=== PATIENT | female | born 1990 | race Caucasian/White ===

== ENCOUNTER 2020-07-11 13:22 | Outpatient (REF) | payer OTHER, SELFPAY ==
[2020-07-11 14:56] LABS: MANUAL DIFF FLAG NO
[2020-07-11 15:01] LABS: Basophils Absolute Auto 0.1 X10*3/uL (0.0-0.2); Basophils Percent Auto 1.7 % (0-2); Eosinophils Percent Auto 0.5 % (0-4); Hemoglobin 11.8 g/dl (12.0-16.0); Imm Gran Abs Auto 0.01 X10*3/uL (0.00-0.03); Imm Gran Pct Auto 0.2 % (0.0-0.4); Lymphocytes Absolute Auto 1.2 X10*3/uL (1.2-4.9); Lymphocytes Percent Auto 29.1 % (20-40); Mean Corpuscular HGB Conc 33.7 g/dl (31.0-35.0); Mean Corpuscular Hemoglobin 35.6 pg (27.0-33.0); Mean Corpuscular Volume 105.7 fL (80-98); Mean Platelet Volume 9.1 fL (9.4-12.3); Monocytes Absolute Auto 0.2 X10*3/uL (0.1-1.2); Monocytes Percent Auto 4.5 % (2-11); Neutrophils Absolute Auto 2.7 X10*3/uL (2.0-8.3); Platelet Count 381 X10*3/uL (160-400); Red Blood Count 3.31 X10*6/uL (4.20-5.50); Red Cell Distribution Width 14.6 % (11.0-16.0); White Blood Count 4.2 X10*3/uL (4.8-10.8)
[2020-07-11 15:25] LABS: Alanine Aminotransferase 39 U/L (0-31); Albumin Level 3.9 g/dL (3.5-5.0); Alkaline Phosphatase 95 U/L (39-117); Anion Gap 16 (12-20); Aspartate Amino Transferase 54 U/L (5-31); Bilirubin Total 0.5 mg/dL (0.0-1.0); Blood Urea Nitrogen 6 mg/dL (9-16); C Reactive Protein < 0.02 mg/dL (< or = 0.50); Calcium 8.4 mg/dL (8.4-10.2); Carbon Dioxide 22 mmol/L (22-29); Chloride 107 mmol/L (96-108); Estimated Glomerular Filt Rate > 60; Glucose Random 86 mg/dL (60-115); Potassium 4.7 mmol/l (3.3-5.1); Sodium 140 mmol/L (135-145); Total Protein 6.4 g/dL (6.5-8.0)
[2020-07-11 16:19] LABS: Erythrocyte Sedimentation Rate 5 MM/HR (0-20)
[2020-07-12 08:00] LABS: HBc Num1 0.08 S/CO (0.00-0.79); HBsAGNum1 0.14 S/CO (0.00-0.99); Hepatitis A Antibody IgM 0.15 Index (0-0.79); Hepatitis B Core Antibody Nonreactive (Nonreactive); Hepatitis B Surface Antigen Negative (Negative); ~HepC Num1 0.06 S/CO (0.00-0.79); ~Hepatitis A Antibody IgM Nonreactive (Nonreactive); ~Hepatitis B Surface Antibody NONREACTIVE (Nonreactive); ~Hepatitis C Antibody Nonreactive (Nonreactive)
[2020-07-13 18:42] LABS: TS Negative Control Passed; TS Panel A 0; TS Panel B 0; TS Positive Control Passed; TSpotTB Negative (SeeBelow)
[2020-07-15 09:36] LABS: HLA B27 Negative (Negative)
== END 2020-07-11 13:23 | disposition home or self-care (01) ==
LOC: HO.LAB 13:22
PROVIDERS: PCP Nurse Practitioner Family; Referring Provider Nurse Practitioner Family; Visit Provider Student in an Organized Health Care Education/Training Program
DX: L40.50 Arthropathic psoriasis, unspecified (principal); Z79.1 Long term (current) use of non-steroidal anti-inflammatories (NSAID)
CPT/HCPCS: 36415; 80053; 85025; 85652; 86140; 86481; 86704; 86706; 86709; 86803; 86812; 87340

== ENCOUNTER 2020-09-07 09:53 | Outpatient (REF) | payer OTHER, SELFPAY ==
--- NOTE | 2020-09-07 09:56 | US_ITS ---
EXAMINATION: US ABDOMEN COMPLETE CLINICAL INFORMATION: Elevation of the levels of liver transaminase levels. COMPARISON: None TECHNIQUE: Real-time imaging of the abdominal viscera. Technically difficult study secondary to body habitus. FINDINGS: PANCREAS: The body of the pancreas is visualized well and appears unremarkable. The head and the tail of the pancreas is not visualized. ABDOMINAL AORTA: The proximal, mid, and distal segments are normal in caliber. INFERIOR VENA CAVA: Visualized portions are normal. LIVER: The liver is normal size, contour with increased echogenicity. No focal hepatic lesion. There is no intrahepatic biliary duct dilatation seen. GALLBLADDER: There are multiple echogenic packed gallstones with mild wall thickening measuring 0.35 cm. There is a positive TORITO sign. The gallbladder is physiologically distended without evidence of sludge, wall thickening or pericholecystic fluid. COMMON BILE DUCT: Normal in caliber measuring 0.6 cm in diameter. RIGHT KIDNEY: Normal. No hydronephrosis. No renal calculi or focal parenchymal lesions. The kidney measures 11.6 cm in maximum dimension. LEFT KIDNEY: A small non twinkle echogenic foci in the lower pole question calcification versus tiny stone. No hydronephrosis. No renal calculi or focal parenchymal lesions. The kidney measures 11.2 cm in maximum dimension. SPLEEN: Normal. The spleen measures 10.3 cm in maximum dimension. FREE FLUID: None. US/US abdomen complete IMPRESSION: Impacted gallstones with wall thickening and positive S sign. Small echogenic foci in the lower pole left kidney likely calcification or tiny stone. Hepatic steatosis without focal lesion.
== END 2020-09-07 09:54 | disposition home or self-care (01) ==
LOC: HO.US 09:53
PROVIDERS: PCP Nurse Practitioner Family; Visit Provider Student in an Organized Health Care Education/Training Program
DX: R74.01 Elevation of levels of liver transaminase levels (principal)
CPT/HCPCS: 76700

== ENCOUNTER 2020-09-28 12:29 | Outpatient (REF) | payer OTHER, SELFPAY ==
[2020-09-28 14:00] LABS: MANUAL DIFF FLAG NO
[2020-09-28 14:05] LABS: Basophils Absolute Auto 0.1 X10*3/uL (0.0-0.2); Basophils Percent Auto 1.2 % (0-2); Eosinophils Absolute Auto 0.1 X10*3/uL (0.0-0.4); Eosinophils Percent Auto 2.5 % (0-4); Hematocrit 38.6 % (37-47); Hemoglobin 12.6 g/dl (12.0-16.0); Imm Gran Abs Auto 0.01 X10*3/uL (0.00-0.03); Imm Gran Pct Auto 0.2 % (0.0-0.4); Lymphocytes Absolute Auto 2.2 X10*3/uL (1.2-4.9); Lymphocytes Percent Auto 38.5 % (20-40); Mean Corpuscular HGB Conc 32.6 g/dl (31.0-35.0); Mean Corpuscular Hemoglobin 33.7 pg (27.0-33.0); Mean Corpuscular Volume 103.2 fL (80-98); Mean Platelet Volume 11.2 fL (9.4-12.3); Monocytes Absolute Auto 0.4 X10*3/uL (0.1-1.2); Monocytes Percent Auto 6.2 % (2-11); Neutrophils Absolute Auto 2.9 X10*3/uL (2.0-8.3); Neutrophils Percent Auto 51.4 % (45-73); Platelet Count 427 X10*3/uL (160-400); Red Blood Count 3.74 X10*6/uL (4.20-5.50); Red Cell Distribution Width 10.7 % (11.0-16.0); White Blood Count 5.6 X10*3/uL (4.8-10.8)
[2020-09-28 14:35] LABS: Alanine Aminotransferase 77 U/L (0-31); Albumin Level 4.5 g/dL (3.5-5.0); Alkaline Phosphatase 105 U/L (39-117); Anion Gap 15 (12-20); Aspartate Amino Transferase 54 U/L (5-31); Bilirubin Total 0.6 mg/dL (0.0-1.0); Blood Urea Nitrogen 8 mg/dL (9-16); C Reactive Protein 0.16 mg/dL (< or = 0.50); Calcium 10.1 mg/dL (8.4-10.2); Carbon Dioxide 23 mmol/L (22-29); Chloride 105 mmol/L (96-108); Estimated Glomerular Filt Rate > 60; Glucose Random 89 mg/dL (60-115); Potassium 5.2 mmol/L (3.3-5.1); Sodium 138 mmol/L (135-145); Total Protein 7.3 g/dL (6.5-8.0)
[2020-09-28 15:18] LABS: Erythrocyte Sedimentation Rate 51 MM/HR (0-20)
== END 2020-09-28 12:30 | disposition home or self-care (01) ==
LOC: HO.LAB 12:29
PROVIDERS: PCP Nurse Practitioner Family; Visit Provider Student in an Organized Health Care Education/Training Program
DX: L40.50 Arthropathic psoriasis, unspecified (principal); L40.9 Psoriasis, unspecified; Z79.1 Long term (current) use of non-steroidal anti-inflammatories (NSAID); Z79.899 Other long term (current) drug therapy
CPT/HCPCS: 36415; 80053; 85025; 85652; 86140

== ENCOUNTER 2021-01-17 12:58 | Outpatient (REF) | payer OTHER, SELFPAY ==
[2021-01-17 14:26] LABS: MANUAL DIFF FLAG NO
[2021-01-17 14:29] LABS: Basophils Percent Auto 0.6 % (0-2); Eosinophils Absolute Auto 0.1 X10*3/uL (0.0-0.4); Eosinophils Percent Auto 0.9 % (0-4); Hematocrit 35.7 % (37-47); Hemoglobin 12.1 g/dl (12.0-16.0); Imm Gran Abs Auto 0.02 X10*3/uL (0.00-0.03); Imm Gran Pct Auto 0.3 % (0.0-0.4); Lymphocytes Absolute Auto 2.3 X10*3/uL (1.2-4.9); Lymphocytes Percent Auto 36.5 % (20-40); Mean Corpuscular HGB Conc 33.9 g/dl (31.0-35.0); Mean Corpuscular Hemoglobin 34.5 pg (27.0-33.0); Mean Corpuscular Volume 101.7 fL (80-98); Mean Platelet Volume 10.1 fL (9.4-12.3); Monocytes Absolute Auto 0.3 X10*3/uL (0.1-1.2); Neutrophils Absolute Auto 3.6 X10*3/uL (2.0-8.3); Neutrophils Percent Auto 56.7 % (45-73); Platelet Count 286 X10*3/uL (160-400); Red Blood Count 3.51 X10*6/uL (4.20-5.50); White Blood Count 6.4 X10*3/uL (4.8-10.8)
[2021-01-17 14:45] LABS: Alanine Aminotransferase 12 U/L (0-31); Albumin Level 4.1 g/dL (3.5-5.0); Alkaline Phosphatase 78 U/L (39-117); Anion Gap 15 (12-20); Aspartate Amino Transferase 16 U/L (5-31); Bilirubin Total 0.6 mg/dL (0.0-1.0); Blood Urea Nitrogen 10 mg/dL (9-16); C Reactive Protein 0.15 mg/dL (< or = 0.50); Calcium 9.1 mg/dL (8.4-10.2); Carbon Dioxide 21 mmol/L (22-29); Chloride 105 mmol/L (96-108); Estimated Glomerular Filt Rate > 60; Glucose Random 93 mg/dL (60-115); Sodium 137 mmol/L (135-145); Total Protein 6.4 g/dL (6.5-8.0)
[2021-01-17 15:17] LABS: Erythrocyte Sedimentation Rate 5 MM/HR (0-20)
[2021-01-17 15:33] LABS: Folate 9.2 ng/mL (> or = 4.0); Vitamin B12 469 pg/mL (200-900)
[2021-01-22 00:57] LABS: Intrinsic Factor Antibodies Negative (Negative)
[2021-01-22 17:16] LABS: Methylmalonic Acid 74 nmol/L (87-318)
[2021-01-23 11:32] LABS: Parietal Cell Antibody <=20.0 Unit (<=20.0)
[2021-01-23 13:07] LABS: VITAMIN D (1,25 OH) D3 41 pg/mL; Vit D (1,25-Dihydroxy) Total 41 pg/mL (18-72); Vitamin D (1,25 OH) D2 <8 pg/mL
== END 2021-01-17 12:59 | disposition home or self-care (01) ==
LOC: HO.LAB 12:58
PROVIDERS: Nurse Practitioner Family; PCP Nurse Practitioner Family; Visit Provider Student in an Organized Health Care Education/Training Program
DX: L40.50 Arthropathic psoriasis, unspecified (principal); M48.02 Spinal stenosis, cervical region; Z79.899 Other long term (current) drug therapy; Z79.891 Long term (current) use of opiate analgesic; Z79.1 Long term (current) use of non-steroidal anti-inflammatories (NSAID)
CPT/HCPCS: 36415; 80053; 82607; 82652; 82746; 83516; 83735; 83921; 85025; 85652; 86140; 86340

== ENCOUNTER 2021-04-13 11:45 | Outpatient (REF) | payer OTHER, SELFPAY ==
[2021-04-13 13:09] LABS: MANUAL DIFF FLAG NO
[2021-04-13 13:14] LABS: Basophils Percent Auto 0.7 % (0-2); Eosinophils Absolute Auto 0.1 X10*3/uL (0.0-0.4); Hematocrit 33.3 % (37-47); Hemoglobin 11.3 g/dl (12.0-16.0); Lymphocytes Absolute Auto 2.3 X10*3/uL (1.2-4.9); Lymphocytes Percent Auto 39.4 % (20-40); Mean Corpuscular HGB Conc 33.9 g/dl (31.0-35.0); Mean Corpuscular Hemoglobin 33.8 pg (27.0-33.0); Mean Corpuscular Volume 99.7 fL (80-98); Mean Platelet Volume 9.8 fL (9.4-12.3); Monocytes Absolute Auto 0.3 X10*3/uL (0.1-1.2); Monocytes Percent Auto 5.2 % (2-11); Neutrophils Absolute Auto 3.1 X10*3/uL (2.0-8.3); Neutrophils Percent Auto 53.7 % (45-73); Platelet Count 331 X10*3/uL (160-400); Red Blood Count 3.34 X10*6/uL (4.20-5.50); Red Cell Distribution Width 12.6 % (11.0-16.0); White Blood Count 5.7 X10*3/uL (4.8-10.8)
[2021-04-13 13:51] LABS: Alanine Aminotransferase 28 U/L (0-31); Albumin Level 3.9 g/dL (3.5-5.0); Alkaline Phosphatase 117 U/L (39-117); Anion Gap 15 (12-20); Aspartate Amino Transferase 29 U/L (5-31); Bilirubin Total 0.5 mg/dL (0.0-1.0); Blood Urea Nitrogen 7 mg/dL (9-16); C Reactive Protein < 0.02 mg/dL (< or = 0.50); Calcium 8.7 mg/dL (8.4-10.2); Carbon Dioxide 21 mmol/L (22-29); Chloride 107 mmol/L (96-108); Estimated Glomerular Filt Rate > 60; Glucose Random 86 mg/dL (60-115); Potassium 4.4 mmol/L (3.3-5.1); Sodium 139 mmol/L (135-145); Total Protein 6.4 g/dL (6.5-8.0)
[2021-04-13 14:22] LABS: Erythrocyte Sedimentation Rate 5 MM/HR (0-20)
== END 2021-04-13 11:46 | disposition home or self-care (01) ==
LOC: HO.LAB 11:45
PROVIDERS: Visit Provider Student in an Organized Health Care Education/Training Program
DX: L40.50 Arthropathic psoriasis, unspecified (principal); L40.9 Psoriasis, unspecified; Z79.1 Long term (current) use of non-steroidal anti-inflammatories (NSAID)
CPT/HCPCS: 36415; 80053; 85025; 85652; 86140

== ENCOUNTER 2024-05-27 15:23 | Outpatient (REF) | payer OTHER, MEDICAID, SELFPAY ==
[2024-05-27 15:58] LABS: MANUAL DIFF FLAG NO
[2024-05-27 16:19] LABS: Basophils Percent Auto 0.2 % (0-2); Eosinophils Percent Auto 0.1 % (0-4); Hematocrit 36.2 % (37.0-47.0); Hemoglobin 12.7 g/dl (12.0-16.0); Imm Gran Abs Auto 0.11 X10*3/uL (0.00-0.03); Imm Gran Pct Auto 0.7 % (0.0-0.4); Lymphocytes Absolute Auto 1.9 X10*3/uL (1.2-4.9); Lymphocytes Percent Auto 11.7 % (20-40); Mean Corpuscular HGB Conc 35.1 g/dl (31.0-35.0); Mean Corpuscular Volume 99.7 fL (80.0-98.0); Mean Platelet Volume 9.9 fL (9.4-12.3); Monocytes Absolute Auto 0.6 X10*3/uL (0.1-1.2); Monocytes Percent Auto 3.8 % (2-11); Neutrophils Absolute Auto 13.2 x10*3/uL (2.0-8.3); Neutrophils Percent Auto 83.5 % (45-73); Platelet Count 434 X10*3/uL (160-400); Red Blood Count 3.63 X10*6/uL (4.20-5.50); Red Cell Distribution Width 13.4 % (11.0-16.0); White Blood Count 15.8 X10*3/uL (4.8-10.8)
[2024-05-27 16:47] LABS: Alanine Aminotransferase 42 U/L (0-31); Albumin Level 3.9 g/dL (3.5-5.0); Alkaline Phosphatase 63 U/L (39-117); Anion Gap 14 (12-20); Aspartate Amino Transferase 19 U/L (5-31); Bilirubin Total 0.6 mg/dL (0.0-1.0); Blood Urea Nitrogen 17 mg/dL (9-16); Calcium 9.5 mg/dL (8.4-10.2); Carbon Dioxide 23 mmol/L (22-29); Chloride 104 mmol/L (96-108); Estimated Glomerular Filt Rate > 60; Glucose Random 96 mg/dL (60-115); Potassium 3.9 mmol/L (3.3-5.1); Sodium 137 mmol/L (135-145); Total Protein 8.4 g/dL (6.5-8.0)
== END 2024-05-27 15:24 | disposition home or self-care (01) ==
LOC: HO.LAB 15:23
PROVIDERS: PCP Nurse Practitioner Family; Visit Provider Psychiatry & Neurology Neurology
DX: I77.6 Arteritis, unspecified (principal)
CPT/HCPCS: 36415; 80053; 85025

== ENCOUNTER 2024-11-26 10:51 | Outpatient (AMB) | payer OTHER, MEDICAID, SELFPAY ==
--- NOTE | 2024-11-26 10:53 | HO.SPINEOV ---
Vital Signs 11/26/24 11:22 Height 5 ft 5 in Weight 186 lb BMI 30.9 Intake Visit Reasons: back pain/numbness of left leg Intake Note: Ms. Chow is here today c/o low back pain and Left leg numbness. Genetic Technologist Required: No Allergies ceftazidime Allergy (Intermediate, Verified 11/26/24 11:23) rash penicillin V Allergy (Intermediate, Verified 11/26/24 11:23) Rash duloxetine [From Cymbalta] Allergy (Verified 11/26/24 11:23) stomache gabapentin Adverse Reaction (Severe, Verified 11/26/24 11:23) suicidal thoughts pregabalin [From Lyrica] Adverse Reaction (Severe, Verified 11/26/24 11:23) suicidal thoughts Physical Exam Vital Signs: BMI result Body Mass Index 30.9 Assessment & Plan Assessment & Plan (1) Cervical myelopathy: Code(s): G95.9 - Disease of spinal cord, unspecified Category: Medical (2) Footdrop: Code(s): M21.379 - Foot drop, unspecified foot Category: Medical Plan Mrs Chow is here in follow-up today. This is a patient that Dr. Matoss it a C5-6 ACDF back in 2020 for myelopathy. She did great after that surgery. She has had a host of different issues going on though since that time. She has history of autoimmune disease including psoriatic arthritis, has been dealing with that for some time and ultimately last fall it sounds like developed some kind of dystonia related to anti nausea medications. At that time, she was admitted to the hospital and was having severe pain in addition to the dystonia. After they eventually found the antidote, some of the pain went away but never completely. Since that time she has been more less in a wheelchair unable to stand and walk. She has a superimposed diagnosis of vascular neuropathy and is followed by Dr. Luis Maldonado in [place]. He has been treating her for that in addition to chronic pain in her back which is more recently been escalating. She was on gabapentin, Solu-Medrol and baclofen but she is currently weaning off these things. She reports that over the last month or more she has developed a left footdrop and severe bilateral lower extremity pain in addition to severe central back pain. She also feels like she is having a flare-up of her neck pain with pain going down her arms with numbness. On my exam today, she is in a wheelchair, her lower extremities are demonstrating signs of atrophy and muscle wasting. Her upper extremities in her hands appear to have normal tone and bulk. Motor exam reveals that she is unable to get out of the wheelchair on alone unassisted, she was able to stand with my assistance but she was very unsteady. She was able to localize her back pain over what looks like the middle of her lumbar spine. In terms of motor exam, her hands are slightly weak, , but her lower extremities are quite limited with 2/5 function of her hip flexors, 4-5 function of her quadriceps, 0/5 function of her left tibialis and left EHL. Right tibialis is 5/5. She also has some slight weakness of her left plantar flexion as well I would rate this as 4-5. She is hyperreflexic in the upper extremities with Wiggins's sign, and absent reflexes in the lower extremities. She had a cervical, thoracic and lumbar MRI done in July at [facility]. There is postsurgical changes at C5-6, looks like some progression of degenerative disc disease at C3-4 and C6-7 causing moderate stenosis. Thoracic spine is unremarkable. There is also some baseline degenerative disc disease in her lumbar spine but I do not see any significant central canal stenosis. Given that the patient has developed fairly rapid weakness of her lower extremity over the last month, specifically complete left footdrop, would like to repeat the lumbar MRI and with the return of her numbness of her arms similar to what she had before her anterior cervical fusion, I would like to repeat a cervical MRI. I will see her back after the MRIs on a day that Dr. Bob is here. I will call her in a prescription of Valium to her local pharmacy to help with the MRI anxiety. Total amount of time spent in this visit was 20 minutes in discussion of symptoms, cervical, thoracic and lumbar imaging results and subsequent plan of care Solomon Bob MD,PhD [facility] Orders: Orders MR cervical spine wo con Today G95.9 - Disease of spinal cord, unspecified MR lumbar spine wo con Today M21.379 - Foot drop, unspecified foot Medications: New diazepam (Valium) take 30 prior to mri 10 mg PO ONCE PRN 1 tab 0RF sleep Coding Level of Care Code Est Pt Level 3 (39026) Diagnoses Cervical myelopathy G95.9 Footdrop M21.379
[2024-11-26 11:22] VITALS: BMI 30.9
--- OUTSIDE RECORDS SUMMARY | 2024-11-26 12:34 | XMS_ITS | Encounter Summary ---
Author Organization [employer] [facility] Address [address] [place] [address] 7 [place] [address] Care Team Providers Care Knuckle Bender Name Role Phone Jacquelyn Garcia Primary Care Provider Unavailable Nuria Levin Unavailable Unavailable Inactive/Transferred Primary Care Provider Unava ilShaneka Urena DO Primary Care Provider [phone] Reason for Visit * Reason Comments Med Refill Encounter Details Date Type Department Care Team (Late st Contact Info) Description 02/16/2023 Refill [facility] MEDICAL [address] [place] [address] Tabby White FNP Gastroesophageal reflux disease, unspecified whether esophagitis present Social History Tobacco Use Types Packs/Day Years Used Date Smoking Tobacco: Never Assessed Comments Unknown Sex and Gender Information Value Date Recorded Sex Assigned at Female 08/23/2022 1:54 PM EST Legal Sex Female 8:32 PM EDT Gender Identity Female 08/23/2022 1:54 PM EST Sexual Orientation Straight 09/16/2022 9: 15 AM EST documented as of this encounter Plan of Treatment Not on file documented as of this encounter Visit Diagnoses Diagnosis Gastroesophageal reflux disease, unspecified whether esophagitis present documented in this encounter Care Teams Knuckle Bender Relationship Specialty Start Date End Date Jacquelyn Garcia FNP PCP - General Family Medicine 08/06/22 06/01/24 Inactive/Transferred PCP - General 06/02/24 06/02/24 Shaneka Bailey DO [address] [place] [address] PCP - General Family Medicine 11/04/24 Nuria Levin Community Health Worker 12/09/22 documented as of this encounter
--- OUTSIDE RECORDS SUMMARY | 2024-11-26 12:34 | XMS_ITS | Encounter Summary ---
Author Organization [facility] Address [address] [place] [address] Care Team Providers Care Development Team Lead Name Role Phone Jonh Hobson MD Unavailable [phone] Jacquelyn Garcia NP Primary Care Provider Ayde Zheng RN Unavailable [phone] Encounter Details Date Type Department Care Team (Late st Contact Info) Description 09/01/2024 Scanned Document [facility] at [facility] [address] [phone] Provider, Brian, [address] [place] [address] Social History Tobacco Use Types Packs/Day Years Used Date Smoking Tobacco: Never Smokeless Tobacco: Never Alcohol Use Standard Drinks/Week Comments Not Currently 0 (1 standard drink = 0.6 oz pur e alcohol) Social [facility] Utilities Answer Date Recorded In the past 12 months has th e electric, gas, oil, or water company threatened to shut off services in your home? No 04/26/2024 AUDIT-C Answer Date Recorded Q1: How often do you have a drink containing alcohol? Never 04/25/2024 Q2: How many drinks containi ng alcohol do you have on a typical day when you are drinking? Patient does not drink Q3: How often do you have si x or more drinks on one occasion? Never 04/25/2024 Hunger Vital Sign Answer Date Recorded Within the past 12 months, y ou worried that your food would run out before you got the money to buy more. Never true 04/26/20 24 Within the past 12 months, t he food you bought just didn't last and you didn't have money to get more. Never true 04/26/2024 PRAPARE - Transportation Answer Date Re corded In the past 12 months, has l ack of transportation kept you from medical appointments or from getting medications? No 09/2023 In the past 12 months, has l ack of transportation kept you from meetings, work, or from getting things needed for daily living? No 04/26/2024 Housing Stability Vital Sign Answer Jose Alejandro e Recorded In the last 12 months, was t here a time when you were not able to pay the mortgage or rent on time? No 04/26/2024 In the last 12 months, how many places have you lived? 1 04/26/2024 In the last 12 months, was t here a time when you did not have a steady place to sleep or slept in a half-way (including now)? No 04/26/2024 Sex and Gender Information Value Date Recorded Sex Assigned at Female 10/02/2022 12:43 PM EST Gender Identity Female 10/02/2022 12:43 PM EST Sexual Orientation Heterosexual (straight) 10/02 12:43 PM EST documented as of this encounter Plan of Treatment Upcoming Encounters Date Type Department Care Team (Late st Contact Info) Description 11/30/2024 10:00 AM EDT Infusion [facility] [address] [place] [phone] Deanne Daniel MD [address] [place] [phone] 12/01/2024 10:00 AM EDT Infusion [facility] Infusion [address] [phone] Deanne Daniel MD [address] [place] [address] 12/13/2024 10:30 AM EDT [facility] [address] [phone] Grey Trinidad MD [facility] [address] [place] [address] 12/14/2024 10:00 AM EDT Infusion [facility] [address] [phone] Deanne Daniel MD [address] [place] [address] 12/15/2024 10:00 AM EDT Infusion [facility] [address] [phone] Deanne Daniel MD [address] [place] [address] 12/28/2024 10:00 AM EDT Infusion [facility] [address] [phone] Deanne Daniel MD [address] [place] [address] 12/29/2024 10:00 AM EDT Infusion [facility] [address] [phone] Deanne Daniel MD [address] [place] [address] 01/04/2025 11:45 AM EDT Office Visit [facility] Medical Oncology at [address] [phone] Deanne Daniel MD [address] [place], [place] [phone] 01/20/2025 1:00 PM EDT Office Visit [facility] Rheumatology [address] [place] [phone] Jonh Hobson MD 31 [facility] [address] [place], [place] [phone] 01/27/2025 11:30 AM EDT Consult [facility] 85 [facility] [address] [place] [phone] Jayne Morales, DO [address] [place] [address] 02/01/2025 11:40 AM EDT Office Visit [facility] 85 [facility] [address] [place] [phone] Luis Damon MD [address] [place] [address] 04/26/2025 10:00 AM EDT Infusion [facility] [address] [place] [phone] Deanne Daniel MD [address] [place], [place] [phone] documented as of this encounter Visit Diagnoses Not on filedocumented in this encounter Care Teams Development Team Lead Relationship Specialty Start Date End Date Jacquelyn Garcia NP [address] [place] [address] PCP - General Family Medicine 05/18/24 Jonh Hobson MD 31 [facility] [address] [place], [place] [phone] Rheumatology 01/01/24 Ayde Zheng RN 85 [facility] [address] [place], [place] [phone] Registered Nurse Hepatology 08/11/24 documented as of this encounter
--- OUTSIDE RECORDS SUMMARY | 2024-11-26 12:34 | XMS_ITS | Encounter Summary ---
Author Organization [employer] [facility] Address [address] [place] [address] 7 [place] [address] Care Team Providers Care Senior Mainframe Developer Name Role Phone Jacquelyn Garcia Primary Care Provider Unavailable Nuria Levin Unavailable Inactive/Transferred Primary Care Provider Shaneka Ford DO Primary Care Provider [phone] Reason for Visit * Reason Comments Med Refill Encounter Details Date Type Department Care Team (Late st Contact Info) Description 02/04/2023 Refill [facility] MEDICAL [address] [place] [address] Jacquelyn Garcia FNP Mononeuritis multiplex Social History Tobacco Use Types Packs/Day Years Used Date Smoking Tobacco: Never Assessed Comments Unknown Sex and Gender Information Value Date Recorded Sex Assigned at Female 08/23/2022 1:54 PM EST Legal Sex Female 8:32 PM EDT Gender Identity Female 08/23/2022 1:54 PM EST Sexual Orientation Straight 09/16/2022 9: 15 AM EST documented as of this encounter Miscellaneous Notes * Telephone Encounter - ALFRED Chacon - 02/05/2023 9:29 AM EDT Medication was discontinued. documented in this encounter Plan of Treatment Not on file documented as of this encounter Visit Diagnoses Diagnosis Mononeuritis multiplex documented in this encounter Care Teams Senior Mainframe Developer Relationship Specialty Start Date End Date Jacquelyn Garcia FNP PCP - General Family Medicine 08/06/22 06/01/24 Inactive/Transferred PCP - General 06/02/24 06/02/24 Shaneka Bailey DO [address] [place] [id number] PCP - General Family Medicine 11/04/24 Nuria Levin Community Health Worker 12/09/22 documented as of this encounter
--- OUTSIDE RECORDS SUMMARY | 2024-11-26 12:34 | XMS_ITS | Clinical Summary ---
[facility] Address [address] [place] [address] Care Team Providers Care Dynamic Etching Processor Name Role Phone Jacquelyn Garcia ALFRED Primary Care Provider Social History Tobacco Use Types Packs/Day Years Used Date Smoking Tobacco: Never Assessed Comments Unknown Sex and Gender Information Value Date Recorded Sex Assigned at Not on file Legal Sex Female 9:51 AM EST Gender Identity Not on file Sexual Orientation Not on file Plan of Treatment Health Maintenance Due Date Last Done Comments Hepatitis B Vaccines (1 of 3 - 19+ 3-dose series) 2009 Cholesterol Screening (Lipid Panel) 07/28/2022 Depression Screening 07/28/2022 HIV Screening 07/28/2022 Social Influencers of Health Screening 07/28/2022 COVID-19 Vaccine (2 - 2023-2 5 season) 2024 02/01/2021 Influenza Vaccine (Season Ended) 2025 Cervical Cancer Screening: P ap Smear 06/14/2025 06/14/2022 DTaP,Tdap,and Td Vaccines (2 - Td or Tdap) 11/02/2025 11/03/2015 Hepatitis C Screening Completed 02/03/2024 HIB Vaccines Aged Out No longer eligi ble based on patient's age to complete this topic HPV Vaccines Aged Out No longer eligi ble based on patient's age to complete this topic Hepatitis A Vaccines Aged Out No long er eligible based on patient's age to complete this topic IPV Vaccines Aged Out No longer eligi ble based on patient's age to complete this topic MMR Vaccines Aged Out No longer eligi ble based on patient's age to complete this topic Meningococcal ACWY Vaccine Aged Out N o longer eligible based on patient's age to complete this topic Meningococcal B Vacine Aged Out No lo nger eligible based on patient's age to complete this topic Pneumococcal Vaccine: Pediat rics (0 to 5 Years) and At-Risk Patients (6 to 64 Years) Aged Out No longer eligi ble based on patient's age to complete this topic RSV Immunization Patients Un rhett 20 months Aged Out No longer eligible b ased on patient's age to complete this topic Varicella Vaccines Aged Out No longer eligible based on patient's age to complete this topic Care Teams Dynamic Etching Processor Relationship Specialty Start Date End Date Jacquelyn Garcia FNP PCP - General Family Medicine 10/26/18
--- OUTSIDE RECORDS SUMMARY | 2024-11-26 12:34 | XMS_ITS | Encounter Summary ---
Author Organization [facility] Address [address] [place] [address] Care Team Providers Care Tire Wrapper Name Role Phone Jonh Hobson MD Unavailable [phone] Jacquelyn Garcia NP Primary Care Provider Ayde Zheng RN Unavailable [phone] Encounter Details Date Type Department Care Team (Late st Contact Info) Description 07/08/2024 Scanned Document [address] [place] [phone] Radiology, Scan Social History Tobacco Use Types Packs/Day Years Used Date Smoking Tobacco: Never Smokeless Tobacco: Never Alcohol Use Standard Drinks/Week Comments Not Currently 0 (1 standard drink = 0.6 oz pur e alcohol) Social [facility] Utilities Answer Date Recorded In the past 12 months has [employer] electric, gas, oil, or water company threatened [...] place to sleep or slept in a jail (including now)? No 04/26/2024 Sex and Gender Information Value Date Recorded Sex Assigned at Female 10/02/2022 12:43 PM EST Gender Identity Female 10/02/2022 12:43 PM EST Sexual Orientation Heterosexual (straight) 10/02 12:43 PM EST documented as of this encounter Plan of Treatment Upcoming Encounters Date Type Department Care Team (Late st Contact Info) Description 11/30/2024 10:00 AM EDT Infusion [facility] Infusion [address] [phone] Deanne Daniel MD [address] [place] [address] 12/01/2024 10:00 AM EDT Infusion [facility] Infusion [address] [phone] Deanne Daniel MD [address] [place] [address] 12/13/2024 10:30 AM EDT [facility] [address] [phone] Grey Trinidad MD [facility] N [facility] [address] [place] [address] 12/14/2024 10:00 AM EDT Infusion [facility] Infusion [address] [phone] Deanne Daniel MD [address] [place] [address] 12/15/2024 10:00 AM EDT Infusion [address] [phone] Deanne Daniel MD [address] [place] [address] 12/28/2024 10:00 AM EDT Infusion [facility] [place] [address] [phone] Deanne Daniel MD [address] [place] [address] 12/29/2024 10:00 AM EDT Infusion [facility] [place] [address] [phone] Deanne Daniel MD [address] [place] [address] 01/04/2025 11:45 AM EDT Office Visit [facility] Oncology at [address] [phone] Deanne Daniel MD [address] [place] [address] 01/20/2025 1:00 PM EDT Office Visit [facility] Rheumatology [place] [address] [facility] [address] [place] [address] Jonh Hobson MD 31 [facility] [address] [place], [place] [phone] 01/27/2025 11:30 AM EDT Consult [facility] 85 [facility] [address] [place] [phone] Jayne Morales, DO [address] [place] [address] 02/01/2025 11:40 AM EDT Office Visit [facility] [place] [facility] 85 [facility] [address] [place] [phone] Luis Damon MD [address] [place] [address] 04/26/2025 10:00 AM EDT Infusion [facility] [place] [facility] [address] [place] [phone] Deanne Daniel MD [address] [place] [address] documented as of this encounter Procedures Procedure Name Priority Date/Time Associated Diagnosis Comments HX OUTSIDE ORDER 07/08/2024 documented in this encounter Results * OUTSIDE ORDER (07/08/2024) Scan Radiology HX AMB PROCEDURES documented in this encounter Visit Diagnoses Not on filedocumented in this encounter Care Teams Tire Wrapper Relationship Specialty Start Date End Date Jacquelyn Garcia NP [address] [place] [address] PCP - General Family Medicine 05/18/24 Jonh Hobson MD 31 [facility] [address] [place] [address] Rheumatology 01/01/24 Ayde Zheng RN 85 [facility] [address] [place], [place] [phone] Registered Nurse Hepatology 08/11/24 documented as of this encounter
--- OUTSIDE RECORDS SUMMARY | 2024-11-26 12:34 | XMS_ITS | Encounter Summary ---
Author Organization Formerly [facility] Address [address] [place] [address] Care Team Providers Care Upward Bound Director Name Role Phone Bijan Magana MD Unavailable Unavailable Jonh Hobson MD Unavailable [phone] Pcp, No Primary Care Provider UnavailJacquelyn Baxter NP Primary Care Provider Ayde Zheng RN Unavailable [phone] Encounter Details Date Type Department Care Team (Late st Contact Info) Description 09/02/2023 Scanned Document [facility] [place] [facility] at [address] [phone] Deanne Daniel MD [address] [place], [place] [id number] Social History Tobacco Use Types Packs/Day Years Used Date Smoking Tobacco: Never Smokeless Tobacco: Never Alcohol Use Standard Drinks/Week Comments Yes 0 (1 standard drink = 0.6 oz pur e alcohol) Social AUDIT-C Answer Date Recorded Q1: How often do you have a drink containing alc ohol? Monthly or less 06/26/2022 Q2: How many drinks containi ng alcohol do you have on a typical day when you are drinking? 1 or 2 06/26/2022 Q3: How often do you have si x or more drinks on one occasion? Less than monthly 06/26/2022 Sex and Gender Information Value Date Recorded Sex Assigned at Female 10/02/2022 12:43 PM EST Gender Identity Female 10/02/2022 12:43 PM EST Sexual Orientation Heterosexual (straight) 10/02 12:43 PM EST documented as of this encounter Plan of Treatment Upcoming Encounters Date Type Department Care Team (Late st Contact Info) Description 11/30/2024 10:00 AM EDT Infusion [facility] [place] [facility] Infusion [address] [phone] Deanne Daniel MD [address] [place] [address] 12/01/2024 10:00 AM EDT Infusion [facility] Cancer [address] [phone] Deanne Daniel MD [address] [place] [address] 12/13/2024 10:30 AM EDT [facility] [address] [phone] Grey Trinidad MD [address] [place] [address] [place] [address] 12/14/2024 10:00 AM EDT Infusion [facility] [place] Infusion [address] [phone] Deanne Daniel MD [address] [place] [address] 12/15/2024 10:00 AM EDT Infusion [facility] Cancer [facility] Infusion [address] [phone] Deanne Daniel MD [address] [place] [address] 12/28/2024 10:00 AM EDT Infusion [facility] Cancer [place] at [facility] Outpatient Infusion [address] [phone] Deanne Daniel MD [address] [place] [address] 12/29/2024 10:00 AM EDT Infusion [facility] [place] [facility] Infusion [address] [phone] Deanne Daniel MD [address] [place] [address] 01/04/2025 11:45 AM EDT Office Visit [facility] Medical Oncology at [address] [phone] Deanne Daniel MD [address] [place] [address] 01/20/2025 1:00 PM EDT [facility] Rheumatology [address] [phone] Jonh Hobson MD [address] [address] 01/27/2025 11:30 AM EDT Consult [facility] [address] [place] [address] 320 [place] [phone] Jayne Morales, DO 300 [place] [address] 02/01/2025 11:40 AM EDT Office Visit [facility] 85 [facility] 815 [place] [phone] Luis Damon MD [address] [place] [address] 04/26/2025 10:00 AM EDT Infusion [facility] [place] [facility] Outpatient [facility]fusion Center 85 [place] [address] Deanne Daniel MD 85 [place] [address] documented as of this encounter Visit Diagnoses Not on filedocumented in this encounter Care Teams Upward Bound Director Relationship Specialty Start Date End Date Pcp, No PCP - General General Medicine 04/22/24 05/17/24 Jacquelyn Garcia NP 73 [facility] [place] [address] PCP - General Family Medicine 05/18/24 Bijan Magana MD Rheumatology 11/09/23 12/31/23 Jonh Hobson MD 31 [facility] 206 [place] [address] Rheumatology 01/01/24 Ayde Zheng, RN 85 [facility] [address] [place] [address] Registered Nurse Hepatology 08/11/24 documented as of this encounter
--- OUTSIDE RECORDS SUMMARY | 2024-11-26 12:34 | XMS_ITS | Encounter Summary ---
Author Organization [facility] Address [address] [place] [address] Care Team Providers Care Mechanical Cad Drafter Name Role Phone Jonh Hobson MD Unavailable [phone] Pcp, No Primary Care Provider Unavailabl e Jacquelyn Garcia NP Primary Care Provider Ayde Zheng RN Unavailable [phone] Encounter Details Date Type Department Care Team (Late st Contact Info) Description 04/29/2024 Telephone [facility] [place] at [facility] Outpatient Infusion Center 85 [place] [phone] Leidy Zabala, RN [address] [place] [address] Social History Tobacco Use Types Packs/Day Years Used Date Smoking Tobacco: Never Smokeless Tobacco: Never Alcohol Use Standard Drinks/Week Comments Not Currently 0 (1 standard drink = 0.6 oz pur e alcohol) Social [facility] Utilities Answer Date Recorded In the [...] place to sleep or slept in a penitentiary (including now)? No 04/26/2024 Sex and Gender Information Value Date Recorded Sex Assigned at Female 10/02/2022 12:43 PM EST Gender Identity Female 10/02/2022 12:43 PM EST Sexual Orientation Heterosexual (straight) 10/02 12:43 PM EST documented as of this encounter Plan of Treatment Upcoming Encounters Date Type Department Care Team (Late st Contact Info) Description 11/30/2024 10:00 AM EDT Infusion [facility] [place] [facility] Outpatient Infusion [address] [phone] Deanne Daniel MD [address] [place] [address] 12/01/2024 10:00 AM EDT Infusion [facility] [place] [facility] Outpatient Infusion [address] [phone] Deanne Daniel MD 85 [place] [address] 12/13/2024 10:30 AM EDT [facility] [address] [phone] Grey Trinidad MD [address] [place] [address] 12/14/2024 10:00 AM EDT Infusion [facility] [place] [facility] Infusion [address] [phone] Deanne Daniel MD [address] [place] [address] 12/15/2024 10:00 AM EDT Infusion [facility] [place] [facility] Infusion [address] [phone] Deanne Daniel MD [address] [place] [address] 12/28/2024 10:00 AM EDT Infusion [facility] [place] [address] [phone] Deanne Daniel MD [address] [place] [address] 12/29/2024 10:00 AM EDT Infusion [facility] [place] [facility] Infusion [address] [phone] Deanne Daniel MD [address] [place] [address] 01/04/2025 11:45 AM EDT Office Visit [facility] Medical Oncology at [address] [phone] Deanne Daniel MD 85 [place], [place] [phone] 01/20/2025 1:00 PM EDT Office Visit [facility] Rheumatology [address] [place] [address] Jonh Hobson MD 31 [facility] 206 [place], [place] [phone] 01/27/2025 11:30 AM EDT Consult [facility] [address] [place] [address] [address] [place] [address]22 Jayne Morales, DO 300 [place] [address] 02/01/2025 11:40 AM EDT Office Visit [facility]rom[facility] [place] [facility] 85 [facility] 815 [place] [address]-5527 Luis Damon MD 1914 [place], [place] [address] 04/26/2025 10:00 AM EDT Infusion [facility] [place] [facility] Outpatient [facility]fusion Center [address] [place] [phone] Deanne Daniel MD [address] [place], [place] [phone] documented as of this encounter Visit Diagnoses Not on filedocumented in this encounter Care Teams Mechanical Cad Drafter Relationship Specialty Start Date End Date Pcp, No PCP - General General Medicine 04/22/24 05/17/24 Jacquelyn Garcia NP [address] [place] [address] PCP - General Family Medicine 05/18/24 Jonh Hobson MD 31 [facility] 206 [place], [place] [phone] Rheumatology 01/01/24 Ayde Zheng RN 85 [facility] [address] [place] [address] Registered Nurse Hepatology 08/11/24 documented as of this encounter
--- OUTSIDE RECORDS SUMMARY | 2024-11-26 12:34 | XMS_ITS | Encounter Summary ---
Author Organization [facility] Address [address] [place] [address] Care Team Providers Care Hardware Supplies Sales Representative Name Role Phone Bijan Magana MD Unavailable Unavailable Jonh Hobson MD Unavailable [phone] Pcp, No Primary Care Provider UnavailJacquelyn Baxter NP Primary Care Provider Ayde Zheng RN Unavailable [phone] Encounter Details Date Type Department Care Team (Late st Contact Info) Description 05/21/2022 Scanned Document [address] [facility] [address] [place] [phone] Provider, Generic Social History Tobacco Use Types Packs/Day Years Used Date Smoking Tobacco: Never Smokeless Tobacco: Never Alcohol Use Standard Drinks/Week Comments Yes 0 (1 standard drink = 0.6 oz pur e alcohol) Social Sex and Gender Information Value Date Recorded Sex Assigned at Female 10/02/2022 12:43 PM EST Gender Identity Female 10/02/2022 12:43 PM EST Sexual Orientation Heterosexual (straight) 10/02 12:43 PM EST COVID-19 Exposure Response Date Recorded In the last 10 days, have yo u been in contact with someone who was confirmed or suspected to have Coronavirus/COVID-19? No / Unsure 05/24/2022 11:03 AM EDT documented as of this encounter Plan of Treatment Upcoming Encounters Date Type Department Care Team (Late st Contact Info) Description 11/30/2024 10:00 AM EDT Infusion [facility] Cancer [facility] Infusion [address] [phone] Deanne Daniel MD 85 [place] [address] 12/01/2024 10:00 AM EDT Infusion [facility] [place] [address] [phone] Deanne Daniel MD [address] [place] [address] 12/13/2024 10:30 AM EDT [facility] [address] [address] Grey Trinidad MD [address] [place] [address] [address] [place] [address] 12/14/2024 10:00 AM EDT Infusion [facility] [address] [phone] Deanne Daniel MD [address] [place] [address] 12/15/2024 10:00 AM EDT Infusion [facility] [address] [phone] Deanne Daniel MD [address] [place] [address] 12/28/2024 10:00 AM EDT Infusion [facility] [address] [phone] Deanne Daniel MD 85 [place], [place] [phone] 12/29/2024 10:00 AM EDT Infusion [facility] Cancer [place] at [facility] Outpatient Infusion Center [address] [place] [phone] Deanne Daniel MD [address] [place] [phone] 01/04/2025 11:45 AM EDT Office Visit [facility] Medical Oncology at [address] [phone] Deanne Daniel MD [address] [place] [address] 01/20/2025 1:00 PM EDT Office Visit [facility] Rheumatology [address] [place] [phone] Jonh Hobson MD [address] [phone] 01/27/2025 11:30 AM EDT Consult [facility] Trans[facility] [address] [place] [address] 320 [place] [phone] Jayne Morales, DO 300 [place] [address] 02/01/2025 11:40 AM EDT Office Visit [facility]romuscular [facility] 85 [facility] 815 [place] [address] Luis Damon MD [facility] [place] [address] 04/26/2025 10:00 AM EDT Infusion [facility] Cancer [place] at [facility] Outpatient Infusion Center 85 [place] [address] Deanne Daniel MD [address] [place] [address] documented as of this encounter Procedures Procedure Name Priority Date/Time Associated Diagnosis Comments HX OUTSIDE ORDER 05/21/2022 documented in this encounter Results * HX OUTSIDE ORDER (05/21/2022) Narrative 05/21/2022 Ordered by an unspecified provider. Generic Provider HX AMB PROCEDURES documented in this encounter Visit Diagnoses Not on filedocumented in this encounter Care Teams Hardware Supplies Sales Representative Relationship Specialty Start Date End Date Pcp, No PCP - General General Medicine 04/22/24 05/17/24 Jacquelyn Garcia NP [address] [place] [address] PCP - General Family Medicine 05/18/24 Bijan Magana MD Rheumatology 11/09/23 12/31/23 Jonh Hobson MD 31 [facility] 206 [place] [address] Rheumatology 01/01/24 Ayde Zheng, RN 85 [facility] 320 [place] [address] Registered Nurse Hepatology 08/11/24 documented as of this encounter
--- OUTSIDE RECORDS SUMMARY | 2024-11-26 12:34 | XMS_ITS | Encounter Summary ---
Author Organization [facility] Address [address] [place] [address] Care Team Providers Care Mercury Washer Name Role Phone Jonh Hobson MD Unavailable [phone] Jacquelyn Garcia NP Primary Care Provider Ayde Zheng RN Unavailable [phone] Encounter Details Date Type Department Care Team (Late st Contact Info) Description 08/11/2024 Telephone [facility] Transplant Program [facility] [address] [phone] Janet Bonilla MA [address] [address] Social History Tobacco Use Types Packs/Day Years Used Date Smoking Tobacco: Never Smokeless Tobacco: Never Alcohol Use Standard Drinks/Week Comments Not Currently 0 (1 standard drink = 0.6 oz pur e alcohol) Social [facility] Utilities Answer Date Recorded In the past 12 months has e electric, gas, oil, or water company [...] place to sleep or slept in a fpc (including now)? No 04/26/2024 Sex and Gender Information Value Date Recorded Sex Assigned at Female 10/02/2022 12:43 PM EST Gender Identity Female 10/02/2022 12:43 PM EST Sexual Orientation Heterosexual (straight) 10/02 12:43 PM EST documented as of this encounter Miscellaneous Notes * Telephone Encounter - Janet Bonilla MA - 08/13/2024 1:24 PM EST Patient has been scheduled for 10/[address] almaguer * Telephone Encounter - Janet Bonilla MA - 08/13/2024 12:03 PM EST Called patient. Left message to call us back. Calling to schedule SREEDHAR/. 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 * Telephone Encounter - Kira Jarquin APRN - 08/13/2024 8:25 AM EST Records reviewed. 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 Needs to see a vice president [employer]. Thanks * Telephone Encounter - Janet Bonilla MA - 08/11/2024 10:30 AM EST New patient records received. Transcribe order completed. Care Team added. [facility] documented in this encounter Plan of Treatment Upcoming Encounters Date Type Department Care Team (Late st Contact Info) Description 11/30/2024 10:00 AM EDT Infusion [facility] Cancer [place] [facility] Infusion [address] [phone] Deanne Daniel MD [address] [place] [address] 12/01/2024 10:00 AM EDT Infusion [facility] Cancer [facility] Infusion [address] [phone] Deanne Daniel MD [address] [place] [address] 12/13/2024 10:30 AM EDT [facility] [address] [phone] Grey Trinidad MD [address] [place] [address] [place] [address] 12/14/2024 10:00 AM EDT Infusion [facility] Cancer [place] [facility] Infusion [address] [phone] Deanne Daniel MD [address] [place] [address] 12/15/2024 10:00 AM EDT Infusion [facility] Cancer [place] at [facility] Outpatient Infusion Center [address] [place] [phone] Deanne Daniel MD [address] [place] [address] 12/28/2024 10:00 AM EDT Infusion [facility] Cancer [place] [facility] Infusion [address] [address] Deanne Daniel MD [address] [place] [address] 12/29/2024 10:00 AM EDT Infusion [facility] Cancer [place] [facility] Outpatient Infusion [address] [address] Deanne Daniel MD [address] [place] [address] 01/04/2025 11:45 AM EDT Office Visit [facility] Medical Oncology at [address] [phone] Deanne Daniel MD [address] [place] [address] 01/20/2025 1:00 PM EDT Office Visit [facility] [address] [address] Jonh Hobson MD [address] [place] [address] 01/27/2025 11:30 AM EDT Consult [facility] Transplant Program [facility] [address] [facility] [address] [place] [address] Jayne Morales, DO 300 [place] [address] 02/01/2025 11:40 AM EDT Office Visit [facility] Neuromuscular [place] [facility] [address] [facility] 815 [place] [phone] Luis Damon MD 1914 [place], [place] [address] 04/26/2025 10:00 AM EDT Infusion [facility] Cancer [place] at [facility] Outpatient Infusion Center 85 [place] [address] Deanne Daniel MD 85 [place], [place] [phone] documented as of this encounter Visit Diagnoses Not on filedocumented in this encounter Care Teams Mercury Washer Relationship Specialty Start Date End Date Jacquelyn Garcia NP [address] [place] [address] PCP - General Family Medicine 05/18/24 Jonh Hobson MD 31 [facility] 206 [place], [place] [phone] Rheumatology 01/01/24 Ayde Zheng, ANTONIO 85 [facility] 320 [place], [place] [address] Registered Nurse Hepatology 08/11/24 documented as of this encounter
--- OUTSIDE RECORDS SUMMARY | 2024-11-26 12:34 | XMS_ITS | Encounter Summary ---
Author Organization [facility] Address [address] [place] [address] Care Team Providers Care Sales Research Analyst Name Role Phone Bijan Magana MD Unavailable Unavailable Jonh Hobson MD Unavailable [phone] Pcp, No Primary Care Provider UnavailJacquelyn Baxter NP Primary Care Provider Ayde Zheng RN Unavailable [phone] Encounter Details Date Type Department Care Team (Late st Contact Info) Description 09/22/2023 Scanned Document [facility] Rheumatology [address] [place] [address] Rheumatology, Scan Social History Tobacco Use Types Packs/Day [...] Info) Description 11/30/2024 10:00 AM EDT Infusion [facility] Cancer [address] [phone] Deanne Daniel MD [address] [place] [address] 12/01/2024 10:00 AM EDT Infusion [facility] Cancer [address] [phone] Deanne Daniel MD [address] [place] [address] 12/13/2024 10:30 AM EDT [facility] [address] [phone] Grey Trinidad MD [address] [place] [address] [address] [place] [address] 12/14/2024 10:00 AM EDT Infusion [address] [phone] Deanne Daniel MD [address] [place] [address] 12/15/2024 10:00 AM EDT Infusion [facility] Cancer [address] [phone] Deanne Daniel MD [address] [place] [address] 12/28/2024 10:00 AM EDT Infusion [facility] Cancer [place] [facility] Outpatient Infusion Center [address] [place] [phone] Deanne Daniel MD [address] [place] [address] 12/29/2024 10:00 AM EDT Infusion [facility] Cancer [place] at [facility] Infusion [address] [phone] Deanne Daniel MD [address] [place] [address] [phone] 01/04/2025 11:45 AM EDT Office Visit [facility] Medical Oncology at [address] [phone] Deanne Daniel MD [address] [place] [address] 01/20/2025 1:00 PM EDT Office Visit [address] [place] [address] Jonh Hobson MD 31 [facility] 206 [place], [place] [phone] 01/27/2025 11:30 AM EDT Consult [facility] Trans[facility] 85 [facility] [address] [place] [phone] Jayne Morales, DO 300 [place] [address] 02/01/2025 11:40 AM EDT Office Visit [facility] [place] [facility] 85 [facility] 815 [place] [phone] Luis Damon MD 1914 [place] [address] 04/26/2025 10:00 AM EDT Infusion [facility] Cancer [place] [facility] Outpatient Infusion Center 85 [place] [phone] Deanne Daniel MD 85 [place], [place] [phone] documented as of this encounter Visit Diagnoses Not on filedocumented in this encounter Care Teams Sales Research Analyst Relationship Specialty Start Date End Date Pcp, No PCP - General General Medicine 04/22/24 05/17/24 Jacquelyn Garcia NP [address] [place] [address] PCP - General Family Medicine 05/18/24 Bijan Magana MD Rheumatology 11/09/23 12/31/23 Jonh Hobson MD 31 [facility] 206 [place] [address] Rheumatology 01/01/24 Ayde Zheng, RN 85 [facility] 320 [place] [address] Registered Nurse Hepatology 08/11/24 documented as of this encounter
--- OUTSIDE RECORDS SUMMARY | 2024-11-26 12:34 | XMS_ITS | Encounter Summary ---
Author Organization [facility] Address [address] [place] [address] Care Team Providers Care Sample Sewer Name Role Phone Bijan Magana MD Unavailable Unavailable Jonh Hobson MD Unavailable [phone] Pcp, No Primary Care Provider UnavailJacquelyn Baxter NP Primary Care Provider Ayde Zheng RN Unavailable [phone] Encounter Details Date Type Department Care Team (Late st Contact Info) Description 06/19/2022 Scanned Document [facility] [facility] 85 [facility] [address] [place] [address] Provider, MD Brian [address] [place] [address] Social History Tobacco Use Types Packs/Day Years [...] suspected to have Coronavirus/COVID-19? No / Unsure 06/20/2022 9:37 AM EDT documented as of this encounter Plan of Treatment Upcoming Encounters Date Type Department Care Team (Late st Contact Info) Description 11/30/2024 10:00 AM EDT Infusion [address] [phone] Deanne Daniel MD [address] [place] [address] 12/01/2024 10:00 AM EDT Infusion [address] [phone] Deanne Daniel MD [address] [place] [address] 12/13/2024 10:30 AM EDT [facility] [address] [address] Grey Trinidad MD [address] [place] [address] [address] [place] [address] 12/14/2024 10:00 AM EDT Infusion [address] [phone] Deanne Daniel MD [address] [place] [address] 12/15/2024 10:00 AM EDT Infusion [facility] Cancer [address] [phone] Deanne Daniel MD [address] [place] [address] 12/28/2024 10:00 AM EDT Infusion [facility] Cancer [place] [facility] Out[facility] Center [address] [place] [phone] Deanne Daniel MD [address] [place] [address] 12/29/2024 10:00 AM EDT Infusion [facility] Cancer [place] [facility] Outpatient Infusion [address] [phone] Deanne Daniel MD [address] [place] [phone] 01/04/2025 11:45 AM EDT Office Visit [facility] Medical Oncology at [address] [phone] Deanne Daniel MD [address] [place] [address] [phone] 01/20/2025 1:00 PM EDT Office Visit [facility] Rheumatology [address] [place] [address] [place] [phone] Jonh Hobson MD [address] [phone] 01/27/2025 11:30 AM EDT Consult [facility] 85 [facility] 320 [place] [phone] Jayne Morales, DO 300 [place] [address] 02/01/2025 11:40 AM EDT Office Visit [facility] 85 [facility] 815 [place] [phone] Luis Damon MD [address] [place] [address] 04/26/2025 10:00 AM EDT Infusion [facility] Cancer [place] [facility] Outpatient [facility]fusion Center 85 [place] [phone] Deanne Daniel MD [address] [place] [address] documented as of this encounter Visit Diagnoses Not on filedocumented in this encounter Care Teams Sample Sewer Relationship Specialty Start Date End Date Pcp, No PCP - General General Medicine 04/22/24 05/17/24 Jacquelyn Garcia NP [address] [place] [address] PCP - General Family Medicine 05/18/24 Bijan Magana MD Rheumatology 11/09/23 12/31/23 Jonh Hobson MD 31 [facility] 206 [place], [place] [phone] Rheumatology 01/01/24 Ayde Zheng, RN 85 [facility] 320 [place], [place] [phone] Registered Nurse Hepatology 08/11/24 documented as of this encounter
--- OUTSIDE RECORDS SUMMARY | 2024-11-26 12:34 | XMS_ITS | Encounter Summary ---
Author Organization [facility] Address [address] [place] [address] Care Team Providers Care Hooker Off Name Role Phone Bijan Magana MD Unavailable Unavailable Jonh Hobson MD Unavailable [phone] Pcp, No Primary Care Provider UnavailJacquelyn Baxter NP Primary Care Provider Ayde Zheng RN Unavailable [phone] Encounter Details Date Type Department Care Team (Late st Contact Info) Description 06/19/2022 Scanned Document [facility] [place] [facility] Out[facility]fusion Center [address] [place] [address] [phone] Provider, MD Brian [address] [place] [address] Social History Tobacco Use Types Packs/Day Years [...] Info) Description 11/30/2024 10:00 AM EDT Infusion [address] [phone] Deanne Daniel MD [address] [place] [address] 12/01/2024 10:00 AM EDT Infusion [address] [phone] Deanne Daniel MD [address] [place] [address] 12/13/2024 10:30 AM EDT [facility] [address] [address] Grey Trinidad MD [address] [place] [address] [address] [place] [address] 12/14/2024 10:00 AM EDT Infusion [address] [phone] Deanne Daniel MD [address] [place] [address] 12/15/2024 10:00 AM EDT Infusion [facility] Cancer [address] [phone] Deanne Daniel MD [address] [place] [address] 12/28/2024 10:00 AM EDT Infusion [facility] Cancer [place] [facility] Outpatient Infusion Center [address] [place] [phone] Deanne Daniel MD [address] [place] [address] 12/29/2024 10:00 AM EDT Infusion [facility] Cancer [place] [facility] Outpatient Infusion [address] [phone] Deanne Daniel MD [address] [place] [address] [phone] 01/04/2025 11:45 AM EDT Office Visit [facility] Medical Oncology at [address] [phone] Deanne Daniel MD [address] [place] [phone] 01/20/2025 1:00 PM EDT Office Visit [facility] Rheumatology [address] [place] [phone] Jonh Hobson MD [address] [phone] 01/27/2025 11:30 AM EDT Consult [facility] 85 [facility] [address] [place] [phone] Jayne Morales, DO 300 [place] [address] 02/01/2025 11:40 AM EDT Office Visit [facility] 85 [facility] 8[address] [place] [phone] Luis Damon MD [address] [place] [address] 04/26/2025 10:00 AM EDT Infusion [facility] Cancer [place] [facility] Outpatient Infusion Center 85 [place] [phone] Deanne Daniel MD 85 [place] [address] documented as of this encounter Visit Diagnoses Not on filedocumented in this encounter Care Teams Hooker Off Relationship Specialty Start Date End Date Pcp, No PCP - General General Medicine 04/22/24 05/17/24 Jacquelyn Garcia NP [address] [place] [address] PCP - General Family Medicine 05/18/24 Bijan Magana MD Rheumatology 11/09/23 12/31/23 Jonh Hobson MD 31 [facility] 206 [place], [place] [phone] Rheumatology 01/01/24 Ayde Zheng, RN 85 [facility] [address] [place], [place] [phone] Registered Nurse Hepatology 08/11/24 documented as of this encounter
--- OUTSIDE RECORDS SUMMARY | 2024-11-26 12:34 | XMS_ITS | Encounter Summary ---
Author Organization [employer] Address 75 [facility] 7t [place] [address] Care Team Providers Care Clinical Academic Allergist Name Role Phone Jacquelyn Garcia Primary Care Provider Unavailable Nuria Levin Unavailable Inactive/Transferred Primary Care Provider Shaneka Ford DO Primary Care Provider [phone] Encounter Details Date Type Department Care Team (Late st Contact Info) Description 12/17/2023 Orders Only [facility] MEDICAL [address] [place] [address] Jacquelyn Garcia FNP Social History Tobacco Use Types Packs/Day Years Used Date Smoking Tobacco: Never Smokeless Tobacco: Never Alcohol Use Standard Drinks/Week Comments Not Currently 0 (1 standard drink = 0.6 oz pur e alcohol) Social Housing Stability Answer Date Recorded What is your housing situation today? I have chad rapp 06/23/[address] you li ve. Do you have problems with any of the following? None of the above 06/23/2023 Food Insecurity Answer Date Recorded Within the past 12 months, y ou worried that your food would run out before you got money to buy more: Never True 06/23/2023 Within the past 12 months,th e food you bought just didn't last and you didn't have enough money to get more: Never True Transportation Answer Date Recorded In the past 12 months, has l ack of transportation kept you from medical appts, meetings, work or from getting things needed for daily living? No 06/23/2023 Utilities Answer Date Recorded In the past 12 months, has t he electric, gas, oil or water company threatened to shut off services in your home? No 06/23/2023 Education Answer Date Recorded What is the highest level of school you have completed or the highest degree you have received? GED or equivalent Comments Unknown Sex and Gender Information Value [...] on filedocumented in this encounter Care Teams Clinical Academic Allergist Relationship Specialty Start Date End Date Jacquelyn Garcia FNP PCP - General Family Medicine 08/06/22 06/01/24 Inactive/Transferred PCP - General 06/02/24 06/02/24 Shaneka Bailey DO [address] [place] [address] PCP - General Family Medicine 11/04/24 Nuria Levin Community Health Worker 12/09/22 documented as of this encounter
--- OUTSIDE RECORDS SUMMARY | 2024-11-26 12:34 | XMS_ITS | Encounter Summary ---
Author Organization [facility] Address [address] [place] [address] Care Team Providers Care Customer Quality Engineer Name Role Phone Bijan Magana MD Unavailable Unavailable Jonh Hobson MD Unavailable [phone] Pcp, No Primary Care Provider UnavailJacquelyn Baxter NP Primary Care Provider Ayde Zheng RN Unavailable [phone] Encounter Details Date Type Department Care Team (Late st Contact Info) Description 05/15/2023 Scanned Document [facility]rom[facility] 85 [facility] 815 [place] [address] Luis Damon MD formerly [facility]4 [place] [address] Social History Tobacco Use Types Packs/Day Years [...] Info) Description 11/30/2024 10:00 AM EDT Infusion [facility] Cancer [place] Infusion [address] [phone] Deanne Daniel MD [address] [place] [address] 12/01/2024 10:00 AM EDT Infusion [facility] Cancer [address] [phone] Deanne Daniel MD [address] [place] [address] 12/13/2024 10:30 AM EDT [facility] [address] [phone] Grey Trinidad MD [address] [place] [address] [place] [address] 12/14/2024 10:00 AM EDT Infusion [facility] [place] [facility] Infusion [address] [phone] Deanne Daniel MD [address] [place] [address] 12/15/2024 10:00 AM EDT Infusion [facility] Cancer [facility] Infusion [address] [address] Deanne Daniel MD [address] [place] [address] 12/28/2024 10:00 AM EDT Infusion [facility] Cancer [place] [facility] Outpatient Infusion [address] [phone] Deanne Daniel MD [address] [place] [address] 12/29/2024 10:00 AM EDT Infusion [facility] Cancer [place] [facility] Infusion [address] [phone] Deanne Daniel MD [address] [place] [address] 01/04/2025 11:45 AM EDT Office Visit [facility] Medical Oncology at [address] [phone] Deanne Daniel MD [address] [place] [address] 01/20/2025 1:00 PM EDT Office Visit [address] [phone] Jonh Hobson MD [address] [address] 01/27/2025 11:30 AM EDT Consult [facility] [address] [place] [address] 320 [place] [address]55[address] Jayne Morales, DO 300 [place] [address] 02/01/2025 11:40 AM EDT Office Visit [facility] 85 [facility] 8[address] [place] [phone] Luis Damon MD [address] [place] [address] 04/26/2025 10:00 AM EDT Infusion [facility] Cancer [place] [facility] Outpatient [facility]fusion Center 85 [place] [phone] Deanne Daniel MD 85 [place], [place] [phone] documented as of this encounter Visit Diagnoses Not on filedocumented in this encounter Care Teams Customer Quality Engineer Relationship Specialty Start Date End Date Pcp, No PCP - General General Medicine 04/22/24 05/17/24 Jacquelyn Garcia NP [address] [place] [address] PCP - General Family Medicine 05/18/24 Bijan Magana MD Rheumatology 11/09/23 12/31/23 Jonh Hobson MD 31 [facility] [address] [place] [address] Rheumatology 01/01/24 Ayde Zheng, RN 85 [facility] [address] [place] [address] Registered Nurse Hepatology 08/11/24 documented as of this encounter
--- OUTSIDE RECORDS SUMMARY | 2024-11-26 12:34 | XMS_ITS | Encounter Summary ---
Author Organization [facility] Address [address] [place] [address] Care Team Providers Care Medical Records Coder Name Role Phone Bijan Magana MD Unavailable Unavailable Jonh Hobson MD Unavailable [phone] Pcp, No Primary Care Provider UnavailJacquelyn Baxter NP Primary Care Provider Ayde Zheng RN Unavailable [phone] Encounter Details Date Type Department Care Team (Late st Contact Info) Description 06/03/2022 Scanned Document [facility] Neuromuscular [facility] [address] [facility] 815 [place] [address] Luis Damon MD Replaced by [facility]4 [place] [address] Social History Tobacco Use Types Packs/Day Years [...] suspected to have Coronavirus/COVID-19? No / Unsure 06/05/2022 10:32 AM EDT documented as of this encounter Plan of Treatment Upcoming Encounters Date Type Department Care Team (Late st Contact Info) Description 11/30/2024 10:00 AM EDT Infusion [facility] Cancer [address] [phone] Deanne Daniel MD [address] [place] [address] 12/01/2024 10:00 AM EDT Infusion [facility] Cancer [address] [phone] Deanne Daniel MD [address] [place] [address] 12/13/2024 10:30 AM EDT [facility] [address] [address] Grey Trinidad MD [address] [place] [address] [address] [place] [address] 12/14/2024 10:00 AM EDT Infusion [facility] Cancer [address] [phone] Deanne Daniel MD [address] [place] [address] 12/15/2024 10:00 AM EDT Infusion [facility] Cancer [address] [phone] Deanne Daniel MD [address] [place] [address] 12/28/2024 10:00 AM EDT Infusion [facility] Cancer [place] [facility] Outpatient Infusion [address] [phone] Deanne Daniel MD [address] [place] [address] 12/29/2024 10:00 AM EDT Infusion [facility] [place] [facility] Infusion [address] [phone] Deanne Daniel MD [address] [place] [address] [phone] 01/04/2025 11:45 AM EDT Office Visit [facility] Medical Oncology at [address] [phone] Deanne Daniel MD [address] [place] [address] 01/20/2025 1:00 PM EDT Office Visit [facility] Rheumatology [address] [place] [phone] Jonh Hobson MD [address] [phone] 01/27/2025 11:30 AM EDT Consult [facility] [address] [facility] 320 [place] [phone] Jayne Morales DO 300 [place] [address] 02/01/2025 11:40 AM EDT Office Visit [facility] [address] [facility] 815 [place] [address] Luis Damon MD 1914 [place] [address] 04/26/2025 10:00 AM EDT Infusion [facility] Cancer [place] [facility] Outpatient [facility]fusion Center 85 [place] [address] Deanne Daniel MD [address] [place] [address] documented as of this encounter Visit Diagnoses Not on filedocumented in this encounter Care Teams Medical Records Coder Relationship Specialty Start Date End Date Pcp, No PCP - General General Medicine 04/22/24 05/17/24 Jacquelyn Garcia NP 73 [facility] [place] [address] PCP - General Family Medicine 05/18/24 Bijan Magana MD Rheumatology 11/09/23 12/31/23 Jonh Hobson MD 31 [facility] 206 [place] [address] Rheumatology 01/01/24 Ayde Zheng, RN 85 [facility] 320 [place] [address] Registered Nurse Hepatology 08/11/24 documented as of this encounter
--- OUTSIDE RECORDS SUMMARY | 2024-11-26 12:34 | XMS_ITS | Encounter Summary ---
Author Organization [facility] Address [address] [place] [address] Care Team Providers Care Bariatric Physician Name Role Phone Jonh Hobson MD Unavailable [phone] Pcp, No Primary Care Provider Unavailabl e Jacquelyn Garcia NP Primary Care Provider Ayde Zheng RN Unavailable [phone] Encounter Details Date Type Department Care Team (Late st Contact Info) Description 03/30/2024 Scanned Document [facility] Cancer [place] [facility] Outpatient Infusion Center 85 [place] [phone] Valery Coe [address] [place] [address] Social History Tobacco Use Types Packs/Day Years [...] Description 11/30/2024 10:00 AM EDT Infusion [facility] Cancer [address] [phone] Deanne Daniel MD [address] [place] [address] 12/01/2024 10:00 AM EDT Infusion [facility] Cancer [place] [address] [phone] Deanne Daniel MD [address] [place] [address] 12/13/2024 10:30 AM EDT [facility] [address] [address] Grey Trinidad MD [address] [place] [address] [address] [place] [address] 12/14/2024 10:00 AM EDT Infusion [facility] Cancer [address] [phone] Deanne Daniel MD [address] [place] [address] 12/15/2024 10:00 AM EDT Infusion [facility] Cancer [place] [address] [phone] Deanne Daniel MD [address] [place] [address] 12/28/2024 10:00 AM EDT Infusion [facility] Cancer [place] [facility] Outpatient Infusion Center [address] [place] [phone] Deanne Daniel MD [address] [place] [address] 12/29/2024 10:00 AM EDT Infusion [facility] Cancer [place] [facility] Infusion [address] [phone] Deanne Daniel MD [address] [place] [address] [phone] 01/04/2025 11:45 AM EDT Office Visit [facility] Medical Oncology at [address] [phone] Deanne Daniel MD [address] [place] [address] 01/20/2025 1:00 PM EDT Office Visit [facility] Rheumatology [address] [phone] Jonh Hobson MD [address] [place] [address] 01/27/2025 11:30 AM EDT Consult [facility] Trans[facility] [address] [place] [address] 320 [place] [phone] Jayne Morales, DO 300 [place] [address] 02/01/2025 11:40 AM EDT Office Visit [facility] Neuromuscular [place] [facility] 85 [facility] 815 [place] [address]279127 Luis Damon MD 1914 [place] [address] 04/26/2025 10:00 AM EDT Infusion [facility] Cancer [place] [facility] Outpatient [facility]fusion Center 85 [place] [address] Deanne Daniel MD 85 [place], [place] [phone] documented as of this encounter Visit Diagnoses Not on filedocumented in this encounter Care Teams Bariatric Physician Relationship Specialty Start Date End Date Pcp, No PCP - General General Medicine 04/22/24 05/17/24 Jacquelyn Garcia NP [address] [place] [address] PCP - General Family Medicine 05/18/24 Jonh Hobson MD 31 [facility] 206 [place], [place] [phone] Rheumatology 01/01/24 Ayde Zheng RN 85 [facility] 320 [place] [address] Registered Nurse Hepatology 08/11/24 documented as of this encounter
--- OUTSIDE RECORDS SUMMARY | 2024-11-26 12:34 | XMS_ITS | Encounter Summary ---
Author Organization [facility] Address [address] [place] [address] Care Team Providers Care Ceramics Engineer Name Role Phone Bijan Magana MD Unavailable Unavailable Jonh Hobson MD Unavailable [phone] Pcp, No Primary Care Provider Unavailsreekanth e Jacquelyn Garcia NP Primary Care Provider Ayde Zheng RN Unavailable [phone] Encounter Details Date Type Department Care Team (Late st Contact Info) Description 03/28/2023 Scanned Document [facility] [place] [address] [place] [address] [phone] Jacquelyn Garcia, NOEL [address] [place] [address] Social History Tobacco Use Types Packs/Day Years [...] Info) Description 11/30/2024 10:00 AM EDT Infusion [facility] Infusion [address] [phone] Deanne Daniel MD [address] [place] [address] 12/01/2024 10:00 AM EDT Infusion [address] [phone] Deanne Daniel MD [address] [place] [address] 12/13/2024 10:30 AM EDT [facility] [address] [phone] Grey Trinidad MD [address] [place] [address] [place] [address] 12/14/2024 10:00 AM EDT Infusion [facility] Cancer [address] [phone] Deanne Daniel MD [address] [place] [address] 12/15/2024 10:00 AM EDT Infusion [facility] Cancer [address] [phone] Deanne Daniel MD [address] [place] [address] 12/28/2024 10:00 AM EDT Infusion [facility] [place] [facility]fusion [address] [phone] Deanne Daniel MD [address] [place] [address] 12/29/2024 10:00 AM EDT Infusion [facility] [place] [facility] Infusion [address] [phone] Deanne Daniel MD [address] [place] [address] 01/04/2025 11:45 AM EDT Office Visit [facility] Medical Oncology at [address] [phone] Deanne Daniel MD [address] [place] [address] [phone] 01/20/2025 1:00 PM EDT Office Visit [address] [phone] Jonh Hobson MD [address] [address] 01/27/2025 11:30 AM EDT Consult [facility] 85 [facility] [address] [place] [phone] Jayne Morales, DO [address] [place] [address] 02/01/2025 11:40 AM EDT Office Visit [facility] 85 [facility] [address] [place] [phone] Luis Damon MD [facility] [place] [address] 04/26/2025 10:00 AM EDT Infusion [facility] [place] [facility] [address] [place] [address] Deanne Daniel MD [address] [place], [place] [phone] documented as of this encounter Visit Diagnoses Not on filedocumented in this encounter Care Teams Ceramics Engineer Relationship Specialty Start Date End Date Pcp, No PCP - General General Medicine 04/22/24 05/17/24 Jacquelyn Garcia NP [address] [place] [address] PCP - General Family Medicine 05/18/24 Bijan Magana MD Rheumatology 11/09/23 12/31/23 Jonh Hobson MD 31 [facility] [address] [place] [address] Rheumatology 01/01/24 Ayde Zheng, RN 85 [facility] [address] [place] [address] Registered Nurse Hepatology 08/11/24 documented as of this encounter
--- OUTSIDE RECORDS SUMMARY | 2024-11-26 12:34 | XMS_ITS | Clinical Summary ---
Author Organization [employer] Address [address] [place] [address] 7 [place] [address] Care Team Providers Care Chief Nurse Executive Name Role Phone Nuria Levin Unavailable Unavailable LeoShaneka Primary Care Provider [phone] Allergies Active Allergy Reactions Criticality Noted Date Comments Allopurinol Nausea And Vomiting Medium 01/19/2024 Bee Pollen 11/09/2022 Allergic to bee stings Bee Venom Anaphylaxis High 06/05/2022 Cephalosporins Hives Medium 02/02/2020 Other reaction(s): Unknown/Patient and Family Unable to Define Other reaction(s): Unknown Other reaction(s): see comment mother states family history of allergy, does not allow daughter to have rx of this med Codeine 07/26/2022 Other reaction(s): lip swelling, itchy Droperidol Anxiety Low 03/09/2023 Duloxetine Hcl Medium 06/17/2021 Other reaction(s): diarrhea, Unknown/Patient and Family Unable to Define Gabapentin 03/27/2021 Other reaction(s): Suicidal ideation eye tick thoughts of SI Milk Protein Medium 09/10/2020 Other reaction(s): Unknown/Patient and Family Unable to Define Molds & Smuts Shortness of breath High 02/02/2020 Other reaction(s): Erythema Multiforme Other reaction(s): Unknown Penicillins Hives Medium 02/02/2020 Other reaction(s): Unknown, Unknown/Patient and Family Unable to Define Pollen Extract 06/05/2022 Other reaction(s): Other (See Comments) General malaise Pregabalin 03/27/2021 Other reaction(s): Suicidal ideation violently ill . Tilactase 10/15/2022 Tramadol 07/26/2022 Other reaction(s): abd pain, migraines Medications triamcinolone (Kenalog) 0.1 % ointment Apply topically if needed in the morning and at bedtime. 1 Active loratadine-pseudoe phedrine ER (Claritin-D 24-hour) 10-240 MG 24 hr tablet Take 1 tablet by mouth in the morning. Active loratadine (Claritin) 10 MG tablet Take 10 mg by mouth if needed each day for allergies. PRN only Active Loperamide-Simethi cone (Imodium Multi-Symptom Relief) 2-125 MG tablet per tablet Take 1 tablet by mouth if needed in the morning, at noon, in the evening, and at bedtime. PRN only Active lidocaine (Lidoderm) 5 % patch Place 1 patch on the skin in the morning. 2 Active cimetidine (Tagamet) 200 MG tablet Take 1 tablet by mouth at bedtime. Active acyclovir (Zovirax) 5 % cream 1 application. 9 Active Acetaminophen (TYLENOL ARTHRITIS PAIN PO) PRN Active febuxostat (Uloric) 40 MG tablet Take 40 mg by mouth in the morning. 2 Active Calcium Carb-Cholecalcifer ol 600-10 MG-MCG tablet TAKE 1 TABLET BY MOUTH EVERY MORNING WITH BREAKFAST 2 Active risankizumab 150 Dose (Skyrizi) 75 MG/0.83ML prefilled syringe kit Inject 150 mg under the skin every 3 (three) months. Given at infusion center 3 Active immune globulin, human, (Gammagard) infusion Infuse 1 g into a venous catheter every 14 (fourteen) days. Given at the infusion center Active acyclovir (Zovirax) 5 % ointment apply topically TO affected AREA FIVE TIMES DAILY FOR 4 DAYS 15 g 3 4 Active EPINEPHrine (Epipen) 0.3 MG/0.3ML injection syringeIndications :Anaphylactic reaction to bee sting, accidental or unintentional, sequela Inject 0.3 mL (0.3 mg) as directed if needed for anaphylaxis. Call 911 after use. 2 each 4 Active albuterol 108 (90 Base) MCG/ACT inhalerIndications :Mild intermittent asthma without complication inhale 2 PUFFS BY MOUTH every 4 hours NEEDED 8.5 g 4 Active Misc. Devices (Walker) miscIndications:ED S (Kelsey-Danlos syndrome),Mononeur itis multiplex,Psoriati c arthritis (CMS/HCC) Standard Bariatric Walker with Wheels 1 each 4 Active pantoprazole (ProtoNix) 20 MG EC tabletIndications: Gastroesophageal reflux disease, unspecified whether esophagitis present Take 2 tablets (40 mg) by mouth before breakfast. Do not crush, chew, or split. 90 tablet 3 4 Active Daysee 0.15-0.03 &0.01 MG tablet tabletIndications: Dysmenorrhea, unspecified TAKE 1 TABLET BY MOUTH DAILY once a day for 91 days 91 tablet 3 4 Active folic acid (Folvite) 1 MG tablet Take 1 mg by mouth Once per day. 4 Active metoclopramide (Reglan) 5 MG tablet Take 5 mg by mouth. Active methylPREDNISolone Na Suc, PF, (SOLU-Medrol, PF,) 1000 MG reconstituted solution Infuse 1,000 mg into a venous catheter every 14 (fourteen) days. Active melatonin 10 MG tablet Take 10 mg by mouth at bedtime. Active diazePAM (Valium) 2 MG tabletIndications: Other situational type phobia TAKE 1-2 tablets by mouth 1 hour prior to MRI Once a day 2 tablet 4 Active nortriptyline (Pamelor) 10 MG capsuleIndications :Cervical myelopathy (CMS/HCC),Mononeur itis multiplex Take 5mg daily 30 capsule 1 4 Active baclofen (Lioresal) 5 MG tabletIndications: Mononeuritis multiplex TAKE 3 TABLETS BY MOUTH 3 TIMES A DAY 756 tablet 2 4 Active nortriptyline (Pamelor) 10 MG/5ML solution Take 2.5 mL (5 mg) by mouth at bedtime. 120 mL 4 Active busPIRone (Buspar) 5 MG tabletIndications: Anxiety Take 1 tablet (5 mg) by mouth 3 times daily. 270 tablet 1 4 03/17/20 25 Active naproxen (Naprosyn) 500 MG tabletIndications: Cervical myelopathy (CMS/HCC),Mononeur itis multiplex,Psoriati c arthritis (CMS/HCC) Take 1 tablet (500 mg) by mouth with breakfast and with evening meal. 180 tablet 4 Active ondansetron (Zofran) 4 MG tabletIndications: Nausea Take 1 tablet (4 mg) by mouth every 8 (eight) hours if needed for nausea or vomiting. 20 tablet 4 Active Syringe/Needle, Disp, (B-D 3CC LUER-ADRIA SYR 25GX1 ) 25G X 1 3 ML misc 1 SYRINGE EVERY 30 (THIRTY) DAYS. 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 Currently on 20mg. Step 1: Reduce to 20 mg, which is 2 10 mg capsules x 4-6 weeks Step 2: Reduce to 15 mg, 1.5 capsules. Continue reducing by 5 mg each week using the 10 mg capsules until the dosage is completely tapered off. Allergic rhinitis 07/26/2022 Angular cheilitis 07/26/2022 Cervical myelopathy 07/26/2022 Overview (08/27/2023): UTD with consults with neuro and pain management. 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 Currently managed maggie/ William. 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 Anxiety 07/12/2021 Overview (01/31/2024): multiple drug drug interactions. Tried clonidine - caused low BP Continues to have circumstantial anxiety Anemia of chronic disease 09/10/2020 Overview (04/01/2023): Anemia: multifactorial, due to iron deficiency and anemia of chronic inflammation, recent ESR of 129 (03/2023); Followed by Hematology q 4 months - Given severe iron deficiency with anemia, recommended IV iron with Injectafer. She completed 2 doses (02/11/23 and 03/18/23) - she is not able to tolerate po iron and has issues with absorption due to underlying medical conditions Chronic, continuous use of opioids 09/10/2020 Overview (01/31/2024): CSA: signed 2022; UTOX: Due. Obtained 06/23/23 Resolved Problems Problem Noted Date Diagnosed Date Resolved Date Hypermobility syndrome 07/26/202204/01 Obesity 07/26/2022 04/01/2023 Vitamin D deficiency 07/26/2022 024 Overview (09/16/2022): Pt will have new Vit D labs this coming week [place] [address]; until we can review med. Pain 11/22/2021 04/01/2023 Paresthesias 06/18/2021 01/06/2023 Polyneuropathy 06/17/2021 01/06/2023 Pleural effusion 06/17/2021 01/06/2023 Abdominal pain 10/11/2020 04/01/2023 Overview (09/16/2022): Appears very benign. CT reassuring, labs all reassuring Immunocompromised 09/10/2020 04/01/2023 Overview (01/06/2023): Takes humira for psoriatic arthritis Surgeon says no Humira for at least 2-4 weeks postop and wounds well-healed Intractable vomiting with nausea 09/10/2020 04/01/2023 Immunizations Name Administration Dates Next Due Linda SARS-CoV-2 Vaccination 02/01/2021 Tdap 11/03/2015 Social History Tobacco Use Types Packs/Day Years Used Date Smoking Tobacco: Never Passive Smoke Exposure: Never Smokeless Tobacco: Never Tobacco Cessation:Counseling Given: Not Answered Alcohol Use Standard Drinks/Week Comments Not Currently 0 (1 standard drink = 0.6 oz pur e alcohol) Social Depression Answer Date Recorded Patient Health Questionnaire-9 Score 3 02/24/2024 Patient Health Questionnaire-9 Score 3 02/24/2024 Last PHQ-9: Questionnaire Data 1 0 02/24/2024 Housing Stability Answer Date Recorded What is [...] off services in your home? No 06/23/2023 Depression Answer Date Recorded Patient Health Questionnaire-2 Score 0 02/24/2024 Education Answer Date Recorded What is the highest level of school you have completed or the highest degree you have received? GED or equivalent Comments Unknown Sex and Gender Information Value Date Recorded Sex Assigned at Female 08/23/2022 1:54 PM EST Legal Sex Female 8:32 PM EDT Gender Identity Female 08/23/2022 1:54 PM EST Sexual Orientation Straight 09/16/2022 9: 15 AM EST Last Filed Vital Signs Vital Sign Reading Time Taken Comments Blood Pressure 146/97 01/31/2024 9:56 AM EDT Pulse 148 01/31/2024 9:56 AM EDT Temperature 36.6 ??C (97.8 ??F) 01/31/2024 9:56 AM ED T Respiratory Rate - - Oxygen Saturation 98% 01/31/2024 9:56 AM EDT Inhaled Oxygen Concentration - - Weight 93 kg (205 lb) 01/31/2024 9:56 AM EDT Height 170.2 cm (5' 7 ) 01/31/2024 9:56 AM EDT Body Mass Index 32.11 01/31/2024 9:56 AM EDT Plan of Treatment Health Maintenance Due Date Last Done Comments HIV Screening 1990 Lipid Panel 1990 Alcohol/Substance Use Screening 2002 Hepatitis A Vaccines (1 of 2 - Risk 2-dose series) 2009 Hepatitis B Vaccines (1 of 3 - 19+ 3-dose series) 2009 12/10/2023 Pneumococcal Vaccine: Pediatrics (0 to 5 Years) and At-Risk Patients (6 to 49) Years) (1 of 2 - PCV) 2009 Zoster Vaccines (1 of 2) 2009 COVID-19 Vaccine (2 - Jansse n risk series) 03/01/2021 02/01/2021 Influenza Vaccine (#1) 2024 SDOH Screening 06/23/2024 06/23/2023 Family Planning (PISQ) 01/30/2025 01/31/2024 Tobacco Screening 01/30/2025 01/31/2024 Depression Screening 02/23/2025 02/24/2024, 12/19/2023 DTaP/Tdap/Td Vaccines (2 - T d or Tdap) 11/02/2025 11/03/2015 Cervical Cancer Screening 06/14/2027 HPV/Cotest 06/14/2027 Pap Smear 06/14/2027 06/14/2022 RSV Patients and Patients Aged 60 years or older (1 - 1-dose 75+ series) 2065 Hepatitis C Screening Completed 10/12/2020 , 10/12/2020 HIB Vaccines Aged Out No longer eligi ble based on patient's age to complete this topic HPV Vaccines Aged Out No longer eligi ble based on patient's age to complete this topic IPV Vaccines Aged Out No longer eligi ble based on patient's age to complete this topic Meningococcal Vaccine Aged Out No valeri deo eligible based on patient's age to complete this topic RSV under 20 months Aged Out No longe r eligible based on patient's age to complete this topic Rotavirus Vaccines Aged Out No longer eligible based on patient's age to complete this topic Procedures Procedure Name Priority Date/Time Associated Diagnosis Comments PAP SMEAR Routine 06/14/2022 12:00 AM EDT HEPATITIS C ANTIBODY (EXTERNAL RESULTS ONLY) Routine 10/12/2020 from Last 3 Months or Most Recently Relevant to Health Maintenance Results * Pap Smear (06/14/2022 12:00 AM EDT) Swab Historical Provider LAB CYTOLOGY ORDERABLES F inal Result * Hepatitis C Antibody (10/12/2020) Hepatitis C Antibody Nonreactive Blood 10/12/2020 Historical Provider POINT OF CARE TEST ENTER/ EDIT ORDERABLES Final Result from Last 3 Months or Most Recently Relevant to Health Maintenance Insurance [facility] , [address] [place] [address] Care Teams Chief Nurse Executive Relationship Specialty Start Date End Date Shaneka Bailey DO [address] [place] [id number] PCP - General Family Medicine 11/04/24 Nuria Levin Community Health Worker 12/09/22
--- OUTSIDE RECORDS SUMMARY | 2024-11-26 12:34 | XMS_ITS | Encounter Summary ---
Author Organization [employer] Address 75 [facility] 7t [place] [address] Care Team Providers Care Small Battery Plate Assembler Name Role Phone Jacquelyn Garcia Primary Care Provider Unavailable Nuria Levin Unavailable Inactive/Transferred Primary Care Provider Shaneka Ford DO Primary Care Provider [phone] Encounter Details Date Type Department Care Team (Late st Contact Info) Description 01/30/2024 Orders Only [facility] MEDICAL [address] [place] [address] Brynn Keating CMA Social History Tobacco Use Types Packs/Day Years [...] on filedocumented in this encounter Care Teams Small Battery Plate Assembler Relationship Specialty Start Date End Date Jacquelyn Garcia FNP PCP - General Family Medicine 08/06/22 06/01/24 Inactive/Transferred PCP - General 06/02/24 06/02/24 Shaneka Bailey DO [address] [place] [address] PCP - General Family Medicine 11/04/24 Nuria Levin Community Health Worker 12/09/22 documented as of this encounter
--- OUTSIDE RECORDS SUMMARY | 2024-11-26 12:35 | XMS_ITS | Encounter Summary ---
Author Organization [employer] Address 75 [facility] 7t [place] [address] Care Team Providers Care Sound Technician Name Role Phone Jacquelyn Garcia Primary Care Provider Unavailable Nuria Levin Unavailable Inactive/Transferred Primary Care Provider Shaneka Ford DO Primary Care Provider [phone] Encounter Details Date Type Department Care Team (Late st Contact Info) Description 12/11/2023 Orders Only [facility] [address] [place] [address] Jacquelyn Garcia FNP Social History Tobacco Use [...] on file documented as of this encounter Procedures Procedure Name Priority Date/Time Associated Diagnosis Comments CT ABDOMEN PELVIS W CONTRAST Routine 12/10/2023 4:37 PM EDT documented in this encounter Results * CT Abdomen Pelvis w/ Contrast (12/10/2023 4:37 PM EDT) Anatomical Region Laterality Modality Body, Pelvis, Abdomen Computed T omography us Jacquelyn SIMON IMG CT PROCEDURES Lily l Result documented in this encounter Visit Diagnoses Not on filedocumented in this encounter Care Teams Sound Technician Relationship Specialty Start Date End Date Jacquelyn Garcia FNP PCP - General Family Medicine 08/06/22 06/01/24 Inactive/Transferred PCP - General 06/02/24 06/02/24 Shaneka Bailey DO [address] [place] [id number] PCP - General Family Medicine 11/04/24 Nuria Levin Community Health Worker 12/09/22 documented as of this encounter
--- OUTSIDE RECORDS SUMMARY | 2024-11-26 12:35 | XMS_ITS | Encounter Summary ---
Author Organization [facility] Address [address] [place] [address] Care Team Providers Care Combination Building Inspector Name Role Phone Bijan Magana MD Unavailable Unavailable Jonh Hobson MD Unavailable [phone] Pcp, No Primary Care Provider UnavailJacquelyn aBxter NP Primary Care Provider Ayde Zheng RN Unavailable [phone] Encounter Details Date Type Department Care Team (Late st Contact Info) Description 10/09/2021 Scanned Document [facility] Neurom[facility] [place] [facility] 85 [facility] [address] [place] [phone] Luis Damon MD Critical access hospital4 [place] [address] Social History Tobacco Use Types Packs/Day Years Used Date Smoking Tobacco: Never Smokeless Tobacco: Never Alcohol Use Standard Drinks/Week Comments Never 0 (1 standard drink = 0.6 oz pur e alcohol) Sex and Gender Information Value Date Recorded Sex Assigned at Female 10/02/2022 12:43 PM EST Gender Identity Female 10/02/2022 12:43 PM EST Sexual Orientation Heterosexual (straight) 10/02 12:43 PM EST COVID-19 Exposure Response Date Recorded In the last month, have you been in contact with someone who was confirmed or suspected to have Coronavirus / COVID-19? No / Unsure 09/13/2021 1:09 PM EST documented as of this encounter Plan of Treatment Upcoming Encounters Date Type Department Care Team (Late st Contact Info) Description 11/30/2024 10:00 AM EDT Infusion [address] [phone] Deanne Daniel MD [address] [place] [address] 12/01/2024 10:00 AM EDT Infusion [address] [phone] Deanne Daniel MD [address] [place] [address] 12/13/2024 10:30 AM EDT [facility] [address] [phone] Grey Trinidad MD [address] [place] [address] [address] [place] [address] 12/14/2024 10:00 AM EDT Infusion [facility] Cancer [address] [phone] Deanne Daniel MD [address] [place] [address] 12/15/2024 10:00 AM EDT Infusion [facility] Cancer [address] [phone] Deanne Daniel MD [address] [place] [address] 12/28/2024 10:00 AM EDT Infusion [facility] Cancer [place] [facility] Outpatient Infusion Center [address] [place] [phone] Deanne Daniel MD [address] [place] [address] 12/29/2024 10:00 AM EDT Infusion [facility] [place] [facility] Outpatient Infusion [address] [phone] Deanne Daniel MD [address] [place] [address] [phone] 01/04/2025 11:45 AM EDT Office Visit [facility] at [address] [phone] Deanne Daniel MD [address] [place] [address] [phone] 01/20/2025 1:00 PM EDT Office Visit [facility] Rheumatology [address] [place] [phone] Jonh Hobson MD [address] [phone] 01/27/2025 11:30 AM EDT Consult [facility] Transplant [facility] 85 [facility] [address] [place] [phone] Jayne Morales, DO [address] [place] [address] 02/01/2025 11:40 AM EDT Office Visit [facility] 85 [facility] [address] [place] [phone] Luis Damon MD [address] [place] [address] 04/26/2025 10:00 AM EDT Infusion [facility] Cancer [place] [facility] Outpatient Infusion Center 85 [place] [address] Deanne Daniel MD [address] [place] [address] documented as of this encounter Visit Diagnoses Not on filedocumented in this encounter Care Teams Combination Building Inspector Relationship Specialty Start Date End Date Pcp, No PCP - General General Medicine 04/22/24 05/17/24 Jacquelyn Garcia NP [address] [place] [address] PCP - General Family Medicine 05/18/24 Bijan Magana MD Rheumatology 11/09/23 12/31/23 Jonh Hobson MD 31 [facility] 206 [place], [place] [phone] Rheumatology 01/01/24 Ayde Zheng, RN 85 [facility] [address] [place], [place] [phone] Registered Nurse Hepatology 08/11/24 documented as of this encounter
--- OUTSIDE RECORDS SUMMARY | 2024-11-26 12:35 | XMS_ITS | Clinical Summary ---
Author Organization [facility] Address [address] [place] [address] Care Team Providers Care Fleet Sales Associate Name Role Phone Jonh Hobson MD Unavailable [phone] Jacquelyn Garcia NP Primary Care Provider Ayde Zheng RN Unavailable [phone] Allergies Active Allergy Reactions Criticality Noted Date Comments Allopurinol Nausea And Vomiting Medium 01/19/2024 Amitriptyline Unknown/Patient and Family Unable to Define Medium 06/29/2024 Bee Venom Anaphylaxis High 06/05/2022 Cephalosporins Unknown/Patient and Family Unable to Define Medium 06/17/2021 Codeine Unknown/Patient and Family Unable to Define Medium 07/26/2022 Other reaction(s): lip swelling, itchy Prochlorperazine Dyskinesia/Dystonia Medium 04/22/2024 Duloxetine Hcl Unknown/Patient and Family Unable to Define Medium 06/17/2021 Droperidol Anxiety Low 03/09/2023 Gabapentin Unknown/Patient and Family Unable to Define Medium 03/27/2021 Other reaction(s): Suicidal ideation eye tick thoughts of SI Pregabalin Other (See Comments),Unknown/Patien t and Family Unable to Define Medium 06/17/2021 Suicidal ideation Milk Protein Unknown/Patient and Family Unable to Define Medium 06/17/2021 Molds & Smuts Shortness Of Breath High 06/05/2022 Nortriptyline Unknown/Patient and Family Unable to Define Medium 05/05/2024 Nsaids Palpitations Medium 11/25/2024 Includes naproxen and advil Penicillins Unknown/Patient and Family Unable to Define Medium 06/17/2021 Pollen Extract Other (See Comments) 06/05/2022 General malaise Metoclopramide Dyskinesia/Dystonia Medium 04/22/2024 Scopolamine Unknown/Patient and Family Unable to Define Medium 05/05/2024 Tilactase Unknown/Patient and Family Unable to Define Medium 10/15/2022 Tramadol Unknown/Patient and Family Unable to Define Medium 07/26/2022 Other reaction(s): abd pain, migraines Diclofenac Swelling Medium 09/08/2024 Medications Medication Sig Dispensed Refills Start Date End Date Status PANTOprazole (PROTONIX) 40 MG EC tablet Take 1 tablet (40 mg total) by mouth daily as needed for heartburn or indigestion. 04/05/2021 Active baclofen (LIORESAL) 5 MG tabletIndications:C hronic intractable pain Take 3 tablets (15 mg total) by mouth 3 (three) times a day. 63 tablet 07/24/2021 Active [facility] Arthritis Pain Relief 650 MG CR tablet 1 TABLET NEEDED ORALLY EVERY 12 HRS 28 DAYS 12/24/2021 Active IMMUNE GLOBULIN, HUMAN, IJ Inject as directed. Dailyx2 every 2 weeks Active methylPREDNISolone sodium succinate (Solu-MEDROL) 1000 MG injection Infuse 16 mL (1,000 mg total) into a venous catheter every 28 days (4 weeks). Active albuterol (PROVENTIL HFA; VENTOLIN HFA) 108 (90 Base) MCG/ACT inhaler Inhale 2 puffs 4 times daily (every 6 hours) as needed for wheezing. Active cyanocobalamin (VITAMIN B12) 1000 MCG tabletIndications:P olyneuropathy Take 1 tablet (1,000 mcg total) by mouth daily. Do not start before July 01, 2022. 30 tablet 07/01/2022 Active Additional Information Patient taking differently:1,000 mcg OralEvery 30 days, injection, Reported on 11/04/2023 lidocaine (LIDODERM) 5 % patchIndications:Po lyneuropathy Place 1 patch on the skin daily. Apply patch and leave on for 12 hours then remove. Patch may remain on skin for 12 hours per day. 14 patch 06/30/2022 Active Levonorgest-Eth Estrad 91-Day (SEASONIQUE PO) Take 1 tablet by mouth daily. Active acetaminophen (TYLENOL) 325 MG tablet Take 2 tablets (650 mg total) by mouth 4 times daily (every 6 hours) as needed for mild pain. Active calcium carbonate-vitamin D (Calcium 600-D) 600 mg-10 mcg tabletIndications:S teroid dependent (HCC) Take 1 tablet by mouth every morning with breakfast. 60 tablet 5 09/04/2023 Active MISC MEDICATION/NEUTRACE UTICAL by Does not apply route. Per pt she is currently on a prednisone taper Active melatonin 10 MG Tab tablet Take 10 mg by mouth nightly. Active cyanocobalamin (VITAMIN B-12) 1000 MCG/ML injection INJECT 1ML ONCE A MONTH 12/17/2023 Active EPINEPHrine 0.3 mg/0.3 mL IJ auto-injection INJECT 0.3 ML (0.3 MG) DIRECTED IF NEEDED FOR ANAPHYLAXIS. CALL 911 AFTER USE. 10/22/2023 Active immune globulin, human, 10% in solution (GAMUNEX-C) IV Premix Infuse 10 mL (1 g total) into a venous catheter over 14 days for 336 hours (continuous infusion). Active loratadine (CLARITIN) 10 MG tablet Take 1 tablet (10 mg total) by mouth Once before discharge. Active B-D 3CC LUER-ADRIA SYR 25GX1 25G X 1 3 ML Misc 1 SYRINGE EVERY 30 (THIRTY) DAYS. USE WITH B12 SOLUTION 12/23/2023 Active Tuberculin-Allergy Syringes (B-D ALLERGY SYRINGE 1CC/28G) 28G X 1/2 1 ML MiscIndications:Pso riatic arthritis (HCC) Use 1 weekly with methotrexate injection 50 each 03/16/2024 Active Insulin Syringe-Needle U-100 (B-D INSULIN SYRINGE 1CC/27G) 27G X 1/2 1 ML MiscIndications:Pso riatic arthritis (HCC) To be used once weekly with methotrexate vials 100 each 03/18/2024 Active MISC MEDICATION/NEUTRACE UTICAL by Does not apply route. 400mg magnesium powder once a day Active Daysee 0.15-0.03 &0.01 MG Tab Take 1 tablet by mouth daily. 03/23/2024 Active B-D TB SYRINGE 1CC/27GX1/2 27G X 1/2 1 ML Misc 03/18/2024 Active nortriptyline (PAMELOR) 10 MG capsuleIndications: Chronic pain syndrome Take 1 capsule (10 mg total) by mouth every other day. 2 capsule 04/29/2024 Active LORazepam (ATIVAN) 0.5 MG tabletIndications:A nxiety Take 1 tablet (0.5 mg total) by mouth 2 (two) times a day. 30 tablet 04/28/2024 Active oxyCODONE (ROXICODONE) 15 MG immediate release tabletIndications:C hronic pain syndrome Take 1 tablet (15 mg total) by mouth every 4 (four) hours as needed for severe pain. Max Daily Amount: 90 mg 84 tablet 04/28/2024 Active ondansetron (ZOFRAN) 4 MG tabletIndications:N ausea Take 1 tablet (4 mg total) by mouth 3 times daily (every 8 hours) as needed for nausea or vomiting. 30 tablet 08/20/2024 Active predniSONE (DELTASONE) 10 MG tabletIndications:P soriatic arthritis (HCC) Prednisone 40 mg daily for 3 days, 30 mg daily for 3 days, 20 mg daily for 3 days, 15 mg daily for 3 days, 10 mg daily for 3 days, 5 mg daily for 3 days- always in the morning after breakfast 40 tablet 08/20/2024 Active diclofenac enteric coated (VOLTAREN) 75 MG EC tabletIndications:P soriatic arthritis (HCC) Take 1 tablet (75 mg total) by mouth 2 (two) times a day with meals. Administer with food avoid GI upset. 60 tablet 08/20/2024 Active naproxen (EC NAPROSYN) 500 MG EC tablet Take 1 tablet (500 mg total) by mouth 2 (two) times a day with meals. Active scopolamine (TRANSDERM-SCOP) patchIndications:Va sculitic neuropathy Place 1 patch on the skin every third day (72 hrs). 1 patch 09/22/2024 Active methoTREXate, PF, (Rasuvo) 20 MG/0.4ML subcutaneous injectionIndication s:Psoriatic arthritis (HCC) Inject 0.4 mL (20 mg total) under the skin once a week. 4.8 mL 1 09/26/2024 Active ketorolac (TORADOL) 10 MG tabletIndications:P soriatic arthritis (HCC) Take 1 tablet (10 mg total) by mouth 3 times daily (every 8 hours) as needed for moderate pain. Take with food to reduce stomach upset. 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 90 tablet 1 09/26/2024 Active folic acid (FOLVITE) 1 MG tabletIndications:H igh risk medication use TAKE 1 TABLET BY MOUTH EVERY DAY 90 tablet 1 10/05/2024 Active potassium chloride (K-TAB) 20 MEQ CR tabletIndications:H ypokalemia Take 1 tablet (20 mEq total) by mouth daily. Swallow whole; do not crush. Take with food. 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 Vasculitis 09/19/2021 Anxiety 07/12/2021 Paresthesias 06/18/2021 Polyneuropathy 06/17/2021 Overview (06/22/2021): Added automatically from request for surgery [id number] Pleural effusion 06/17/2021 Overview (07/02/2021): Added automatically from request for surgery [id number] Encounters Date Type Department Care Team Description 11/26/2024 Telephone [facility] Rheumatology [address] [phone] Jonh Hobson MD Other 11/25/2024 Telephone [facility] [place] [facility] [address] [facility] [address] [place] [phone] Luis Damon MD Appointment 11/17/2024 10:00 AM EDT Infusion [facility] [place] [facility] Out[facility]fusion Center [address] [place] [address] Deanne Daniel MD Walles, Claudia, RN Vasculitic neuropathy (Primary Dx); Anemia due to other cause, not classified; High risk medication use 11/16/2024 10:00 AM EDT Infusion [facility] [place] [address] [place] [address] Deanne Daniel MD Baltz, Sara E, ANTONIO Vasculitic neuropathy (Primary Dx); Anemia due to other cause, not classified; High risk medication use 11/16/2024 Orders Only [facility] Medical Oncology at [address] [phone] Jocelyn Alcala PA-C 11/16/2024 Orders Only [facility] [address] [facility] [address] [place] [address] Luis Damon MD 11/16/2024 Travel 11/10/2024 Telephone [facility] Transplant [facility] Liver [address] [place] [phone] Janet Bonilla MA 11/09/2024 Telephone [facility] Rheumatology [address] [place] [address] Jonh Hobson MD 11/08/2024 Telephone [facility] Rheumatology [address] [place] [address] Jonh Hobson MD Appointment; Other 11/04/2024 Telephone [facility] at [facility] Out[facility]fusion [facility] [address] [place] [address] Luis Damon MD 11/03/2024 Telephone [facility] [place] [facility]fusion [facility] [address] [place] [phone] Luis Damon MD 11/03/2024 Transcribe Orders [facility] at [facility] Outpatient [facility]fusion Center [address] [place] [phone] Luis Damon MD 11/02/2024 Telephone [facility] [address] [place] [phone] Luis Damon MD Other; Medication Problem; Appointment 11/01/2024 Telephone [facility] Out[facility]fusion [facility] [address] [place], [place] [phone] Luis Damon MD 11/01/2024 Telephone [facility] [address] [place] [phone] Luis Damon MD Advice Only 11/01/2024 Telephone [facility] [address] [place] [phone] Luis Damon MD 10/29/2024 Telephone [facility] Rheumatology [address] [phone] Jonh Hobson MD 10/26/2024 Telephone [facility] Rheumatology [address] [phone] Jonh Hobson MD 10/25/2024 8:45 AM EST Infusion [facility] [place] [facility] [address] [place] [phone] Deanne Daniel MD Carilli, Kristina, ANTONIO Vasculitic neuropathy (Primary Dx); Psoriatic arthritis (HCC); Vasculitis; Anemia due to other cause, not classified; High risk medication use 10/25/2024 Travel 10/21/2024 Telephone [id number] [address] [address] Luis Damon MD Vitamin D Deficiency 10/20/2024 10:00 AM EST Infusion [facility] [place] [facility] Out[facility]fusion [facility] [address] [place] [address] Deanne Daniel MD Laflamme, Shauna C, RN Vasculitic neuropathy (Primary Dx); Anemia due to other cause, not classified; High risk medication use 10/20/2024 Telephone [facility] Rheumatology [address] [phone] Jonh Hobson MD 10/19/2024 10:00 AM EST Infusion [facility] [address] [place] [phone] Deanne Daniel MD Hamilton, Vanessa F, RN Vasculitic neuropathy (Primary Dx); Anemia due to other cause, not classified; High risk medication use 10/19/2024 Travel 10/18/2024 Orders Only [facility] [address] [place] [phone] Luis Damon MD 10/15/2024 Orders Only [facility] Rheumatology [address] [phone] Jonh Hobson MD 10/14/2024 Refill [facility] [address] [place] [address] Jonh Hobson MD Psoriatic arthritis (HCC); Psoriasis 10/11/2024 8:45 AM EST Infusion [facility] [address] [place] [phone] Deanne Daniel MD Budd, Loubet, RN High risk medication use (Primary Dx); Psoriatic arthritis (HCC); Vasculitis; Pain; Vasculitic neuropathy; Anemia due to other cause, not classified 10/11/2024 Travel 10/08/2024 Orders Only [facility] Rheumatology [address] [phone] Jonh Hobson MD 10/08/2024 Orders Only [facility] [address] [place] [phone] Luis Damon MD Hypokalemia (Primary Dx) 10/06/2024 10:00 AM EST Infusion [facility] [address] [place] [phone] Deanne Daniel MD Wood, Tiffany, RN Vasculitic neuropathy (Primary Dx); Anemia due to other cause, not classified; High risk medication use 10/06/2024 [facility] Outpatient Center [address] [place] [phone] Luis Damon MD Steroid dependent (HCC) 10/06/2024 [facility] Outpatient [address] [phone] Luis Damon MD Steroid dependent (HCC) 10/05/2024 11:45 AM EST Office Visit [facility] Medical Oncology at [address] [phone] Deanne Daniel MD Iron deficiency anemia, unspecified iron deficiency anemia type (Primary Dx) 10/05/2024 10:00 AM EST Infusion [facility] [address] [place] [phone] Deanne Daniel MD Guss, Madison RN Vasculitic neuropathy (Primary Dx); Anemia due to other cause, not classified; High risk medication use; Polyneuropathy 10/05/2024 Orders Only [facility] Rheumatology [address] [phone] Jonh Hobson MD 10/05/2024 Travel 10/04/2024 Refill [facility] Rheumatology [address] [place] [address] Jonh Hobson MD High risk medication use 09/27/[address] [place] [address] Jonh Hobson MD MSOT - REFILL (RASUVO) 09/26/[address] [phone] Jonh Hobson MD 09/24/2024 Scanned Document [address] [phone] Jonh Hobson MD 09/22/2024 10:00 AM EST Infusion [facility] [place] [facility] Outpatient [facility]fusion Center [address] [place] [phone] Deanne Daniel MD Walles, Claudia, RN Vasculitic neuropathy (Primary Dx) 09/22/[address] [phone] Jonh Hobson MD 09/21/2024 10:00 AM EST Infusion [facility] [place] [facility] Out[facility]fusion [facility] [address] [place] [phone] Deanne Daniel MD Pierson, Kyle A, RN Polyneuropathy (Primary Dx); Vasculitic neuropathy 09/21/2024 Documentation [facility] [place] [facility] [address] [place] [phone] Luis Damon MD 09/21/2024 Documentation [facility] [place] [facility] [address] [place] [phone] Mariah Ny RN 09/21/2024 Telephone [facility] [address] [place] [phone] Luis Damon MD Letter for School/Work; Advice Only 09/21/2024 Travel 09/17/2024 Telephone [facility] [address] [place] [phone] Luis Damon MD 09/16/2024 Refill [facility] Rheumatology [address] [phone] Jonh Hobson MD Psoriatic arthritis (HCC) 09/14/2024 Telephone [facility] Rheumatology [address] [phone] Jonh Hobson MD 09/08/2024 10:00 AM EST Infusion [facility] [place] [facility] [address] [place] [phone] Deanne Daniel MD Carilli, Kristina, RN Vasculitic neuropathy (Primary Dx) 09/08/2024 Telephone [facility] [address] [place] [phone] Luis Damon MD 09/07/2024 10:00 AM EST Infusion [facility] [place] [facility] [address] [place] [phone] Deanne Daniel MD Hamilton, Vanessa F, RN Polyneuropathy (Primary Dx); Vasculitic neuropathy 09/07/2024 Orders Only [facility] [address] [place] [phone] Luis Damon MD 09/07/2024 Telephone [facility] [address] [place] [phone] Luis Damon MD Medical Complaint 09/07/2024 Travel 09/01/2024 Scanned Document [facility] [place] [facility] at [facility] [address] [place] [address] ProviderBrian MD 08/30/2024 Telephone [facility] [place] [facility] [address] [facility] [address] [place] [phone] Luis Damon MD from Last 3 Months Immunizations Name Administration Dates Next Due Covid-19 Adenovirus Vaccine - Linda 02/01/2021 Family History Relation Name Status Comments Father Alive Mother Alive Sister Alive Social History Tobacco Use Types Packs/Day Years Used Date Smoking Tobacco: Never Smokeless Tobacco: Never Tobacco Cessation:Counseling Given: Not Answered Alcohol Use Standard Drinks/Week Comments Not Currently 0 (1 standard drink = 0.6 oz pur e alcohol) Social C Utilities Answer Date Recorded In the past 12 months has th e [employer], gas, oil, or water [employer] threatened to shut off services in your [...] place to sleep or slept in a residential (including now)? No 04/26/2024 Sex and Gender Information Value Date Recorded Sex Assigned at Female 10/02/2022 12:43 PM EST Gender Identity Female 10/02/2022 12:43 PM EST Sexual Orientation Heterosexual (straight) 10/02 12:43 PM EST Last Filed Vital Signs Vital Sign Reading Time Taken Comments Blood Pressure 147/90 11/17/2024 4:01 PM EDT Pulse 76 11/17/2024 4:01 PM EDT Temperature 36.6 ??C (97.8 ??F) 11/17/2024 2:35 PM ED T Respiratory Rate 18 11/17/2024 4:01 PM EDT Oxygen Saturation 97% 11/17/2024 4:01 PM EDT Inhaled Oxygen Concentration - - Weight 86.1 kg (189 lb 13.1 oz) 025 10:18 AM EDT Height 165 cm (5' 4.96 ) 11/16/2024 10: 18 AM EDT Body Mass Index 31.63 11/16/2024 10:18 AM EDT Plan of Treatment Upcoming Encounters Date Type Department Care Team (Late st Contact Info) Description 11/30/2024 10:00 AM EDT Infusion [facility] Infusion [address] [phone] Deanne Daniel MD [address] [place] [phone] 12/01/2024 10:00 AM EDT Infusion [facility] Infusion [address] [phone] Deanne Daniel MD [address] [place] [phone] 12/13/2024 10:30 AM EDT [facility] [address] [phone] Grey Trinidad MD [address] [place] [address] [place] [phone] 12/14/2024 10:00 AM EDT Infusion [facility] [place] [address] [phone] Deanne Daniel MD [address] [place] [phone] 12/15/2024 10:00 AM EDT Infusion [facility] [place] [address] [phone] Deanne Daniel MD [address] [place] [phone] 12/28/2024 10:00 AM EDT Infusion [facility] [place] [address] [phone] Deanne Daniel MD [address] [place] [phone] 12/29/2024 10:00 AM EDT Infusion [facility] [place] [address] [phone] Deanne Daniel MD [address] [place] [phone] 01/04/2025 11:45 AM EDT Office Visit [facility] Medical Oncology at [address] [phone] Deanne Daniel MD [address] [place] [phone] 01/20/2025 1:00 PM EDT Office Visit [facility] Rheumatology [place] [address] [facility] [address] [place] [address] Jonh Hobson MD [address] [place] [facility] [address] [place] [address] 01/27/2025 11:30 AM EDT Consult [facility] [address] [facility] [address] [place] [phone] Jayne Morales, [address] [place] [address] 02/01/2025 11:40 AM EDT Office Visit [facility] [place] [facility] [address] [facility] [address] [place] [address] Luis Damon MD [address] [place] [address] 04/26/2025 10:00 AM EDT Infusion [facility] [place] [facility] Out[facility]fusion [facility] [address] [place] [phone] Deanne Daniel MD [address] [place] [address] Health Maintenance Due Date Last Done Comments DTaP/Tdap/Td Vaccines (1 - Tdap) 2009 Hepatitis B Vaccines (1 of 3 - 19+ 3-dose series) 2009 Pneumococcal Vaccine: Pediatric (0-5 Years) and At-Risk Patients (6 to 49 Years) (1 of 2 - PCV) 2009 Pap Smear (Ages 21-65) 2011 COVID-19 Vaccine (2 - Linda risk series) 03/01/2021 02/01/2021 Influenza Vaccine 03/25/2024 Chronic Controlled Substance User PDMP Review Discontinued 06/17/2021 HIV Screening Completed 06/20/2021, 06/19/2021 Quantiferon Gold TB Discontinued 03/19/2022 Hepatitis C Virus Screening Completed 02/03/2024, 10/14/2023, 03/19/2023, Additional history exists HPV Vaccines Aged Out No longer eligi ble based on patient's age to complete this topic Medical Devices Implanted Type Area Supervisor General Device Identifier Shelf Expiration Date Model / Serial / Lot [id number] Port Implant Infusion Smrt Port Vtx Safeshth Ultra Lite - [id number] Implanted:Qty : 1 on 01/08/2022 by Dave Bob MD at [facility] Access Port [employer] [id number] 10/22/2024 [id number] / [id number] / [id number] Procedures Procedure Name Priority Date/Time Associated Diagnosis Comments COMPREHENSIVE METABOLIC PANEL STAT 11/16/2024 11:53 AM EDT Vasculitic neuropathy COMPLETE BLOOD COUNT, WITH DIFFERENTIAL STAT 11/16/2024 11:53 AM EDT Vasculitic neuropathy ERYTHROCYTE SEDIMENTATION RATE (ESR) Routine 10/25/2024 9:33 AM EST Vasculitic neuropathy C-REACTIVE PROTEIN STAT 10/25/2024 9: 33 AM EST Vasculitic neuropathy COMPREHENSIVE METABOLIC PANEL STAT 10/25/2024 9:33 AM EST Vasculitic neuropathy COMPLETE BLOOD COUNT, WITH DIFFERENTIAL STAT 10/25/2024 9:33 AM EST Vasculitic neuropathy HEPATITIS B VIRAL LOAD, QUANTITATIVE STAT 10/25/2024 9:33 AM EST Vasculitic neuropathy COMPLETE BLOOD COUNT, WITH DIFFERENTIAL Routine 10/19/2024 10:05 AM EST Vasculitic neuropathy Anemia due to other cause, not classified High risk medication use COMPREHENSIVE METABOLIC PANEL Routine 10/19/2024 10:05 AM EST Vasculitic neuropathy Anemia due to other cause, not classified High risk medication use ERYTHROCYTE SEDIMENTATION RATE (ESR) Routine 10/11/2024 9:45 AM EST Psoriatic arthritis (HCC) Vasculitis C-REACTIVE PROTEIN Routine 10/11/2024 9: 45 AM EST Psoriatic arthritis (HCC) Vasculitis COMPREHENSIVE METABOLIC PANEL Routine 10/11/2024 9:45 AM EST Psoriatic arthritis (HCC) Vasculitis COMPLETE BLOOD COUNT, WITH DIFFERENTIAL Routine 10/11/2024 9:45 AM EST Psoriatic arthritis (HCC) Vasculitis COLTEN POLYOMA VIRUS DNA, PCR, QUAL Routine 10/06/2024 10:12 AM EST High risk medication use FERRITIN Routine 10/05/2024 11:26 AM EST Anemia due to other cause, not classified IRON AND TOTAL IRON BINDING CAPACITY Routine 10/05/2024 11:26 AM EST Anemia due to other cause, not classified VITAMIN D, 25-HYDROXY Routine 10/05/2024 10:16 AM EST Anemia due to other cause, not classified VITAMIN B12 Routine 10/05/2024 10:16 AM EST Anemia due to other cause, not classified HEPATITIS B VIRUS (HBV) CORE ANTIBODY TOTAL Routine 10/05/2024 10:16 AM EST Vasculitic neuropathy Anemia due to other cause, not classified High risk medication use HEPATITIS B VIRUS SURFACE ANTIBODY, QUANTITATIVE Routine 10/05/2024 10:16 AM EST Vasculitic neuropathy Anemia due to other cause, not classified High risk medication use HEPATITIS B VIRUS (HBV) SURFACE ANTIGEN SCREEN, REFLEX CONFIRMATION Routine 10/05/2024 10:16 AM EST Vasculitic neuropathy Anemia due to other cause, not classified High risk medication use COMPLETE BLOOD COUNT, WITH DIFFERENTIAL Routine 10/05/2024 10:16 AM EST Vasculitic neuropathy Anemia due to other cause, not classified High risk medication use COMPREHENSIVE METABOLIC PANEL Routine 10/05/2024 10:16 AM EST Vasculitic neuropathy Anemia due to other cause, not classified High risk medication use COMPLETE BLOOD COUNT, WITH DIFFERENTIAL Routine 09/21/2024 11:08 AM EST Vasculitic neuropathy COMPREHENSIVE METABOLIC PANEL Routine 09/21/2024 11:08 AM EST Vasculitic neuropathy COMPLETE BLOOD COUNT, WITH DIFFERENTIAL Routine 09/07/2024 10:30 AM EST Vasculitic neuropathy COMPREHENSIVE METABOLIC PANEL Routine 09/07/2024 10:30 AM EST Vasculitic neuropathy HEPATITIS PANEL, ACUTE Routine 10:42 AM EDT Polyneuropathy QUANTIFERON(R)-TB GOLD PLUS, 1 TUBE Routine 03/19/2022 12:10 PM EDT Psoriasis Psoriatic arthritis (HCC) HIV 1/2 AG/AB CMIA REFLEX TO CONFIRMATION Routine 06/20/2021 4:48 PM EDT from Last 3 Months or Most Recently Relevant to Health Maintenance Results * (ABNORMAL) Complete Blood Count, with Differential (11/16/2024 11:53 AM EDT) Only the most recent of7 resultswithin the time period is included. White Blood Cell Count 7.1 4.0 - 11.0 Thou/uL 11/16/2024 12:41 PM EDT [facility] Platelet Count 265 150 - 450 Thou/uL 11/16/2024 12:41 PM EDT [facility] Hemoglobin 11.1(L) 11.7 - 15.7 g/dL 11/16/2024 12:41 PM EDT [facility] Hematocrit 32.8(L) 35.0 - 47.0 % 11/16/2024 12:41 PM [facility] Red Blood Cell Count 3.45(L) 4.00 - 5.40 Mil/uL [facility] 95 80 - 100 fL [facility] MCH 32.2 26.0 - 34.0 pg 11/16/2024 12:41 PM [facility] MCHC 33.8 30.0 - 36.0 g/dL 11/16/2024 12:41 PM [facility] RDW 13.9 11.5 - 14.5 % 11/16/2024 12:41 PM [facility] MPV 11.6 7.5 - 12.5 fL 11/16/2024 12:41 PM [facility] Neutrophils Auto 72.1 % 11/17/19 12:41 PM [facility] Immature Granulocytes 0.4 % 11/16/2024 12:41 PM [facility] Lymphocytes Auto 19.3 % 11/17[facility]19 [facility] Monocytes Auto 6.8 % 11/16/2024 12:41 PM [facility] Eosinophils Auto 0.7 % 11/17[facility]19 [facility] Basophils Auto 0.7 % 11/16/2024 12:41 PM [facility] Abs Neutrophils Auto 5.11 2.00 - 7.50 Thou/uL 11/16[facility]2024 [facility] Abs Immature Granulocytes 0.03 0.00 - 0.10 Thou/uL 11/16/2024 [facility] Abs Lymphocytes Auto 1.37(L) 1.50 - 4.50 Thou/uL 11/16/2024 [facility] Abs Monocytes Auto 0.48 0.20 - 1.50 Thou/uL 11/16/2024 12:41 PM [facility] Abs Eosinophils Auto 0.05 0.00 - 0.70 Thou/uL 11/16/2024 [facility] Abs Basophils Auto 0.05 0.00 - 0.20 Thou/uL 11/16/2024 12:41 PM EDT [facility] Blood Blood specimen / Unknown 11/16/2024 11:53 AM EDT 11/16/2024 12:31 PM EDT Luis Crandall MD LAB BLOOD ORDERA BLES [address] [address], [address] [address] * (ABNORMAL) Comprehensive Metabolic Panel (11/16/2024 11:53 AM EDT) Only the most recent of7 resultswithin the time period is included. Glucose 96 65 - 99 mg/dL 11/16/2024 1:02 PM [facility] Comment:Fasting: <100 mg/dL, Non-Fasting: <200 mg/dL (ADA 2004) Blood Urea Nitrogen (BUN) 8 8 - 21 mg/dL 11/16/2024 1:02 PM [facility] Creatinine 0.8 0.4 - 1.1 mg/dL 11/16/2024 1:02 PM [facility] eGFR >90 >59 11/16/2024 1:02 PM [facility] Comment:CKD-EPI (2020) in mL /min/1.73 sq meters. Sodium 134(L) 136 - 145 mmol/L 11/16/2024 1:02 PM [facility] Potassium 3.6 3.4 - 5.3 mmol/L 11/16/2024 1:02 PM [facility] Chloride 102 98 - 107 mmol/L 11/16/2024 1:02 PM [facility] CO2 23 22 - 33 mmol/L 11/16/2024 1:02 PM [facility] Calcium 9.0 8.7 - 10.5 mg/dL 11/16/2024 1:02 PM [facility] Alkaline Phosphatase 139(H) 32 - 122 U/L 11/16/2024 1:02 PM [facility] Aspartate Aminotrans (AST) 147(H) 10 - 50 U/L 11/16/2024 1:02 PM [facility] Alanine Aminotrans (ALT) 318(H) 10 - 50 U/L 11/16/2024 1:02 PM EDT [facility] Bilirubin, Total 0.7 0.2 - 1.0 mg/dL 11/16/2024 1:02 PM EDT [facility] Protein, Total 7.3 6.3 - 8.3 g/dL 11/16/2024 1:02 PM EDT [facility] Albumin 3.7 3.5 - 5.0 g/dL 11/16/2024 1:02 PM EDT [facility] BUN/Creatinine Ratio 10 10.0 - 25.0 Ratio 11/16/2024 1:02 PM EDT [facility] Globulin 3.6 1.5 - 3.9 g/dL 11/16/2024 1:02 PM [facility] Albumin/Globulin Ratio 1.0 1.0 - 3.0 Ratio 11/16/2024 1:02 PM T [facility] Anion Gap 9 7 - 17 11/16/2024 1:02 PM [facility] Blood Blood specimen / Unknown 11/16/2024 11:53 AM EDT 11/16/2024 12:31 PM EDT Luis Crandall MD [place] [address], [place] [address] * Hepatitis B Viral Load, Quantitative (10/25/2024 9:33 AM EST) HBV DNA (IU/mL) Not Detected <10 IU/mL 10/27/2024 1:24 PM [facility] HBV DNA (log10) Not Detected <1.00 log10 IU/mL 10/27/2024 1:24 PM [facility] Interpretation Not Detected 10/28/19 1:24 PM [facility] Comment:Performed by FDA jacqueline roved [employer]ber[employer] Aptima TMA. Linear range is 10 to 1,000,000,000 IU/mL. Blood Blood specimen / Unknown 10/25/2024 9:33 AM EST 10/25/2024 9:48 AM EST Jonh Hobson MD LAB BLOOD ORDERABLES Performing Organization Address City/[facility] [address]/ZIP Co de Phone Number [facility] [address] * (ABNORMAL) Erythrocyte Sedimentation Rate (ESR) (10/25/2024 9:33 AM EST) Only the most recent of2 resultswithin the time period is included. Pathologist [facility] Erythrocyte Sediment Rate (ESR) 33(H) <20 MM/HR 10/25/2024 11:58 AM EST [facility] Blood Blood specimen / Unknown 10/25/2024 9:33 AM EST 10/25/2024 9:48 AM EST Jonh Hobson MD LAB BLOOD ORDERABLES Performing Organization Address [facility] [address]/[facility] [place] [address], [address] [address] * C-Reactive Protein (10/25/2024 9:33 AM EST) Only the most recent of2 resultswithin the time period is included. [facility] C-Reactive Protein 0.39 0 - 0.49 mg/dL 10/25/2024 10:16 AM EST [facility] Blood Blood specimen / Unknown 10/25/2024 9:33 AM EST 10/25/2024 9:48 AM EST Jonh Hobson MD LAB BLOOD ORDERABLES Performing Organization Address [facility] [address]/[facility] [place] [address], [address] [address] * COLTEN Polyoma Virus DNA, PCR, Qual (10/06/2024 10:12 AM EST) Pathologist [facility] Source Plasma 10/09/2024 2:52 PM EST [facility] [employer] COLTEN Polyoma Virus DNA Not Detected Not Detected 10/09/2024 2:52 PM EST [facility] Comment: (NOTE) This test was developed and its analytical performance characteristics have been determined by [employer] [facility] [employer] [place], [place]. It has not been cleared or approved by the U.S. Food and Drug Administration. This assay has been validated pursuant to the CLIA regulations and is used for clinical purposes. ? Blood Plasma specimen / Unknown 10/06/2024 10:12 AM EST 10/06/2024 11:17 AM EST Jonh Hobson MD LAB BLOOD ORDERABLES Performing Organization Address [facility] [address]/[facility] Co de Phone Number [place], [place] [phone] [facility] [id number] [place] [address] , [employer] [facility] [phone] [place] [address] * Iron, Total & Unsaturated Iron Binding Capacity, Transferrin Saturation (10/05/2024 11:26 AM EST) Iron 70 59 - 151 ug/dL 10/05/2024 1:37 PM [facility] UIBC 212 112 - 346 ug/dL 10/05/2024 1:37 PM [facility] Total Iron Binding Capacity 282 100 - 400 ug/dL 10/05/2024 1:37 PM [facility] Iron Sat 25 20 - 50 % 10/05/2024 1:37 PM [facility] Blood (Plasma/Serum) 10/05/2024 11:26 AM EST 10/05/2024 1:03 PM EST Deanne Mcgrath MD LAB BLOOD ORDERABLES Performing Organization Address City/[facility] [address]/[place] [address], [place] [address] * (ABNORMAL) Ferritin (10/05/2024 11:26 AM EST) Ferritin 2,187(H) 15 - 150 ug/L 10/05/2024 2:18 PM EST [facility] Blood (Plasma/Serum) 10/05/2024 11:26 AM EST 10/05/2024 1:03 PM EST Deanne Mcgrath MD LAB BLOOD ORDERABLES Performing Organization Address City/[facility] [address]/ZIP Co de Phone Number [facility] [address] [place] [address], [address] [address] * Hepatitis B Virus Surface Antibody, Quantitative (10/05/2024 10:16 AM EST) Hepatitis B Surface Ab (Quant) 800.4 >11.9 mIU/mL 10/07/2024 4:10 PM EST [facility] Comment: Reactive >11.9 mIU/mL anti-HBs indicates individual is immune to HBV infection. ??mIU/mL ?Interpretation ??>11.9 ? Reactive 8.0 to 11.9 ? [place] ?? <8.0 ? Nonreactive Test performed by Chemiluminescent Microparticle Immunoassay. Blood Serum specimen / Unknown 10/05/2024 10:16 AM EST 10/05/2024 11:22 AM EST Jonh Hobson MD LAB BLOOD ORDERABLES Performing Organization Address City/[facility] [address]/ZIP Co de Phone Number [facility] [address] [place] [address], * HEPATITIS B VIRUS (HBV) SURFACE ANTIGEN SCREEN, REFLEX CONFIRMATION (10/05/2024 10:16 AM EST) Pathologist [facility] Hepatitis B Surface Ag Screen Nonreactive Nonreactive 10/07/2024 4:10 PM EST [facility] Blood Serum specimen / Unknown 10/05/2024 10:16 AM EST 10/05/2024 11:22 AM EST Jonh Hobson MD LAB BLOOD ORDERABLES Performing Organization Address City/[facility] [address]/ZIP Co de Phone Number [facility] [address] [place] [address], * (ABNORMAL) Hepatitis B Virus (HBV) Core Antibody Total (10/05/2024 10:16 AM EST) Hepatitis B Core Antibody Total Reactive( A) Nonreactive 10/07/2024 4:10 PM EST [facility] Blood Serum specimen / Unknown 10/05/2024 10:16 AM EST 10/05/2024 11:22 AM EST Jonh Hobson MD LAB BLOOD ORDERABLES [facility] [address] [place] [address], * (ABNORMAL) Vitamin D, 25-Hydroxy (10/05/2024 10:16 AM EST) Pathologist [facility] Vitamin D, 25-Hydroxy 21(L) 30 - 100 ng/mL 10/05/2024 12:18 PM [facility] Blood (Plasma/Serum) 10/05/2024 10:16 AM EST 10/05/2024 11:21 AM EST Jonh Hobson [place] [address], [place] [address] * (ABNORMAL) VITAMIN B12 (10/05/2024 10:16 AM EST) Pathologist [facility] Vitamin B12 1,855(H) 243 - 894 pg/mL 10/05/2024 1:39 PM [facility] Blood (Plasma/Serum) 10/05/2024 10:16 AM EST 10/05/2024 11:22 AM EST Jonh Hobson [place] [address], [place] [address] * Hepatitis Panel, Acute (02/03/2024 10:42 AM EDT) Pathologist [facility] Hepatitis A Antibody IgM Nonreactive Nonreactive S/CO 02/04/2024 10:49 AM T [facility] Hepatitis B Core Antibody IgM Nonreactive Nonreactive 02/04/2024 10:49 AM [facility] Hepatitis B Surface Ag Screen Nonreactive Nonreactive 02/04/2024 10:49 AM [facility] Hepatitis C Antibody 0.12 0.00 - 0.79 S/CO ratio 02/04/2024 10:49 AM [facility] Hepatitis C Antibody Interpretation Nonreactive Nonreactive 02/04/2024 10:49 AM [facility] Comment:Antibodies to HCV no t detected. This does not exclude the possibility of exposure to HCV. Hepatitis Interpretation: Results inconsistent with acute Hepatitis A, B or C Virus infection. 02/04/2024 10:49 AM [facility] Blood Serum specimen / Unknown 02/03/2024 10:42 AM EDT 02/03/2024 11:36 AM EDT Jonh Hobson MD LAB BLOOD ORDERABLES [facility] [address] [place] [address], * Quantiferon ?? -TB Gold Plus, 1 Tube (03/19/2022 12:10 PM EDT) [facility] Quantiferon TB Gold Plus, 1T NEGATIVE NEGATIVE ICU [facility] Comment: Negative test result. M. tuberculosis complex infection unlikely. Quantiferon NIL 0.03 IU/mL [facility] Quantiferon Mitogen-NIL >10.00 IU/mL [facility] Quantiferon TB1-NIL 0.00 IU/mL [facility] Quantiferon TB2-NIL 0.00 IU/mL [facility] Comment: The Nil tube value reflects the background interferon gamma immune response of the patient's blood sample. This value has been subtracted from the patient's displayed TB and Mitogen results. Lower than expected results with the Mitogen tube prevent false-negative Quantiferon readings by detecting a patient with a potential immune suppressive condition and/or suboptimal pre-analytical specimen handling. The TB1 Antigen tube is coated with the M. tuberculosis-specific antigens designed to elicit responses from TB antigen primed CD4+ helper T-lymphocytes. The TB2 Antigen tube is coated with the M. tuberculosis-specific antigens designed to elicit responses from TB antigen primed CD4+ helper and CD8+ cytotoxic T-lymphocytes. For additional information, please refer to https://education.[employer].Apigee/faq/HUL043 (This link is being provided for informational/ educational purposes only.) 03/19/2022 12:1 0 PM EDT 03/19/2022 11:03 PM EDT Bijan Magana MD LAB BLOOD ORDERABLES [employer] [address] [place] [address], [place] [address] * HIV 1/2 Ag/Ab CMIA Reflex to Confirmation (All sites EXCEPT [facility]) (06/20/2021 4:48 PM EDT) [facility] HIV 1/2 Ag/Ab CMIA Nonreactive Nonreactive 06/21/2021 10:11 AM EDT [facility] Comment:Results show no evid ence of infection by HIV 1/2. If clinically indicated, repeat CMIA or test by nucleic acid amplification. Blood specimen (specimen) Serum specimen / Unknown 06/20/2021 4:48 PM EDT 06/20/2021 5:28 PM EDT Home Plasencia MD LAB BLOOD ORDERABLES HOSPITAL LAB [facility] [address] [place] [address] from Last 3 Months or Most Recently Relevant to Health Maintenance Insurance Payer Benefit Plan / Group Subscriber ID Effective Dates Phone Address [facility] [id number] 2023-[place] [address] OTHER MEDICAID [employer] [id number] 2022-Present [address] [place] [address] Advance Directives * Full Code (Latest Code Status on File) Date Activated Date Inactivated Comments 04/24/2024 11:55 PM * Full Code Date Activated Date Inactivated Comments 06/26/2022 10:00 PM 11/16/2022 3:24 PM * Full Code Date Activated Date Inactivated Comments 06/18/2021 8:30 AM 01/08/2022 7:08 AM Healthcare Agents on File Name Relationship Healthcare Agent Relationship Communication Linh Chow Healthcare assisted sales representative 4. Nex t of Kin (Spouse, Adult Child, Parent, Adult Sibling, Grandparent) Hugo Chow Parent 4. Next of Kin ( Spouse, Adult Child, Parent, Adult Sibling, Grandparent) Care Teams Fleet Sales Associate Relationship Specialty Start Date End Date Jacquelyn Garcia NP [address] [place] [address] PCP - General Family Medicine 05/18/24 Jonh Hobson MD 31 [facility] [address] [place], [place] [phone] Rheumatology 01/01/24 Ayde Zheng RN 85 [facility] [address] [place] [address] Registered Nurse Hepatology 08/11/24
--- OUTSIDE RECORDS SUMMARY | 2024-11-26 12:35 | XMS_ITS | Encounter Summary ---
Author Organization [facility] Address [address] [place] [address] Care Team Providers Care Oncology Physician Name Role Phone Jonh Hobson MD Unavailable [phone] Jacquelyn Garcia HEALTH TYPE TECHNICIAN Primary Care Provider Ayde Zheng RN Unavailable [phone] Reason for Visit * Reason Comments Other Encounter Details Date Type Department Care Team ([facility] st Contact Info) Description 11/26/2024 Telephone [facility] Rheumatology [address] [phone] Jonh Hobson MD [address] [place] [address] Other Social History Tobacco Use Types Packs/Day Years Used Date Smoking Tobacco: Never Smokeless Tobacco: Never Alcohol Use Standard Drinks/Week Comments Not Currently 0 (1 standard drink = 0.6 oz pur e alcohol) Social [facility] Utilities Answer Date Recorded In the past [...] place to sleep or slept in a intermediate (including now)? No 04/26/2024 Sex and Gender Information Value Date Recorded Sex Assigned at Female 10/02/2022 12:43 PM EST Gender Identity Female 10/02/2022 12:43 PM EST Sexual Orientation Heterosexual (straight) 10/02 12:43 PM EST documented as of this encounter Miscellaneous Notes * Telephone Encounter - Tawnya Spain MA - 11/26/2024 9:18 AM EDT Pt called and stated she is in agony with a lot of pain she was in the ED a couple days ago and shewould like your advice. documented in this encounter Plan of Treatment Upcoming Encounters Date Type Department Care Team (Late st Contact Info) Description 11/30/2024 10:00 AM EDT Infusion [facility] at [address] [phone] Deanne Daniel MD [address] [place] [address] 12/01/2024 10:00 AM EDT Infusion [facility] [address] [phone] Deanne Daniel MD [address] [place] [address] 12/13/2024 10:30 AM EDT [facility] [address] [phone] Grey Trinidad MD [address] [place] [address] 12/14/2024 10:00 AM EDT Infusion [facility] [address] [phone] Deanne Daniel MD [address] [place] [address] 12/15/2024 10:00 AM EDT Infusion [facility] [address] [phone] Deanne Daniel MD [address] [place] [address] 12/28/2024 10:00 AM EDT Infusion [facility] [address] [phone] Deanne Daniel MD [address] [place] [address] 12/29/2024 10:00 AM EDT Infusion [facility] [address] [place] [phone] Deanne Daniel MD [address] [place] [address] 01/04/2025 11:45 AM EDT Office Visit [facility] Medical Oncology at [address] [phone] Deanne Daniel MD [address] [place] [phone] 01/20/2025 1:00 PM EDT Office Visit [facility] Rheumatology [address] [phone] Jonh Hobson MD [address] [phone] 01/27/2025 11:30 AM EDT Consult [facility] [address] [place] [address] [address] [place] [phone] Jayne Morales, DO [address] [place] [address] 02/01/2025 11:40 AM EDT Office Visit [facility] [address] [facility] [address] [place] [phone] Luis Damon MD [address] [place] [address] 04/26/2025 10:00 AM EDT Infusion [facility] [address] [place] [phone] Deanne Daniel MD 85 [place] [address] documented as of this encounter Visit Diagnoses Not on filedocumented in this encounter Care Teams Oncology Physician Relationship Specialty Start Date End Date Jacquelyn Garcia NP [address] [place] [address] PCP - General Family Medicine 05/18/24 Jonh Hobson MD 31 [facility] [address] [place], [place] [phone] Rheumatology 01/01/24 Ayde Zheng RN 85 [facility] [address] [place] [address] Registered Nurse Hepatology 08/11/24 documented as of this encounter
--- OUTSIDE RECORDS SUMMARY | 2024-11-26 12:35 | XMS_ITS | Encounter Summary ---
Author Organization [facility] Address [address] [place] [address] Care Team Providers Care Help Desk Agent Name Role Phone Jonh Hobson MD Unavailable [phone] Pcp, No Primary Care Provider Unavailabl e Jacquelyn Garcia RESOURCE FORESTER Primary Care Provider Ayde Zheng RN Unavailable [phone] Encounter Details Date Type Department Care Team (Late st Contact Info) Description 05/12/2024 Scanned Document [facility] Rheumatology [address] [phone] Jonh Hobson MD [address] [place] [address] [id number] Social History Tobacco Use Types Packs/Day Years Used Date Smoking Tobacco: Never Smokeless Tobacco: Never Alcohol Use Standard Drinks/Week Comments Not Currently 0 (1 standard drink = 0.6 oz pur e alcohol) Social [facility] Utilities Answer Date Recorded In the [...] 11/30/2024 10:00 AM EDT Infusion [facility] [place] [facility] [address] [place] [phone] Deanne Daniel MD [address] [place] [address] 12/01/2024 10:00 AM EDT Infusion [facility] [place] [facility] Outpatient Infusion [address] [phone] Deanne Daniel MD [address] [place] [address] 12/13/2024 10:30 AM EDT [facility] [address] [phone] Grey Trinidad MD [address] [place] [address] [place] [address] 12/14/2024 10:00 AM EDT Infusion [facility] [place] [facility] Infusion [address] [phone] Deanne Daniel MD [address] [place] [address] 12/15/2024 10:00 AM EDT Infusion [facility] [place] [facility] Infusion [address] [phone] Deanne Daniel MD [address] [place] [address] 12/28/2024 10:00 AM EDT Infusion [facility] [place] [facility] Infusion [address] [phone] Deanne Daniel MD [address] [place] [address] 12/29/2024 10:00 AM EDT Infusion [facility] [place] [facility] Infusion [address] [phone] Deanne Daniel MD [address] [place] [address] 01/04/2025 11:45 AM EDT Office Visit [facility] [place] Medical Oncology at [address] [phone] Deanne Daniel MD [address] [place], [place] [phone] 01/20/2025 1:00 PM EDT Office Visit [facility] Rheumatology [address] [place] [address] Jonh Hobson MD 31 [facility] 206 [place], [place] [phone] 01/27/2025 11:30 AM EDT Consult [facility] 85 [facility] 320 [place] [phone] Jayne Morales, DO 300 [place] [address] 02/01/2025 11:40 AM EDT Office Visit [facility]rom[facility] [place] [facility] 85 [facility] 815 [place] [phone] Luis Damon MD [address] [place], [place] [phone] 04/26/2025 10:00 AM EDT Infusion [facility] [place] [facility] [address] [place] [address] [phone] Deanne Daniel MD [address] [place], [place] [phone] documented as of this encounter Visit Diagnoses Not on filedocumented in this encounter Care Teams Help Desk Agent Relationship Specialty Start Date End Date Pcp, No PCP - General General Medicine 04/22/24 05/17/24 Jacquelyn Garcia NP [address] [place] [address] PCP - General Family Medicine 05/18/24 Jonh Hobson MD 31 [facility] 206 [place], [place] [phone] Rheumatology 01/01/24 Ayde Zheng RN 85 [facility] 320 [place], [place] [phone] Registered Nurse Hepatology 08/11/24 documented as of this encounter
--- OUTSIDE RECORDS SUMMARY | 2024-11-26 12:35 | XMS_ITS | Encounter Summary ---
Author Organization [facility] Address [address] [place] [address] Care Team Providers Care Engineer Design And Construction Name Role Phone Bijan Magana MD Unavailable Unavailable Jonh Hobson MD Unavailable [phone] Pcp, No Primary Care Provider UnavailJacquelyn Baxter NP Primary Care Provider Ayde Zheng RN Unavailable [phone] Encounter Details Date Type Department Care Team (Late st Contact Info) Description 11/21/2021 Scanned Document [facility] Rheumatology [address] [phone] Boyd Cheng MD [address] [place] [address] Social History Tobacco Use Types Packs/Day Years [...] have Coronavirus / COVID-19? No / Unsure 11/21/2021 9:17 AM EDT documented as of this encounter Plan of Treatment Upcoming Encounters Date Type Department Care Team (Late st Contact Info) Description 11/30/2024 10:00 AM EDT Infusion [facility] Cancer [address] [phone] Deanne Daniel MD [address] [place] [address] 12/01/2024 10:00 AM EDT Infusion [facility] Cancer [address] [phone] Deanne Daniel MD [address] [place] [address] 12/13/2024 10:30 AM EDT [facility] [address] [phone] Grey Trinidad MD [address] [place] [address] [address] [place] [address] 12/14/2024 10:00 AM EDT Infusion [facility] Cancer [address] [phone] Deanne Daniel MD [address] [place] [address] 12/15/2024 10:00 AM EDT Infusion [facility] Cancer [address] [phone] Deanne Daniel MD [address] [place] [address] 12/28/2024 10:00 AM EDT Infusion [facility] [place] [facility] Outpatient Infusion [address] [phone] Deanne Daniel MD [address] [place] [address] 12/29/2024 10:00 AM EDT Infusion [facility] [place] [facility] Infusion [address] [phone] Deanne Daniel MD [address] [place] [address] [phone] 01/04/2025 11:45 AM EDT Office Visit [facility] Medical Oncology at [address] [phone] Deanne Daniel MD [address] [place] [address] 01/20/2025 1:00 PM EDT Office Visit [facility] Rheumatology [address] [place] [phone] Jonh Hobson MD [address] [phone] 01/27/2025 11:30 AM EDT Consult [facility] 85 [facility] 320 [place] [phone] Jayne Morales DO 300 [place] [address] 02/01/2025 11:40 AM EDT Office Visit [facility] 85 [facility] 815 [place] [address] Luis Damon MD 1914 [place] [address] 04/26/2025 10:00 AM EDT Infusion [facility] [place] [facility] 85 [place] [address] Deanne Daniel MD [address] [place] [address] documented as of this encounter Visit Diagnoses Not on filedocumented in this encounter Care Teams Engineer Design And Construction Relationship Specialty Start Date End Date Pcp, No PCP - General General Medicine 04/22/24 05/17/24 Jacquelyn Garcia NP 73 [facility] [place] [address] PCP - General Family Medicine 05/18/24 Bijan Magana MD Rheumatology 11/09/23 12/31/23 Jonh Hobson MD 31 [facility] 206 [place] [address] Rheumatology 01/01/24 Ayde Zheng, RN 85 [facility] 320 [place] [address] Registered Nurse Hepatology 08/11/24 documented as of this encounter
--- OUTSIDE RECORDS SUMMARY | 2024-11-26 12:35 | XMS_ITS | Encounter Summary ---
Author Organization [facility] Address [address] [place] [address] Care Team Providers Care Bottom Steep Tender Name Role Phone Bijan Magana MD Unavailable Unavailable Jonh Hobson MD Unavailable [phone] Pcp, No Primary Care Provider UnavailJacquelyn Baxter NP Primary Care Provider Ayde Zheng RN Unavailable [phone] Encounter Details Date Type Department Care Team (Late st Contact Info) Description 11/21/[address] [facility] Rheumatology [address] [phone] Boyd Cheng MD [address] [place] [address] Social History Tobacco Use Types Packs/Day Years [...] 11/30/2024 10:00 AM EDT Infusion [facility] Cancer [address] [phone] Deanne Daniel MD [address] [place] [address] 12/01/2024 10:00 AM EDT Infusion [facility] Cancer [address] [phone] Deanne Daniel MD [address] [place] [address] 12/13/2024 10:30 AM EDT [facility] [address] [phone] Grey Tirnidad MD [address] [place] [address] [address] [place] [address] 12/14/2024 10:00 AM EDT Infusion [facility] Cancer [address] [phone] Deanne Daniel MD [address] [place] [address] 12/15/2024 10:00 AM EDT Infusion [facility] Cancer [address] [phone] Deanne Daniel MD [address] [place] [address] 12/28/2024 10:00 AM EDT Infusion [facility] [place] [facility] Outpatient Infusion [address] [phone] Deanne Daniel MD [address] [place] [address] 12/29/2024 10:00 AM EDT Infusion [facility] [place] [facility] Infusion [address] [phone] Deanne Daniel MD [address] [place] [address] [phone] 01/04/2025 11:45 AM EDT Office Visit [facility] Medical Oncology at [address] [phone] Deanne Daniel MD [address] [place] [address] 01/20/2025 1:00 PM EDT Office Visit [facility] Rheumatology [address] [place] [phone] Jnoh Hobson MD [address] [phone] 01/27/2025 11:30 AM EDT Consult [facility] 85 [facility] 320 [place] [phone] Jayne Morales DO 300 [place] [address] 02/01/2025 11:40 AM EDT Office Visit [facility] Out[facility] Center 85 [facility] 815 [place] [address] Luis Damon MD [address] [place] [address] 04/26/2025 10:00 AM EDT Infusion [facility] [place] [facility] 85 [place] [address] Deanne Daniel MD 85 [place] [address] documented as of this encounter Visit Diagnoses Not on filedocumented in this encounter Care Teams Bottom Steep Tender Relationship Specialty Start Date End Date Pcp, No PCP - General General Medicine 04/22/24 05/17/24 Jacquelyn Garcia NP 73 [facility] [place] [address] PCP - General Family Medicine 05/18/24 Bijan Magana MD Rheumatology 11/09/23 12/31/23 Jonh Hobson MD 31 [facility] 206 [place] [address] Rheumatology 01/01/24 Ayde Zheng, RN 85 [facility] 320 [place] [address] Registered Nurse Hepatology 08/11/24 documented as of this encounter
--- OUTSIDE RECORDS SUMMARY | 2024-11-26 12:35 | XMS_ITS | Encounter Summary ---
Author Organization [facility] Address [address] [place] [address] Care Team Providers Care Alley Tender Name Role Phone Jonh Hobson MD Unavailable [phone] Jacquelyn Garcia NP Primary Care Provider Ayde Zheng RN Unavailable [phone] Encounter Details Date Type Department Care Team (Late st Contact Info) Description 11/10/2024 Telephone [facility] [address] [phone] Janet Bonilla MA [address] [address] Social History Tobacco Use Types [...] place to sleep or slept in a fdc (including now)? No 04/26/2024 Sex and Gender Information Value Date Recorded Sex Assigned at Female 10/02/2022 12:43 PM EST Gender Identity Female 10/02/2022 12:43 PM EST Sexual Orientation Heterosexual (straight) 10/02 12:43 PM EST documented as of this encounter Miscellaneous Notes * Telephone Encounter - Janet Bonilla MA - 11/17/2024 11:12 AM EDT Patient has been scheduled for 01/27 with keith * Telephone Encounter - Janet Bonilla MA - 11/15/2024 11:27 AM EDT Called patient. Left message to call us back. Calling to schedule SREEDHAR/. Patient originally referred for positive HBV core antibody. 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 * Telephone Encounter - Kira Jarquin APRN - 11/10/2024 2:13 PM EDT Records reviewed. Patient was originally referred to the clinic 07/2024 and scheduled to see Dr Barber 09/2024. Appointment was cancelled, noting patient refusal. Patient is now re-referred to clinic. Patient originally referred for positive HBV core antibody. 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 Please schedule with any chinese medicine practitioner, first available. Thanks * Telephone Encounter - Janet Bonilla MA - 11/10/2024 8:02 AM EDT New patient records received. Transcribe order completed. Care Team added. Records are available inEpic. please advise documented in this encounter Plan of Treatment Upcoming Encounters Date Type Department Care Team (Late st Contact Info) Description 11/30/2024 10:00 AM EDT Infusion [facility] [place] [facility] Infusion [address] [phone] Deanne Daniel MD 85 [place] [address] 12/01/2024 10:00 AM EDT Infusion [facility] [place] at [address] [phone] Deanne Daniel MD 85 [place] [address] 12/13/2024 10:30 AM EDT [facility] [address] [phone] Grey Trinidad MD [address] [place] [address] [place] [address] 12/14/2024 10:00 AM EDT Infusion [facility] [place] [facility] Infusion [address] [phone] Deanne Daniel MD [address] [place] [address] 12/15/2024 10:00 AM EDT Infusion [facility] [place] [facility] Infusion [address] [phone] Deanne Daniel MD [address] [place] [address] 12/28/2024 10:00 AM EDT Infusion [facility] [place] [facility] Infusion [address] [phone] Deanne Daniel MD [address] [place] [address] 12/29/2024 10:00 AM EDT Infusion [facility] [place] [address] [phone] Deanne Daniel MD [address] [place] [address] 01/04/2025 11:45 AM EDT Office Visit [facility] Medical Oncology at [address] [phone] Deanne Daniel MD [address] [place] [address] 01/20/2025 1:00 PM EDT Office Visit [address] [address] Jonh Hobson MD [address] [phone] 01/27/2025 11:30 AM EDT Consult [facility] [address] [facility] 320 [place] [phone] Jayne Morales, DO 300 [facility] [place] [address] 02/01/2025 11:40 AM EDT Office Visit [facility] [place] [facility] [address] [place] [address] 815 [place] [phone] Luis Damon MD 1914 [place], [place] [phone] 04/26/2025 10:00 AM EDT Infusion [facility] [place] [facility] Outpatient [facility]fusion Center 85 [place] [phone] Deanne Daniel MD 85 [place], [place] [phone] documented as of this encounter Visit Diagnoses Not on filedocumented in this encounter Care Teams Alley Tender Relationship Specialty Start Date End Date Jacquelyn Garcia NP [address] [place] [address] PCP - General Family Medicine 05/18/24 Jonh Hobson MD [address] [address] Rheumatology 01/01/24 Ayde Zheng RN [address] [phone] Registered Nurse Hepatology 08/11/24 documented as of this encounter
--- OUTSIDE RECORDS SUMMARY | 2024-11-26 12:35 | XMS_ITS | Encounter Summary ---
Author Organization [facility] Address [address] [place] [address] Care Team Providers Care Racecar Driver Name Role Phone Jonh Hobson MD Unavailable [phone] Jacquelyn Garcia REFUGE WORKER Primary Care Provider Ayde Zheng RN Unavailable [phone] Reason for Referral * Hepatology (Routine) - Authorized Specialty Diagnoses / Procedures Referred By Kirill nunes Referred To Contact Hepatology / Transplant Diagnoses Drug-induced hepatitis Jonh Hobson MD 31 [facility] 206 [place] [address] Hepatology [facility] 85 [facility] [address] [place] [phone] Referral ID Status Reason Start Date Expiration Date V isits Requested Visits Authorized [id number] Authorized Consult 11/09/2024 11/10/2025 1 1 Question Answer Select Referral Type Consult Comments Likely drug induced hepatitis; combination of steroids, methotrexate, rituxan Encounter Details Date Type Department Care Team ([facility] st Contact Info) Description 11/09/2024 Telephone [facility] Rheumatology [place] [address] [facility] [address] [place] [address] Jonh Hobson MD 31 [facility] 206 [place], [place] [phone] Social History Tobacco Use Types Packs/Day Years [...] place to sleep or slept in a mcfp (including now)? No 04/26/2024 Sex and Gender Information Value Date Recorded Sex Assigned at Female 10/02/2022 12:43 PM EST Gender Identity Female 10/02/2022 12:43 PM EST Sexual Orientation Heterosexual (straight) 10/02 12:43 PM EST documented as of this encounter Miscellaneous Notes * Telephone Encounter - Jonh Hobson MD - 11/09/2024 12:28 PM EDT Rheumatology Telephone Note Last seen 08/20/2024. Rasuvo increased from 15 mg to 20 mg once a week temporarily to bridge her until Rituxan. Trial oral Voltaren led to skin swelling/blistering/oral ulcers. Trial of oral ketorolac 10 mg up to every 8 hours instead. Patient received 2 doses 1000 mg IV Rituxan, 10/11/2024 and 025. Started having symptoms with first infusion (rash, nausea); mostly mild infusion reaction symptoms. However during and after second infusion, patient felt ill, more severe symptoms, more nausea,increased pain, inflammation head to toe, skin and hair hurt, rashes, intermittent low-grade fevers, flushing on arms, joint pain, muscle pain, hair follicle pain. Patient went to the ER at [facility]. Fever as high as 100 degrees, high blood pressure, low white blood cell count (expected after Rituxan), significant transaminitis with reported jaundice. IV opioid pain meds did not help patient's whole body pain. Benadryl helped some. They called inpatient pain management. They did stop [facility] inpatient. Patient herself very much wants to resume, think she was getting a gout flare in house. I suspect transaminitis secondary to combination of methylprednisolone administered with each Rituxan as well as with at least 1 IVIG infusion plus increased dose of methotrexate plus Rituxan itself combined was likely too much for patient's liver. I emphasized that we should stay off of methotrexate until her liver function tests have normalized. In the future we can resume at a lower dose, likely 15 mg subcu which she has tolerated previously. We will not increase to 20 mg. We will also unlikely continue Rituxan any further, whether she had transaminitis only versus infusion reaction versusserum sickness. She may still derive benefit from her initial Rituxan infusions over the next 6 kika hs. We will see. Though we cannot initiate another biologic within the next 6 months, DMARD therapycan be used. Agree with referral to hepatology as she has had elevated LFTs in the past though not to this level. Jonh Hobson MD, S Rheumatology documented in this encounter Plan of Treatment Upcoming Encounters Date Type Department Care Team (Late st Contact Info) Description 11/30/2024 10:00 AM EDT Infusion [facility] Cancer [address] [phone] Deanne Daniel MD [address] [place] [address] 12/01/2024 10:00 AM EDT Infusion [address] [phone] Deanne Daniel MD [address] [place] [address] 12/13/2024 10:30 AM EDT [facility] [address] [phone] Grey Trinidad MD [address] [place] [address] [place] [address] 12/14/2024 10:00 AM EDT Infusion [facility] Cancer [address] [phone] Deanne Daniel MD [address] [place] [address] 12/15/2024 10:00 AM EDT Infusion [facility] Cancer [address] [phone] Deanne Daniel MD [address] [place] [address] 12/28/2024 10:00 AM EDT Infusion [facility] [place] [facility] Outpatient Infusion [address] [phone] Deanne Daniel MD [address] [place] [address] 12/29/2024 10:00 AM EDT Infusion [facility] [place] [facility] Infusion [address] [phone] Deanne Daniel MD [address] [place] [address] 01/04/2025 11:45 AM EDT Office Visit [facility] Medical Oncology at [address] [phone] Deanne Daniel MD [address] [place] [address] [phone] 01/20/2025 1:00 PM EDT Office Visit [address] [phone] Jonh Hobson MD [address] [phone] 01/27/2025 11:30 AM EDT Consult [facility] Trans[facility] 85 [facility] 320 [place] [phone] Jayne Morales, DO 300 [place] [address] 02/01/2025 11:40 AM EDT Office Visit [facility] Neuromuscular [place] [facility] 85 [facility] 815 [place] [address] Luis Damon MD [facility]4 [place] [address] 04/26/2025 10:00 AM EDT Infusion [facility] [place] [facility] 85 [place] [address] Deanne Daniel MD 85 [place] [address] Scheduled Referrals Name Type Priority Associated Diagnoses Order Schedule Amb Referral to Hepatology Outpatient Referral Routine Drug-induced hepatitis Ordered: 11/09/2024 documented as of this encounter Visit Diagnoses Diagnosis Drug-induced hepatitis- Primary documented in this encounter Care Teams Racecar Driver Relationship Specialty Start Date End Date Jacquelyn Garcia NP 73 [facility] [place] [address] PCP - General Family Medicine 05/18/24 Jonh Hobson MD 31 [facility] 206 [place] [address] Rheumatology 01/01/24 Ayde Zheng RN 85 [facility] 320 [place] [address] Registered Nurse Hepatology 08/11/24 documented as of this encounter
--- OUTSIDE RECORDS SUMMARY | 2024-11-26 12:35 | XMS_ITS | Encounter Summary ---
Author Organization [facility] Address [address] [place] [address] Care Team Providers Care Transcriber Name Role Phone Jonh Hobson MD Unavailable [phone] Pcp, No Primary Care Provider Unavailabl e Jacquelyn Garcia NP Primary Care Provider Ayde Zheng RN Unavailable [phone] Encounter Details Date Type Department Care Team (Late st Contact Info) Description 05/12/2024 Scanned Document [facility] [address] [address] Valery Coe 80 [place] [address] Social History Tobacco Use Types Packs/Day Years Used Date Smoking Tobacco: Never Smokeless Tobacco: Never Alcohol Use Standard Drinks/Week Comments Not Currently 0 (1 standard drink = 0.6 oz pur e alcohol) Social [facility] Utilities Answer Date Recorded In the past [...] place to sleep or slept in a alf (including now)? No 04/26/2024 Sex and Gender Information Value Date Recorded Sex Assigned at Female 10/02/2022 12:43 PM EST Gender Identity Female 10/02/2022 12:43 PM EST Sexual Orientation Heterosexual (straight) 10/02 12:43 PM EST documented as of this encounter Plan of Treatment Upcoming Encounters Date Type Department Care Team (Late st Contact Info) Description 11/30/2024 10:00 AM EDT Infusion [facility] [address] [place] [phone] Deanne Daniel MD [address] [place] [id number] 12/01/2024 10:00 AM EDT Infusion [facility] Cancer [facility] Infusion [address] [address] Deanne Daniel MD 85 [place] [address] 12/13/2024 10:30 AM EDT [facility] [address] [phone] Grey Trinidad MD 201 [facility] [address] [place] [address] 12/14/2024 10:00 AM EDT Infusion [facility] Infusion [address] [phone] Deanne Daniel MD [address] [place] [address] 12/15/2024 10:00 AM EDT Infusion [facility] Cancer [facility] Infusion [address] [phone] Deanne Daniel MD [address] [place] [address] 12/28/2024 10:00 AM EDT Infusion [facility] [place] [address] [phone] Deanne Daniel MD [address] [place] [address] 12/29/2024 10:00 AM EDT Infusion [facility] [place] [address] [phone] Deanne Daniel MD [address] [place] [address] 01/04/2025 11:45 AM EDT Office Visit [facility] Medical Oncology at [address] [phone] Deanne Daniel MD 85 [place], [place] [phone] 01/20/2025 1:00 PM EDT Office Visit [facility] Rheumatology [address] [place] [address] Jonh Hobson MD 31 [facility] 206 [place], [place] [phone] 01/27/2025 11:30 AM EDT Consult [facility] 85 [facility] 320 [place] [phone] Jayne Morales, DO 300 [place] [address] 02/01/2025 11:40 AM EDT Office Visit [facility] 85 [facility] 815 [place] [phone] Luis Damon MD 1914 [place] [address] 04/26/2025 10:00 AM EDT Infusion [facility] Out[facility]fusion Center [address] [place] [phone] Deanne Daniel MD 85 [place], [place] [phone] documented as of this encounter Visit Diagnoses Not on filedocumented in this encounter Care Teams Transcriber Relationship Specialty Start Date End Date Pcp, No PCP - General General Medicine 04/22/24 05/17/24 Jacquelyn Garcia NP [address] [place] [address] PCP - General Family Medicine 05/18/24 Jonh Hobson MD 31 [facility] 206 [place] [address] Rheumatology 01/01/24 Ayde Zheng RN 85 [facility] 320 [place], [place] [phone] Registered Nurse Hepatology 08/11/24 documented as of this encounter
--- OUTSIDE RECORDS SUMMARY | 2024-11-26 12:35 | XMS_ITS | Encounter Summary ---
Author Organization [facility] Address [address] [place] [address] Care Team Providers Care Stunt Man Name Role Phone Bijan Magana MD Unavailable Unavailable Jonh Hobson MD Unavailable [phone] Pcp, No Primary Care Provider UnavailJacquelyn [place] NP Primary Care Provider Ayde Zheng RN Unavailable [phone] Encounter Details Date Type Department Care Team (Late st Contact Info) Description 11/21/2021 Scanned Document [facility] Rheumatology [address] [phone] Boyd Cheng MD [address] [place] [address] Social History Tobacco Use Types Packs/Day Years [...] [facility] Cancer [address] [phone] Deanne Daniel MD [address] [place] [address] 12/01/2024 10:00 AM EDT Infusion [facility] Cancer [address] [phone] Deanne Daniel MD [address] [place] [address] 12/13/2024 10:30 AM EDT [facility] [address] [address] Grey Trinidad MD [address] [place] [address] [address] [place] [address] 12/14/2024 10:00 AM EDT Infusion [facility] Cancer [address] [phone] Deanne Daniel MD [address] [place] [address] 12/15/2024 10:00 AM EDT Infusion [facility] Cancer [address] [phone] Deanne Daniel MD [address] [place] [address] 12/28/2024 10:00 AM EDT Infusion [facility] Cancer [place] [facility] Outpatient Infusion [address] [phone] Deanne Daniel MD [address] [place] [address] 12/29/2024 10:00 AM EDT Infusion [facility] [place] [facility] Infusion [address] [phone] Deanne Daniel MD [address] [place] [phone] 01/04/2025 11:45 AM EDT Office Visit [facility] Medical Oncology at [address] [phone] Deanne Daniel MD [address] [place] [address] 01/20/2025 1:00 PM EDT Office Visit [facility] Rheumatology [address] [place] [phone] Jonh Hobson MD [address] [phone] 01/27/2025 11:30 AM EDT Consult [facility] Transplant Program [facility] 85 [facility] 320 [place] [phone] Jayne Morales DO 300 [place] [address] 02/01/2025 11:40 AM EDT Office Visit [facility] Outpatient Center 85 [facility] 815 [place] [address] Luis Damon MD 1914 [place] [address] 04/26/2025 10:00 AM EDT Infusion [facility] Cancer [place] [facility] Outpatient Infusion Center 85 [place] [address] Deanne Daniel MD 85 [place] [address] documented as of this encounter Visit Diagnoses Not on filedocumented in this encounter Care Teams Stunt Man Relationship Specialty Start Date End Date Pcp, No PCP - General General Medicine 04/22/24 05/17/24 Jacquelyn Garcia NP 73 [facility] [place] [address] PCP - General Family Medicine 05/18/24 Bijan Magana MD Rheumatology 11/09/23 12/31/23 Jonh Hobson MD 31 [facility] 206 [place] [address] Rheumatology 01/01/24 Ayde Zheng, RN 85 [facility] 320 [place] [address] Registered Nurse Hepatology 08/11/24 documented as of this encounter
--- OUTSIDE RECORDS SUMMARY | 2024-11-26 12:35 | XMS_ITS | Encounter Summary ---
Author Organization [employer] Address 75 [facility] [place] 7t [place] [address] Care Team Providers Care Special Events Driver Name Role Phone Jacquelyn Garcia Primary Care Provider Unavailable Nuria Levin Unavailable Inactive/Transferred Primary Care Provider Shaneka Ford DO Primary Care Provider [phone] Encounter Details Date Type Department Care Team (Late st Contact Info) Description 11/27/2023 Orders Only [facility] [address] [place] [address] Jacquelyn Garcia FNP Social History Tobacco Use [...] Procedure Name Priority Date/Time Associated Diagnosis Comments ECG 12-LEAD Routine 11/20/2023 5:17 PM EDT documented in this encounter Results * ECG 12 lead (11/20/2023 5:17 PM EDT) Jacquelyn SIMON ECG ORDERABLES Final Result documented in this encounter Visit Diagnoses Not on filedocumented in this encounter Care Teams Special Events Driver Relationship Specialty Start Date End Date Jacquelyn Garcia FNP PCP - General Family Medicine 08/06/22 06/01/24 Inactive/Transferred PCP - General 06/02/24 06/02/24 Shaneka Bailey DO [address] [place] [address] PCP - General Family Medicine 11/04/24 Nuria Levin Community Health Worker 12/09/22 documented as of this encounter
--- OUTSIDE RECORDS SUMMARY | 2024-11-26 12:35 | XMS_ITS | Encounter Summary ---
Author Organization [facility] Address [address] [place] [address] Care Team Providers Care Motor Hotel Manager Name Role Phone Bijan Magana MD Unavailable Unavailable Jonh Hobson MD Unavailable [phone] Pcp, No Primary Care Provider UnavailJacquelyn [place] NP Primary Care Provider Ayde Zheng RN Unavailable [phone] Reason for Visit * Reason Comments Advice Only Encounter Details Date Type Department Care Team ([facility] Contact Info) Description 01/09/2023 Telephone [id number] [address] [place] [phone] Luis Damon MD [address] [place] [address] Advice Only Social History Tobacco Use Types Packs/Day Years [...] suspected to have Coronavirus/COVID-19? No / Unsure 12/10/2022 11:06 AM EDT documented as of this encounter Miscellaneous Notes * Telephone Encounter - Jone Lau MA - 01/09/2023 9:24 AM EDT Patients mother called into the office with some concerns about MRI imaging done last month at . Linh states that on the report, the radiologist mentioned disc replacement but Linh states that Helen never had disc replacement surgery. Linh also stated that there was no mention of aneurysms and is now confused as to why the patient is going to see Dr. Vo for anuerysms. Linh states that per PCP, Dr. Crandall can request a senior radiology attending to re-read imaging and generate new report, please advise. documented in this encounter Plan of Treatment Upcoming Encounters Date Type Department Care Team (Late st Contact Info) Description 11/30/2024 10:00 AM EDT Infusion [facility] Cancer [facility] Infusion [address] [phone] Deanne Daniel MD [address] [place] [address] 12/01/2024 10:00 AM EDT Infusion [facility] Cancer [address] [phone] Deanne Daniel MD [address] [place] [address] 12/13/2024 10:30 AM EDT [facility] [address] [phone] Grey Trinidad MD [facility] [address] [place] [address] 12/14/2024 10:00 AM EDT Infusion [facility] Cancer [facility] Infusion [address] [phone] Deanne Daniel MD [address] [place] [address] 12/15/2024 10:00 AM EDT Infusion [facility] Cancer [place] [address] [phone] Deanne Daniel MD [address] [place] [address] 12/28/2024 10:00 AM EDT Infusion [facility] Cancer [place] [address] [phone] Deanne Daniel MD [address] [place] [address] 12/29/2024 10:00 AM EDT Infusion [facility] Cancer [facility] Infusion [address] [phone] Deanne Daniel MD [address] [place] [address] 01/04/2025 11:45 AM EDT Office Visit [facility] Medical Oncology at [address] [phone] Deanne Daniel MD 85 [place] [address] 01/20/2025 1:00 PM EDT Office Visit [facility] Rheumatology [place] [address] [facility] [address] [place] [address] Jonh Hobson MD 31 [facility] 206 [place], [place] [phone] 01/27/2025 11:30 AM EDT Consult [facility] Transplant Program [facility] 85 [facility] 320 [place] [address] Jayne Morales, 300 [place], [place] [address] 02/01/2025 11:40 AM EDT Office Visit [facility] Neuromuscular [place] [facility] 85 [facility] 815 [place] [phone] Luis Damon MD [facility]4 [place] [address] 04/26/2025 10:00 AM EDT Infusion [facility] Cancer [place] [facility] Outpatient Infusion Center [address] [place] [address] Deanne Daniel MD 85 [place] [address] documented as of this encounter Visit Diagnoses Not on filedocumented in this encounter Care Teams Motor Hotel Manager Relationship Specialty Start Date End Date Pcp, No PCP - General General Medicine 04/22/24 05/17/24 Jacquelyn Garcia NP [address] [place] [address] PCP - General Family Medicine 05/18/24 Bijan Magana MD Rheumatology 11/09/23 12/31/23 Jonh Hobson MD [address] [address] Rheumatology 01/01/24 Ayde Zheng RN [address] [phone] Registered Nurse Hepatology 08/11/24 documented as of this encounter
--- OUTSIDE RECORDS SUMMARY | 2024-11-26 12:35 | XMS_ITS | Clinical Summary ---
Author Organization [facility] Address [address] [place] [address] Care Team Providers Care Credit Products Officer Name Role Phone Jacquelyn Garcia Primary Care Provider [phone] Social History Tobacco Use Types Packs/Day Years Used Date Smoking Tobacco: Never Assessed Sex and Gender Information Value Date Recorded Sex Assigned at Not on file Gender Identity Not on file Sexual Orientation Not on file Plan of Treatment Health Maintenance Due Date Last Done Comments Hepatitis B Vaccines (1 of 3 - 3-dose series) 1990 COVID-19 Vaccine (#1) 03/25/1991 Depression Screening 2002 Preventative Health Evaluation 2008 DTap / Tdap / Td (1 - Tdap) 2009 Cervical Cancer Screening (P ap Smear) 2011 Influenza Vaccine (#1) 2024 Hepatitis C Screening Completed 10/12/2020 Pneumococcal Vaccine Aged Out No long er eligible based on patient's age to complete this topic RSV Ped < 20 months Aged Out No longe r eligible based on patient's age to complete this topic Care Teams Credit Products Officer Relationship Specialty Start Date End Date Jacquelyn Garcia 58 [facility] [place] [phone] PCP - General Family Medicine 10/26/18
--- OUTSIDE RECORDS SUMMARY | 2024-11-26 12:35 | XMS_ITS | Encounter Summary ---
Author Organization [facility] Address [address] [place] [address] Care Team Providers Care Maintenance Mechanic Engine Name Role Phone Jonh Hobson MD Unavailable [phone] Pcp, No Primary Care Provider Unavailabl e Jacquelyn Garcia NP Primary Care Provider Ayde Zheng RN Unavailable [phone] Encounter Details Date Type Department Care Team (Late st Contact Info) Description 05/13/2024 Scanned Document [address] [facility] [address] [place] [phone] Radiology, Scan Social History Tobacco Use Types Packs/Day Years Used Date Smoking Tobacco: Never Smokeless Tobacco: Never Alcohol Use Standard Drinks/Week Comments Not Currently 0 (1 standard drink = 0.6 oz pur e alcohol) Social [facility] Utilities Answer Date Recorded In the past 12 months has [employer], gas, oil, or water company threatened to [...] place to sleep or slept in a [place] (including now)? No 04/26/2024 Sex and Gender Information Value Date Recorded Sex Assigned at Female 10/02/2022 12:43 PM EST Gender Identity Female 10/02/2022 12:43 PM EST Sexual Orientation Heterosexual (straight) 10/02 12:43 PM EST documented as of this encounter Plan of Treatment Upcoming Encounters Date Type Department Care Team (Late st Contact Info) Description 11/30/2024 10:00 AM EDT Infusion [facility] Infusion [address] [phone] Deanne Daniel MD [address] [place] [address] 12/01/2024 10:00 AM EDT Infusion [facility] Infusion [address] [phone] Deanne Daniel MD [address] [place] [phone] 12/13/2024 10:30 AM EDT [facility] [address] [address] Grey Trinidad MD [address] [place] [address] [place] [address] 12/14/2024 10:00 AM EDT Infusion [facility] Cancer [facility] Infusion [address] [phone] Deanne Daniel MD [address] [place] [address] 12/15/2024 10:00 AM EDT Infusion [facility] [place] [address] [phone] Deanne Daniel MD [address] [place] [address] 12/28/2024 10:00 AM EDT Infusion [facility] Cancer [facility] Infusion [address] [phone] Deanne Daniel MD [address] [place] [address] 12/29/2024 10:00 AM EDT Infusion [facility] Cancer [facility] Infusion [address] [phone] Deanne Daniel MD [address] [place] [address] 01/04/2025 11:45 AM EDT Office Visit [facility] Oncology at [address] [phone] Deanne Daniel MD 85 [place] [address] 01/20/2025 1:00 PM EDT Office Visit [facility] Rheumatology [place] 538 [facility] [address] [place] [address] Jonh Hobson MD 31 [facility] 206 [place] [address] 01/27/2025 11:30 AM EDT Consult [facility] Transplant Program & [facility] 85 [facility] 320 [place] [address] Jayne Morales, DO 300 [facility] [address] 02/01/2025 11:40 AM EDT Office Visit [facility]romuscular [facility] 85 [facility] 815 [place] [address] Luis Damon MD 1914 [place] [address] 04/26/2025 10:00 AM EDT Infusion [facility] Cancer [place] [facility] Outpatient Infusion Center 85 [place] [address] Deanne Daniel MD 85 [place] [address] documented as of this encounter Procedures Procedure Name Priority Date/Time Associated Diagnosis Comments HX OUTSIDE ORDER 05/13/2024 documented in this encounter Results * HX OUTSIDE ORDER (05/13/2024) Scan Radiology HX AMB PROCEDURES documented in this encounter Visit Diagnoses Not on filedocumented in this encounter Care Teams Maintenance Mechanic Engine Relationship Specialty Start Date End Date Pcp, No PCP - General General Medicine 04/22/24 05/17/24 Jacquelyn Garcia NP [address] [place] [address] PCP - General Family Medicine 05/18/24 Jonh Hobson MD 31 [facility] 206 [place] [address] Rheumatology 01/01/24 Ayde Zheng, RN 85 [facility] 320 [place], [place] [address] Registered Nurse Hepatology 08/11/24 documented as of this encounter
--- OUTSIDE RECORDS SUMMARY | 2024-11-26 12:35 | XMS_ITS | Encounter Summary ---
Author Organization [facility] Address [address] [place] [address] Care Team Providers Care Electronic Commerce Specialist Name Role Phone Bijan Magana MD Unavailable Unavailable Jonh Hobson MD Unavailable [phone] Pcp, No Primary Care Provider UnavailJacquelyn Baxter NP Primary Care Provider Ayde Zheng RN Unavailable [phone] Encounter Details Date Type Department Care Team (Late st Contact Info) Description 09/13/2022 Scanned Document [facility] Cancer [place] Medical Oncology at [address] [phone] Provider, MD Brian [address] [place] [address] Social History Tobacco Use Types Packs/Day Years [...] suspected to have Coronavirus/COVID-19? No / Unsure 08/22/2022 11:20 AM EST documented as of this encounter Plan of Treatment Upcoming Encounters Date Type Department Care Team (Late st Contact Info) Description 11/30/2024 10:00 AM EDT Infusion [facility] Cancer [facility] Infusion [address] [phone] Deanne Daniel MD [address] [place] [address] 12/01/2024 10:00 AM EDT Infusion [facility] Cancer [facility] Infusion [address] [phone] Deanne Daniel MD [address] [place] [address] 12/13/2024 10:30 AM EDT [facility] [address] [address] Grey Trinidad MD [address] [place] [address] [address] [place] [address] 12/14/2024 10:00 AM EDT Infusion [facility] Cancer [facility] Infusion [address] [phone] Deanne Daniel MD [address] [place] [address] 12/15/2024 10:00 AM EDT Infusion [facility] Cancer [place] [facility] Infusion [address] [phone] Deanne Daniel MD [address] [place] [address] 12/28/2024 10:00 AM EDT Infusion [facility] Cancer [place] [facility] Infusion [address] [phone] Deanne Daniel MD [address] [place] [address] 12/29/2024 10:00 AM EDT Infusion [facility] Cancer [facility] Infusion [address] [phone] Deanne Daniel MD [address] [place] [address] 01/04/2025 11:45 AM EDT Office Visit [facility] Medical Oncology at [address] [phone] Deanne Daniel MD [address] [place] [address] 01/20/2025 1:00 PM EDT Office Visit [facility] Rheumatology [address] [place] [address] Jonh Hobson MD [address] [phone] 01/27/2025 11:30 AM EDT Consult Transplant Program & [facility] [address] [place] [address] 320 [place] [address] Jayne Morales, [address] [place] [address] 02/01/2025 11:40 AM EDT Office Visit [facility] [place] [facility] 85 [facility] 815 [place] [phone] Luis Damon MD 1914 [place], [place] [address] 04/26/2025 10:00 AM EDT Infusion [facility] Cancer [place] at Outpatient Infusion Center 85 [place] [address] Deanne Daniel MD 85 [place], [place] [phone] documented as of this encounter Visit Diagnoses Not on filedocumented in this encounter Care Teams Electronic Commerce Specialist Relationship Specialty Start Date End Date Pcp, No PCP - General General Medicine 04/22/24 05/17/24 Jacquelyn Garcia NP [address] [place] [address] PCP - General Family Medicine 05/18/24 Bijan Magana MD Rheumatology 11/09/23 12/31/23 Jonh Hobson MD [address] [facility] 206 [place] [address] Rheumatology 01/01/24 Ayde Zheng, RN 85 [facility] 320 [place], [place] [phone] Registered Nurse Hepatology 08/11/24 documented as of this encounter
--- OUTSIDE RECORDS SUMMARY | 2024-11-26 12:35 | XMS_ITS | Encounter Summary ---
Author Organization [facility] Address [address] [place] [address] Care Team Providers Care Reed Cleaner Name Role Phone Jonh Hobson MD Unavailable [phone] Jacquelyn Garcia NP Primary Care Provider Ayde Zheng RN Unavailable [phone] Encounter Details Date Type Department Care Team (Late st Contact Info) Description 11/03/2024 Telephone [facility] [place] [facility] [address] [place] [phone] Luis Damon MD [facility]4 [place], [place] [phone] Social History Tobacco Use Types Packs/Day Years Used Date Smoking Tobacco: Never Smokeless Tobacco: Never Alcohol Use Standard Drinks/Week Comments Not Currently 0 (1 standard drink = 0.6 oz pur e alcohol) Social [facility] Utilities Answer Date Recorded In the [...] place to sleep or slept in a longterm (including now)? No 04/26/2024 Sex and Gender Information Value Date Recorded Sex Assigned at Female 10/02/2022 12:43 PM EST Gender Identity Female 10/02/2022 12:43 PM EST Sexual Orientation Heterosexual (straight) 10/02 12:43 PM EST documented as of this encounter Plan of Treatment Upcoming Encounters Date Type Department Care Team (Late st Contact Info) Description 11/30/2024 10:00 AM EDT Infusion [facility] [place] [facility] [address] [place] [phone] Deanne Daniel MD [address] [place] [address] 12/01/2024 10:00 AM EDT Infusion [facility] [place] [facility] Infusion [address] [address] Deanne Daniel MD [address] [place] [address] 12/13/2024 10:30 AM EDT [facility] [address] [phone] Grey Trinidad MD [facility] [address] [place] [address] 12/14/2024 10:00 AM EDT Infusion [facility] [place] [facility] Infusion [address] [phone] Deanne Daniel MD [address] [place] [address] 12/15/2024 10:00 AM EDT Infusion [facility] [place] [facility] Infusion [address] [phone] Deanne Daniel MD [address] [place] [address] 12/28/2024 10:00 AM EDT Infusion [facility] [place] [address] [phone] Deanne Daniel MD [address] [place] [address] 12/29/2024 10:00 AM EDT Infusion [facility] [place] [address] [phone] Deanne Daniel MD [address] [place] [address] 01/04/2025 11:45 AM EDT Office Visit [facility] Medical Oncology at [address] [phone] Deanne Daniel MD 85 [place], [place] [phone] 01/20/2025 1:00 PM EDT Office Visit [facility] Rheumatology [address] [place] [address] Jonh Hobson MD 31 [facility] 206 [place], [place] [phone] 01/27/2025 11:30 AM EDT Consult [facility] 85 [facility] 320 [place] [phone] Jayne Morales, DO 300 [place] [address] 02/01/2025 11:40 AM EDT Office Visit [facility] [place] [facility] 85 [facility] 815 [place] [phone] Luis Damon MD [address] [place], [place] 4[address]30 04/26/2025 10:00 AM EDT Infusion [facility] [place] [facility] [address] [place] [phone] Deanne Daniel MD 85 [place], [place] [phone] documented as of this encounter Visit Diagnoses Not on filedocumented in this encounter Care Teams Reed Cleaner Relationship Specialty Start Date End Date Jacquelyn Garcia NP [address] [place] [address] PCP - General Family Medicine 05/18/24 Jonh Hobson MD 31 [facility] 206 [place], [place] [phone] Rheumatology 01/01/24 Ayde Zheng RN 85 [facility] 320 [place], [place] [phone] Registered Nurse Hepatology 08/11/24 documented as of this encounter
--- OUTSIDE RECORDS SUMMARY | 2024-11-26 12:35 | XMS_ITS | Encounter Summary ---
Author Organization [facility] Address [address] [place] [address] Care Team Providers Care Inspector Balance Truing Name Role Phone Jonh Hobson MD Unavailable [phone] Jacquelyn Garcia NP Primary Care Provider Ayde Zheng RN Unavailable [phone] Encounter Details Date Type Department Care Team (Late st Contact Info) Description 11/16/2024 Orders Only [facility]romuscular [place] [facility] 85 [facility] 815 [place] [phone] Luis Damon MD [facility]4 [place] [address] Social History Tobacco Use Types Packs/Day Years [...] Info) Description 11/30/2024 10:00 AM EDT Infusion [facility] [place] [facility] [address] [place] [phone] Deanne Daniel MD [address] [place] [phone] 12/01/2024 10:00 AM EDT Infusion [facility] [place] [facility] Outpatient Infusion [address] [address] Deanne Daniel MD 85 [place] [address] 12/13/2024 10:30 AM EDT [facility] [address] [phone] Grey Trinidad MD [facility] N [facility] [address] [place] [address] 12/14/2024 10:00 AM EDT Infusion [facility] [place] [facility] Infusion [address] [phone] Deanne Daniel MD [address] [place] [address] 12/15/2024 10:00 AM EDT Infusion [facility] [place] [facility] Infusion [address] [phone] Deanne Daniel MD [address] [place] [address] 12/28/2024 10:00 AM EDT Infusion [facility] [place] [address] [phone] Deanne Daniel MD [address] [place] [address] 12/29/2024 10:00 AM EDT Infusion [facility] [place] [address] [phone] Deanne Daniel MD 85 [place] [address] 01/04/2025 11:45 AM EDT Office Visit [facility] Medical Oncology at [address] [phone] Deanne Daniel MD 85 [place], [place] [phone] 01/20/2025 1:00 PM EDT Office Visit [facility] Rheumatology [address] [place] [address] Jonh Hobson MD 31 [facility] 206 [place], [place] [phone] 01/27/2025 11:30 AM EDT Consult [facility] 85 [facility] 320 [place] [phone] Jayne Morales, DO 300 [place] [address] 02/01/2025 11:40 AM EDT Office Visit [facility]rom[facility] [place] [facility] 85 [facility] 815 [place] [address] Luis Damon MD [address] [place] [address] 04/26/2025 10:00 AM EDT Infusion [facility] [place] [facility] [address] [place] [phone] Deanne Daniel MD 85 [place], [place] [phone] documented as of this encounter Visit Diagnoses Not on filedocumented in this encounter Care Teams Inspector Balance Truing Relationship Specialty Start Date End Date Jacquelyn Garcia NP [address] [place] [address] PCP - General Family Medicine 05/18/24 Jonh Hobson MD 31 [facility] 206 [place], [place] [phone] Rheumatology 01/01/24 Ayde Zheng RN 85 [facility] 320 [place], [place] [phone] Registered Nurse Hepatology 08/11/24 documented as of this encounter
--- OUTSIDE RECORDS SUMMARY | 2024-11-26 12:35 | XMS_ITS | Encounter Summary ---
Author Organization [facility] Address [address] [place] [address] Care Team Providers Care Hospital Admissions Clerk Name Role Phone Jonh Hobson MD Unavailable [phone] Jacquelyn Garcia NP Primary Care Provider Ayde Zheng RN Unavailable [phone] Reason for Visit * Reason Comments Appointment Encounter Details Date Type Department Care Team (Late st Contact Info) Description 11/25/2024 Telephone [facility] [place] [facility] 85 [facility] [address] [place] [phone] Luis Damon MD [address] [place] [address] Appointment Social History Tobacco Use Types Packs/Day Years Used Date Smoking Tobacco: Never Smokeless Tobacco: Never Alcohol Use Standard Drinks/Week Comments Not Currently 0 (1 standard drink = 0.6 oz pur e alcohol) Social [facility] Utilities Answer Date Recorded In the past 12 months has [employer] e electric, gas, oil, or water company [...] place to sleep or slept in a custodial (including now)? No 04/26/2024 Sex and Gender Information Value Date Recorded Sex Assigned at Female 10/02/2022 12:43 PM EST Gender Identity Female 10/02/2022 12:43 PM EST Sexual Orientation Heterosexual (straight) 10/02 12:43 PM EST documented as of this encounter Miscellaneous Notes * Telephone Encounter - Romy Iglesias - 11/25/2024 11:00 AM EDT Scheduled patient for 60 minutes FUP - just wanted to make sure that this is something that you still do with this patient. documented in this encounter Plan of Treatment Upcoming Encounters Date Type Department Care Team (Late st Contact Info) Description 11/30/2024 10:00 AM EDT Infusion [facility] [place] [facility] [address] [place] [phone] Deanne Daniel MD 85 [place] [address] 12/01/2024 10:00 AM EDT Infusion [facility] [facility] Infusion [address] [phone] Deanne Daniel MD 85 [place] [address] 12/13/2024 10:30 AM EDT [facility] [address] [phone] Grey Trinidad MD [address] [place] [address] 12/14/2024 10:00 AM EDT Infusion [facility] [place] [facility] Infusion [address] [phone] Deanne Daniel MD [address] [place] [address] 12/15/2024 10:00 AM EDT Infusion [facility] [place] [facility] Infusion [address] [phone] Deanne Daniel MD [address] [place] [address] 12/28/2024 10:00 AM EDT Infusion [facility] [place] [facility] Infusion [address] [phone] Deanne Daniel MD [address] [place] [address] 12/29/2024 10:00 AM EDT Infusion [facility] [place] [facility] [address] [place] [phone] Deanne Daniel MD [address] [place] [address] 01/04/2025 11:45 AM EDT Office Visit [facility] Medical Oncology at [address] [phone] Deanne Daniel MD [address] [place] [phone] 01/20/2025 1:00 PM EDT Office Visit [facility] Rheumatology [address] [place] [address] Jonh Hobson MD [address] [phone] 01/27/2025 11:30 AM EDT Consult [facility] 85 [facility] 320 [place] [phone] Jayne Morales, DO 300 [place] [address] 02/01/2025 11:40 AM EDT Office Visit [facility] 85 [facility] 815 [place] [address] Luis Damon MD [facility]4 [place], [place] [phone] 04/26/2025 10:00 AM EDT Infusion [facility] [place] [facility] [address] [place] [phone] Deanne Daniel MD [address] [place] [address] documented as of this encounter Visit Diagnoses Not on filedocumented in this encounter Care Teams Hospital Admissions Clerk Relationship Specialty Start Date End Date Jacquelyn Garcia NP [address] [place] [address] PCP - General Family Medicine 05/18/24 Jonh Hobson MD 31 [facility] 206 [place], [place] [phone] Rheumatology 01/01/24 Ayde Zheng RN 85 [facility] 320 [place] [address] Registered Nurse Hepatology 08/11/24 documented as of this encounter
--- OUTSIDE RECORDS SUMMARY | 2024-11-26 12:35 | XMS_ITS | Encounter Summary ---
Author Organization [facility] Address [address] [place] [address] Care Team Providers Care Habitat Biologist Name Role Phone Bijan Magana MD Unavailable Unavailable Jonh Hobson MD Unavailable [phone] Pcp, No Primary Care Provider UnavailJacquelyn Baxter NP Primary Care Provider Ayde Zheng RN Unavailable [phone] Encounter Details Date Type Department Care Team (Late st Contact Info) Description 11/19/2022 Scanned Document [facility] Neuromuscular [place] [facility] 85 [facility] 815 [place] [address] Luis Damon MD [facility]4 [place] [address] Social History Tobacco Use Types Packs/Day Years [...] suspected to have Coronavirus/COVID-19? No / Unsure 11/21/2022 10:02 AM EDT documented as of this encounter Plan of Treatment Upcoming Encounters Date Type Department Care Team (Late st Contact Info) Description 11/30/2024 10:00 AM EDT Infusion [facility] Cancer [facility] Infusion [address] [phone] Deanne Daniel MD [address] [place] [address] 12/01/2024 10:00 AM EDT Infusion [facility] Cancer [facility] Infusion [address] [phone] Deanne Daniel MD [address] [place] [address] 12/13/2024 10:30 AM EDT [facility] [address] [phone] Grey Trinidad MD [address] [place] [address] [place] [address] 12/14/2024 10:00 AM EDT Infusion [facility] Cancer [facility] Infusion [address] [phone] Deanne Daniel MD [address] [place] [address] 12/15/2024 10:00 AM EDT Infusion [facility] Cancer [place] at [facility] Infusion [address] [phone] Deanne Daniel MD [address] [place] [address] 12/28/2024 10:00 AM EDT Infusion [facility] [place] [facility] Infusion [address] [phone] Deanne Daniel MD [address] [place] [address] 12/29/2024 10:00 AM EDT Infusion [facility] Cancer [place] [address] [phone] Deanne Daniel MD [address] [place] [address] 01/04/2025 11:45 AM EDT Office Visit [facility] Medical Oncology at [address] [phone] Deanne Daniel MD [address] [place] [address] 01/20/2025 1:00 PM EDT Office Visit [facility] Rheumatology [address] [place] [address] Jonh Hobson MD [address] [phone] 01/27/2025 11:30 AM EDT Consult [facility] Transplant Program & [facility] Liver Center [address] [place] [address] 320 [place] [address] Jayne Morales, DO 300 [facility] [place] [address] 02/01/2025 11:40 AM EDT Office Visit [facility]romuscular [place] [facility] 85 [facility] 815 [place] [phone] Luis Damon MD [facility]4 [place], [place] 44[address] 04/26/2025 10:00 AM EDT Infusion [facility] Cancer [place] at [facility] Outpatient [facility]fusion Center 85 [place] [address] Deanne Daniel MD 85 [place], [place] [phone] documented as of this encounter Visit Diagnoses Not on filedocumented in this encounter Care Teams Habitat Biologist Relationship Specialty Start Date End Date Pcp, No PCP - General General Medicine 04/22/24 05/17/24 Jacquelyn Garcia NP [address] [place] [address] PCP - General Family Medicine 05/18/24 Bijan Magana MD Rheumatology 11/09/23 12/31/23 Jonh Hobson MD 31 [facility] 206 [place] [address] Rheumatology 01/01/24 Ayde Zheng, RN 85 [facility] 320 [place] [address] Registered Nurse Hepatology 08/11/24 documented as of this encounter
--- OUTSIDE RECORDS SUMMARY | 2024-11-26 12:35 | XMS_ITS | Encounter Summary ---
Author Organization [facility] Address [address] [place] [address] Care Team Providers Care Hot Roller Name Role Phone Jonh Hobson MD Unavailable [phone] Jacquelyn Garcia NP Primary Care Provider Ayde Zheng RN Unavailable [phone] Encounter Details Date Type Department Care Team (Late st Contact Info) Description 11/01/2024 Telephone [facility] [place] [facility] Outpatient [facility]fusion Center [address] [place] [phone] Luis Damon MD [facility]4 [place] [address] Social History Tobacco Use Types Packs/Day Years Used Date Smoking Tobacco: Never Smokeless Tobacco: Never Alcohol Use Standard Drinks/Week Comments Not Currently 0 (1 standard drink = 0.6 oz pur e alcohol) Social [facility] Utilities Answer Date Recorded In the past [...] place to sleep or slept in a long term (including now)? No 04/26/2024 Sex and Gender Information Value Date Recorded Sex Assigned at Female 10/02/2022 12:43 PM EST Gender Identity Female 10/02/2022 12:43 PM EST Sexual Orientation Heterosexual (straight) 10/02 12:43 PM EST documented as of this encounter Plan of Treatment Upcoming Encounters Date Type Department Care Team (Late st Contact Info) Description 11/30/2024 10:00 AM EDT Infusion [facility] [place] [facility]fusion Center [address] [place] [phone] Deanne Daniel MD [address] [place] [address] 12/01/2024 10:00 AM EDT Infusion [facility] [place] [facility] Infusion [address] [address] Deanne Daniel MD [address] [place] [address] 12/13/2024 10:30 AM EDT [facility] [address] [phone] Grey Trinidad MD [facility] N [facility] [address] [place] [address] 12/14/2024 10:00 AM EDT Infusion [facility] [place] [facility] Infusion [address] [phone] Deanne Daniel MD [address] [place] [address] 12/15/2024 10:00 AM EDT Infusion [facility] [place] [facility] Infusion [address] [phone] Deanne Daniel MD [address] [place] [address] 12/28/2024 10:00 AM EDT Infusion [facility] [place] [address] [phone] Deanne Daniel MD [address] [place] [address] 12/29/2024 10:00 AM EDT Infusion [facility] [place] [address] [phone] Deanne Daniel MD [address] [place] [address] 01/04/2025 11:45 AM EDT Office Visit [facility] Medical Oncology at [address] [phone] Deanne Daniel MD 85 [place], [place] [phone] 01/20/2025 1:00 PM EDT Office Visit [facility] Rheumatology [address] [place] [address] Jonh Hobson MD 31 [facility] 206 [place], [place] [phone] 01/27/2025 11:30 AM EDT Consult [facility] 85 [facility] 320 [place] [phone] Jayne Morales, DO 300 [place] [address] 02/01/2025 11:40 AM EDT Office Visit [facility] Neuromuscular [place] [facility] 85 [facility] 815 [place] [phone] Luis Damon MD [address] [place], [place] [address] 04/26/2025 10:00 AM EDT Infusion [facility] [place] [facility] Out[facility]fusion Center [address] [place] [phone] Deanne Daniel MD 85 [place], [place] [phone] documented as of this encounter Visit Diagnoses Not on filedocumented in this encounter Care Teams Hot Roller Relationship Specialty Start Date End Date Jacquelyn Garcia NP [address] [place] [address] PCP - General Family Medicine 05/18/24 Jonh Hobson MD 31 [facility] 206 [place], [place] [phone] Rheumatology 01/01/24 Ayde Zheng RN 85 [facility] 320 [place], [place] [phone] Registered Nurse Hepatology 08/11/24 documented as of this encounter
--- OUTSIDE RECORDS SUMMARY | 2024-11-26 12:35 | XMS_ITS | Encounter Summary ---
Author Organization [facility] Address [address] [place] [address] Care Team Providers Care Turntable Operator Name Role Phone Bijan Magana MD Unavailable Unavailable Jonh Hobson MD Unavailable [phone] Pcp, No Primary Care Provider UnavailJacquelyn Baxter NP Primary Care Provider Ayde Zheng RN Unavailable [phone] Encounter Details Date Type Department Care Team (Late st Contact Info) Description 11/18/2022 Scanned Document [facility] [address] [place] [phone] Endy Vo MD 85 [facility] Skip 815 [place], [place] [phone] Social History Tobacco Use Types Packs/Day Years [...] [facility] Infusion [address] [phone] Deanne Daniel MD [address] [place] [address] 12/01/2024 10:00 AM EDT Infusion [facility] Infusion [address] [phone] Deanne Daniel MD [address] [place] [address] 12/13/2024 10:30 AM EDT [facility] [address] [phone] Grey Trinidad MD [address] [place] [address] [address] [place] [address] 12/14/2024 10:00 AM EDT Infusion [facility] Infusion [address] [phone] Deanne Daniel MD [address] [place] [address] 12/15/2024 10:00 AM EDT Infusion [facility] Infusion [address] [phone] Deanne Daniel MD [address] [place] [address] 12/28/2024 10:00 AM EDT Infusion [facility] Infusion [address] [phone] Deanne Daniel MD [address] [place] [address] 12/29/2024 10:00 AM EDT Infusion [address] [phone] Deanne Daniel MD [address] [place] [address] 01/04/2025 11:45 AM EDT Office Visit [facility] Medical Oncology at [address] [phone] Deanne Daniel MD [address] [place] [address] 01/20/2025 1:00 PM EDT Office Visit [facility] Rheumatology [address] [place] [phone] Jonh Hobson MD [address] [phone] 01/27/2025 11:30 AM EDT Consult [facility] & [facility] [address] [place] [phone] Jayne Morales, DO 300 [facility] [place] [address] 02/01/2025 11:40 AM EDT Office Visit [facility] 85 [facility] 815 [place] [phone] Luis Damon MD [facility]4 [place], [place] [address] 04/26/2025 10:00 AM EDT Infusion [facility] [address] [place] [address] Deanne Daniel MD [address] [place], [place] [phone] documented as of this encounter Visit Diagnoses Not on filedocumented in this encounter Care Teams Turntable Operator Relationship Specialty Start Date End Date Pcp, No PCP - General General Medicine 04/22/24 05/17/24 Jacquelyn Garcia NP [address] [place] [address] PCP - General Family Medicine 05/18/24 Bijan Magana MD Rheumatology 11/09/23 12/31/23 Jonh Hobson MD 31 [facility] 206 [place] [address] Rheumatology 01/01/24 Ayde Zheng, RN 85 [facility] [address] [place], [place] [phone] Registered Nurse Hepatology 08/11/24 documented as of this encounter
--- OUTSIDE RECORDS SUMMARY | 2024-11-26 12:35 | XMS_ITS | Encounter Summary ---
Author Organization [facility] Address [address] [place] [address] Care Team Providers Care Director Health Name Role Phone Jonh Hobson MD Unavailable [phone] Jacquelyn Garcia ASSISTANT GM OF CONTENT & DELIVERY Primary Care Provider Ayde Zheng RN Unavailable [phone] Reason for Visit * Reason Comments Appointment Other Encounter Details Date Type Department Care Team ([facility] st Contact Info) Description 11/08/2024 Telephone [facility] Rheumatology [address] [phone] Jonh Hobson MD [address] [place] [address] Appointment; Other Social History Tobacco Use Types Packs/Day Years Used Date Smoking Tobacco: Never Smokeless Tobacco: Never Alcohol Use Standard Drinks/Week Comments Not Currently 0 (1 standard drink = 0.6 oz pur e alcohol) Social [facility] Utilities Answer Date Recorded In the past 12 months has [employer] electric, gas, oil, or water company threatened [...] encounter Miscellaneous Notes * Telephone Encounter - Emily Flanagan RN - 11/23/2024 10:35 AM EDT Robb, I will put the paper work in the mail for you. I can also email it to you from our fax machine to [email or web address] Please let me know Thank You * Telephone Encounter - Jonh Hobson MD - 11/08/2024 12:39 PM EDT No telehealth visit unfortunately as patient is a resident of [place] - please have her reschedule next available follow-up [id number] visit Patient has standing liver function testing part of her IVIG infusions with Dr. Crandall Does she want separate liver function testing labs to be sent to [facility]? Just a reminder, she should not be taking any methotrexate until her liver function tests are back to normal. * Telephone Encounter - Jailyn Christian MA - 11/08/2024 10:06 AM EDT Linh called on behalf of Helen and states she was discharged from [facility] yesterday andis asking if the appointment scheduled tomorrow can be changed to a virtual? She also states the visiting nurse may be calling to see if a standing order can be placed for liver functions as Helen's skin pigmentation is still yellow. Please advise. documented in this encounter Plan of Treatment Upcoming Encounters Date Type Department Care Team (Late st Contact Info) Description 11/30/2024 10:00 AM EDT Infusion [facility] [address] [place] [address] [phone] Deanne Daniel MD [address] [place] [address] 12/01/2024 10:00 AM EDT Infusion [facility] Outpatient Infusion [address] [phone] Deanne Daniel MD [address] [place] [address] 12/13/2024 10:30 AM EDT [facility] [address] [phone] Grey Trinidad MD [facility] [address] [place] [address] 12/14/2024 10:00 AM EDT Infusion [facility] Outpatient Infusion [address] [phone] Deanne Daniel MD [address] [place] [address] 12/15/2024 10:00 AM EDT Infusion [facility] Infusion [address] [phone] Deanne Daniel MD [address] [place] [address] 12/28/2024 10:00 AM EDT Infusion [facility] Infusion [address] [phone] Deanne Daniel MD [address] [place] [address] 12/29/2024 10:00 AM EDT Infusion [facility] Infusion [address] [phone] Deanne Daniel MD [address] [place] [address] 01/04/2025 11:45 AM EDT Office Visit [facility] Medical Oncology at [address] [phone] Deanne Daniel MD [address] [place] [address] 01/20/2025 1:00 PM EDT Office Visit [facility] Rheumatology [place] [address] [facility] 101 [place] [address]37[address]69 Jonh Hobson MD [address] [phone] 01/27/2025 11:30 AM EDT Consult [facility] Transplant Program & [facility] 85 [facility] 320 [place] [phone] Jayne Morales, DO 300 [facility] [place] [address] 02/01/2025 11:40 AM EDT Office Visit [facility] 85 [facility] 815 [place] [phone] Luis Damon MD [address] [place] [address] 04/26/2025 10:00 AM EDT Infusion [facility] Center 85 [place] [phone] Deanne Daniel MD 85 [place], [place] [phone] documented as of this encounter Visit Diagnoses Not on filedocumented in this encounter Care Teams Director Health Relationship Specialty Start Date End Date Jacquelyn Garcia NP [address] [place] [address] PCP - General Family Medicine 05/18/24 Jonh Hobson MD [address] [address] Rheumatology 01/01/24 Ayde Zheng RN [address] [address] Registered Nurse Hepatology 08/11/24 documented as of this encounter
--- OUTSIDE RECORDS SUMMARY | 2024-11-26 12:35 | XMS_ITS | Encounter Summary ---
Author Organization [facility] Address [address] [place] [address] Care Team Providers Care Senior Mechanical Technician Name Role Phone Bijan Magana MD Unavailable Unavailable Jonh Hobson MD Unavailable [phone] Pcp, No Primary Care Provider UnavailJacquelyn Baxter NP Primary Care Provider Ayde Zheng RN Unavailable [phone] Encounter Details Date Type Department Care Team (Late st Contact Info) Description 11/14/[address] [facility] Rheumatology [address] [phone] Boyd Cheng MD [address] [place] [address] Social History Tobacco Use Types Packs/Day Years [...] have Coronavirus / COVID-19? No / Unsure 11/06/2021 3:20 PM EDT documented as of this encounter Plan of Treatment Upcoming Encounters Date Type Department Care Team (Late st Contact Info) Description 11/30/2024 10:00 AM EDT Infusion [facility] Cancer [address] [phone] Deanne Daniel MD [address] [place] [address] 12/01/2024 10:00 AM EDT Infusion [facility] Cancer [address] [phone] Deanne Daniel MD [address] [place] [address] 12/13/2024 10:30 AM EDT [facility] [address] [phone] Grey Trinidad MD [address] [place] [address] [address] [place] [address] 12/14/2024 10:00 AM EDT Infusion [facility] Cancer [address] [phone] Deanne Daniel MD [address] [place] [address] 12/15/2024 10:00 AM EDT Infusion [facility] Cancer [address] [phone] Deanne Daniel MD [address] [place] [address] 12/28/2024 10:00 AM EDT Infusion [facility] [place] [facility]patient Infusion [address] [phone] Deanne Daniel MD [address] [place] [address] 12/29/2024 10:00 AM EDT Infusion [facility] Infusion [address] [phone] Deanne Daniel MD [address] [place] [address] [phone] 01/04/2025 11:45 AM EDT Office Visit [facility] Medical Oncology at [address] [phone] Deanne Daniel MD [address] [place] [address] 01/20/2025 1:00 PM EDT Office Visit [facility] Rheumatology [address] [place] [address] [phone] Jonh Hobson MD [address] [phone] 01/27/2025 11:30 AM EDT Consult [facility] 85 [facility] 320 [place] [phone] Jayne Morales DO 300 [place] [address] 02/01/2025 11:40 AM EDT Office Visit [facility] Outpatient Center 85 [facility] 815 [place] [address] Luis Damon MD 1914 [place] [address] 04/26/2025 10:00 AM EDT Infusion [facility] 85 [place] [address] Deanne Daniel MD 85 [place] [address] documented as of this encounter Visit Diagnoses Not on filedocumented in this encounter Care Teams Senior Mechanical Technician Relationship Specialty Start Date End Date Pcp, No PCP - General General Medicine 04/22/24 05/17/24 Jacquelyn Garcia NP 73 [facility] [place] [address] PCP - General Family Medicine 05/18/24 Bijan Magana MD Rheumatology 11/09/23 12/31/23 Jonh Hobson MD 31 [facility] 206 [place] [address] Rheumatology 01/01/24 Ayde Zheng, RN 85 [facility] 320 [place] [address] Registered Nurse Hepatology 08/11/24 documented as of this encounter
--- OUTSIDE RECORDS SUMMARY | 2024-11-26 12:35 | XMS_ITS | Encounter Summary ---
Author Organization [facility] Address [address] [place] [address] Care Team Providers Care Extender Name Role Phone Bijan Magana MD Unavailable Unavailable Jonh Hobson MD Unavailable [phone] Pcp, No Primary Care Provider UnavailJacquelyn Baxter NP Primary Care Provider Ayde Zheng RN Unavailable [phone] Encounter Details Date Type Department Care Team (Late st Contact Info) Description 11/22/2022 Scanned Document [facility] 85 [facility] 815 [place] [address] Luis Damon MD [facility]4 [place] [address] Social History Tobacco Use Types Packs/Day Years [...] [facility] Infusion [address] [phone] Deanne Daniel MD [address] [place] [address] 12/01/2024 10:00 AM EDT Infusion [facility] Cancer [facility] Infusion [address] [phone] Deanne Daniel MD [address] [place] [address] 12/13/2024 10:30 AM EDT [facility] [address] [phone] Grey Trinidad MD [address] [place] [address] [place] [address] 12/14/2024 10:00 AM EDT Infusion [facility] Cancer [facility] Infusion [address] [phone] Deanne Daniel MD [address] [place] [address] 12/15/2024 10:00 AM EDT Infusion [facility] Infusion [address] [phone] Deanne aDniel MD [address] [place] [address] 12/28/2024 10:00 AM EDT Infusion [facility] Infusion [address] [phone] Deanne Daniel MD [address] [place] [address] 12/29/2024 10:00 AM EDT Infusion [facility] [address] [phone] Deanne Daniel MD [address] [place] [address] 01/04/2025 11:45 AM EDT Office Visit [facility] Medical Oncology at [address] [phone] Deanne Daniel MD [address] [place] [address] 01/20/2025 1:00 PM EDT Office Visit [facility] Rheumatology [address] [place] [address] Jonh Hobson MD [address] [phone] 01/27/2025 11:30 AM EDT Consult [facility] Transplant Program & [facility] Liver Center [address] [place] [address] 320 [place] [phone] Jayne Morales, DO 300 [facility] [place] [address] 02/01/2025 11:40 AM EDT Office Visit [facility] 85 [facility] 815 [place] [phone] Luis Damon MD [facility] [place], [place] [address] 04/26/2025 10:00 AM EDT Infusion [facility]fusion Center 85 [place] [address] Deanne Daniel MD 85 [place], [place] [phone] documented as of this encounter Visit Diagnoses Not on filedocumented in this encounter Care Teams Extender Relationship Specialty Start Date End Date Pcp, No PCP - General General Medicine 04/22/24 05/17/24 Jacquelyn Garcia NP [address] [place] [address] PCP - General Family Medicine 05/18/24 Bijan Magana MD Rheumatology 11/09/23 12/31/23 Jonh Hobson MD 31 [facility] 206 [place] [address] Rheumatology 01/01/24 Ayde Zheng, RN 85 [facility] 320 [place] [address] Registered Nurse Hepatology 08/11/24 documented as of this encounter
--- OUTSIDE RECORDS SUMMARY | 2024-11-26 12:35 | XMS_ITS | Encounter Summary ---
Author Organization [employer] Address 75 [facility] 7t [place] [address] Care Team Providers Care Grain I Farmworker Name Role Phone Jacquelyn Garcia Primary Care Provider Unavailable Nuria Levin Unavailable Inactive/Transferred Primary Care Provider Shaneka Ford DO Primary Care Provider Reason for Visit * Reason Comments Med Refill Encounter Details Date Type Department Care Team (Late st Contact Info) Description 09/08/[address] [facility] MEDICAL [address] [place] [address] Jacquelyn Garcia FNP Mononeuritis multiplex; Gastroesophageal reflux disease, unspecified whether esophagitis present; Anxiety Social History Tobacco Use Types Packs/Day Years [...] Miscellaneous Notes * Telephone Encounter - ALFRED Milner - 09/09/2023 9:48 AM EST Recent refills provided by PCP. documented in this encounter Plan of Treatment Not on file documented as of this encounter Visit Diagnoses Diagnosis Mononeuritis multiplex Gastroesophageal reflux disease, unspecified whether esophagitis present Anxiety Anxiety state, unspecified documented in this encounter Care Teams Grain I Farmworker Relationship Specialty Start Date End Date Jacquelyn Garcia FNP PCP - General Family Medicine 08/06/22 06/01/24 Inactive/Transferred PCP - General 06/02/24 06/02/24 Shaneka Bailey DO [address] [place] [address] PCP - General Family Medicine 11/04/24 Nuria Levin Community Health Worker 12/09/22 documented as of this encounter
--- OUTSIDE RECORDS SUMMARY | 2024-11-26 12:36 | XMS_ITS | Encounter Summary ---
Author Organization [email or web address] Address 75 [facility] 7t [place] [address] Care Team Providers Care Principal Java Developer Name Role Phone Jacquelyn Garcia Primary Care Provider Unavailable Nuria Levin Unavailable Inactive/Transferred Primary Care Provider Shaneka Ford DO Primary Care Provider [phone] Encounter Details Date Type Department Care Team (Late st Contact Info) Description 10/09/2023 Orders Only [facility] [address] [place] [address] Jacquelyn Garcia FNP Social History Tobacco Use [...] Date/Time Associated Diagnosis Comments ECG 12-LEAD Routine 10/01/2023 9:[address] ABDOMEN PELVIS W CONTRAST Routine 10/01/2023 9:[address] CHEST PULMONARY EMBOLISM W CONTRAST Routine 10/01/2023 9:57 AM EST documented in this encounter Results * ECG 12 lead (10/01/2023 9:58 AM EST) Jacquelyn Garcia [facility] ECG ORDERABLES Final Result * CT Abdomen Pelvis w/ Contrast (10/01/2023 9:58 AM EST) Anatomical Region Laterality Modality Body, Pelvis, Abdomen Computed T omography Jacquelyn Garcia [facility] IMG CT PROCEDURES Lily l Result * CT Chest Pulmonary Embolism w/ Contrast (10/01/2023 9:57 AM EST) Anatomical Region Laterality Modality Body, Chest Computed Tomogra phy Jacquelyn Garcia [facility] IMG CT PROCEDURES Lily l Result documented in this encounter Visit Diagnoses Not on filedocumented in this encounter Care Teams Principal Java Developer Relationship Specialty Start Date End Date Jacquelyn Garcia FNP PCP - General Family Medicine 08/06/22 06/01/24 Inactive/Transferred PCP - General 06/02/24 06/02/24 Shaneka Bailey DO [address] [place] [address] PCP - General Family Medicine 11/04/24 Nuria Levin Community Health Worker 12/09/22 documented as of this encounter
--- OUTSIDE RECORDS SUMMARY | 2024-11-26 12:36 | XMS_ITS | Encounter Summary ---
Author Organization [facility] Address [address] [place] [address] Care Team Providers Care Metal Grinder Name Role Phone Jonh Hobson MD Unavailable [phone] Jacquelyn Garcia ELEVATOR STARTER Primary Care Provider Ayde Zheng RN Unavailable [phone] Encounter Details Date Type Department Care Team (Late st Contact Info) Description 09/24/2024 Scanned Document [facility] Rheumatology [address] [phone] Jonh Hobson MD [address] [place] [address] Social History Tobacco Use Types Packs/Day Years Used Date Smoking Tobacco: Never Smokeless Tobacco: Never Alcohol Use Standard Drinks/Week Comments Not Currently 0 (1 standard drink = 0.6 oz pur e alcohol) Social [facility] Utilities Answer Date Recorded In the [...] 11/30/2024 10:00 AM EDT Infusion [facility] [place] [facility] [address] [place] [phone] Deanne Daniel MD [address] [place] [address] [phone] 12/01/2024 10:00 AM EDT Infusion [facility] [place] [facility] Infusion [address] [phone] Deanne Daniel MD 85 [place] [address] 12/13/2024 10:30 AM EDT [facility] [address] [phone] Grey Trinidad MD [facility] N [facility] [address] [place] [address] 12/14/2024 10:00 AM EDT Infusion [facility] [place] [facility] Infusion [address] [phone] Deanne Daniel MD [address] [place] [address] 12/15/2024 10:00 AM EDT Infusion [facility] [place] [facility] Infusion [address] [phone] Deanne Daniel MD [address] [place] [address] 12/28/2024 10:00 AM EDT Infusion [facility] [place] [address] [phone] Deanne Daniel MD [address] [place] [address] 12/29/2024 10:00 AM EDT Infusion [facility] [place] [address] [phone] Deanne Daniel MD 85 [place] [address] 01/04/2025 11:45 AM EDT Office Visit [facility] Medical Oncology at [address] [phone] Deanne Daniel MD 85 [place], [place] [phone] 01/20/2025 1:00 PM EDT Office Visit [facility] Rheumatology [address] [place] [address] Jonh Hobson MD 31 [facility] 206 [place], [place] [phone] 01/27/2025 11:30 AM EDT Consult [facility] 85 [facility] 320 [place] [phone] Jayne Morales, DO 300 [place] [address] 02/01/2025 11:40 AM EDT Office Visit [facility] [place] [facility] 85 [facility] 815 [place] [phone] Luis Damon MD [address] [place] [address] 04/26/2025 10:00 AM EDT Infusion [facility] [place] [facility] [address] [place] [phone] Deanne Daniel MD 85 [place], [place] [phone] documented as of this encounter Visit Diagnoses Not on filedocumented in this encounter Care Teams Metal Grinder Relationship Specialty Start Date End Date Jacquelyn Garcia NP [address] [place] [address] PCP - General Family Medicine 05/18/24 Jonh Hobson MD 31 [facility] 206 [place], [place] [phone] Rheumatology 01/01/24 Ayde Zheng RN 85 [facility] 320 [place], [place] [phone] Registered Nurse Hepatology 08/11/24 documented as of this encounter
--- OUTSIDE RECORDS SUMMARY | 2024-11-26 12:36 | XMS_ITS | Encounter Summary ---
Author Organization [facility] Address [address] [place] [address] Care Team Providers Care Health Social Work Professor Name Role Phone Jonh Hobson MD Unavailable [phone] Jacquelyn Garcia NP Primary Care Provider Ayde Zheng RN Unavailable [phone] Reason for Visit * Reason Onset Date Comments Medication Refill 10/06/2024 Encounter Details Date Type Department Care Team (Late st Contact Info) Description 10/06/2024 Refill [facility] [address] [place] [phone] Luis Damon MD [address] [place] [address] Steroid dependent (HCC) Social History Tobacco Use Types Packs/Day Years Used Date Smoking Tobacco: Never Smokeless Tobacco: Never Alcohol Use Standard Drinks/Week Comments Not Currently 0 (1 standard drink = 0.6 oz pur e alcohol) Social [facility] Utilities Answer Date Recorded In the past 12 months has [employer] electric, gas, oil, or water company threatened [...] Info) Description 11/30/2024 10:00 AM EDT Infusion [facility] [place] [facility] [address] [place] [phone] Deanne Daniel MD 85 [place] [address] 12/01/2024 10:00 AM EDT Infusion [facility] [place] [facility] Infusion [address] [phone] Deanne Daniel MD 85 [place] [address] 12/13/2024 10:30 AM EDT [facility] [address] [address] Grey Trinidad MD [facility] N [facility] [address] [place] [address] 12/14/2024 10:00 AM EDT Infusion [facility] [place] [facility] Infusion [address] [phone] Deanne Daniel MD [address] [place] [address] 12/15/2024 10:00 AM EDT Infusion [facility] Infusion [address] [phone] Deanne Daniel MD [address] [place] [address] 12/28/2024 10:00 AM EDT Infusion [facility] [place] Infusion [address] [phone] Deanne Daniel MD [address] [place] [address] 12/29/2024 10:00 AM EDT Infusion [facility] Infusion [address] [phone] Deanne Daniel MD [address] [place] [address] 01/04/2025 11:45 AM EDT Office Visit [facility] [place] Medical Oncology at [address] [phone] Deanne Daniel MD 85 [place], [place] [phone] 01/20/2025 1:00 PM EDT Office Visit [facility] Rheumatology [place] 538 [facility] [address] [place] [address] Jonh Hosbon MD 31 [facility] 206 [place], [place] [phone] 01/27/2025 11:30 AM EDT Consult [facility] 85 [facility] 320 [place] [address] Jayne Morales, DO 300 [place] [address] 02/01/2025 11:40 AM EDT Office Visit [facility] 85 [facility] 815 [place] [phone] Luis Damon MD [facility]4 [place], [place] [phone] 04/26/2025 10:00 AM EDT Infusion [facility] [place] [facility] [address] [place] [phone] Deanne Daniel MD 85 [place], [place] [phone] documented as of this encounter Visit Diagnoses Diagnosis Steroid dependent (HCC) documented in this encounter Care Teams Health Social Work Professor Relationship Specialty Start Date End Date Jacquelyn Garcia NP [address] [place] [address] PCP - General Family Medicine 05/18/24 Jonh Hobson MD 31 [facility] 206 [place] [address] Rheumatology 01/01/24 Ayde Zheng RN 85 [facility] 320 [place] [address] Registered Nurse Hepatology 08/11/24 documented as of this encounter
== END 2024-11-26 12:04 | disposition home or self-care (01) ==
LOC: HO.HNS 10:51
PROVIDERS: PCP Nurse Practitioner Family; Visit Provider Physician Assistant
DX: G95.9 Disease of spinal cord, unspecified (principal); M21.379 Foot drop, unspecified foot
CPT/HCPCS: 99213

== ENCOUNTER → 2024-11-26 10:51 | Outpatient (BNVA) | payer OTHER, MEDICAID, SELFPAY | PROVIDERS: PCP Nurse Practitioner Family; Visit Provider Physician Assistant ==

== ENCOUNTER → 2024-12-28 17:24 | Outpatient (BNV) | payer OTHER, MEDICAID, SELFPAY | PROVIDERS: Visit Provider Radiology Diagnostic Radiology | DX: M50.220 Other cervical disc displacement, mid-cervical region, unspecified level (principal); M50.223 Other cervical disc displacement at C6-C7 level; M51.26 Other intervertebral disc displacement, lumbar region | CPT/HCPCS: 72141; 72148 ==

== ENCOUNTER 2024-12-28 17:33 | Outpatient (REF) | payer OTHER, MEDICAID, SELFPAY ==
--- NOTE | ~2024-12-28 | MR_ITS ---
EXAMINATION: MR LUMBAR SPINE WITHOUT CONTRAST CLINICAL INFORMATION: Foot drop COMPARISON: None available. TECHNIQUE: MRI of the lumbar spine was obtained using routine sequences without contrast. FINDINGS: Last rib-bearing vertebra labeled T12. There is an intrinsic hyperintense T1 bone lesion at L1. No bone marrow STIR signal abnormality. Small Schmorl nodes in the endplates of T11 and T12. Disc desiccation, L3-4, L4-5 and L5-S1. There is normal alignment. Conus medullaris ends at superior endplate of L1 with normal signal. T11-12: No disc herniation. No neuroforamina stenosis. Facet joint hypertrophy. Broad-based disc bulging. T12-L1: No disc herniation. No neuroforamina stenosis. L1-2: No disc herniation. No neuroforamina stenosis. L2-3: No disc herniation. No neuroforamina stenosis. L3-4: Central broad-based disc herniation resulting in ventral indentation to the thecal sac and abutting the L4 nerve roots on the lateral recesses. Facet joint hypertrophy. No neuroforamina stenosis. L4-5: Central right subarticular broad-based disc herniation with a focal hyperintense T2 signal likely annular fissure abutting the L5 exiting nerve roots on the lateral recesses. Facet joint hypertrophy. Bilateral neuroforamina narrowing without compressing the exiting nerve roots. L5-S1: Central broad-based disc herniation abutting the S1 nerve roots on the lateral recesses. Prominent epidural fat in a circumferential fashion. Facet joint hypertrophy. Bilateral neuroforamina narrowing without compressing the exiting nerve root. No prevertebral compartment hematoma, mass or fluid collection. MR/MR lumbar spine wo con IMPRESSION: Central broad-based disc herniation at L3-4 abutting the L4 nerve roots. Central right subarticular broad-based disc herniation L4-5 abutting L5 nerve roots. Right subarticular broad-based disc herniation at L5-S1 associated prominent epidural fat abutting the S1 nerve roots. Intraosseous hemangioma, L1 vertebra. Electronically signed by: Floyd Amin MD 12/29/2024 07:32 AM EDT
--- NOTE | ~2024-12-28 | MR_ITS ---
EXAMINATION: MR CERVICAL SPINE WITHOUT CONTRAST CLINICAL INFORMATION: Disease of the spinal cord. Psoriatic arthritis. COMPARISON: December 10, 2022 is not available on PACS. TECHNIQUE: MRI of the cervical spine was obtained using routine sequences without contrast. FINDINGS: Paramagnetic field distortion secondary to hardware at C5-6. Craniocervical junction is intact. There is a periodontal pannus formation. No bone marrow STIR signal abnormality. The cervical spinal cord signal is normal. C2-3: No disc herniation. No neuroforamina stenosis. C3-4: Left subarticular broad-based disc herniation with a focal hyperintense T2 signal likely related to annular fissure. There is ventral indentation to the spinal cord. No cord compression. No cord signal abnormality. No neuroforamina stenosis. C4-5: Central disc osteophyte complex formation abutting the cord. No cord compression. No neuroforamina stenosis. C5-6: Postsurgical changes. No cord compression. No neuroforamina stenosis. C6-7: Right subarticular broad-based disc herniation resulting in ventral deformity of spinal cord. No cord compression. Right neuroforamina narrowing. C7-T1: No disc herniation. No neuroforamina stenosis. T1-2: No disc herniation. No neuroforamina stenosis. No cord compression. No prevertebral compartment hematoma, mass or fluid collection. Flow-void signal within the main vessels is normal. Left vertebral artery is slightly dominant. MR/MR cervical spine wo con IMPRESSION: Left subarticular broad-based disc herniation C3-4 abutting the cord without cord edema and or myelopathy. Central disc osteophyte complex formation C4-5 without cord compression, edema and or myelopathy. Right subarticular broad-based disc herniation C6-7 abutting the cord without cord edema and or myelopathy. Electronically signed by: Floyd Amin MD 12/29/2024 07:26 AM EDT
--- OUTSIDE RECORDS SUMMARY | 2024-12-28 17:36 | XMS_ITS | Encounter Summary ---
Author Organization [facility] Address [address] [place] [address] Care Team Providers Care Throat Cutter Name Role Phone Jonh Hobson MD Unavailable [phone] Jacquelyn Garcia TRANSFERRER Primary Care Provider Ayde Zheng RN Unavailable [phone] Encounter Details Date Type Department Care Team (Late st Contact Info) Description 11/03/2024 Telephone [facility] [place] [facility] [address] [place] [phone] Luis Damon MD [facility]4 [place] [address] Social History Tobacco Use Types Packs/Day Years Used Date Smoking Tobacco: Never Smokeless Tobacco: Never Alcohol Use Standard Drinks/Week Comments Not Currently 0 (1 standard drink = 0.6 oz pur e alcohol) Social [facility] Utilities Answer Date Recorded In the past 12 months has [employer] electric, gas, oil, or water company [...] health care facility (including now)? No 04/26/2024 Comments No Sex and Gender Information Value Date Recorded Sex Assigned at Female 10/02/2022 12:43 PM EST Legal Sex Female 5:38 PM EDT Gender Identity Female 10/02/2022 12:43 PM EST Sexual Orientation Heterosexual (straight) 10/02 12:43 PM EST documented as of this encounter Plan of Treatment Upcoming Encounters Date Type Department Care Team (Late st Contact Info) Description 12/29/2024 10:00 AM EDT Infusion [facility] [place] [facility] [address] [place] [phone] Deanne Daniel MD 85 [place] [address] Valery Ruiz RN 80 [place] [address] 12/30/2024 10:00 AM EDT Infusion [facility] [place] [facility] Infusion [address] [phone] Deanne Daniel MD [address] [place] [address] 01/11/2025 11:00 AM EDT Office Visit [facility] Medical Oncology at [address] [phone] Deanne Daniel MD [address] [place] [address] 01/11/2025 11:30 AM EDT Infusion [facility] Cancer [place] [facility] Infusion [address] [phone] Deanne Daniel MD [address] [place] [address] 01/12/2025 10:00 AM EDT Infusion [facility] Cancer [place] [facility] Infusion [address] [phone] Deanne Daniel MD [address] [place] [address] 01/20/2025 1:00 PM EDT Office Visit [facility] Rheumatology [address] [address] Jonh Hobson MD [address] [place] [address] 01/27/2025 11:30 AM EDT Consult [facility] Transplant Program [facility] [address] [place] [address] 320 [place] [address] Jonh Hobson MD 31 [facility] 206 [place], [place] [phone] Jayne Morales, DO 300 [place] [address] 02/01/2025 11:40 AM EDT Office Visit [facility] [place] [facility] 85 [facility] 815 [place] [phone] Luis Damon MD [facility]4 [place], [place] 17[address] 02/16/2025 9:45 AM EDT [facility] [address] [phone] Grey Trinidad MD [address] [place] [address] 04/26/2025 10:00 AM EDT Infusion [facility] [place] [facility] 85 [place] [address] Deanne Daniel MD 85 [place] [address] documented as of this encounter Visit Diagnoses Not on filedocumented in this encounter Care Teams Throat Cutter Relationship Specialty Start Date End Date Fransisco-Jacquelyn Block NP [address] [place] [address] PCP - General Family Medicine 05/18/24 Jonh Hobson MD 31 [facility] 206 [place], [place] [phone] Rheumatology 01/01/24 Ayde Zheng RN 85 [place] [address] Registered Nurse Hepatology 08/11/24 documented as of this encounter
--- OUTSIDE RECORDS SUMMARY | 2024-12-28 17:36 | XMS_ITS | Clinical Summary ---
Author Organization [facility] Address [address] [place] [address] Care Team Providers Care Inbound Ingredient Logistics Specialist Name Role Phone FransiscoJongAstridJacquelyn craft ALFRED Primary Care Provider Social History Tobacco Use Types Packs/Day Years Used Date Smoking Tobacco: Never Assessed Comments Unknown Sex and Gender Information Value Date Recorded Sex Assigned at Not on file Legal Sex Female 9:51 AM EST Gender Identity Not on file Sexual Orientation Not on file Plan of Treatment Health Maintenance Due Date Last Done Comments Hepatitis A Vaccines (1 of 2 - Risk 2-dose series) 2009 Hepatitis B Vaccines (1 of 3 - 19+ 3-dose series) 2009 COVID-19 Vaccine (2 - Jansse n risk series) 03/01/2021 02/01/2021 Cholesterol Screening (Lipid Panel) 07/28/2022 HIV Screening 07/28/2022 Social Influencers of Health Screening 07/28/2022 Depression Screening 02/23/2025 02/24/2024 Influenza Vaccine (Season Ended) 2025 Cervical Cancer [...] age to complete this topic Meningococcal B Vaccine Aged Out No l onger eligible based on patient's age to complete [...] age to complete this topic Care Teams Inbound Ingredient Logistics Specialist Relationship Specialty Start Date End Date Jacquelyn Garcia FNP PCP - General Family Medicine 10/26/18
--- OUTSIDE RECORDS SUMMARY | 2024-12-28 17:36 | XMS_ITS | Encounter Summary ---
Author Organization [employer] Address 75 [facility] 7t [place] [address] Care Team Providers Care Director It Project Name Role Phone Jacquelyn Garcia Primary Care Provider Unavailable Nuria Levin Unavailable Unavailable Inactive/Transferred Primary Care Provider Shaneka Ford DO Primary Care Provider [phone] Encounter Details Date Type Department Care Team (Late st Contact Info) Description 12/17/2023 Orders Only [facility] MEDICAL 73 [place] [address] Jacquelyn Garcia FNP Social History Tobacco Use [...] filedocumented in this encounter Care Teams Director It Project Relationship Specialty Start Date End Date Jacquelyn Garcia FNP PCP - General Family Medicine 08/06/22 06/01/24 Inactive/Transferred PCP - General 06/02/24 06/02/24 Shaneka Bailey DO [address] [place] [address] PCP - General Family Medicine 11/04/24 Nuria Levin Community Health Worker 12/09/22 documented as of this encounter
--- OUTSIDE RECORDS SUMMARY | 2024-12-28 17:36 | XMS_ITS | Encounter Summary ---
Author Organization [facility] Address [address] [place] [address] Care Team Providers Care Sports Development Officer Name Role Phone Bijan Magana MD Unavailable Unavailable Jonh Hobson MD Unavailable [phone] Pcp, No Primary Care Provider UnavailJacquelyn Baxter NP Primary Care Provider Ayde Zheng RN Unavailable [phone] Encounter Details Date Type Department Care Team (Late st Contact Info) Description 05/21/2022 Scanned Document [address] [place] [phone] Provider, Generic Social History Tobacco Use Types Packs/Day Years Used Date Smoking Tobacco: Never Smokeless Tobacco: Never Alcohol Use Standard Drinks/Week Comments Yes 0 (1 standard drink = 0.6 oz pur e alcohol) Social Comments No Sex and Gender Information Value [...] Info) Description 12/29/2024 10:00 AM EDT Infusion [facility] Infusion [address] [phone] Deanne Daniel MD [address] [place] [address] Valery Ruiz RN 80 [place] [address] 12/30/2024 10:00 AM EDT Infusion [address] [phone] Deanne Daniel MD [address] [place] [address] 01/11/2025 11:00 AM EDT Office Visit [facility] Medical Oncology at [address] [phone] Deanne Daniel MD [address] [place] [address] 01/11/2025 11:30 AM EDT Infusion [address] [phone] Deanne Daniel MD [address] [place] [address] 01/12/2025 10:00 AM EDT Infusion [address] [phone] Deanne Daniel MD 85 [place] [address] 01/20/2025 1:00 PM EDT Office Visit [facility] Rheumatology [address] [place] [phone] Jonh Hobson MD [address] [phone] 01/27/2025 11:30 AM EDT Consult [facility] [address] [phone] Jonh Hobson MD [address] [phone] Jayne Morales, 300 [place] [address] 02/01/2025 11:40 AM EDT Office Visit [facility] [place] [facility] [address] [place], [place] [address] [place] [phone] Luis Damon MD [facility]4 [place], [place] 509880 02/16/2025 9:45 AM EDT [facility] [address] [phone] Grey Trinidad MD [address] [place] [address] 232093 04/26/2025 10:00 AM EDT Infusion [facility] Cancer [place] [facility] 85 [place] [phone] Deanne Daniel MD 85 [place] [address] documented as of this encounter Procedures Procedure Name Priority Date/Time Associated Diagnosis Comments HX OUTSIDE ORDER 05/21/2022 documented in this encounter Results * HX OUTSIDE ORDER (05/21/2022) Narrative 05/21/2022 Ordered by an unspecified provider. us Generic Provider HX AMB PROCEDURES Final Result documented in this encounter Visit Diagnoses Not on filedocumented in this encounter Care Teams Sports Development Officer Relationship Specialty Start Date End Date Pcp, No PCP - General General Medicine 04/22/24 05/17/24 Jacquelyn Garcia NP [address] [place] [address] PCP - General Family Medicine 05/18/24 Bijan Magana MD Rheumatology 11/09/23 12/31/23 Jonh Hobson MD [address] [facility] 206 [place], [place] [phone] Rheumatology 01/01/24 Ayde Zheng, RN 85 [facility] 320 [place] [address] Registered Nurse Hepatology 08/11/24 documented as of this encounter
--- OUTSIDE RECORDS SUMMARY | 2024-12-28 17:36 | XMS_ITS | Encounter Summary ---
Author Organization [facility] Address [address] [place] [address] Care Team Providers Care Reducer Name Role Phone Bijan Magana MD Unavailable Unavailable Jonh Hobson MD Unavailable [phone] Pcp, No Primary Care Provider UnavailJacquelyn Baxter NP Primary Care Provider Ayde Zheng RN Unavailable [phone] Encounter Details Date Type Department Care Team (Late st Contact Info) Description 11/14/2021 Scanned Document [facility] Rheumatology [address] [address] Boyd Cheng MD [address] [place] [address] Social History Tobacco Use Types Packs/Day Years Used Date Smoking Tobacco: Never Smokeless Tobacco: Never Alcohol Use Standard Drinks/Week Comments Yes 0 (1 standard drink = 0.6 oz pur e alcohol) Social Comments Unknown Sex and Gender Information Value [...] Info) Description 12/29/2024 10:00 AM EDT Infusion [facility] Cancer [place] [facility] Infusion [address] [phone] Deanne Daniel MD [address] [place] [address] Valery Ruiz, RN 80 [place] [address] 12/30/2024 10:00 AM EDT Infusion [address] [phone] Deanne Daniel MD [address] [place] [address] 01/11/2025 11:00 AM EDT Office Visit [facility] Medical Oncology at [address] [phone] Deanne Daniel MD [address] [place] [address] 01/11/2025 11:30 AM EDT Infusion [address] [phone] Deanne Daniel MD [address] [place] [address] 01/12/2025 10:00 AM EDT Infusion [facility] Cancer [place] at [facility] Outpatient Infusion Center 85 [place] [phone] Deanne Daniel MD 85 [place] [address] 01/20/2025 1:00 PM EDT Office Visit [facility] Rheumatology [address] [place] [address] Jonh Hobson MD [address] [phone] 01/27/2025 11:30 AM EDT Consult [facility] Transplant Program & [facility] Liver [place] 85 [facility] 320 [place] [address] Jonh Hobson MD [address] [phone] Jayne Morales, 300 [place], [place] [address] 02/01/2025 11:40 AM EDT Office Visit [facility]romuscular [place] [facility] 85 [facility] 815 [place] [phone] Luis Damon MD [facility]4 [place], [place] 640320 02/16/2025 9:45 AM EDT [facility] [address] [phone] Grey Trinidad MD [address] [place] [address] 04/26/2025 10:00 AM EDT Infusion [facility] Cancer [place] at [facility] Outpatient Infusion Center 85 [place] [phone] Deanne Daniel MD 85 [place], [place] [phone] documented as of this encounter Visit Diagnoses Not on filedocumented in this encounter Care Teams Reducer Relationship Specialty Start Date End Date Pcp, No PCP - General General Medicine 04/22/24 05/17/24 Jacquelyn Garcia NP [address] [place] [address] PCP - General Family Medicine 05/18/24 Bijan Magana MD Rheumatology 11/09/23 12/31/23 Jonh Hobson MD 31 [facility] 206 [place], [place] [phone] Rheumatology 01/01/24 Ayde Zheng, RN 85 [facility] 320 [place], [place] [phone] Registered Nurse Hepatology 08/11/24 documented as of this encounter
--- OUTSIDE RECORDS SUMMARY | 2024-12-28 17:36 | XMS_ITS | Encounter Summary ---
Author Organization [facility] Address [address] [place] [address] Care Team Providers Care Slot Technician Name Role Phone Jonh Hobson MD Unavailable [phone] Pcp, No Primary Care Provider Unavailabl e Jacquelyn Garcia NP Primary Care Provider Ayde Zheng RN Unavailable [phone] Encounter Details Date Type Department Care Team (Late st Contact Info) Description 03/30/2024 Scanned Document [facility] [place] [facility] 85 [place] [phone] [address] Coe [address] [place] [address] Social History Tobacco Use Types Packs/Day Years [...] on one occasion? Less than monthly 06/26/2022 Comments No Sex and Gender Information Value Date Recorded Sex Assigned at Female 10/02/2022 12:43 PM EST Legal Sex Female 5:38 PM EDT Gender Identity Female 10/02/2022 12:43 PM EST Sexual Orientation Heterosexual (straight) 10/02 12:43 PM EST documented as of this encounter Plan of Treatment Upcoming Encounters Date Type Department Care Team (Late st Contact Info) Description 12/29/2024 10:00 AM EDT Infusion [facility] Cancer [facility] Infusion [address] [phone] Deanne Daniel MD [address] [place] [address] Valery Ruiz, ANTONIO 80 [place] [address] 12/30/2024 10:00 AM EDT Infusion [facility] Infusion [address] [phone] Deanne Daniel MD [address] [place] [address] 01/11/2025 11:00 AM EDT Office Visit [facility] Medical Oncology at [address] [phone] Deanne Daniel MD [address] [place] [address] 01/11/2025 11:30 AM EDT Infusion [facility] Outpatient Infusion [address] [phone] Deanne Daniel MD [address] [place] [address] 01/12/2025 10:00 AM EDT Infusion [facility] [place] [facility] [address] [place] [phone] Deanne Daniel MD 85 [place] [address] 01/20/2025 1:00 PM EDT Office Visit [facility] Rheumatology [address] [place] [phone] Jonh Hobson MD [address] [phone] 01/27/2025 11:30 AM EDT Consult [facility] & [facility] 85 [facility] 320 [place] [address] Jonh Hobson MD [address] [phone] Jayne Morales, DO 300 [place] [address] 02/01/2025 11:40 AM EDT Office Visit [facility] 85 [facility] 815 [place] [phone] Luis Damon MD [facility]4 [place] [address] 02/16/2025 9:45 AM EDT [facility] [address] [phone] Grey Trinidad MD [address] [place] [address] 04/26/2025 10:00 AM EDT Infusion [facility] [place] [address] [place] [phone] Deanne Daniel MD 85 [place], [place] [phone] documented as of this encounter Visit Diagnoses Not on filedocumented in this encounter Care Teams Slot Technician Relationship Specialty Start Date End Date Pcp, No PCP - General General Medicine 04/22/24 05/17/24 Jacquelyn Garcia NP [address] [place] [address] PCP - General Family Medicine 05/18/24 Jonh Hobson MD 31 [facility] 206 [place] [address] Rheumatology 01/01/24 Ayde Zheng, RN 85 [facility] 320 [place] [address] Registered Nurse Hepatology 08/11/24 documented as of this encounter
--- OUTSIDE RECORDS SUMMARY | 2024-12-28 17:36 | XMS_ITS | Encounter Summary ---
Author Organization [employer] Address [address] [place] [address] 7 [place] [address] Care Team Providers Care Linen Room Custodian Name Role Phone Jacquelyn Garcia Primary Care Provider Unavailable Nuria Levin Unavailable Unavailable Inactive/Transferred Primary Care Provider Unava ilable Shaneka Bailey DO Primary Care Provider [phone] Reason for Visit * Reason Comments Med Refill Encounter Details Date Type Department Care Team (Late st Contact Info) Description 02/16/2023 Refill [facility] MEDICAL [address] [place] [address] Tabby White FNP Gastroesophageal reflux disease, unspecified [...] present documented in this encounter Care Teams Linen Room Custodian Relationship Specialty Start Date End Date Jacquelyn Garcia FNP PCP - General Family Medicine 08/06/22 06/01/24 Inactive/Transferred PCP - General 06/02/24 06/02/24 Shaneka Bailey DO 73 [place] [address] PCP - General Family Medicine 11/04/24 Nuria Levin Community Health Worker 12/09/22 documented as of this encounter
--- OUTSIDE RECORDS SUMMARY | 2024-12-28 17:36 | XMS_ITS | Encounter Summary ---
Author Organization [facility] Address [address] [place] [address] Care Team Providers Care Sponsorship Coordinator Name Role Phone Bijan Magana MD Unavailable Unavailable Jonh Hobson MD Unavailable [phone] Pcp, No Primary Care Provider UnavailJacquelyn Baxter NP Primary Care Provider Ayde Zheng RN Unavailable [phone] Encounter Details Date Type Department Care Team (Late st Contact Info) Description 06/03/2022 Scanned Document [facility] [place] [facility] 85 [facility] [address] [place] [address] Luis Damon MD [facility]9 [place], [place] [phone] Social History Tobacco Use Types Packs/Day Years [...] Info) Description 12/29/2024 10:00 AM EDT Infusion [facility] Cancer [facility] Infusion [address] [phone] Deanne Daniel MD [address] [place] [address] Valery Ruiz, RN 80 [place] [address] 12/30/2024 10:00 AM EDT Infusion [address] [phone] Deanne Daniel MD [address] [place] [address] 01/11/2025 11:00 AM EDT Office Visit [facility] Medical Oncology at [address] [phone] Deanne Daniel MD [address] [place] [address] 01/11/2025 11:30 AM EDT Infusion [address] [phone] Deanne Daniel MD [address] [place] [address] 01/12/2025 10:00 AM EDT Infusion [facility] Cancer [place] [facility] 85 [place] [address] Deanne Daniel MD 85 [place] [address] 01/20/2025 1:00 PM EDT Office Visit [facility] Rheumatology [address] [place] [address] Jonh Hobson MD [address] [phone] 01/27/2025 11:30 AM EDT Consult [facility] Transplant Program & [facility] Liver [place] 85 [facility] 320 [place] [address] Jonh Hobson MD [address] [phone] Jayne Morales, 300 [place], [place] 9[address] 02/01/2025 11:40 AM EDT Office Visit [facility] 85 [facility] 815 [place] [address] Luis Damon MD [facility]4 [place], [place] 115030 02/16/2025 9:45 AM EDT [facility] [address] [phone] Grey Trinidad MD [address] [place] [address] 04/26/2025 10:00 AM EDT Infusion [facility] Cancer [place] [facility] 85 [place] [address] Deanne Daniel MD 85 [place], [place] [phone] documented as of this encounter Visit Diagnoses Not on filedocumented in this encounter Care Teams Sponsorship Coordinator Relationship Specialty Start Date End Date Pcp, No PCP - General General Medicine 04/22/24 05/17/24 Jacquelyn Garcia NP [address] [place] [address] PCP - General Family Medicine 05/18/24 Bijan Magana MD Rheumatology 11/09/23 12/31/23 Jonh Hobson MD 31 [facility] 206 [place], [place] [phone] Rheumatology 01/01/24 Ayde Zheng, RN 85 [facility] 320 [place], [place] [phone] Registered Nurse Hepatology 08/11/24 documented as of this encounter
--- OUTSIDE RECORDS SUMMARY | 2024-12-28 17:36 | XMS_ITS | Encounter Summary ---
Author Organization [facility] Address [address] [place] [address] Care Team Providers Care Operations Tech Name Role Phone Bijan Magana MD Unavailable Unavailable Jonh Hobson MD Unavailable [phone] Pcp, No Primary Care Provider UnavailJacquelyn aBxter NP Primary Care Provider Ayde Zheng RN Unavailable [phone] Encounter Details Date Type Department Care Team (Late st Contact Info) Description 11/21/2021 Scanned Document [facility] Rheumatology [address] [address] Boyd Cheng MD [address] [place] [address] Social History Tobacco Use Types Packs/Day [...] Info) Description 12/29/2024 10:00 AM EDT Infusion [facility] Cancer [place] [facility] Infusion [address] [phone] Deanne Daniel MD [address] [place] [address] Valery Ruiz, RN 80 [place] [address] 12/30/2024 10:00 AM EDT Infusion [address] [phone] Deanne Daniel MD [address] [place] [address] 01/11/2025 11:00 AM EDT Office Visit [facility] Medical Oncology at [address] [phone] Deanne Daniel MD [address] [place] [address] 01/11/2025 11:30 AM EDT Infusion [address] [phone] Deanne Daniel MD [address] [place] [address] 01/12/2025 10:00 AM EDT Infusion [facility] Cancer [place] at [facility]fusion Center 85 [place] [address] Deanne Daniel MD 85 [place] [address] 01/20/2025 1:00 PM EDT Office Visit [facility] Rheumatology [address] [place] [address] Jonh Hobson MD [address] [phone] 01/27/2025 11:30 AM EDT Consult [facility] Transplant Program & [facility] Liver [place] 85 [facility] 320 [place] [address] Jonh Hobson MD [address] [phone] Jayne Morales, 300 [place], [place] 972633 02/01/2025 11:40 AM EDT Office Visit [facility]romuscular [place] [facility] 85 [facility] 815 [place] [address] Luis Damon MD [facility] [place], [place] 858370 02/16/2025 9:45 AM EDT [facility] [address] [phone] Grey Trinidad MD [address] [place] [address] 04/26/2025 10:00 AM EDT Infusion [facility] Cancer [place] at [facility]fusion [facility] 85 [place] [address] Deanne Daniel MD 85 [place], [place] 30044[address] documented as of this encounter Visit Diagnoses Not on filedocumented in this encounter Care Teams Operations Tech Relationship Specialty Start Date End Date Pcp, No PCP - General General Medicine 04/22/24 05/17/24 Jacquelyn Garcia NP [address] [place] [address] PCP - General Family Medicine 05/18/24 Bijan Magana MD Rheumatology 11/09/23 12/31/23 Jonh Hobson MD 31 [facility] 206 [place], [place] [address] Rheumatology 01/01/24 Ayde Zheng, RN 85 [facility] 320 [place], [place] 24[address] Registered Nurse Hepatology 08/11/24 documented as of this encounter
--- OUTSIDE RECORDS SUMMARY | 2024-12-28 17:36 | XMS_ITS | Encounter Summary ---
Author Organization [facility] Address 100 [place] [address] Care Team Providers Care Manager Loss Prevention Name Role Phone Jonh Hobson MD Unavailable [phone] Pcp, No Primary Care Provider Unavailabl e Jacquelyn Garcia NP Primary Care Provider Ayde Zheng RN Unavailable [phone] Encounter Details Date Type Department Care Team (Late st Contact Info) Description 04/29/2024 Telephone [facility] Cancer [place] at Outpatient [facility]fusion Center 85 [place] [phone] Leidy Zabala, RN 80 [place] [address] Social History Tobacco Use Types Packs/Day Years Used Date Smoking Tobacco: Never Smokeless Tobacco: Never Alcohol Use Standard Drinks/Week Comments Not Currently 0 (1 standard drink = 0.6 oz pur e alcohol) Social [facility] Utilities Answer Date Recorded In the [...] place to sleep or slept in a senior living (including now)? No 04/26/2024 Comments No Sex [...] Info) Description 12/29/2024 10:00 AM EDT Infusion [facility] Cancer [place] at [facility]fusion Center [address] [place] [address] Deanne Daniel MD 85 [place], [place] [phone] Valery Ruiz RN 80 [place] [address] 12/30/2024 10:00 AM EDT Infusion [facility] Cancer [place] at Outpatient Infusion [address] [phone] Deanne Daniel MD [address] [place] [address] 01/11/2025 11:00 AM EDT Office Visit [facility] Medical Oncology at [address] [phone] Deanne Daniel MD [address] [place] [address] 01/11/2025 11:30 AM EDT Infusion [facility] [place] [facility] Infusion [address] [phone] Deanne Daniel MD [address] [place] [address] 01/12/2025 10:00 AM EDT Infusion [facility] [place] [facility] Infusion [address] [phone] Deanne Daniel MD [address] [place] [address] 01/20/2025 1:00 PM EDT Office Visit [facility] Rheumatology [address] [address] Jonh Hobson MD [address] [place] [address] 01/27/2025 11:30 AM EDT Consult Transplant Program & [facility] 85 [facility] 320 [place] [address]-5988106[address] Jonh Hobson MD 31 [facility] 206 [place], [place] [phone] Jayne Morales, DO 300 [place] [address] 02/01/2025 11:40 AM EDT Office Visit [facility] [place] [facility] 85 [facility] 815 [place] [address] Luis Damon MD [facility]4 [place], [place] 680900 02/16/2025 9:45 AM EDT [facility] [address] [phone] Grey Trinidad MD [address] [place] [address] 04/26/2025 10:00 AM EDT Infusion [facility] [place] at Outpatient [facility]fusion Center 85 [place] [address] Deanne Daniel MD 85 [place] [address] documented as of this encounter Visit Diagnoses Not on filedocumented in this encounter Care Teams Manager Loss Prevention Relationship Specialty Start Date End Date Pcp, No PCP - General General Medicine 04/22/24 05/17/24 Jacquelyn Garcia NP [address] [place] [address] PCP - General Family Medicine 05/18/24 Jonh Hobson MD [address] [place] [address] [place] [address] Rheumatology 01/01/24 Ayde Zheng RN 85 [facility] 320 [place] [address] Registered Nurse Hepatology 08/11/24 documented as of this encounter
--- OUTSIDE RECORDS SUMMARY | 2024-12-28 17:36 | XMS_ITS | Encounter Summary ---
Author Organization [facility] Address 100 [place] [address] Care Team Providers Care Hall Supervisor Name Role Phone Bijan Magana MD Unavailable Unavailable Jonh Hobson MD Unavailable [phone] Pcp, No Primary Care Provider Unavailabl e Jacquelyn Garcia NP Primary Care Provider Ayde Zheng RN Unavailable [phone] Encounter Details Date Type Department Care Team (Late st Contact Info) Description 03/28/2023 Scanned Document [facility] [place] [facility] 85 [facility] [address] [place] [address] Jacquelyn Garcia, NOEL [address] [facility] [place] [address] Social History Tobacco Use Types Packs/Day Years [...] 12/29/2024 10:00 AM EDT Infusion [facility] Cancer [place] at [facility] Infusion [address] [phone] Deanne Daniel MD [address] [place] [address] Valery Ruiz RN 80 [place] [address] 12/30/2024 10:00 AM EDT Infusion [facility] Infusion [address] [phone] Deanne Daniel MD [address] [place] [address] 01/11/2025 11:00 AM EDT Office Visit [facility] Medical Oncology at [address] [phone] Deanne Daniel MD [address] [place] [address] 01/11/2025 11:30 AM EDT Infusion [facility] Cancer [place] [facility]fusion [address] [phone] Deanne Daniel MD [address] [place] [address] 01/12/2025 10:00 AM EDT Infusion [facility] Cancer [place] at [facility] Outpatient Infusion Center 85 [place] [address] Deanne Daniel MD 85 [place] [address] 01/20/2025 1:00 PM EDT Office Visit [facility] Rheumatology [address] [place] [address] Jonh Hobson MD [address] [address] 01/27/2025 11:30 AM EDT Consult [facility] Transplant Program & [email or web address] Liver Center 85 [facility] 320 [place] [address] Jonh Hobson MD [address] [address] Jayne Morales, DO 300 [place] [address] 02/01/2025 11:40 AM EDT Office Visit [facility] [place] [facility] 85 [facility] 815 [place] [address] Luis Damon MD [facility]4 [place], [place] 2[address]30 02/16/2025 9:45 AM EDT [facility] [address] [place] [phone] Grey Trinidad MD [address] [place] [address] [place] [address] 04/26/2025 10:00 AM EDT Infusion [facility] Cancer [place] at [facility] Outpatient Infusion Center [address] [place] [address] Deanne Daniel MD 85 [place], [place] [phone] documented as of this encounter Visit Diagnoses Not on filedocumented in this encounter Care Teams Hall Supervisor Relationship Specialty Start Date End Date Pcp, No PCP - General General Medicine 04/22/24 05/17/24 Jacquelyn Garcia NP [address] [place] [address] PCP - General Family Medicine 05/18/24 Bijan Magana MD Rheumatology 11/09/23 12/31/23 Jonh Hobson MD 31 [facility] 206 [place], [place] [phone] Rheumatology 01/01/24 Ayde Zheng RN 85 [facility] 320 [place], [place] [address] Registered Nurse Hepatology 08/11/24 documented as of this encounter
--- OUTSIDE RECORDS SUMMARY | 2024-12-28 17:36 | XMS_ITS | Encounter Summary ---
Author Organization [facility] Address 100 [place] [address] Care Team Providers Care Gas Main Fitter Helper Name Role Phone Bijan Magana MD Unavailable Unavailable Jonh Hobson MD Unavailable [phone] Pcp, No Primary Care Provider UnavailJacquelyn Baxter NP Primary Care Provider Ayde Zheng RN Unavailable [phone] Encounter Details Date Type Department Care Team (Late st Contact Info) Description 06/19/2022 Scanned Document [facility] Cancer [place] at [facility] Outpatient Infusion Center [address] [place] [address] Provider, Brian, [address] [place] [address] Social History Tobacco Use Types Packs/Day Years [...] Info) Description 12/29/2024 10:00 AM EDT Infusion [facility] Cancer [facility] Infusion [address] [phone] Deanne Daniel MD [address] [place] [address] Valery Ruiz, RN 80 [place] [address] 12/30/2024 10:00 AM EDT Infusion [address] [phone] Deanne Daniel MD [address] [place] [address] 01/11/2025 11:00 AM EDT Office Visit [facility] Medical Oncology at [address] [phone] Deanne Daniel MD [address] [place] [address] 01/11/2025 11:30 AM EDT Infusion [address] [phone] Deanne Daniel MD [address] [place] [address] 01/12/2025 10:00 AM EDT Infusion [facility] [place] [facility] Outpatient Infusion Center 85 [place] [address] Deanne Daniel MD 85 [place] [address] 01/20/2025 1:00 PM EDT Office Visit [facility] Rheumatology [address] [place] [address] Jonh Hobson MD [address] [phone] 01/27/2025 11:30 AM EDT Consult [facility] Transplant Program & [facility] Liver [place] 85 [facility] 320 [place] [address] Jonh Hobson MD [address] [address] Jayne Morales, 300 [place], [place] [address]453 02/01/2025 11:40 AM EDT Office Visit [facility] Neuromuscular [place] [facility] 85 [facility] 815 [place] [address] Luis Damon MD [facility]4 [place] [address] 02/16/2025 9:45 AM EDT [facility] [address] [phone] Grey Trinidad MD [address] [place] [address] 04/26/2025 10:00 AM EDT Infusion [facility] Cancer [place] at [facility] Outpatient Infusion Center 85 [place] [address] Deanne Daniel MD 85 [place], [place] [phone] documented as of this encounter Visit Diagnoses Not on filedocumented in this encounter Care Teams Gas Main Fitter Helper Relationship Specialty Start Date End Date Pcp, No PCP - General General Medicine 04/22/24 05/17/24 Jacquelyn Garcia NP [address] [place] [address] PCP - General Family Medicine 05/18/24 Bijan Magana MD Rheumatology 11/09/23 12/31/23 Jonh Hobson MD 31 [facility] 206 [place], [place] [address] Rheumatology 01/01/24 Ayde Zheng, RN 85 [facility] 320 [place], [place] 9[address]06 Registered Nurse Hepatology 08/11/24 documented as of this encounter
--- OUTSIDE RECORDS SUMMARY | 2024-12-28 17:36 | XMS_ITS | Encounter Summary ---
Author Organization [employer] Address [address] [facility] [address] [place] [address] Care Team Providers Care Palletizer Name Role Phone Jacquelyn Garcia Primary Care Provider Unavailable Nuria Levin Unavailable Unavailable Inactive/Transferred Primary Care Provider Shaneka Ford DO Primary Care Provider [phone] Encounter Details Date Type Department Care Team (Late st Contact Info) Description 01/30/2024 Orders Only [facility] MEDICAL 73 [place] [address] Brynn Ketaing CMA Social History Tobacco Use Types Packs/Day [...] on filedocumented in this encounter Care Teams Palletizer Relationship Specialty Start Date End Date Jacquelyn Garcia FNP PCP - General Family Medicine 08/06/22 06/01/24 Inactive/Transferred PCP - General 06/02/24 06/02/24 Shaneka Bailey DO [address] [place] [address] PCP - General Family Medicine 11/04/24 Nuria Levin Community Health Worker 12/09/22 documented as of this encounter
--- OUTSIDE RECORDS SUMMARY | 2024-12-28 17:36 | XMS_ITS | Encounter Summary ---
Author Organization [facility] Address [address] [place] [address] Care Team Providers Care Special Needs Teacher Name Role Phone Bijan Magana MD Unavailable Unavailable Jonh Hobson MD Unavailable [phone] Pcp, No Primary Care Provider UnavailJacquelyn Baxter NP Primary Care Provider Ayde Zheng RN Unavailable [phone] Encounter Details Date Type Department Care Team (Late st Contact Info) Description 09/02/2023 Scanned Document [facility] [place] Medical Oncology at [address] [address] Deanne Daniel MD 85 [place], [place] [phone] Social History Tobacco Use Types Packs/Day Years [...] Info) Description 12/29/2024 10:00 AM EDT Infusion [facility] Cancer [facility] Infusion [address] [phone] Deanne Daniel MD [address] [place] [address] Valery Ruiz RN 80 [place] [address] 12/30/2024 10:00 AM EDT Infusion [address] [phone] Deanne Daniel MD [address] [place] [address] 01/11/2025 11:00 AM EDT Office Visit [facility] Medical Oncology at [address] [phone] Deanne Daniel MD [address] [place] [address] 01/11/2025 11:30 AM EDT Infusion [facility] Infusion [address] [phone] Deanne Daniel MD [address] [place] [address] 01/12/2025 10:00 AM EDT Infusion [facility] [place] at [facility] 85 [place] [address] Deanne Daniel MD [address] [place] [address] 01/20/2025 1:00 PM EDT Office Visit [facility] Rheumatology [address] [place] [phone] Jonh Hobson MD [address] [address] 01/27/2025 11:30 AM EDT Consult [facility] 85 [facility] 320 [place] [address] Jonh Hobson MD [address] [phone] Jayne Morales, DO 300 [place] [address] 02/01/2025 11:40 AM EDT Office Visit [facility] [place] [facility] 85 [facility] 815 [place] [address] Luis Damon MD [facility]4 [place], [place] 647140 02/16/2025 9:45 AM EDT [facility] [address] [place] [phone] Grey Trinidad MD [address] [place] [address] [place] [address] 04/26/2025 10:00 AM EDT Infusion [facility] [place] at [facility] [address] [place] [phone] Deanne Daniel MD [address] [place] [address] documented as of this encounter Visit Diagnoses Not on filedocumented in this encounter Care Teams Special Needs Teacher Relationship Specialty Start Date End Date Pcp, No PCP - General General Medicine 04/22/24 05/17/24 Jacquelyn Garcia NP [address] [place] [address] PCP - General Family Medicine 05/18/24 Bijan Magana MD Rheumatology 11/09/23 12/31/23 Jonh Hobson MD 31 [facility] 206 [place], [place] [phone] Rheumatology 01/01/24 Ayde Zheng RN 85 [facility] 320 [place] [address] Registered Nurse Hepatology 08/11/24 documented as of this encounter
--- OUTSIDE RECORDS SUMMARY | 2024-12-28 17:36 | XMS_ITS | Clinical Summary ---
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 Pain 11/22/2021 [...] Screening 01/30/2025 01/31/2024 Depression Screening 02/23/2025 02/24/2024, 02/24/2024 DTaP/Tdap/Td Vaccines (2 - T d or [...] Most Recently Relevant to Health Maintenance Insurance [facility] ST[facility] , [address] [place] [address] Care Teams Molder Pipe Covering Relationship Specialty Start Date End Date Shaneka Bailey DO 73 [place] [address] PCP - General Family Medicine 11/04/24 Nuria Levin Community Health Worker 12/09/22
--- OUTSIDE RECORDS SUMMARY | 2024-12-28 17:36 | XMS_ITS | Encounter Summary ---
Author Organization [facility] Address 100 [place] [address] Care Team Providers Care Supreme Court Judge Name Role Phone Jonh Hobson MD Unavailable [phone] Jacquelyn Garcia MANAGER OF SELECTION AND ASSESSMENT Primary Care Provider Ayde Zheng RN Unavailable [phone] Encounter Details Date Type Department Care Team (Late st Contact Info) Description 11/10/2024 Telephone [facility] [address] [address] Janet Bonilla MA [address] [phone] Social History Tobacco Use Types Packs/Day Years Used Date Smoking Tobacco: Never Smokeless Tobacco: Never Alcohol Use Standard Drinks/Week Comments Not Currently 0 (1 standard drink = 0.6 oz pur e alcohol) Social C Utilities Answer Date Recorded In the past 12 months has [employer] electric, gas, oil, or water company threatened [...] in a half-way (including now)? No 04/26/2024 Comments No Sex [...] for drug-induced hepatitis. Please schedule with any commercial attache, first available. Thanks * Telephone Encounter - Janet Bonilla MA - 11/10/2024 8:02 AM EDT New patient records received. Transcribe order completed. Care Team added. Records are available inEpic. please advise documented in this encounter Plan of Treatment Upcoming Encounters Date Type Department Care Team (Late st Contact Info) Description 12/29/2024 10:00 AM EDT Infusion [facility] Infusion [address] [phone] Deanne Daniel MD [address] [place] [address] Valery Ruiz, ANTONIO 80 [place] [address] 12/30/2024 10:00 AM EDT Infusion [facility] Cancer [place] at [facility] Infusion [address] [phone] Deanne Daniel MD [address] [place] [address] 01/11/2025 11:00 AM EDT Office Visit [facility] Medical Oncology at [address] [phone] Deanne Daniel MD [address] [place] [address] 01/11/2025 11:30 AM EDT Infusion [facility] Cancer [facility] Outpatient [facility]fusion Center [address] [place] [phone] Deanne Daniel MD [address] [place] [address] 01/12/2025 10:00 AM EDT Infusion [facility] Out[facility] Infusion [address] [phone] Deanne Daniel MD [address] [place] [address] 01/20/2025 1:00 PM EDT Office Visit [facility] Rheumatology [address] [phone] Jonh Hobson MD [address] [place] [phone] 01/27/2025 11:30 AM EDT Consult [facility] [address] [place] [address] Jonh Hobson MD [address] [phone] Jayne Morales, DO 300 [place] [address] 02/01/2025 11:40 AM EDT Office Visit [facility] [place] [facility] 85 [facility] 815 [place] [phone] Luis Damon MD [address] [place] [address] 02/16/2025 9:45 AM EDT [facility] [address] [place] [phone] Grey Trinidad MD [address] [place] [address] 04/26/2025 10:00 AM EDT Infusion [facility] Cancer [place] at [facility] 85 [place] [phone] Deanne Daniel MD 85 [place] [address] documented as of this encounter Visit Diagnoses Not on filedocumented in this encounter Care Teams Supreme Court Judge Relationship Specialty Start Date End Date Jacquelyn Garcia NP [address] [place] [address] PCP - General Family Medicine 05/18/24 Jonh Hobson MD 31 [facility] 206 [place] [address] Rheumatology 01/01/24 Ayde Zheng RN 85 [facility] 320 [place], [place] [phone] Registered Nurse Hepatology 08/11/24 documented as of this encounter
--- OUTSIDE RECORDS SUMMARY | 2024-12-28 17:36 | XMS_ITS | Encounter Summary ---
Author Organization [facility] Address [address] [place] [address] Care Team Providers Care Business Development Name Role Phone Bijan Magana MD Unavailable Unavailable Jonh Hobson MD Unavailable [phone] Pcp, No Primary Care Provider UnavailJacquelyn Baxter NP Primary Care Provider Ayde Zheng RN Unavailable [phone] Encounter Details Date Type Department Care Team (Late st Contact Info) Description 09/22/2023 Scanned Document [facility] Rheumatology [address] [place] [address] Rheumatology, Scan Social History Tobacco [...] Info) Description 12/29/2024 10:00 AM EDT Infusion [facility] Infusion [address] [phone] Deanne Daniel MD [address] [place] [address] Valery Ruiz, RN 80 [place] [address] 12/30/2024 10:00 AM EDT Infusion [address] [phone] Deanne Daniel MD [address] [place] [address] 01/11/2025 11:00 AM EDT Office Visit [facility] Medical Oncology at [address] [phone] Deanne Daniel MD [address] [place] [address] 01/11/2025 11:30 AM EDT Infusion [address] [phone] Deanne Daniel MD [address] [place] [address] 01/12/2025 10:00 AM EDT Infusion [facility] 85 [place] [address] Deanne Daniel MD 85 [place] [address] 01/20/2025 1:00 PM EDT Office Visit [facility] Rheumatology [address] [place] [phone] Jonh Hobson MD [address] [phone] 01/27/2025 11:30 AM EDT Consult [facility] Transplant Program & [facility] Liver [place] 85 [facility] 320 [place] [address] Jonh Hobson MD [address] [phone] Jayne Morales, DO 300 [place], [place] 129293 02/01/2025 11:40 AM EDT Office Visit [facility]rom[facility] [place] [facility] 85 [facility] 815 [place] [address] Luis Damon MD [facility]4 [place] [address] 02/16/2025 9:45 AM EDT [facility] [address] [place] [phone] Grey Trinidad MD [address] [place] [address] 04/26/2025 10:00 AM EDT Infusion [facility] Cancer [place] at [facility] 85 [place] [address] Deanne Daniel MD 85 [place], [place] [phone] documented as of this encounter Visit Diagnoses Not on filedocumented in this encounter Care Teams Business Development Relationship Specialty Start Date End Date Pcp, No PCP - General General Medicine 04/22/24 05/17/24 Jacquelyn Garcia NP [address] [place] [address] PCP - General Family Medicine 05/18/24 Bijan Magana MD Rheumatology 11/09/23 12/31/23 Jonh Hobson MD 31 [facility] 206 [place] [address] Rheumatology 01/01/24 Ayde Zheng, RN 85 [facility] 320 [place] [address] Registered Nurse Hepatology 08/11/24 documented as of this encounter
--- OUTSIDE RECORDS SUMMARY | 2024-12-28 17:36 | XMS_ITS | Encounter Summary ---
Author Organization [employer] Address 75 [facility] 7t [place] [address] Care Team Providers Care Streetsweeper Operator Name Role Phone Jacquelyn Garcia Primary Care Provider Unavailable Nuria Levin Unavailable Unavailable Inactive/Transferred Primary Care Provider Shaneka Ford DO Primary Care Provider [phone] Reason for Visit * Reason Comments Med Refill Encounter Details Date Type Department Care Team (Late st Contact Info) Description 02/04/2023 Refill [facility] MEDICAL 73 [place] [address] Jacquelyn Garcia FNP Mononeuritis multiplex Social History [...] multiplex documented in this encounter Care Teams Streetsweeper Operator Relationship Specialty Start Date End Date Jacquelyn Garcia FNP PCP - General Family Medicine 08/06/22 06/01/24 Inactive/Transferred PCP - General 06/02/24 06/02/24 Shaneka Bailey DO [address] [place] [address] PCP - General Family Medicine 11/04/24 Nuria Levin Community Health Worker 12/09/22 documented as of this encounter
--- OUTSIDE RECORDS SUMMARY | 2024-12-28 17:36 | XMS_ITS | Encounter Summary ---
Author Organization [facility] Address 100 [place] [address] Care Team Providers Care Daycare Teacher Name Role Phone Jonh Hobson MD Unavailable [phone] Jacquelyn Garcia SUSTAINMENT LOGISTICS ANALYST Primary Care Provider Ayde Zheng RN Unavailable [phone] Encounter Details Date Type Department Care Team (Late st Contact Info) Description 11/01/2024 Telephone [facility] [place] [facility] [address] [place] [phone] Luis Damon MD [facility] [place] [address] Social History Tobacco Use Types Packs/Day Years Used Date Smoking Tobacco: Never Smokeless Tobacco: Never Alcohol Use Standard Drinks/Week Comments Not Currently 0 (1 standard drink = 0.6 oz pur e alcohol) Social [facility] Utilities Answer Date Recorded In the past 12 months has [employer] e electric, gas, oil, or water company [...] place to sleep or slept in a nursing home (including now)? No 04/26/2024 Comments No Sex [...] Info) Description 12/29/2024 10:00 AM EDT Infusion [facility] [place] [facility] [address] [place] [phone] Deanne Daniel MD 85 [place] [address] Valery Ruiz RN 80 [place] [address] 12/30/2024 10:00 AM EDT Infusion [facility] [place] [facility] Infusion [address] [phone] Deanne Daniel MD [address] [place] [address] 01/11/2025 11:00 AM EDT Office Visit [facility] Medical Oncology at [address] [phone] Deanne Daniel MD [address] [place] [address] 01/11/2025 11:30 AM EDT Infusion [facility] Infusion [address] [phone] Deanne Daniel MD [address] [place] [address] 01/12/2025 10:00 AM EDT Infusion [facility] Infusion [address] [phone] Deanne Daniel MD [address] [place] [address] 01/20/2025 1:00 PM EDT Office Visit [facility] Rheumatology [address] [phone] Jonh Hobson MD [address] [place] [address] 01/27/2025 11:30 AM EDT [facility] [address] [place] [address] 320 [place] [address] Jonh Hobson MD 31 [facility] 206 [place], [place] [phone] Jayne Morales, DO 300 [place] [address] 02/01/2025 11:40 AM EDT Office [facility] [place] [facility] 85 [facility] 815 [place] [phone] Luis Damon MD [facility]4 [place], [place] [address]130 02/16/2025 9:45 AM EDT [facility] [address] [phone] Grey Trinidad MD [address] [place] [address] 04/26/2025 10:00 AM EDT Infusion [facility] [place] [facility] 85 [place] [address] Deanne Daniel MD [address] [place] [address] documented as of this encounter Visit Diagnoses Not on filedocumented in this encounter Care Teams Daycare Teacher Relationship Specialty Start Date End Date Fransisco-Jacquelyn Block NP [address] [place] [address] PCP - General Family Medicine 05/18/24 Jonh Hobson MD 31 [facility] 206 [place], [place] [phone] Rheumatology 01/01/24 Ayde Zheng RN 85 [place] [address] Registered Nurse Hepatology 08/11/24 documented as of this encounter
--- OUTSIDE RECORDS SUMMARY | 2024-12-28 17:36 | XMS_ITS | Encounter Summary ---
Author Organization [facility] Address [address] [place] [address] Care Team Providers Care Casting Machine Service Operator Name Role Phone Bijan Magana MD Unavailable Unavailable Jonh Hobson MD Unavailable [phone] Pcp, No Primary Care Provider UnavailJacquelyn Baxter NP Primary Care Provider Ayde Zheng RN Unavailable [phone] Encounter Details Date Type Department Care Team (Late st Contact Info) Description 06/19/2022 Scanned Document [facility] Cancer [place] [facility] at [facility] 85 [facility] [address] [place] [address] Provider, Brian, 193 [place] [address] Social History Tobacco Use Types Packs/Day Years [...] Info) Description 12/29/2024 10:00 AM EDT Infusion [facility] Infusion [address] [phone] Deanne Daniel MD [address] [place] [address] Valery Ruiz, ANTONIO 80 [place] [address] 12/30/2024 10:00 AM EDT Infusion [address] [phone] Deanne Daniel MD [address] [place] [address] 01/11/2025 11:00 AM EDT Office Visit [facility] Medical Oncology at [address] [phone] Deanne Daniel MD [address] [place] [address] 01/11/2025 11:30 AM EDT Infusion [address] [phone] Deanne Daniel MD [address] [place] [address] 01/12/2025 10:00 AM EDT Infusion [facility] Cancer [place] [facility] 85 [place] [phone] Deanne Daniel MD 85 [place] [address] 01/20/2025 1:00 PM EDT Office Visit [facility] Rheumatology [address] [place] [phone] Jonh Hobson MD [address] [phone] 01/27/2025 11:30 AM EDT Consult [facility] & [facility] Liver Center 85 [facility] 320 [place] [address] Jonh Hobson MD [address] [address] Jayne Morales, DO 300 [place], [place] 174093 02/01/2025 11:40 AM EDT Office [facility] [place] [facility] 85 [facility] 815 [place] [address] Luis Damon MD [facility] [place] [address] 02/16/2025 9:45 AM EDT [facility] [address] [phone] Grey Trinidad MD [address] [place] [address] 04/26/2025 10:00 AM EDT Infusion [facility] Cancer [place] [facility] 85 [place] [address] Deanne Daniel MD 85 [place], [place] [phone] documented as of this encounter Visit Diagnoses Not on filedocumented in this encounter Care Teams Casting Machine Service Operator Relationship Specialty Start Date End Date Pcp, No PCP - General General Medicine 04/22/24 05/17/24 Jacquelyn Garcia NP [address] [place] [address] PCP - General Family Medicine 05/18/24 Bijan Magana MD Rheumatology 11/09/23 12/31/23 Jonh Hobson MD 31 [facility] 206 [place], [place] [phone] Rheumatology 01/01/24 Ayde Zheng, RN 85 [facility] 320 [place], [place] [phone] Registered Nurse Hepatology 08/11/24 documented as of this encounter
--- OUTSIDE RECORDS SUMMARY | 2024-12-28 17:36 | XMS_ITS | Encounter Summary ---
Author Organization [facility] Address 100 [place] [address] Care Team Providers Care Senior Loss Control Specialist Name Role Phone Bijan Magana MD Unavailable Unavailable Jonh Hobson MD Unavailable [phone] Pcp, No Primary Care Provider UnavailJacquelyn Baxter NP Primary Care Provider Ayde Zheng RN Unavailable [phone] Encounter Details Date Type Department Care Team (Late st Contact Info) Description 05/15/2023 Scanned Document [facility] [place] [facility] 85 [facility] [address] [place] [address] Luis Damon MD [address] [place] [address] [phone] Social History Tobacco Use Types Packs/Day Years [...] Info) Description 12/29/2024 10:00 AM EDT Infusion [facility] Cancer [place] [facility] Infusion [address] [phone] Deanne Daniel MD [address] [place] [address] Valery Ruiz, ANTONIO 80 [place] [address] 12/30/2024 10:00 AM EDT Infusion [facility] Infusion [address] [phone] Deanne Daniel MD [address] [place] [address] 01/11/2025 11:00 AM EDT Office Visit [facility] Medical Oncology at [address] [phone] Deanne Daniel MD [address] [place] [address] 01/11/2025 11:30 AM EDT Infusion [facility] Infusion [address] [phone] Deanne Daniel MD [address] [place] [address] 01/12/2025 10:00 AM EDT Infusion [facility] Cancer [place] [facility] Outpatient [facility]fusion Center 85 [place] [address] Deanne Daniel MD 85 [place] [address] 01/20/2025 1:00 PM EDT Office Visit [facility] Rheumatology [address] [place] [phone] Jonh Hobson MD [address] [address] 01/27/2025 11:30 AM EDT Consult [facility] Transplant Program [facility] 85 [facility] 320 [place] [address] Jonh Hobson MD [address] [phone] Jayne Morales, DO 300 [place] [address] 02/01/2025 11:40 AM EDT Office Visit [facility] [place] [facility] 85 [facility] 815 [place] [address] Luis Damon MD [facility] [place], [place] 74[address] 02/16/2025 9:45 AM EDT [facility] [address] [place] [phone] Grey Trinidad MD [address] [place] [address] [place] [address] 04/26/2025 10:00 AM EDT Infusion [facility] Cancer [place] [facility] Out[facility]fusion Center [address] [place] [phone] Deanne Daniel MD 85 [place] [address] documented as of this encounter Visit Diagnoses Not on filedocumented in this encounter Care Teams Senior Loss Control Specialist Relationship Specialty Start Date End Date Pcp, No PCP - General General Medicine 04/22/24 05/17/24 Jacquelyn Garcia NP [address] [place] [address] PCP - General Family Medicine 05/18/24 Bijan Magana MD Rheumatology 11/09/23 12/31/23 Jonh Hobson MD 31 [facility] 206 [place] [address] Rheumatology 01/01/24 Ayde Zheng RN 85 [facility] 320 [place] [address] Registered Nurse Hepatology 08/11/24 documented as of this encounter
--- OUTSIDE RECORDS SUMMARY | 2024-12-28 17:36 | XMS_ITS | Clinical Summary ---
Author Organization [facility] Address [address] [place] [address] Care Team Providers Care Reimbursement Manager Name Role Phone Jonh Hobson MD Unavailable [phone] Jacquelyn Garcia PROPERTY WORKER Primary Care Provider Ayde Zheng RN Unavailable [phone] Allergies Active Allergy Reactions Criticality Noted [...] pain, migraines Diclofenac Swelling Medium 09/08/2024 Medications PANTOprazole (PROTONIX) 40 MG EC tablet Take 1 tablet (40 mg total) by mouth daily as needed for heartburn or indigestion. 04/05/20 21 Active baclofen (LIORESAL) 5 MG tabletIndicatio ns:Chronic intractable pain Take 3 tablets (15 mg total) by mouth 3 (three) times a day. 63 tablet 07/24/20 21 Active [facility] Arthritis Pain Relief 650 MG CR tablet 1 TABLET NEEDED ORALLY EVERY 12 HRS 28 DAYS 12/25/19 22 Active IMMUNE GLOBULIN, HUMAN, IJ Inject as directed. Dailyx2 every 2 weeks Active methylPREDNISol one sodium succinate (Solu-MEDROL) 1000 MG injection Infuse 16 mL (1,000 mg total) into a venous catheter every 28 days (4 weeks). Active albuterol (PROVENTIL HFA; VENTOLIN HFA) 108 (90 Base) MCG/ACT inhaler Inhale 2 puffs 4 times daily (every 6 hours) as needed for wheezing. Active cyanocobalamin (VITAMIN B12) 1000 MCG tabletIndicatio ns:Polyneuropat hy Take 1 tablet (1,000 mcg total) by mouth daily. Do not start before July 01, 2022. 30 tablet 07/01/20 22 Active Additional Information Patient taking differently:1,000 mcg OralEvery 30 days, injection, Reported on 11/04/2023 lidocaine (LIDODERM) 5 % patchIndication s:Polyneuropath y Place 1 patch on the skin daily. Apply patch and leave on for 12 hours then remove. Patch may remain on skin for 12 hours per day. 14 patch 06/30/20 22 Active Levonorgest-Eth Estrad 91-Day (SEASONIQUE PO) Take 1 tablet by mouth daily. Active acetaminophen (TYLENOL) 325 MG tablet Take 2 tablets (650 mg total) by mouth 4 times daily (every 6 hours) as needed for mild pain. Active calcium carbonate-vitam in D (Calcium 600-D) 600 mg-10 mcg tabletIndicatio ns:Steroid dependent (HCC) Take 1 tablet by mouth every morning with breakfast. 60 tablet 5 09/04/19 24 Active MISC MEDICATION/NEUT RACEUTICAL by Does not apply route. Per pt she is currently on a prednisone taper Active melatonin 10 MG Tab tablet Take 10 mg by mouth nightly. Active cyanocobalamin (VITAMIN B-12) 1000 MCG/ML injection INJECT 1ML ONCE A MONTH 12/17/19 24 Active EPINEPHrine 0.3 mg/0.3 mL IJ auto-injection INJECT 0.3 ML (0.3 MG) DIRECTED IF NEEDED FOR ANAPHYLAXIS. CALL 911 AFTER USE. 10/22/19 24 Active immune globulin, human, 10% in solution [...] 30 (THIRTY) DAYS. USE WITH B12 SOLUTION 12/23/19 24 Active Tuberculin-Alexandre rgy Syringes (B-D ALLERGY SYRINGE 1CC/28G) 28G X 1/2 1 ML MiscIndications :Psoriatic arthritis (HCC) Use 1 weekly with methotrexate injection 50 each 03/16/20 24 Active Insulin Syringe-Needle U-100 (B-D INSULIN SYRINGE 1CC/27G) 27G X 1/2 1 ML MiscIndications :Psoriatic arthritis (HCC) To be used once weekly with methotrexate vials 100 each 03/18/20 24 Active MISC MEDICATION/NEUT RACEUTICAL by Does not apply route. 400mg magnesium powder once a day Active Daysee 0.15-0.03 &0.01 MG Tab Take 1 tablet by mouth daily. 03/23/20 24 Active B-D TB SYRINGE 1CC/27GX1/2 27G X 1/2 1 ML Misc 03/18/20 24 Active nortriptyline (PAMELOR) 10 MG capsuleIndicati ons:Chronic pain syndrome Take 1 capsule (10 mg total) by mouth every other day. 2 capsule 04/29/20 24 Active LORazepam (ATIVAN) 0.5 MG tabletIndicatio ns:Anxiety Take 1 tablet (0.5 mg total) by mouth 2 (two) times a day. 30 tablet 04/28/20 24 Active oxyCODONE (ROXICODONE) 15 MG immediate release tabletIndicatio ns:Chronic pain syndrome Take 1 tablet (15 mg total) by mouth every 4 (four) hours as needed for severe pain. Max Daily Amount: 90 mg 84 tablet 04/28/20 24 Active ondansetron (ZOFRAN) 4 MG tabletIndicatio ns:Nausea Take 1 tablet (4 mg total) by mouth 3 times daily (every 8 hours) as needed for nausea or vomiting. 30 tablet 08/20/20 24 Active naproxen (EC NAPROSYN) 500 MG EC tablet Take 1 tablet (500 mg total) by mouth 2 (two) times a day with meals. Active scopolamine (TRANSDERM-SCOP ) patchIndication s:Vasculitic neuropathy Place 1 patch on the skin every third day (72 hrs). 1 patch 09/22/19 25 Active febuxostat (ULORIC) 40 MG tabletIndicatio ns:Idiopathic chronic gout of multiple sites without tophus Take 1 tablet (40 mg total) by mouth daily. 90 tablet 1 09/26/19 25 Active folic acid (FOLVITE) 1 MG tabletIndicatio ns:High risk medication use TAKE 1 TABLET BY MOUTH EVERY DAY 90 tablet 1 10/05/19 25 Active potassium chloride (K-TAB) 20 MEQ CR tabletIndicatio ns:Hypokalemia Take 1 tablet (20 mEq total) by mouth daily. Swallow whole; do not crush. Take with food. 90 tablet 5 10/08/19 25 Active predniSONE (DELTASONE) 10 MG tabletIndicatio ns:Psoriatic arthritis (HCC) Prednisone 40 mg daily for 3 days, 30 mg daily for 3 days, 20 mg daily for 3 days, 15 mg daily for 3 days, 10 mg daily for 3 days, 5 mg daily for 3 days- always in the morning after breakfast 40 tablet 11/27/19 Active methoTREXate, PF, (Rasuvo) 20 MG/0.4ML subcutaneous injectionIndica tions:Psoriatic arthritis (HCC) Inject 0.4 mL (20 mg total) under the skin once a week. 4.8 mL 1 09/26/19 25 2024 Discontinued Active Problems Problem Noted Date Diagnosed Date [...] (06/22/2021): Added automatically from request for surgery [id number] Pleural effusion 06/17/2021 Overview (07/02/2021): Added automatically from request for surgery [id number] Encounters Date Type Department Care Team Description 12/28/2024 Telephone [facility] [address] [place] [phone] Sabrina Villegas MA 12/15/2024 10:00 AM EDT Infusion [facility] [address] [place] [address] Deanne Daniel MD Laflamme, Shauna C, RN Vasculitic neuropathy (Primary Dx); Anemia due to other cause, not classified; High risk medication use 12/14/2024 10:00 AM EDT Infusion [facility] [address] [place] [address] Deanne Daniel MD Carilli, Kristina, ANTONIO Vasculitic neuropathy (Primary Dx); Anemia due to other cause, not classified; High risk medication use 12/14/2024 Telephone [facility] [place] [address] [facility] [address] [place] [address] Jonh Hobson MD Other 12/14/2024 Telephone [facility] 85 [facility] [address] [place] [address] Luis Damon MD Results Request 12/14/2024 Travel 12/13/2024 Telephone [facility] [address] [place] [phone] Deanne Daniel MD 12/01/2024 10:00 AM EDT Infusion [facility] [address] [place] [address] Deanne Daniel MD Hamilton, Vanessa F, RN Vasculitic neuropathy (Primary Dx); Anemia due to other cause, not classified; High risk medication use 12/01/2024 Telephone [facility] Infusion [address] [phone] Deanne Daniel MD Appointment 12/01/2024 Orders Only [facility] [address] [place] [address] [place] [phone] Jayne Morales DO Elevated liver function tests (Primary Dx) 12/01/2024 Telephone [facility] [address] [facility] [address] [place] [address] Aura Kaba MA 11/30/2024 10:00 AM EDT Infusion [facility] [address] [place] [address] Deanne Daniel MD Pierson, Kyle A, RN Vasculitic neuropathy (Primary Dx); Anemia due to other cause, not classified; High risk medication use 11/30/2024 Telephone [facility] [address] [facility] [address] [place] [phone] Luis Damon MD 11/30/2024 Telephone [facility] [address] [facility] [address] [place] [phone] Luis Damon MD 11/30/2024 Orders Only [facility] [address] [place] [phone] Luis Damon MD 11/30/2024 Travel 11/26/2024 Telephone [facility] [place] [address] [facility] [address] [place] [address] Jonh Hobson MD Other 11/25/2024 Telephone [facility] [address] [facility] [address] [place] [phone] Luis Damon MD Appointment 11/17/2024 10:00 AM EDT Infusion [facility] [address] [place] [phone] Deanne Daniel MD Walles, Claudia, RN Vasculitic neuropathy (Primary Dx); Anemia due to other cause, not classified; High risk medication use 11/16/2024 10:00 AM EDT Infusion [facility] [address] [phone] Deanne Daniel MD Baltz, Sara E, RN Vasculitic neuropathy (Primary Dx); Anemia due to other cause, not classified; High risk medication use 11/16/2024 Orders Only [facility] at [address] [phone] Jocelyn Alcala PA-C 11/16/2024 Orders Only [facility] 85 [facility] [address] [place] [address] Luis Damon MD 11/16/2024 Travel 11/10/2024 Telephone [facility] [address] [facility] [address] [place] [address] Janet Bonilla MA 11/09/2024 Telephone [facility] Rheumatology [address] [place] [address] Jonh Hobson MD 11/08/2024 Telephone [facility] [place] [address] [facility] [address] [place] [address] Jonh Hobson MD Appointment; Other 11/04/2024 Telephone [facility] [place] [address] [place] [address] Luis Damon MD 11/03/2024 Telephone [facility] [address] [address] Luis Damon MD 11/03/2024 Transcribe Orders [facility] [address] [phone] Luis Damon MD 11/02/2024 Telephone [facility] [address] [address] Luis Damon MD Other; Medication Problem; Appointment 11/01/2024 Telephone [facility] [place] [address] [place] [phone] Luis Damon MD 11/01/2024 Telephone [facility] [address] [address] Luis Damon MD Advice Only 11/01/2024 Telephone [facility] Infusion [address] [address] Luis Damon MD 10/29/2024 Telephone [facility] Rheumatology [address] [address] Jonh Hobson MD 10/26/2024 Telephone [facility]ology [address] [address] Jonh Hobson MD 10/25/2024 8:45 AM EST Infusion [facility] Infusion [address] [address] Deanne Daniel MD Carilli, Kristina, RN Vasculitic neuropathy (Primary Dx); Psoriatic arthritis (HCC); Vasculitis; Anemia due to other cause, not classified; High risk medication use 10/25/2024 Travel 10/21/2024 Telephone [id number] [address] [place] [phone] Luis Damon MD Vitamin D Deficiency 10/20/2024 10:00 AM EST Infusion [facility] [address] [place] [phone] Deanne Daniel MD Laflamme, Shauna C, RN Vasculitic neuropathy (Primary Dx); Anemia due to other cause, not classified; High risk medication use 10/20/2024 Telephone [facility]umatology [address] [address] Jonh Hobson MD 10/19/2024 10:00 AM EST Infusion [facility]fusion [address] [phone] Deanne Daniel MD Hamilton, Vanessa F, RN Vasculitic neuropathy (Primary Dx); Anemia due to other cause, not classified; High risk medication use 10/19/2024 Travel 10/18/2024 Orders Only [facility] [address] [place] [phone] Luis Damon MD 10/15/2024 Orders Only [facility]ology [address] [address] Jonh Hobson MD 10/14/2024 Refill [facility] [address] [place] [address] Jonh Hobson MD Psoriatic arthritis (HCC); Psoriasis 10/11/2024 8:45 AM EST Infusion [facility] [address] [place] [phone] Deanne Daniel MD Budd, Loubet, RN High risk medication use (Primary Dx); Psoriatic arthritis (HCC); Vasculitis; Pain; Vasculitic neuropathy; Anemia due to other cause, not classified 10/11/2024 Travel 10/08/2024 Orders Only [facility]ology [address] [address] Jonh Hobson MD 10/08/2024 Orders Only [facility] [address] [place] [phone] Luis Damon MD Hypokalemia (Primary Dx) 10/06/2024 10:00 AM EST Infusion [facility] Infusion [facility] [address] [place] [phone] Deanne Daniel MD Wood, Tiffany, RN Vasculitic neuropathy (Primary Dx); Anemia due to other cause, not classified; High risk medication use 10/06/2024 Refill [facility] [address] [place] [phone] Luis Damon MD Steroid dependent (HCC) 10/06/2024 [facility] [address] [place] [address] [address] [place] [address] Luis Damon MD Steroid dependent (HCC) 10/05/2024 11:45 AM EST Office Visit [facility] at [address] [phone] Deanne Daniel MD Iron deficiency anemia, unspecified iron deficiency anemia type (Primary Dx) 10/05/2024 10:00 AM EST Infusion [facility] [address] [place] [phone] Deanne Daniel MD Guss, Madison, RN Vasculitic neuropathy (Primary Dx); Anemia due to other cause, not classified; High risk medication use; Polyneuropathy 10/05/2024 Orders Only [facility] Rheumatology [address] [place] [address] Jonh Hobson MD 10/05/2024 Travel 10/04/2024 [facility] Rheumatology [address] [phone] Jonh Hobson MD High risk medication use from Last 3 Months Immunizations Immunization Administration Dates Next Due Covid-19 Adenovirus Vaccine - Linda 02/01/2021 Family History Relation Name Status Comments Father Alive Mother Alive Sister Alive Social History Tobacco Use Types Packs/Day Years Used Date Smoking Tobacco: Never Smokeless Tobacco: Never Tobacco Cessation:Counseling Given: Not Answered Alcohol Use Standard Drinks/Week Comments Not Currently 0 (1 standard drink = 0.6 oz pur e alcohol) Social [employer] Utilities Answer Date Recorded In the past 12 months has e [employer], gas, oil, or water company threatened to [...] place to sleep or slept in a mcc (including now)? No 04/26/2024 Comments No Sex and Gender Information Value Date Recorded Sex Assigned at Female 10/02/2022 12:43 PM EST Legal Sex Female 5:38 PM EDT Gender Identity Female 10/02/2022 12:43 PM EST Sexual Orientation Heterosexual (straight) 10/02 12:43 PM EST Last Filed Vital Signs Vital Sign Reading Time Taken Comments Blood Pressure 121/72 12/15/2024 2:18 PM EDT Pulse 86 12/15/2024 2:18 PM EDT Temperature 36.6 ??C (97.9 ??F) 12/15/2024 2:18 PM ED T Respiratory Rate 16 12/15/2024 2:18 PM EDT Oxygen Saturation 99% 12/15/2024 2:18 PM EDT Inhaled Oxygen Concentration - - Weight 88.5 kg (195 lb 1.7 oz) 12/14/2024 10:08 AM EDT Height 166 cm (5' 5.35 ) 11/30/2024 9:28 AM EDT Body Mass Index 32.12 11/30/2024 9:28 AM EDT Plan of Treatment Upcoming Encounters Date Type Department Care Team (Late st Contact Info) Description 12/29/2024 10:00 AM EDT Infusion [facility] Infusion [address] [phone] Deanne Daniel MD [address] [place] [address] Valery Ruiz, ANTONIO [address] [place] [address] 12/30/2024 10:00 AM EDT Infusion [address] [phone] Deanne Daniel MD [address] [place] [phone] 01/11/2025 11:00 AM EDT Office Visit [facility] at [address] [phone] Deanne Daniel MD [address] [place] [address] 01/11/2025 11:30 AM EDT Infusion [facility] Infusion [address] [phone] Deanne Daniel MD [address] [place] [address] 01/12/2025 10:00 AM EDT Infusion [facility] Infusion [address] [phone] Deanne Daniel MD [address] [place] [address] 01/20/2025 1:00 PM EDT Office Visit [facility] Rheumatology [address] [place] [phone] Jonh Hobson MD [address] [phone] 01/27/2025 11:30 AM EDT Consult [facility] [address] [place] [phone] Jonh Hobson MD [address] [phone] Jayne Morales, [address] [place] [address] 02/01/2025 11:40 AM EDT Office Visit [facility] [address] [place], [place] [address] [place] [phone] Luis Damon MD [facility]4 [place], [place] [address] 02/16/2025 9:45 AM EDT Consult [facility] [address] [place] [phone] Grey Trinidad MD [address] [place] [address] [place] [phone] 04/26/2025 10:00 AM EDT Infusion [facility] at [facility] [address] [place] [phone] Deanne Daniel MD [address] [place] [address] Health Maintenance Due Date Last Done Comments DTaP/Tdap/Td Vaccines (1 - Tdap) 2009 Hepatitis B Vaccines (1 of 3 - 19+ 3-dose series) 2009 Pap Smear (Ages 21-65) 2011 COVID-19 Vaccine (2 - Linda risk series) 03/01/2021 02/01/2021 Influenza Vaccine 03/25/2025 Chronic Controlled Substance User PDMP Review Discontinued 06/17/2021 HIV Screening Completed 06/20/2021, 06/19/2021 Quantiferon Gold TB Discontinued 03/19/2022 Hepatitis C Virus Screening Completed 02/03/2024, 10/14/2023, 03/19/2023, Additional history exists HPV Vaccines Aged Out No longer eligi ble based on patient's age to complete this topic Pneumococcal Vaccine: Pediatric (0-5 Years) and At-Risk Patients (6 to 49 Years) Aged Out No longer eligible based on patient's age to complete this topic Medical Devices Implanted Type Area Medical Records Field Technician Device Identifier Shelf Expiration Date Model / Serial / Lot [id number] Port Implant Infusion Smrt Port Vtx Safeshth Ultra Lite - [id number] Implanted:Qty : 1 on 01/08/2022 by Dave Bob MD at [facility] Access Port [employer] [id number] 10/22/2024 [id number] / [id number] / [id number] Procedures Procedure Name Priority Date/Time Associated Diagnosis Comments COMPLETE BLOOD COUNT, WITH DIFFERENTIAL STAT 12/14/2024 10:35 AM EDT Vasculitic neuropathy COMPREHENSIVE METABOLIC PANEL STAT 12/14/2024 10:35 AM EDT Vasculitic neuropathy TEST IN QUESTION- MISC QUESTION Routine 12/14/2024 12:00 AM EDT HEPATITIS E ANTIBODY, IGG Routine 12/14/2024 12:00 AM EDT Elevated liver function tests CYTOMEGALOVIRUS DNA, QUANTITATIVE PCR Routine 12/14/2024 12:00 AM EDT Elevated liver function tests EBV DNA, PCR, QUANTITATIVE Routine 12/14/2024 12:00 AM EDT Elevated liver function tests TISSUE TRANSGLUTAMINASE IGA AB Routine 12/14/2024 12:00 AM EDT Elevated liver function tests MITOCHONDRIAL M2 ANTIBODY, IGG Routine 12/14/2024 12:00 AM EDT Elevated liver function tests LIVER KIDNEY MICROSOMAL AB, IGG Routine 12/14/2024 12:00 AM EDT Elevated liver function tests IRON, TIBC, AND FERRITIN PANEL Routine 12/14/2024 12:00 AM EDT Elevated liver function tests IMMUNOGLOBULINS, QUANTITATIVE (MARTHA) Routine 12/14/2024 12:00 AM EDT Elevated liver function tests HEPATITIS A VIRUS (HAV) ANTIBODY IGM Routine 12/14/2024 12:00 AM EDT Elevated liver function tests CERULOPLASMIN Routine 12/14/2024 12:00 AM EDT Elevated liver function tests ANTI-SMOOTH MUSCLE SCREEN, REFLEX TITER - ASMASC Routine 12/14/2024 12:00 AM EDT Elevated liver function tests GARY SCREEN REFLEX TITER AND COMP PANEL - ANACOM Routine 12/14/2024 12:00 AM EDT Elevated liver function tests [id number] (AAT) PHENOTYPE Routine 12/14/2024 12:00 AM EDT Elevated liver function tests PROTIME-INR Routine 12/14/2024 12:00 AM EDT Elevated liver function tests COMPREHENSIVE METABOLIC PANEL Routine 12/14/2024 12:00 AM EDT Elevated liver function tests COMPLETE BLOOD COUNT, WITH DIFFERENTIAL Routine 12/14/2024 12:00 AM EDT Elevated liver function tests COMPREHENSIVE METABOLIC PANEL Routine 12/01/2024 10:10 AM EDT COMPLETE BLOOD COUNT, WITH DIFFERENTIAL Routine 11/30/2024 9:53 AM EDT Vasculitic neuropathy Anemia due to other cause, not classified High risk medication use COMPREHENSIVE METABOLIC PANEL Routine 11/30/2024 9:53 AM EDT Vasculitic neuropathy Anemia due to other cause, not classified High risk medication use COMPREHENSIVE METABOLIC PANEL STAT 11/16/2024 11:53 AM [...] not classified High risk medication use HEPATITIS PANEL, ACUTE Routine 4 10:42 AM EDT Polyneuropathy QUANTIFERON(R)-TB GOLD PLUS, 1 TUBE Routine 03/19/2022 12:10 PM EDT Psoriasis Psoriatic arthritis (HCC) HIV 1/2 AG/AB CMIA REFLEX TO CONFIRMATION Routine 06/20/2021 4:48 PM EDT from Last 3 Months or Most Recently Relevant to Health Maintenance Results * (ABNORMAL) Complete Blood Count, with Differential (12/14/2024 10:35 AM EDT) Only the most recent of8 resultswithin the time period is included. White Blood Cell Count 9.2 4.0 - 11.0 Thou/uL 12/14/2024 11:20 AM [facility] Platelet Count 326 150 - 450 Thou/uL 12/14/2024 11:20 AM [facility] Hemoglobin 12.5 11.7 - 15.7 g/dL 12/14/2024 11:20 AM [facility] Hematocrit 36.8 35.0 - 47.0 % 12/14/2024 11:20 AM [facility] Red Blood Cell Count 3.73(L) 4.00 - 5.40 Mil/uL 12/14/2024 11:20 AM [facility] MCV 99 80 - 100 fL 12/14/2024 11:20 AM [facility] MCH 33.5 26.0 - 34.0 pg 12/14/2024 11:20 AM [facility] MCHC 34.0 30.0 - 36.0 g/dL 12/14/2024 11:20 AM [facility] RDW 16.0(H) 11.5 - 14.5 % 12/14/2024 11:20 AM [facility] MPV 10.6 7.5 - 12.5 fL 12/14/2024 11:20 AM [facility] Neutrophils Auto 69.4 % 12/15/19 11:20 AM [facility] Immature Granulocytes 0.4 % 12/14/2024 11:20 AM [facility] Lymphocytes Auto 24.6 % 12/15/19 11:20 AM [facility] Monocytes Auto 3.9 % 12/14/2024 11:20 AM [facility] Eosinophils Auto 1.0 % 12/15/19 11:20 AM [facility] Basophils Auto 0.7 % 12/14/2024 11:20 AM [facility] Abs Neutrophils Auto 6.41 2.00 - 7.50 Thou/uL 12/14/2024 11:20 AM [facility] Abs Immature Granulocytes 0.04 0.00 - 0.10 Thou/uL 12/14/2024 11:20 AM [facility] Abs Lymphocytes Auto 2.27 1.50 - 4.50 Thou/uL 12/14/2024 11:20 AM [facility] Abs Monocytes Auto 0.36 0.20 - 1.50 Thou/uL 12/14/2024 11:20 AM [facility] Abs Eosinophils Auto 0.09 0.00 - 0.70 Thou/uL 12/14/2024 11:20 AM [facility] Abs Basophils Auto 0.06 0.00 - 0.20 Thou/uL 12/14/2024 11:20 AM [facility] Blood Blood specimen / Unknown 12/14/2024 10:35 AM EDT 12/14/2024 11:01 AM EDT Luis Crandall MD LAB BLOOD ORDERABLES Fin al Result [address] [address], [address] [address] * (ABNORMAL) Comprehensive Metabolic Panel (12/14/2024 10:35 AM EDT) Only the most recent of9 resultswithin the time period is included. Glucose 104(H) 65 - 99 mg/dL 12/14/2024 11:36 AM [facility] Comment:Fasting: <100 mg/dL, Non-Fasting: <200 mg/dL (ADA 2005) Blood Urea Nitrogen (BUN) 17 8 - 21 mg/dL 12/14/2024 11:36 AM [facility] Creatinine 0.8 0.4 - 1.1 mg/dL 12/14/2024 11:36 AM [facility] eGFR >90 >59 12/14/2024 11:36 AM [facility] Comment:CKD-EPI (2020) in mL /min/1.73 sq meters. Sodium 136 136 - 145 mmol/L 12/14/2024 11:36 AM [facility] Potassium 4.0 3.4 - 5.3 mmol/L 12/14/2024 11:36 AM [facility] Chloride 100 98 - 107 mmol/L 12/14/2024 11:36 AM [facility] CO2 25 22 - 33 mmol/L 12/14/2024 11:36 AM [facility] Calcium 9.2 8.7 - 10.5 mg/dL 12/14/2024 11:36 AM [facility] Alkaline Phosphatase 88 32 - 122 U/L 12/14/2024 11:36 AM [facility] Aspartate Aminotrans (AST) 33 10 - 50 U/L 12/14/2024 11:36 AM [facility] Alanine Aminotrans (ALT) 60(H) 10 - 50 U/L 12/14/2024 11:36 AM [facility] Bilirubin, Total 0.4 0.2 - 1.0 mg/dL 12/14/2024 11:36 AM [facility] Protein, Total 7.7 6.3 - 8.3 g/dL 12/14/2024 11:36 AM [facility] Albumin 3.7 3.5 - 5.0 g/dL 12/14/2024 11:36 AM [facility] BUN/Creatinine Ratio 21 10.0 - 25.0 Ratio 12/14/2024 11:36 AM [facility] Globulin 4.0(H) 1.5 - 3.9 g/dL 12/14/2024 11:36 AM [facility] Albumin/Globulin Ratio 0.9(L) 1.0 - 3.0 Ratio 12/14/2024 11:36 AM [facility] Anion Gap 11 7 - 17 12/14/2024 11:36 AM EDT [facility] Blood Blood specimen / Unknown 12/14/2024 10:35 AM EDT 12/14/2024 11:01 AM EDT Luis Crandall MD LAB BLOOD ORDERABLES Fin al Result [address] [address], [address] [address] * Test In Question- Misc Question (12/14/2024 12:00 AM EDT) Comment [facility] Comment: There is a question regarding the following specimen submitted and/or the test requested. Question: [facility] Comment:TEST CODE 24786 IS D ISCONTINUED WITH NO RECOMMENDED ALTERNATIVE GIVEN. Comment [facility] Comment: REQUESTED INFORMATION AUTHORIZED SIGNATURE TO PREVENT FURTHER DELAYS IN TESTING, PLEASE COMPLETE INFORMATION ABOVE AND FAX TO [phone] OR EMAIL TO [email or web address] TO RESOLVE THIS ORDER. 12/14/2024 12/15/2024 6:4 6 AM EDT Jayne Morales DO LAB BLOOD ORDERABLES Lily l Result [facility] [address] [place] [phone] * (ABNORMAL) Iron, TIBC, and Ferritin Panel (12/14/2024 12:00 AM EDT) Iron 116 40 - 190 mcg/dL [facility] Total Iron Binding Capacity 399 250 - 450 mcg/dL (calc) [facility] Iron Saturation 29 16 - 45 % (calc) [facility] Ferritin 1,234(H) 16 - 154 ng/mL [facility] Blood Blood specimen / Unknown 12/14/2024 12/15/2024 6:46 AM EDT Jayne Hardwickanton DO LAB BLOOD ORDERABLES Lily l Result Performing Organization Address [facility] de Phone Number [facility] [address] [place] [address] * Anti-Smooth Muscle Screen, Reflex Titer (12/14/2024 12:00 AM EDT) Anti-Smooth Muscle Screen NEGATIVE NEGATIVE [facility] Blood Blood specimen / Unknown 12/14/2024 12/15/2024 6:46 AM EDT Jayne Hardwickanton DO LAB BLOOD ORDERABLES Lily l Result Performing Organization Address [facility] de Phone Number [facility] [address] [place] [address] * (ABNORMAL) GARY Screen Reflex Titer and Comp Panel (12/14/2024 12:00 AM EDT) Pathologist [facility] GARY Screen, IFA POSITIVE (A) NEGATIVE [facility] Comment: GARY IFA is a first line screen for detecting the presence of up to approximately 150 autoantibodies in various autoimmune diseases. A positive GARY IFA result is suggestive of autoimmune disease and reflexes to titer and pattern. Further laboratory testing may be considered if clinically indicated. For additional information, please refer to http://education.MenuSpring/faq/GKA463 (This link is being provided for informational/ educational purposes only.) ?? Double Strand DNA Antibody 1 IU/mL [facility] Comment: ? IU/mL ? Interpretation ? < or = 4 ?Negative ? 5-9 ? Indeterminate ? > or = 10 ?? Positive Scl-70 Antibody <1.0 NEG <1.0 NEG AI [facility] Sm (Blanco) Antibody <1.0 NEG <1.0 NEG AI [facility] Sm/LOAN COUNSELOR Antibody <1.0 NEG <1.0 NEG AI [facility] Ro (SSA) Antibody <1.0 NEG <1.0 NEG AI [facility] La (SSB) Antibody <1.0 NEG <1.0 NEG AI [facility] GARY Titer 1:80(H) titer [facility] Comment: A low level GARY titer may be present in pre-clinical autoimmune diseases and normal individuals. ?Reference Range ?<1:40 ?Negative ?1:40-1:80 ?Low Antibody Level ?>1:80 ?Elevated Antibody Level GARY Pattern Nuclear, Homogene ous(A) [facility] Comment: Homogeneous pattern is associated with systemic lupus erythematosus (SLE), drug-induced lupus and juvenile idiopathic arthritis. AC-1: Homogeneous International Consensus on GARY Patterns (https://doi.org/10.1515/qibx-5887-5413) Gary Titer 1:80(H) titer [facility] Comment: A low level GARY titer may be present in pre-clinical autoimmune diseases and normal individuals. ?Reference Range ?<1:40 ?Negative ?1:40-1:80 ?Low Antibody Level ?>1:80 ?Elevated Antibody Level [facility] Pattern Nuclear, Speckled (A) [facility] Comment: Speckled pattern is associated with mixed connective tissue disease (MCTD), systemic lupus erythematosus (SLE), Sjogren's syndrome, dermatomyositis, and systemic sclerosis/polymyositis overlap. AC-2,4,5,29: Speckled International Consensus on GARY Patterns (https://doi.org/10.1515/paol-3391-4112) Blood Blood specimen / Unknown 12/14/2024 12/15/2024 6:46 AM EDT Jayne Morales DO LAB BLOOD ORDERABLES Lily cuenca Result [facility] [address] [place] [phone] * LIVER KIDNEY MICROSOMAL AB, IGG (12/14/2024 12:00 AM EDT) LKM-1 Antibody (IgG) <=20.0 <=20.0 U [facility] let[facility]ia TADEO Comment: ? Reference Range: ??<=20.0 ?Negative ??20.1-24.9 ?? Equivocal ??>=25.0 ?Positive ? Anti-liver/kidney microsomal antibodies (Anti-LKM-1) were previously tested by indirect immunofluorescence (IF) using rodent liver/kidney substrate. Identification of a specific antibody target as cytochrome P450 IID6 has led to the current recombinant based LUCY. Antibodies to this cytochrome are present in approximately 70% of patients with autoimmune hepatitis type 2. This antibody is also present in approximately 10% of patients with hepatitis C infection. ? Blood Blood specimen / Unknown 12/14/2024 12/15/2024 6:46 AM EDT Jayne Webbern DO LAB BLOOD ORDERABLES Lily l Result [facility] [address] [place] [phone] * Hepatitis E Virus (HEV) Antibody, IgG (12/14/2024 12:00 AM EDT) Hepatitis E Antibody, IgG NOT DETECTED [facility]aina [facility]lentino [facility], Comment: REFERENCE RANGE: NOT DETECTED Detection of IgM against HEV indicates current or recent infection while detection of IgG indicates previous exposure. Results should be correlated with patient risk factors and signs and symptoms consistent with hepatitis E. False positive results can occur in low prevalence populations. False negative results can occur early during infection. This test was developed and its analytical performance characteristics have been determined by [employer] It has not been cleared or approved by FDA. This assay has been validated pursuant to the CLIA regulations and is used for clinical purposes. Blood Blood specimen / Unknown 12/14/2024 12/15/2024 6:46 AM EDT Jayne Webbern DO LAB BLOOD ORDERABLES Lily l Result Performing Organization Address [facility] Co de Phone Number [facility], [address] [place] [address] * [id number] (AAT) PHENOTYPE (12/14/2024 12:00 AM EDT) Alpha 1 Antitrypsin (Aat) Phenotype SEE NOTE [facility] Tapp[facility], Comment: THIS PATIENT'S [id number] PHENOTYPE IS PI*MM. 90% of normal individuals have the MM phenotype, with normal quantitative AAT levels. Many phenotypic patterns have been described, including deficiency states with F, S, Z, or other alleles. As a general estimation, compared to M allele of 100% of normal V-9-Bjjucpmwhmx protein, the S allele produces approximately 60% and the Z allele 20%. For example, an MS phenotype would have about 80% of normal V-8-Tjvpsxrhhli protein level, a 50% contribution from the M allele and 30% from the S allele. A ZZ phenotype would have about 20% of normal levels, a 10% contribution from each Z gene. The F allele has normal V-8-Ssgnhxwvouq levels, but the kinetics of elastase inhibition is not as efficient as an M allele product; F alleles should be considered functionally mildly deficient. Other variants are identifiable by phenotypic analysis. These include CM, DP, EM, GM, IS, LM, M1M2, M3M3, MP, MT, XX, MY, and M1N. I, P, T and null alleles are considered deleterious. C, D, E, G, L, M1, M2, M3, X and Y alleles are generally considered normal variants. The MZ-Rubi phenotype is a normal variant; care should be taken to avoid confusion with the deficient MZ phenotype. Blood Blood specimen / Unknown 12/14/2024 12/15/2024 6:46 AM EDT Jayne Morales DO LAB BLOOD ORDERABLES Lily l Result [facility] [employer], [address] [place] [address] * HEPATITIS A VIRUS (HAV) ANTIBODY IGM (12/14/2024 12:00 AM EDT) [facility] Hepatitis A Antibody IgM NON-REACT ARTUR NON-REACT ARTUR [facility] Comment: For additional information, please refer to http://education.whoactually.Hookit/faq/YFR403 (This link is being provided for informational/ educational purposes only.) Blood Blood specimen / Unknown 12/14/2024 12/15/2024 6:46 AM EDT Makaweli G Papaikou DO LAB BLOOD ORDERABLES Lily l Result Performing Organization Address [facility] Co de Phone Number [employer] [address] [place] [address] * MITOCHONDRIAL M2 ANTIBODY, IGG (12/14/2024 12:00 AM EDT) Mitochondrial M2 Ab, IgG <=20.0 <=20.0 U [facility] Comment: ? Reference Range: ?? Negative: ??<=20.0 ?U ?? Equivocal: 20.1 - 24.9 U ?? Positive: ??>=25.0 ?U Blood Blood specimen / Unknown 12/14/2024 12/15/2024 6:46 AM EDT Result [facility] Jayne Morales DO LAB BLOOD ORDERABLES Lily l Result Performing Organization Address [facility] de Phone Number [employer] [address] [place] [address] * TISSUE TRANSGLUTAMINASE IGA AB (12/14/2024 12:00 AM EDT) Pathologist [facility] Tissue Transglutaminase IgA Ab <1.0 U/mL [facility] Comment: Value ?Interpretation ----- ? <15.0 ?Antibody not detected > or = 15.0 ?Antibody detected Blood Blood specimen / Unknown 12/14/2024 12/15/2024 6:46 AM EDT Jayne Hardwickanton DO LAB BLOOD ORDERABLES Lily l Result Performing Organization Address [facility] Co de Phone Number [facility] [address] [place] [address] * CERULOPLASMIN (12/14/2024 12:00 AM EDT) Ceruloplasmin 37 14 - 48 mg/dL [facility] Blood Blood specimen / Unknown 12/14/2024 12/15/2024 6:46 AM EDT us Saucedoa Rajinder Papaikou DO LAB BLOOD ORDERABLES Lily l Result Performing Organization Address City/[facility]/ZIP Co de Phone Number [facility] [address] [place] [phone] * EBV DNA, PCR, Quantitative (12/14/2024 12:00 AM EDT) EBV DNA, QN PCR TNP IU/mL [facility] Comment: TEST NOT PERFORMED No suitable specimen received. Please review the test requirements at [employer] Blood Blood specimen / Unknown 12/14/2024 12/15/2024 6:46 AM EDT us Jayne Calvillo Andrew DO LAB BLOOD ORDERABLES Lily l Result Performing Organization Address [facility] Co de Phone Number [facility] [address] [place] [phone] * CYTOMEGALOVIRUS DNA, QUANTITATIVE PCR (12/14/2024 12:00 AM EDT) CMV DNA, Qn PCR TNP IU/mL [facility] Comment: TEST NOT PERFORMED No suitable specimen received. Please review the test requirements at [employer] Blood Blood specimen / Unknown 12/14/2024 12/15/2024 6:46 AM EDT us Jayne Calvillo Papaikou DO LAB BLOOD ORDERABLES Lily l Result Performing Organization Address City/[facility]/ZIP Co de Phone Number [facility] [address] [place] [phone] * PROTIME-INR (12/14/2024 12:00 AM EDT) [facility] INR TNP [facility] Comment: TEST NOT PERFORMED No suitable specimen received. Please review the test requirements at [email or web address] Blood Blood specimen / Unknown 12/14/2024 12/15/2024 6:46 AM EDT Jayne Hardwickanton DO LAB BLOOD ORDERABLES Lily l Result Performing Organization Address [facility]/ZIP Co de Phone Number [facility] [address] [place] [phone] * (ABNORMAL) IMMUNOGLOBULINS, QUANTITATIVE (MARTHA) (12/14/2024 12:00 AM EDT) [facility] Immunoglobulin A (IgA) 89 47 - 310 mg/dL [facility] Immunoglobulin G (IgG) 1,982(H) 600 - 1,640 mg/dL [facility] Immunoglobulin M (IgM) 23(L) 50 - 300 mg/dL [facility] Blood Blood specimen / Unknown 12/14/2024 12/15/2024 6:46 AM EDT Jayne Hardwickanton DO LAB BLOOD ORDERABLES Lily l Result Performing Organization Address [facility] de Phone Number [facility] [address] [place] [phone] * Hepatitis B Viral Load, Quantitative (10/25/2024 9:33 AM EST) [facility] HBV DNA (IU/mL) Not Detected <10 IU/mL 10/27/2024 1:[address] [facility] HBV DNA (log10) Not Detected <1.00 log10 IU/mL 10/27/2024 1:[address] [facility] Interpretation Not Detected 10/28/19 1:[address] [facility] Comment:Performed by FDA jacqueline roved [employer] TMA. Linear range is 10 to 1,000,000,000 IU/mL. Blood Blood specimen / Unknown 10/25/2024 9:33 AM EST 10/25/2024 9:48 AM EST us Jonh Hobson MD LAB BLOOD ORDERABLES Final Res ult Performing Organization Address City/[facility]/ZIP Co de Phone Number [facility] [address] [place] [address], [place] * (ABNORMAL) Erythrocyte Sedimentation Rate (ESR) (10/25/2024 9:33 AM EST) Only the most recent of2 resultswithin the time period is included. Pathologist [facility] Erythrocyte Sediment Rate (ESR) 33(H) <20 MM/HR 10/25/2024 11:58 AM EST [facility] Blood Blood specimen / Unknown 10/25/2024 9:33 AM EST 10/25/2024 9:48 AM EST Jonh Hobson MD LAB BLOOD ORDERABLES Final Res ult Performing Organization Address [facility] Co de Phone Number [address] [address], [address] [address] * C-Reactive Protein (10/25/2024 9:33 AM EST) Only the most recent of2 resultswithin the time period is included. [facility] C-Reactive Protein 0.39 0 - 0.49 mg/dL 10/25/2024 10:16 AM EST [facility] Blood Blood specimen / Unknown 10/25/2024 9:33 AM EST 10/25/2024 9:48 AM EST Jonh Hobson MD LAB BLOOD ORDERABLES Final Res ult Performing Organization Address City/[facility]/[place] [address], [address] [address] * COLTEN Polyoma Virus DNA, PCR, Qual (10/06/2024 10:12 AM EST) Pathologist [facility] Source Plasma 10/09/2024 2:52 PM EST [employer] COLTEN Polyoma Virus DNA Not Detected Not Detected 10/09/2024 2:52 PM EST [employer] Comment: (NOTE) This test was developed and its analytical performance characteristics have been determined by [employer] [place]. It has not been cleared or approved by the U.S. Food and Drug Administration. This assay has been validated pursuant to the CLIA regulations and is used for clinical purposes. ? Blood Plasma specimen / Unknown 10/06/2024 10:12 AM EST 10/06/2024 11:17 AM EST Jonh Hobson MD LAB BLOOD ORDERABLES Final Res ult [employer] [address] [place] [address] , [employer] [place] [address] * Iron, Total & Unsaturated Iron Binding Capacity, Transferrin Saturation (10/05/2024 11:26 AM EST) Pathologist [facility] Iron 70 59 - 151 ug/dL 10/05/2024 1:[address] [facility] UIBC 212 112 - 346 ug/dL 10/05/2024 1:[address] [facility] Total Iron Binding Capacity 282 100 - 400 ug/dL 10/05/2024 1:[address] [facility] Iron Sat 25 20 - 50 % 10/05/2024 1:[address] [facility] Blood (Plasma/Serum) 10/05/2024 11:26 AM EST 10/05/2024 1:03 PM EST Deanne Mcgrath MD LAB BLOOD ORDERABLES Final Res ult Performing Organization Address City/[facility]/ZIP Co de Phone Number [address] [address], [address] [address] * (ABNORMAL) Ferritin (10/05/2024 11:26 AM EST) Pathologist [facility] Ferritin 2,187(H) 15 - 150 ug/L 10/05/2024 2:18 PM EST [facility] Blood (Plasma/Serum) 10/05/2024 11:26 AM EST 10/05/2024 1:03 PM EST Deanne Mcgrath MD LAB BLOOD ORDERABLES Final Res ult Performing Organization Address [facility] [place] [address], [place] [address] * Hepatitis B Virus Surface Antibody, Quantitative (10/05/2024 10:16 AM EST) [facility] Hepatitis B Surface Ab (Quant) 800.4 >11.9 mIU/mL 10/07/2024 4:10 PM EST [facility] Comment: Reactive >11.9 mIU/mL anti-HBs indicates individual is immune to HBV infection. ??mIU/mL ?Interpretation ??>11.9 ? Reactive 8.0 to 11.9 ? [place] ?? <8.0 ? Nonreactive Test performed by Chemiluminescent Microparticle Immunoassay. Blood Serum specimen / Unknown 10/05/2024 10:16 AM EST 10/05/2024 11:22 AM EST Jonh Hobson MD LAB BLOOD ORDERABLES Final Res ult Performing Organization Address City/[facility]/ZIP Co de Phone Number [facility] [place] [address], * HEPATITIS B VIRUS (HBV) SURFACE ANTIGEN SCREEN, REFLEX CONFIRMATION (10/05/2024 10:16 AM EST) [facility] Hepatitis B Surface Ag Screen Nonreactive Nonreactive 10/07/2024 4:10 PM EST [facility] Blood Serum specimen / Unknown 10/05/2024 10:16 AM EST 10/05/2024 11:22 AM EST Jonh Hobson MD LAB BLOOD ORDERABLES Final Res ult [facility] [address] [place] [address], * (ABNORMAL) Hepatitis B Virus (HBV) Core Antibody Total (10/05/2024 10:16 AM EST) Hepatitis B Core Antibody Total Reactive( A) Nonreactive 10/07/2024 4:10 PM EST [facility] Blood Serum specimen / Unknown 10/05/2024 10:16 AM EST 10/05/2024 11:22 AM EST Jonh Hobson MD LAB BLOOD ORDERABLES Final Res ult Performing Organization Address [facility]/ZIP Co de Phone Number [facility] [address] [place] [address], * (ABNORMAL) Vitamin D, 25-Hydroxy (10/05/2024 10:16 AM EST) Vitamin D, 25-Hydroxy 21(L) 30 - 100 ng/mL 10/05/2024 12:18 PM EST [facility] Blood (Plasma/Serum) 10/05/2024 10:16 AM EST 10/05/2024 11:21 AM EST Jonh Hobson MD LAB BLOOD ORDERABLES Final Res ult [address] [address], [address] [address] * (ABNORMAL) VITAMIN B12 (10/05/2024 10:16 AM EST) Vitamin B12 1,855(H) 243 - 894 pg/mL 10/05/2024 1:39 PM EST [facility] Blood (Plasma/Serum) 10/05/2024 10:16 AM EST 10/05/2024 11:22 AM EST Jonh Hobson MD LAB BLOOD ORDERABLES Final Res ult Performing Organization Address [facility] Co de Phone Number [address] [address], [address] [address] * Hepatitis Panel, Acute (02/03/2024 10:42 AM EDT) Pathologist [facility] Hepatitis A Antibody IgM Nonreactive Nonreactive S/CO 02/04/2024 10:49 AM EDT [facility] Hepatitis B Core Antibody IgM Nonreactive Nonreactive 02/04/2024 10:49 AM EDT [facility] Hepatitis B Surface Ag Screen Nonreactive Nonreactive 02/04/2024 10:49 AM EDT [facility] Hepatitis C Antibody 0.12 0.00 - 0.79 S/CO ratio 02/04/2024 10:49 AM EDT [facility] Hepatitis C Antibody Interpretation Nonreactive Nonreactive 02/04/2024 10:49 AM T [facility] Comment:Antibodies to HCV no t detected. This does not exclude the possibility of exposure to HCV. Hepatitis Interpretation: Results inconsistent with acute Hepatitis A, B or C Virus infection. 02/04/2024 10:49 AM EDT [facility] Blood Serum specimen / Unknown 02/03/2024 10:42 AM EDT 02/03/2024 11:36 AM EDT Jonh Hobson MD LAB BLOOD ORDERABLES Final Res ult [facility] [address] [place] [address], * Quantiferon ?? -TB Gold Plus, 1 Tube (03/19/2022 12:10 PM EDT) Pathologist [facility] Quantiferon TB Gold Plus, 1T NEGATIVE NEGATIVE [facility] [employer] Comment: Negative test result. M. tuberculosis complex infection unlikely. Quantiferon NIL 0.03 IU/mL [facility] Quantiferon Mitogen-NIL >10.00 IU/mL [facility] Quantiferon TB1-NIL 0.00 IU/mL [facility] Quantiferon TB2-NIL 0.00 IU/mL [facility] Comment: The Nil tube value reflects the [...] T-lymphocytes. For additional information, please refer to https://education.HealthTeacher / GoNoodle/faq/KAJ761 (This link is being provided for informational/ educational purposes only.) 03/19/2022 12:1 0 PM EDT 03/19/2022 11:03 PM EDT us Bijan Magana MD LAB BLOOD ORDERABLES Final Res ult [facility] [address] [place] [address], [place] [address] * HIV 1/2 Ag/Ab CMIA Reflex to Confirmation (All sites EXCEPT [facility]) (06/20/2021 4:48 PM EDT) [facility] HIV 1/2 Ag/Ab CMIA Nonreactive Nonreactive 06/21/2021 10:11 AM EDT [employer] Comment:Results show no evid ence of infection by HIV 1/2. If clinically indicated, repeat CMIA or test by nucleic acid amplification. Blood specimen (specimen) Serum specimen / Unknown 06/20/2021 4:48 PM EDT 06/20/2021 5:28 PM EDT us Home Plasencia MD LAB BLOOD ORDERABLES Final R esult [facility] [employer], [facility] [address] [place] [address] from Last 3 Months or Most Recently Relevant to Health Maintenance Insurance [facility] Member Subscriber Plan / Payer (Ef fective 2023-Present) Name:Helen Chow Relation to Subscriber:Self Name:Helen Chow Payer ID:Not on file Type:Not on file Address: [place] [phone] [place] [address] [facility] Advance Directives * Full Code (Latest Code Status on File) Date Activated Date Inactivated Comments 04/24/2024 11:55 PM * Full Code Date Activated Date Inactivated Comments 06/26/2022 10:00 PM 11/16/2022 3:24 PM * Full Code Date Activated Date Inactivated Comments 06/18/2021 8:30 AM 01/08/2022 7:08 AM Healthcare Agents on File Name Relationship Healthcare Agent Relationship Communication Linh Chow Healthcare u.s. representative 4. Nex t of Kin (Spouse, Adult Child, Parent, Adult Sibling, Grandparent) Hugo Chow Parent 4. Next of Kin ( Spouse, Adult Child, Parent, Adult Sibling, Grandparent) Care Teams Reimbursement Manager Relationship Specialty Start Date End Date Jacquelyn Garcia NP [address] [place] [address] PCP - General Family Medicine 05/18/24 Jonh Hobson MD 31 [facility] 206 [place] [address] Rheumatology 01/01/24 Ayde Zheng RN 85 [facility] 320 [place], [place] [phone] Registered Nurse Hepatology 08/11/24
--- OUTSIDE RECORDS SUMMARY | 2024-12-28 17:36 | XMS_ITS | Encounter Summary ---
Author Organization [facility] Address [address] [place] [address] Care Team Providers Care Senior Production Planner Name Role Phone Bijan Magana MD Unavailable Unavailable Jonh Hobson MD Unavailable [phone] Pcp, No Primary Care Provider UnavailJacquelyn Baxter NP Primary Care Provider Ayde Zehng RN Unavailable [phone] Encounter Details Date Type Department Care Team (Late st Contact Info) Description 11/21/2021 Scanned Document [facility] Rheumatology [address] [address] Boyd Cheng MD [address] [place] [address] Social History Tobacco Use Types Packs/Day [...] Description 12/29/2024 10:00 AM EDT Infusion [facility] [place] [facility] Infusion [address] [phone] Deanne Daniel MD [address] [place] [address] Valery Ruiz, RN 80 [place] [address] 12/30/2024 10:00 AM EDT Infusion [address] [phone] Deanne Daniel MD [address] [place] [address] 01/11/2025 11:00 AM EDT Office Visit [facility] Medical Oncology at [address] [phone] Deanne Daniel MD [address] [place] [address] 01/11/2025 11:30 AM EDT Infusion [address] [phone] Deanne Daniel MD [address] [place] [address] 01/12/2025 10:00 AM EDT Infusion [facility] [place] at Outpatient [facility]fusion Center 85 [place] [address] Deanne Daniel MD 85 [place] [address] 01/20/2025 1:00 PM EDT Office Visit [facility] Rheumatology [address] [place] [address] Jonh Hobson MD [address] [phone] 01/27/2025 11:30 AM EDT Consult Transplant Program & [facility] Liver [place] 85 [facility] 320 [place] [address] Jonh Hobson MD [address] [phone] Jayne Morales, 300 [place], [place] [address]173 02/01/2025 11:40 AM EDT Office Visit [facility] 85 [facility] 815 [place] [address] Luis Damon MD [facility]4 [place], [place] [address]180 02/16/2025 9:45 AM EDT [facility] [address] [phone] Grey Trinidad MD [address] [place] [address] 04/26/2025 10:00 AM EDT Infusion [facility] [place] at Outpatient [facility]fusion Center 85 [place] [address] Deanne Daniel MD 85 [place], [place] [phone] documented as of this encounter Visit Diagnoses Not on filedocumented in this encounter Care Teams Senior Production Planner Relationship Specialty Start Date End Date Pcp, No PCP - General General Medicine 04/22/24 05/17/24 Jacquelyn Garcia NP [address] [place] [address] PCP - General Family Medicine 05/18/24 Bijan Magana MD Rheumatology 11/09/23 12/31/23 Jonh Hobson MD 31 [facility] 206 [place], [place] [phone] Rheumatology 01/01/24 Ayde Zheng, RN 85 [facility] 320 [place], [place] [phone] Registered Nurse Hepatology 08/11/24 documented as of this encounter
--- OUTSIDE RECORDS SUMMARY | 2024-12-28 17:36 | XMS_ITS | Encounter Summary ---
Author Organization [facility] Address 100 [place] [address] Care Team Providers Care Qc Tech Name Role Phone Jonh Hobson MD Unavailable [phone] Jacquelyn Garcia BAIT DIGGER Primary Care Provider Ayde Zheng RN Unavailable [phone] Encounter Details Date Type Department Care Team (Late st Contact Info) Description 09/01/2024 Scanned Document [facility] [place] Medical Oncology at [facility] [address] [phone] Provider, Brian, 193 [place] [address] Social History Tobacco Use Types Packs/Day Years Used Date Smoking Tobacco: Never Smokeless Tobacco: Never Alcohol Use Standard Drinks/Week Comments Not Currently 0 (1 standard drink = 0.6 oz pur e alcohol) Social [facility] Utilities Answer Date Recorded In the [...] place to sleep or slept in a assisted (including now)? No 04/26/2024 Comments No Sex [...] Info) Description 12/29/2024 10:00 AM EDT Infusion [facility] Cancer [place] at [facility] Outpatient Infusion Center [address] [place] [phone] Deanne Daniel MD 85 [place] [address] Valery Ruiz RN 80 [place] [address] 12/30/2024 10:00 AM EDT Infusion [facility] [place] at [facility] Infusion [address] [address] Deanne Daniel MD [address] [place] [address] 01/11/2025 11:00 AM EDT Office Visit [facility] Medical Oncology at [address] [phone] Deanne Daniel MD [address] [place] [address] 01/11/2025 11:30 AM EDT Infusion [facility] [place] [facility] Infusion [address] [address] Deanne Daniel MD [address] [place] [address] 01/12/2025 10:00 AM EDT Infusion [facility] [place] at [facility] Infusion [address] [address] Deanne Daniel MD [address] [place] [address] 01/20/2025 1:00 PM EDT Office Visit [facility] Rheumatology [address] [phone] Jonh Hobson MD [address] [address] 01/27/2025 11:30 AM EDT Consult [facility] Transplant Program & [facility] Liver [address] [address] Jonh Hobson MD 31 [facility] 206 [place], [place] [phone] Jayne Morales, DO 300 [facility] [place] [address] 02/01/2025 11:40 AM EDT Office Visit [facility] [place] [facility] 85 [facility] 815 [place] [phone] Luis Damon MD [facility]4 [place], [place] 582290 02/16/2025 9:45 AM EDT [facility] [address] [phone] Grey Trinidad MD [address] [place] [address] 04/26/2025 10:00 AM EDT Infusion [facility] Cancer [place] at [facility] Outpatient Infusion Center 85 [place] [address] Deanne Daniel MD 85 [place] [address] documented as of this encounter Visit Diagnoses Not on filedocumented in this encounter Care Teams Qc Tech Relationship Specialty Start Date End Date Jacquelyn Garcia NP [address] [place] [address] PCP - General Family Medicine 05/18/24 Jonh Hobson MD 31 [facility] 206 [place], [place] [phone] Rheumatology 01/01/24 Ayde Zheng RN 85 [place] [address] Registered Nurse Hepatology 08/11/24 documented as of this encounter
--- OUTSIDE RECORDS SUMMARY | 2024-12-28 17:36 | XMS_ITS | Clinical Summary ---
Author Organization [facility] Address [address] [place] [address] Care Team Providers Care Upper Cutter Name Role Phone Jacquelyn Garcia Primary Care Provider [phone] Social History Tobacco Use Types Packs/Day Years [...] age to complete this topic Care Teams Upper Cutter Relationship Specialty Start Date End Date Jacquelyn Garcia 58 [facility] [place] [phone] PCP - General Family Medicine 10/26/18
--- OUTSIDE RECORDS SUMMARY | 2024-12-28 17:36 | XMS_ITS | Encounter Summary ---
Author Organization [facility] Address [address] [place] [address] Care Team Providers Care Photographer Helper Name Role Phone Jonh Hobson MD Unavailable [phone] Jacquelyn Garcia SITE OPERATIONS MANAGER Primary Care Provider Ayde Zheng RN Unavailable [phone] Encounter Details Date Type Department Care Team (Late st Contact Info) Description 07/08/2024 Scanned Document [address] [place] [phone] Radiology, Scan Social History Tobacco Use Types Packs/Day Years Used Date Smoking Tobacco: Never Smokeless Tobacco: Never Alcohol Use Standard Drinks/Week Comments Not Currently 0 (1 standard drink = 0.6 oz pur e alcohol) Social [facility] Utilities Answer Date Recorded In the past 12 months has [employer], gas, oil, or water company threatened to [...] place to sleep or slept in a halfway (including now)? No 04/26/2024 Comments No Sex [...] Info) Description 12/29/2024 10:00 AM EDT Infusion [facility] [place] at [facility] Outpatient Infusion Center [address] [place] [phone] Deanne Daniel MD 85 [place], [place] [phone] Valery Ruiz, ANTONIO 80 [place] [address] 12/30/2024 10:[address] [facility] at [facility] Outpatient Infusion Center [address] [place] [phone] Deanne Daniel MD [address] [place] [address] 01/11/2025 11:00 AM EDT Office Visit [facility] Medical Oncology at [address] [phone] Deanne Daniel MD [address] [place] [address] 01/11/2025 11:30 AM EDT Infusion [facility] Cancer [place] at [facility] Outpatient Infusion [address] [phone] Deanne Daniel MD [address] [place] [address] 01/12/2025 10:00 AM EDT Infusion [facility] [place] at [facility] Infusion [address] [phone] Deanne Daniel MD [address] [place] [address] 01/20/2025 1:00 PM EDT Office Visit [facility] Rheumatology [address] [address] Jonh Hobson MD [address] [phone] 01/27/2025 11:30 AM EDT Consult [facility] Transplant Program & [facility] Liver [address] [address] Jonh Hobson MD [address] [address] Jayne Morales, DO 300 [place] [address] 02/01/2025 11:40 AM EDT Office Visit [facility] [place] [facility] 85 [facility] 815 [place] [phone] Luis Damon MD [facility]4 [place] [address] 02/16/2025 9:45 AM EDT Consult [facility] [address] [place] [phone] Grey Trinidad MD [address] [place] [address] 04/26/2025 10:00 AM EDT Infusion [facility] [place] at [facility] Outpatient Infusion Center 85 [place] [address] Deanne Daniel MD 85 [place] [address] documented as of this encounter Procedures Procedure Name Priority Date/Time Associated Diagnosis Comments HX OUTSIDE ORDER 07/08/2024 documented in this encounter Results * OUTSIDE ORDER (07/08/2024) us Scan Radiology HX AMB PROCEDURES Final Result documented in this encounter Visit Diagnoses Not on filedocumented in this encounter Care Teams Photographer Helper Relationship Specialty Start Date End Date Jacquelyn Garcia NP [address] [place] [address] PCP - General Family Medicine 05/18/24 Jonh Hobson MD 31 [facility] 206 [place] [address] Rheumatology 01/01/24 Ayde Zheng RN 85 [facility] 320 [place] [address] Registered Nurse Hepatology 08/11/24 documented as of this encounter
--- OUTSIDE RECORDS SUMMARY | 2024-12-28 17:37 | XMS_ITS | Encounter Summary ---
Author Organization [facility] Address [address] [place] [address] Care Team Providers Care Distribution Coordinator Name Role Phone Bijan Magana MD Unavailable Unavailable Jonh Hobson MD Unavailable [phone] Pcp, No Primary Care Provider UnavailJacquelyn Baxter NP Primary Care Provider Ayde Zheng RN Unavailable [phone] Reason for Visit * Reason Comments Advice Only Encounter Details Date Type Department Care Team ([facility] st Contact Info) Description 01/09/2023 Telephone EPILEPSY [id number] [address] [phone] Luis Damon MD [facility]7 [place] [address] Advice Only Social History Tobacco Use Types [...] Description 12/29/2024 10:00 AM EDT Infusion [facility] Cancer [place] at [facility] Outpatient Infusion Center 85 [place] [phone] Deanne Daniel MD 85 [place], [place] [address] Valery Ruiz, ANTONIO 80 [place], [place] [address] 12/30/2024 10:00 AM EDT Infusion [facility] Cancer [place] at [facility] Outpatient Infusion Center [address] [place] [phone] Deanne Daniel MD [address] [place] [address] 01/11/2025 11:00 AM EDT Office Visit [facility] Medical Oncology at [address] [place] [phone] Deanne Daniel MD [address] [place] [address] 01/11/2025 11:30 AM EDT Infusion [facility] Cancer [place] at [facility] Infusion [address] [phone] Deanne Daniel MD [address] [place] [address] 01/12/2025 10:00 AM EDT Infusion [facility] [place] at [facility] Infusion [address] [phone] Deanne Daniel MD [address] [place] [address] 01/20/2025 1:00 PM EDT Office Visit [facility] Rheumatology [address] [address] Jonh Hobson MD [address] [phone] 01/27/2025 11:30 AM EDT Consult [facility] Transplant Program & [facility] Liver [address] 320 [place] [address] Jonh Hobson MD [address] [phone] Jayne Morales, 300 [place] [address] 02/01/2025 11:40 AM EDT Office Visit [facility] [place] [facility] 85 [facility] 815 [place] [address] Luis Damon MD [facility]4 [place], [place] [address]200 02/16/2025 9:45 AM EDT Consult [facility] [address] [phone] Grey Trinidad MD [address] [place] [address] 04/26/2025 10:00 AM EDT Infusion [facility] [place] at [facility] Outpatient Infusion Center 85 [place] [address] Deanne Daniel MD 85 [place] [address] documented as of this encounter Visit Diagnoses Not on filedocumented in this encounter Care Teams Distribution Coordinator Relationship Specialty Start Date End Date Pcp, No PCP - General General Medicine 04/22/24 05/17/24 Jacquelyn Garcia NP [address] [place] [address] PCP - General Family Medicine 05/18/24 Bijan Magana MD Rheumatology 11/09/23 12/31/23 Jonh Hobson MD [address] [address] Rheumatology 01/01/24 Ayde Zheng RN 85 [facility] 320 [place], [place] [address] Registered Nurse Hepatology 08/11/24 documented as of this encounter
--- OUTSIDE RECORDS SUMMARY | 2024-12-28 17:37 | XMS_ITS | Encounter Summary ---
Author Organization [facility] Address 100 [place] [address] Care Team Providers Care Marketing Program Coordinator Name Role Phone Bijan Magana MD Unavailable Unavailable Jonh Hobson MD Unavailable [phone] Pcp, No Primary Care Provider UnavailJacquelyn Baxter NP Primary Care Provider Ayde Zheng RN Unavailable [phone] Encounter Details Date Type Department Care Team (Late st Contact Info) Description 10/09/2021 Scanned Document [facility] [place] [facility] 85 [facility] [address] [place] [address] Luis Damon MD [facility] access hospital6 [place] [address] Social History Tobacco Use Types Packs/Day Years Used Date Smoking Tobacco: Never Smokeless Tobacco: Never Alcohol Use Standard Drinks/Week Comments Never 0 (1 standard drink = 0.6 oz pur e alcohol) Comments Unknown Sex and Gender Information Value [...] Info) Description 12/29/2024 10:00 AM EDT Infusion [facility] Cancer [facility] Infusion [address] [phone] Deanne Daniel MD [address] [place] [address] Valery Ruiz, ANTONIO 80 [place] [address] 12/30/2024 10:00 AM EDT Infusion [address] [phone] Deanne Daniel MD [address] [place] [address] 01/11/2025 11:00 AM EDT Office Visit [facility] Medical Oncology at [address] [phone] Deanne Danile MD [address] [place] [address] 01/11/2025 11:30 AM EDT Infusion [address] [phone] Deanne Daniel MD [address] [place] [address] 01/12/2025 10:00 AM EDT Infusion [facility] Cancer [place] at [facility] Outpatient Infusion Center 85 [place] [address] Deanne Daniel MD 85 [place] [address] 01/20/2025 1:00 PM EDT Office Visit [facility] Rheumatology [address] [place] [address] Jonh Hobson MD [address] [phone] 01/27/2025 11:30 AM EDT Consult [facility] Transplant Program & [facility] Liver Center [address] [place] [address] 320 [place] [address] Jonh Hobson MD [address] [address] Jayne Morales, DO 300 [place], [place] 24[address] 02/01/2025 11:40 AM EDT Office Visit [facility] [place] [facility] 85 [facility] 815 [place] [address] Luis aDmon MD Critical access hospital4 [place] [address] 02/16/2025 9:45 AM EDT [facility] [address] [phone] Grey Trinidad MD [address] [place] [address] 04/26/2025 10:00 AM EDT Infusion [facility] Cancer [place] at [facility] Outpatient Infusion Center 85 [place] [address] Deanne Daniel MD 85 [place], [place] [phone] documented as of this encounter Visit Diagnoses Not on filedocumented in this encounter Care Teams Marketing Program Coordinator Relationship Specialty Start Date End Date Pcp, No PCP - General General Medicine 04/22/24 05/17/24 Jacquelyn Garcia NP [address] [place] [address] PCP - General Family Medicine 05/18/24 Bijan Magana MD Rheumatology 11/09/23 12/31/23 Jonh Hobson MD 31 [facility] 206 [place], [place] [phone] Rheumatology 01/01/24 Ayde Zheng, RN 85 [facility] 320 [place], [place] [address] Registered Nurse Hepatology 08/11/24 documented as of this encounter
--- OUTSIDE RECORDS SUMMARY | 2024-12-28 17:37 | XMS_ITS | Encounter Summary ---
Author Organization [facility] Address 100 [place] [address] Care Team Providers Care Hearing Aid Repair Technician Name Role Phone Jonh Hobson MD Unavailable [phone] Jacquelyn Garcia REPORT CHECKER Primary Care Provider Ayde Zheng RN Unavailable [phone] Encounter Details Date Type Department Care Team (Late st Contact Info) Description 09/24/2024 Scanned Document [facility] Rheumatology [address] [phone] Jonh Hobson MD [address] [place] [address] Social History Tobacco Use Types Packs/Day Years Used Date Smoking Tobacco: Never Smokeless Tobacco: Never Alcohol Use Standard Drinks/Week Comments Not Currently 0 (1 standard drink = 0.6 oz pur e alcohol) Social [facility] Utilities Answer Date Recorded [...] in a alf (including now)? No 04/26/2024 Comments No Sex [...] Info) Description 12/29/2024 10:00 AM EDT Infusion [facility] Cancer [place] at [facility] Outpatient Infusion Center [address] [place] [phone] Deanne Daniel MD 85 [place] [address] Valery Ruiz RN 80 [place] [address] 12/30/2024 10:00 AM EDT Infusion [facility] Cancer [place] at [facility] Infusion [address] [phone] Deanne Daniel MD [address] [place] [address] 01/11/2025 11:00 AM EDT Office Visit [facility] Medical Oncology at [address] [phone] Deanne Daniel MD [address] [place] [address] 01/11/2025 11:30 AM EDT Infusion [facility] Cancer [place] [facility] Infusion [address] [phone] Deanne Daniel MD [address] [place] [address] 01/12/2025 10:00 AM EDT Infusion [facility] Cancer [place] [facility] Infusion [address] [phone] Deanne Daniel MD [address] [place] [address] 01/20/2025 1:00 PM EDT Office Visit [facility] Rheumatology [address] [place] [phone] Jonh Hobson MD [address] [place] [address] 01/27/2025 11:30 AM EDT Consult [facility] Transplant Program & [facility] [address] [place] [address] [place] [address] Jonh Hobson MD 31 [facility] 206 [place], [place] [address] Jayne Morales, DO 300 [place] [address] 02/01/2025 11:40 AM EDT Office Visit [facility] Neuromuscular [place] [facility] 85 [facility] 815 [place] [phone] [facility]4 [place], [place] 8[address] 02/16/2025 9:45 AM EDT [facility] [address] [phone] Grey Trinidad MD [address] [place] [address] 04/26/2025 10:00 AM EDT Infusion [facility] Cancer [place] at [facility] Outpatient Infusion Center 85 [place] [address] Deanne Daniel MD 85 [place] [address] documented as of this encounter Visit Diagnoses Not on filedocumented in this encounter Care Teams Hearing Aid Repair Technician Relationship Specialty Start Date End Date Fransisco-Jacquelyn Block NP [address] [place] [address] PCP - General Family Medicine 05/18/24 Jonh Hobson MD 31 [facility] 206 [place], [place] [phone] Rheumatology 01/01/24 Ayde Zheng RN 85 [place] [address] Registered Nurse Hepatology 08/11/24 documented as of this encounter
--- OUTSIDE RECORDS SUMMARY | 2024-12-28 17:37 | XMS_ITS ---
Author Name [facility] Organization Unknown Results Test Name/Text Value Interpretation Date Range Source BUN SerPl-mCnc 17mg/dL Normal [id number] 8 - 21 HH CCT BUN/Creat SerPl 21Ratio Normal [id number] 10 - 25 H HCCT Anion Gap Bld-sCnc 11 Normal [id number] 7 - 17 HHCCT Bilirub SerPl-mCnc 0.4mg/dL Normal [id number] 0.2 - 1 HHCCT ALP SerPl-cCnc 88U/L Normal 524639118824 32 - 122 HH CCT CO2 SerPl-sCnc 25mmol/L Normal [id number] 22 - 33 HH CCT ALT SerPl-cCnc 60U/L Above high normal [id number] 10 - 50 HHCCT Chloride SerPl-sCnc 100mmol/L Normal 813093550611 98 - 10 7 HHCCT Albumin/Glob SerPl 0.9Ratio Below low normal 055481400412 1 - 3 HHCCT AST SerPl-cCnc 33U/L Normal [id number] 10 - 50 HH CCT Calcium SerPl-mCnc 9.2mg/dL Normal [id number] 8.7 - 10 .5 HHCCT Albumin SerPl-mCnc 3.7g/dL Normal [id number] 3.5 - 5 HHCCT Potassium SerPl-sCnc 4mmol/L Normal [id number] 3.4 - 5.3 HHCCT Glucose SerPl-mCnc 104mg/dL Above high normal [id number] 65 - 99 HHCCT GFR/BSA.pred SerPlBld EDQ-MGM-XqWJzu 90 Normal [id number] 59 - HHCCT Globulin Ser Calc-mCnc 4g/dL Above high normal [id number] 536 1.5 - 3.9 HHCCT Prot SerPl-mCnc 7.7g/dL Normal [id number] 6.3 - 8.3 H HCCT Creat SerPl-mCnc 0.8mg/dL Normal [id number] 0.4 - 1.1 HHCCT Sodium SerPl-sCnc 136mmol/L Normal [id number] 136 - 145 HHCCT Monocytes num Bld Auto 0.36Thou/uL Normal [id number] 0. 2 - 1.5 HHCCT Hgb Bld-mCnc 12.5g/dL Normal [id number] 11.7 - 15.7 HH CCT PMV Bld Auto 10.6fL Normal [id number] 7.5 - 12.[address] Lymphocytes/leuk NFr Bld Auto 24.6% Normal [id number] HHCCT RBC num Bld Auto 3.73Mil/uL Below low normal 328804304213 4 - 5.4 HHCCT MCHC RBC Auto-mCnc 34g/dL Normal [id number] 30 - 36 HHCCT Hct VFr Bld Auto 36.8% Normal 328507438812 35 - 47 HHCCT Imm Granulocytes/leuk NFr Bld Auto 0.4% Normal [id number] HHCCT Neutrophils/leuk NFr Bld Auto 69.4% Normal [id number] HHCCT MCH RBC Qn Auto 33.5pg Normal [id number] 26 - 34 H HCCT Basophils/leuk NFr Bld Auto 0.7% Normal [id number] HHCCT Eosinophil num Bld Auto 0.09Thou/uL Normal [id number] 0 - 0.7 HHCCT Platelet num Bld Auto 326Thou/uL Normal [id number] 150 - 450 HHCCT Imm Granulocytes num Bld Auto 0.04Thou/uL Normal [id number] 0 - 0.1 HHCCT MCV RBC Auto 99fL Normal [id number] 80 - 100 HHCC T RDW RBC Auto-Rto 16% Above high normal [id number] 11 .5 - 14.5 HHCCT Basophils num Bld Auto 0.06Thou/uL Normal [id number] 0 - 0.2 HHCCT Monocytes/leuk NFr Bld Auto 3.9% Normal [id number] HHCCT Eosinophil/leuk NFr Bld Auto 1% Normal [id number] HHCCT Lymphocytes num Bld Auto 2.27Thou/uL Normal [id number] 1.5 - 4.5 HHCCT WBC num Bld Auto 9.2Thou/uL Normal [id number] 4 - 11 HHCCT Neutrophils num Bld Auto 6.41Thou/uL Normal [id number] 2 - 7.5 HHCCT Prot SerPl-mCnc 9.6g/dL Above high normal [id number] 6.3 - 8.3 HHCCT CO2 SerPl-sCnc 21mmol/L Below low normal [id number] 22 - 33 HHCCT ALT SerPl-cCnc 528U/L Above high normal [id number] 10 - 50 HHCCT Calcium SerPl-mCnc 9.1mg/dL Normal [id number] 8.7 - 10 .5 HHCCT Chloride SerPl-sCnc 107mmol/L Normal [id number] 98 - 10 7 HHCCT ALP SerPl-cCnc 107U/L Normal [id number] 32 - 122 HH CCT Sodium SerPl-sCnc 140mmol/L Normal [id number] 136 - 145 HHCCT Glucose SerPl-mCnc 168mg/dL Above high normal [id number] 65 - 99 HHCCT Anion Gap Bld-sCnc 12 Normal [id number] 7 - 17 HHCCT AST SerPl-cCnc 210U/L Above high normal [id number] 10 - 50 HHCCT Globulin Ser Calc-mCnc 5.8g/dL Above high normal [id number] 1.5 - 3.9 HHCCT Potassium SerPl-sCnc 3.6mmol/L Normal [id number] 3.4 - 5.3 HHCCT Albumin SerPl-mCnc 3.8g/dL Normal [id number] 3.5 - 5 HHCCT Creat SerPl-mCnc 0.9mg/dL Normal [id number] 0.4 - 1.1 HHCCT Albumin/Glob SerPl 0.7Ratio Below low normal [id number] 1 - 3 HHCCT GFR/BSA.pred SerPlBld FKL-NKM-ObSRdy 86 Normal [id number] 59 - HHCCT Bilirub SerPl-mCnc 0.6mg/dL Normal [id number] 0.2 - 1 HHCCT BUN SerPl-mCnc 12mg/dL Normal [id number] 8 - 21 HH CCT BUN/Creat SerPl 13Ratio Normal [id number] 10 - 25 H HCCT Sodium SerPl-sCnc 139mmol/L Normal [id number] 136 - 145 HHCCT Calcium SerPl-mCnc 9.5mg/dL Normal [id number] 8.7 - 10 .5 HHCCT CO2 SerPl-sCnc 22mmol/L Normal [id number] 22 - 33 HH CCT Globulin Ser Calc-mCnc 4g/dL Above high normal [id number] 524 1.5 - 3.9 HHCCT Chloride SerPl-sCnc 105mmol/L Normal [id number] 98 - 10 7 HHCCT Albumin SerPl-mCnc 4.2g/dL Normal [id number] 3.5 - 5 HHCCT Glucose SerPl-mCnc 173mg/dL Above high normal [id number] 65 - 99 HHCCT BUN/Creat SerPl 21Ratio Normal [id number] 10 - 25 H HCCT Prot SerPl-mCnc 8.2g/dL Normal [id number] 6.3 - 8.3 H HCCT BUN SerPl-mCnc 15mg/dL Normal [id number] 8 - 21 HH CCT ALT SerPl-cCnc 503U/L Above high normal [id number] 10 - 50 HHCCT Potassium SerPl-sCnc 3.4mmol/L Normal [id number] 3.4 - 5.3 HHCCT GFR/BSA.pred SerPlBld RGX-GPT-CfBJcl 90 Normal [id number] 59 - HHCCT Anion Gap Bld-sCnc 12 Normal [id number] 7 - 17 HHCCT Creat SerPl-mCnc 0.7mg/dL Normal [id number] 0.4 - 1.1 HHCCT AST SerPl-cCnc 193U/L Above high normal [id number] 10 - 50 HHCCT Bilirub SerPl-mCnc 0.4mg/dL Normal 409868182521 0.2 - 1 HHCCT ALP SerPl-cCnc 135U/L Above high normal [id number] 32 - 122 HHCCT Albumin/Glob SerPl 1.1Ratio Normal [id number] 1 - 3 HHCCT Eosinophil/leuk NFr Bld Auto 0% Normal 494081209550 HHCCT Neutrophils/leuk NFr Bld Auto 83.2% Normal [id number] HHCCT Hct VFr Bld Auto 35.1% Normal [id number] 35 - 47 HHCCT Imm Granulocytes num Bld Auto 0.07Thou/uL Normal [id number] 0 - 0.1 HHCCT Hgb Bld-mCnc 11.8g/dL Normal [id number] 11.7 - 15.7 HH CCT MCHC RBC Auto-mCnc 33.6g/dL Normal [id number] 30 - 36 HHCCT RDW RBC Auto-Rto 16.4% Above high normal [id number] 11 .5 - 14.5 HHCCT Basophils num Bld Auto 0.03Thou/uL Normal [id number] 0 - 0.2 HHCCT Lymphocytes num Bld Auto 1.46Thou/uL Below low normal [id number] 092700 1.5 - 4.5 HHCCT Basophils/leuk NFr Bld Auto 0.3% Normal 375641417774 HHCCT WBC num Bld Auto 11.5Thou/uL Above high normal [id number] 4 - 11 HHCCT MCV RBC Auto 98fL Normal [id number] 80 - 100 HHCC T Imm Granulocytes/leuk NFr Bld Auto 0.6% Normal [id number] HHCCT PMV Bld Auto 11.1fL Normal [id number] 7.5 - 12.[address] Monocytes/leuk NFr Bld Auto 3.2% Normal [id number] HHCCT Monocytes num Bld Auto 0.37Thou/uL Normal [id number] 0. 2 - 1.5 HHCCT Eosinophil num Bld Auto 0Thou/uL Normal [id number] 0 - 0.7 HHCCT Platelet num Bld Auto 403Thou/uL Normal [id number] 150 - 450 HHCCT RBC num Bld Auto 3.6Mil/uL Below low normal [id number] 4 - 5.4 HHCCT Lymphocytes/leuk NFr Bld Auto 12.7% Normal [id number] HHCCT MCH RBC Qn Auto 32.8pg Normal [id number] 26 - 34 H HCCT Neutrophils num Bld Auto 9.6Thou/uL Above high normal [id number] 379016 2 - 7.5 HHCCT Potassium SerPl-sCnc 3.6mmol/L Normal [id number] 3.4 - 5.3 HHCCT ALT SerPl-cCnc 318U/L Above high normal [id number] 10 - 50 HHCCT ALP SerPl-cCnc 139U/L Above high normal [id number] 32 - 122 HHCCT GFR/BSA.pred SerPlBld XGH-QKD-QbGCbl 90 Normal [id number] 59 - HHCCT Albumin SerPl-mCnc 3.7g/dL Normal [id number] 3.5 - 5 HHCCT BUN SerPl-mCnc 8mg/dL Normal [id number] 8 - 21 HH CCT Anion Gap Bld-sCnc 9 Normal [id number] 7 - 17 HHCCT Glucose SerPl-mCnc 96mg/dL Normal [id number] 65 - 99 HHCCT CO2 SerPl-sCnc 23mmol/L Normal [id number] 22 - 33 HH CCT BUN/Creat SerPl 10Ratio Normal [id number] 10 - 25 H HCCT Bilirub SerPl-mCnc 0.7mg/dL Normal [id number] 0.2 - 1 HHCCT Calcium SerPl-mCnc 9mg/dL Normal [id number] 8.7 - 10 .5 HHCCT AST SerPl-cCnc 147U/L Above high normal [id number] 10 - 50 HHCCT Globulin Ser Calc-mCnc 3.6g/dL Normal [id number] 1.5 - 3.9 HHCCT Creat SerPl-mCnc 0.8mg/dL Normal [id number] 0.4 - 1.1 HHCCT Sodium SerPl-sCnc 134mmol/L Below low normal 265846172530 13 6 - 145 HHCCT Chloride SerPl-sCnc 102mmol/L Normal [id number] 98 - 10 7 HHCCT Prot SerPl-mCnc 7.3g/dL Normal [id number] 6.3 - 8.3 H HCCT Albumin/Glob SerPl 1Ratio Normal [id number] 1 - 3 HHCCT Eosinophil num Bld Auto 0.05Thou/uL Normal [id number] 0 - 0.7 HHCCT Basophils/leuk NFr Bld Auto 0.7% Normal [id number] HHCCT MCV RBC Auto 95fL Normal [id number] 80 - 100 HHCC T Imm Granulocytes/leuk NFr Bld Auto 0.4% Normal 349196364048 HHCCT Eosinophil/leuk NFr Bld Auto 0.7% Normal [id number] HHCCT RBC num Bld Auto 3.45Mil/uL Below low normal [id number] 4 - 5.4 HHCCT Platelet num Bld Auto 265Thou/uL Normal [id number] 150 - 450 HHCCT Hgb Bld-mCnc 11.1g/dL Below low normal [id number] 11.7 - 15.7 HHCCT Monocytes num Bld Auto 0.48Thou/uL Normal [id number] 0. 2 - 1.5 HHCCT Imm Granulocytes num Bld Auto 0.03Thou/uL Normal [id number] 0 - 0.1 HHCCT Lymphocytes/leuk NFr Bld Auto 19.3% Normal [id number] HHCCT Lymphocytes num Bld Auto 1.37Thou/uL Below low normal [id number] 045766 1.5 - 4.5 HHCCT MCHC RBC Auto-mCnc 33.8g/dL Normal [id number] 30 - 36 HHCCT RDW RBC Auto-Rto 13.9% Normal [id number] 11.5 - 14. 5 HHCCT MCH RBC Qn Auto 32.2pg Normal [id number] 26 - 34 H HCCT WBC num Bld Auto 7.1Thou/uL Normal [id number] 4 - 11 HHCCT PMV Bld Auto 11.6fL Normal [id number] 7.5 - 12.[address] Hct VFr Bld Auto 32.8% Below low normal [id number] 35 - 47 HHCCT Basophils num Bld Auto 0.05Thou/uL Normal [id number] 0 - 0.2 HHCCT Monocytes/leuk NFr Bld Auto 6.8% Normal [id number] HHCCT Neutrophils/leuk NFr Bld Auto 72.1% Normal 411339265572 HHCCT Neutrophils num Bld Auto 5.11Thou/uL Normal [id number] 2 - 7.5 HHCCT HBV DNA SerPl BRANDT+probe-aCnc Normal 622000001206 - 10 HHCCT Interpretation Normal 243291265571 HH CCT HBV DNA SerPl BRANDT+probe-Log IU Normal 543430124111 - 1 HHCCT ESR Bld Qn 33MM/HR Above high normal 997725729672 - 20 HHCCT Monocytes/leuk NFr Bld Auto 3.9% Normal [id number] HHCCT Platelet num Bld Auto 414Thou/uL Normal [id number] 150 - 450 HHCCT Hct VFr Bld Auto 32.7% Below low normal 163172187717 35 - 47 HHCCT MCH RBC Qn Auto 32.9pg Normal [id number] 26 - 34 H HCCT Basophils num Bld Auto 0.06Thou/uL Normal [id number] 0 - 0.2 HHCCT Imm Granulocytes num Bld Auto 0.04Thou/uL Normal [id number] 0 - 0.1 HHCCT Eosinophil/leuk NFr Bld Auto 0.6% Normal [id number] HHCCT Neutrophils num Bld Auto 5.88Thou/uL Normal [id number] 2 - 7.5 HHCCT PMV Bld Auto 11.1fL Normal [id number] 7.5 - 12.[address] Imm Granulocytes/leuk NFr Bld Auto 0.5% Normal [id number] HHCCT RDW RBC Auto-Rto 13.2% Normal [id number] 11.5 - 14. 5 HHCCT MCHC RBC Auto-mCnc 34.9g/dL Normal [id number] 30 - 36 HHCCT Monocytes num Bld Auto 0.34Thou/uL Normal [id number] 0. 2 - 1.5 HHCCT Hgb Bld-mCnc 11.4g/dL Below low normal [id number] 11.7 - 15.7 HHCCT WBC num Bld Auto 8.7Thou/uL Normal [id number] 4 - 11 HHCCT Lymphocytes num Bld Auto 2.35Thou/uL Normal [id number] 1.5 - 4.5 HHCCT MCV RBC Auto 95fL Normal [id number] 80 - 100 HHCC T Eosinophil num Bld Auto 0.05Thou/uL Normal [id number] 0 - 0.7 HHCCT Basophils/leuk NFr Bld Auto 0.7% Normal 094408715320 HHCCT Lymphocytes/leuk NFr Bld Auto 26.9% Normal [id number] HHCCT Neutrophils/leuk NFr Bld Auto 67.4% Normal 626118101567 HHCCT RBC num Bld Auto 3.46Mil/uL Below low normal 046626240454 4 - 5.4 HHCCT Sodium SerPl-sCnc 131mmol/L Below low normal 880242124630 13 6 - 145 HHCCT Albumin SerPl-mCnc 4g/dL Normal [id number] 3.5 - 5 HHCCT Calcium SerPl-mCnc 9.6mg/dL Normal [id number] 8.7 - 10 .5 HHCCT Glucose SerPl-mCnc 109mg/dL Above high normal [id number] 65 - 99 HHCCT Prot SerPl-mCnc 9.4g/dL Above high normal 789726314751 6.3 - 8.3 HHCCT BUN/Creat SerPl 15Ratio Normal [id number] 10 - 25 H HCCT Albumin/Glob SerPl 0.7Ratio Below low normal 516301041581 1 - 3 HHCCT ALP SerPl-cCnc 114U/L Normal [id number] 32 - 122 HH CCT GFR/BSA.pred SerPlBld XIM-HIN-LrJHba 90 Normal [id number] 59 - HHCCT Anion Gap Bld-sCnc 10 Normal [id number] 7 - 17 HHCCT Globulin Ser Calc-mCnc 5.4g/dL Above high normal [id number] [id number] 1.5 - 3.9 HHCCT BUN SerPl-mCnc 12mg/dL Normal [id number] 8 - 21 HH CCT Bilirub SerPl-mCnc 1mg/dL Normal [id number] 0.2 - 1 HHCCT Creat SerPl-mCnc 0.8mg/dL Normal [id number] 0.4 - 1.1 HHCCT Chloride SerPl-sCnc 98mmol/L Normal [id number] 98 - 10 7 HHCCT ALT SerPl-cCnc 243U/L Above high normal [id number] 10 - 50 HHCCT Potassium SerPl-sCnc 4.2mmol/L Normal [id number] 3.4 - 5.3 HHCCT CO2 SerPl-sCnc 23mmol/L Normal [id number] 22 - 33 HH CCT AST SerPl-cCnc 115U/L Above high normal [id number] 10 - 50 HHCCT CRP SerPl-mCnc 0.39mg/dL Normal [id number] 0 - 0.49 HH CCT Creat SerPl-mCnc 0.8mg/dL Normal [id number] 0.4 - 1.1 HHCCT CO2 SerPl-sCnc 21mmol/L Below low normal [id number] 22 - 33 HHCCT Globulin Ser Calc-mCnc 4.1g/dL Above high normal [id number] 708 1.5 - 3.9 HHCCT GFR/BSA.pred SerPlBld ACB-DCL-NqXWor 90 Normal 768432428990 59 - HHCCT Albumin/Glob SerPl 1Ratio Normal [id number] 1 - 3 HHCCT Albumin SerPl-mCnc 4.2g/dL Normal [id number] 3.5 - 5 HHCCT Prot SerPl-mCnc 8.3g/dL Normal [id number] 6.3 - 8.3 H HCCT ALT SerPl-cCnc 131U/L Above high normal [id number] 10 - 50 HHCCT Anion Gap Bld-sCnc 13 Normal [id number] 7 - 17 HHCCT BUN SerPl-mCnc 12mg/dL Normal [id number] 8 - 21 HH CCT Calcium SerPl-mCnc 9.5mg/dL Normal 543125365952 8.7 - 10 .5 HHCCT AST SerPl-cCnc 56U/L Above high normal [id number] 10 - 50 HHCCT BUN/Creat SerPl 15Ratio Normal [id number] 10 - 25 H HCCT ALP SerPl-cCnc 95U/L Normal [id number] 32 - 122 HH CCT Chloride SerPl-sCnc 101mmol/L Normal [id number] 98 - 10 7 HHCCT Glucose SerPl-mCnc 101mg/dL Above high normal 788115146031 65 - 99 HHCCT Sodium SerPl-sCnc 135mmol/L Below low normal 877062536272 13 6 - 145 HHCCT Bilirub SerPl-mCnc 0.4mg/dL Normal [id number] 0.2 - 1 HHCCT Potassium SerPl-sCnc 3.9mmol/L Normal 687417360302 3.4 - 5.3 HHCCT RDW RBC Auto-Rto 14% Normal [id number] 11.5 - 14. 5 HHCCT Imm Granulocytes/leuk NFr Bld Auto 0.4% Normal 563095664259 HHCCT Eosinophil/leuk NFr Bld Auto 0.8% Normal 473404471576 HHCCT Basophils num Bld Auto 0.07Thou/uL Normal 960911340365 0 - 0.2 HHCCT Hct VFr Bld Auto 35.5% Normal [id number] 35 - 47 HHCCT Monocytes num Bld Auto 0.49Thou/uL Normal [id number] 0. 2 - 1.5 HHCCT Imm Granulocytes num Bld Auto 0.03Thou/uL Normal [id number] 0 - 0.1 HHCCT Neutrophils/leuk NFr Bld Auto 65.8% Normal 041360200594 HHCCT Hgb Bld-mCnc 12g/dL Normal [id number] 11.7 - 15.7 HH CCT WBC num Bld Auto 8.2Thou/uL Normal [id number] 4 - 11 HHCCT Platelet num Bld Auto 357Thou/uL Normal [id number] 150 - 450 HHCCT Neutrophils num Bld Auto 5.41Thou/uL Normal [id number] 2 - 7.5 HHCCT Lymphocytes num Bld Auto 2.17Thou/uL Normal 801325152358 1.5 - 4.5 HHCCT Lymphocytes/leuk NFr Bld Auto 26.3% Normal [id number] HHCCT Monocytes/leuk NFr Bld Auto 5.9% Normal 056459814164 HHCCT MCV RBC Auto 98fL Normal 530840777067 80 - 100 HHCC T Eosinophil num Bld Auto 0.07Thou/uL Normal [id number] 0 - 0.7 HHCCT RBC num Bld Auto 3.64Mil/uL Below low normal 107096764024 4 - 5.4 HHCCT Basophils/leuk NFr Bld Auto 0.8% Normal 844382037334 HHCCT MCHC RBC Auto-mCnc 33.8g/dL Normal [id number] 30 - 36 HHCCT MCH RBC Qn Auto 33pg Normal 293602471536 26 - 34 H HCCT PMV Bld Auto 11fL Normal [id number] 7.5 - 12.[address] CRP SerPl-mCnc 0.3mg/dL Normal [id number] 0 - 0.49 HH CCT AST SerPl-cCnc 92U/L Above high normal [id number] 10 - 50 HHCCT ALP SerPl-cCnc 65U/L Normal [id number] 32 - 122 HH CCT GFR/BSA.pred SerPlBld NNU-JWN-RmGUyh 86 Normal 511866940318 59 - HHCCT Creat SerPl-mCnc 0.9mg/dL Normal [id number] 0.4 - 1.1 HHCCT Calcium SerPl-mCnc 8.8mg/dL Normal [id number] 8.7 - 10 .5 HHCCT Bilirub SerPl-mCnc 0.4mg/dL Normal 759580531538 0.2 - 1 HHCCT BUN SerPl-mCnc 19mg/dL Normal [id number] 8 - 21 HH CCT Prot SerPl-mCnc 7.9g/dL Normal [id number] 6.3 - 8.3 H HCCT Anion Gap Bld-sCnc 10 Normal [id number] 7 - 17 HHCCT Globulin Ser Calc-mCnc 4.4g/dL Above high normal [id number] 1.5 - 3.9 HHCCT Albumin SerPl-mCnc 3.5g/dL Normal 137068014805 3.5 - 5 HHCCT Sodium SerPl-sCnc 136mmol/L Normal [id number] 136 - 145 HHCCT Potassium SerPl-sCnc 3.8mmol/L Normal [id number] 3.4 - 5.3 HHCCT ALT SerPl-cCnc 143U/L Above high normal 919247863098 10 - 50 HHCCT Albumin/Glob SerPl 0.8Ratio Below low normal [id number] 1 - 3 HHCCT CO2 SerPl-sCnc 22mmol/L Normal [id number] 22 - 33 HH CCT Glucose SerPl-mCnc 93mg/dL Normal 002196035114 65 - 99 HHCCT Chloride SerPl-sCnc 104mmol/L Normal [id number] 98 - 10 7 HHCCT BUN/Creat SerPl 21Ratio Normal [id number] 10 - 25 H HCCT ESR Bld Qn 19MM/HR Normal 564607108031 - 20 HHCCT Platelet num Bld Auto 344Thou/uL Normal [id number] 150 - 450 HHCCT RBC num Bld Auto 3.11Mil/uL Below low normal 584237162519 4 - 5.4 HHCCT Eosinophil/leuk NFr Bld Auto 0.7% Normal 432898393231 HHCCT MCHC RBC Auto-mCnc 34.3g/dL Normal 996051645517 30 - 36 HHCCT MCV RBC Auto 98fL Normal 891876896476 80 - 100 HHCC T Imm Granulocytes/leuk NFr Bld Auto 0.3% Normal 631662559010 HHCCT Lymphocytes/leuk NFr Bld Auto 17.2% Normal [id number] HHCCT Hct VFr Bld Auto 30.6% Below low normal 062688254933 35 - 47 HHCCT Neutrophils num Bld Auto 5.77Thou/uL Normal [id number] 2 - 7.5 HHCCT Neutrophils/leuk NFr Bld Auto 77.4% Normal 622270278865 HHCCT Monocytes/leuk NFr Bld Auto 4% Normal [id number] HHCCT Basophils num Bld Auto 0.03Thou/uL Normal [id number] 0 - 0.2 HHCCT RDW RBC Auto-Rto 14.1% Normal [id number] 11.5 - 14. 5 HHCCT Monocytes num Bld Auto 0.3Thou/uL Normal [id number] 0.2 - 1.5 HHCCT Hgb Bld-mCnc 10.5g/dL Below low normal 950624832513 11.7 - 15.7 HHCCT MCH RBC Qn Auto 33.8pg Normal [id number] 26 - 34 H HCCT Eosinophil num Bld Auto 0.05Thou/uL Normal 302335970711 0 - 0.7 HHCCT Imm Granulocytes num Bld Auto 0.02Thou/uL Normal 352467068024 0 - 0.1 HHCCT Lymphocytes num Bld Auto 1.28Thou/uL Below low normal 432875 663021 1.5 - 4.5 HHCCT Basophils/leuk NFr Bld Auto 0.4% Normal [id number] HHCCT PMV Bld Auto 10.7fL Normal [id number] 7.5 - 12.[address] WBC num Bld Auto 7.5Thou/uL Normal [id number] 4 - 11 HHCCT Source Plasma Normal 301949345105 HHCCT JCPyV DNA XXX Ql PCR Normal [id number] - HHCCT Ferritin SerPl-mCnc 2187ug/L Above high normal [id number] 15 - 150 HHCCT Iron Satn MFr SerPl 25% Normal [id number] 20 - 50 HHCCT Iron SerPl-mCnc 70ug/dL Normal [id number] 59 - 151 H HCCT TIBC SerPl-mCnc 282ug/dL Normal [id number] 100 - 400 H HCCT UIBC SerPl-mCnc 212ug/dL Normal [id number] 112 - 346 H HCCT HBV surface Ab SerPl EIA-aCnc 800.4mIU/mL Normal [id number] 11.9 - HHCCT HBV surface Ag Ser Ql Normal [id number] - HHCCT HBV core Ab Ser Ql Abnormal 564054239944 - HHCCT Vit B12 SerPl-mCnc 1855pg/mL Above high normal [id number] 243 - 894 HHCCT 25(OH)D3 SerPl-mCnc 21ng/mL Below low normal 886544321178 30 - 100 HHCCT GFR/BSA.pred SerPlBld RZB-FAU-TeUMax 76 Normal [id number] 59 - HHCCT Chloride SerPl-sCnc 106mmol/L Normal [id number] 98 - 10 7 HHCCT AST SerPl-cCnc 31U/L Normal [id number] 10 - 50 HH CCT Anion Gap Bld-sCnc 7 Normal [id number] 7 - 17 HHCCT Globulin Ser Calc-mCnc 3.7g/dL Normal [id number] 1.5 - 3.9 HHCCT ALT SerPl-cCnc 54U/L Above high normal [id number] 10 - 50 HHCCT Prot SerPl-mCnc 7.4g/dL Normal [id number] 6.3 - 8.3 H HCCT BUN/Creat SerPl 15Ratio Normal [id number] 10 - 25 H HCCT Albumin SerPl-mCnc 3.7g/dL Normal [id number] 3.5 - 5 HHCCT Calcium SerPl-mCnc 9mg/dL Normal [id number] 8.7 - 10 .5 HHCCT BUN SerPl-mCnc 15mg/dL Normal [id number] 8 - 21 HH CCT Bilirub SerPl-mCnc 0.3mg/dL Normal [id number] 0.2 - 1 HHCCT Creat SerPl-mCnc 1mg/dL Normal [id number] 0.4 - 1.1 HHCCT Albumin/Glob SerPl 1Ratio Normal [id number] 1 - 3 HHCCT CO2 SerPl-sCnc 21mmol/L Below low normal [id number] 22 - 33 HHCCT Sodium SerPl-sCnc 134mmol/L Below low normal 676514369980 13 6 - 145 HHCCT Glucose SerPl-mCnc 100mg/dL Above high normal [id number] 65 - 99 HHCCT Potassium SerPl-sCnc 4.6mmol/L Normal [id number] 3.4 - 5.3 HHCCT ALP SerPl-cCnc 84U/L Normal [id number] 32 - 122 HH CCT Imm Granulocytes num Bld Auto 0.03Thou/uL Normal 046206273335 0 - 0.1 HHCCT Platelet num Bld Auto 320Thou/uL Normal [id number] 150 - 450 [facility] Hct VFr Bld Auto 31% Below low normal [id number] 35 - 47 [facility] Neutrophils num Bld Auto 5.17Thou/uL Normal [id number] 2 - 7.5 [facility] PMV Bld Auto 10.9fL Normal [id number] 7.5 - 12.[address] MCHC RBC Auto-mCnc 33.2g/dL Normal [id number] 30 - 36 [facility] Monocytes num Bld Auto 0.32Thou/uL Normal [id number] 0. 2 - 1.5 [facility] Lymphocytes num Bld Auto 1.98Thou/uL Normal [id number] 1.5 - 4.5 [facility] WBC num Bld Auto 7.6Thou/uL Normal [id number] 4 - 11 [facility] RBC num Bld Auto 3.12Mil/uL Below low normal [id number] 4 - 5.4 [facility] Hgb Bld-mCnc 10.3g/dL Below low normal [id number] 11.7 - 15.7 [facility] Basophils/leuk NFr Bld Auto 0.7% Normal [id number] H[facility]CT MCH RBC Qn Auto 33pg Normal [id number] 26 - 34 H [facility] RDW RBC Auto-Rto 13.5% Normal [id number] 11.5 - 14. 5 [facility] Eosinophil num Bld Auto 0.05Thou/uL Normal [id number] 0 - 0.7 [facility] Lymphocytes/leuk NFr Bld Auto 26.1% Normal [id number] [facility] Imm Granulocytes/leuk NFr Bld Auto 0.4% Normal [id number] [facility] Eosinophil/leuk NFr Bld Auto 0.7% Normal [id number] [facility] Monocytes/leuk NFr Bld Auto 4.2% Normal [id number] H[facility] MCV RBC Auto 99fL Normal [id number] 80 - 100 HHCC T Basophils num Bld Auto 0.05Thou/uL Normal [id number] 0 - 0.2 [facility] Neutrophils/leuk NFr Bld Auto 67.9% Normal [id number] [facility] Albumin/Glob SerPl 1.2Ratio Normal [id number] 1 - 3 [facility] ALP SerPl-cCnc 87U/L Normal [id number] 32 - 122 HH CCT Anion Gap Bld-sCnc 13 Normal [id number] 7 - 17 [facility] Creat SerPl-mCnc 0.9mg/dL Normal [id number] 0.4 - 1.1 [facility] Prot SerPl-mCnc 7.3g/dL Normal [id number] 6.3 - 8.3 H [facility] ALT SerPl-cCnc 37U/L Normal [id number] 10 - 50 HH CCT AST SerPl-cCnc 24U/L Normal [id number] 10 - 50 HH CCT Globulin Ser Calc-mCnc 3.3g/dL Normal [id number] 1.5 - 3.9 [facility] GFR/BSA.pred SerPlBld TVC-AGU-MpOOjb 87 Normal [id number] 59 - H[facility]CT Bilirub SerPl-mCnc 0.3mg/dL Normal [id number] 0.2 - 1 [facility] BUN SerPl-mCnc 16mg/dL Normal [id number] 8 - 21 HH CCT CO2 SerPl-sCnc 18mmol/L Below low normal [id number] 22 - 33 [facility] Calcium SerPl-mCnc 9.1mg/dL Normal [id number] 8.7 - 10 .5 [facility] BUN/Creat SerPl 18Ratio Normal [id number] 10 - 25 H [facility] Albumin SerPl-mCnc 4g/dL Normal [id number] 3.5 - 5 [facility] Glucose SerPl-mCnc 142mg/dL Above high normal [id number] 65 - 99 [facility] Sodium SerPl-sCnc 138mmol/L Normal [id number] 136 - 145 [facility] Potassium SerPl-sCnc 4.5mmol/L Normal [id number] 3.4 - 5.3 [facility] Chloride SerPl-sCnc 107mmol/L Normal [id number] 98 - 10 7 [facility] Basophils num Bld Auto 0.04Thou/uL Normal [id number] 0 - 0.2 [facility] Lymphocytes num Bld Auto 2.09Thou/uL Normal [id number] 1.5 - 4.5 [facility] RDW RBC Auto-Rto 13.5% Normal [id number] 11.5 - 14. 5 [facility] Hct VFr Bld Auto 33% Below low normal [id number] 35 - 47 [facility] Platelet num Bld Auto 288Thou/uL Normal [id number] 150 - 450 [facility] Imm Granulocytes num Bld Auto 0.01Thou/uL Normal [id number] 0 - 0.1 [facility]CT MCHC RBC Auto-mCnc 33g/dL Normal [id number] 30 - 36 [facility] Eosinophil num Bld Auto 0.02Thou/uL Normal [id number] 0 - 0.7 [facility] MCV RBC Auto 104fL Above high normal [id number] 80 - 1 00 [facility] Basophils/leuk NFr Bld Auto 0.7% Normal [id number] [facility] Hgb Bld-mCnc 10.9g/dL Below low normal [id number] 11.7 - 15.7 [facility] Imm Granulocytes/leuk NFr Bld Auto 0.2% Normal [id number] [facility] Monocytes/leuk NFr Bld Auto 5.4% Normal [id number] [facility] WBC num Bld Auto 6Thou/uL Normal [id number] 4 - 11 [facility] Neutrophils/leuk NFr Bld Auto 58.3% Normal [id number] [facility] Lymphocytes/leuk NFr Bld Auto 35.1% Normal [id number] [facility] Eosinophil/leuk NFr Bld Auto 0.3% Normal [id number] [facility] Neutrophils num Bld Auto 3.47Thou/uL Normal [id number] 2 - 7.5 [facility] Monocytes num Bld Auto 0.32Thou/uL Normal [id number] 0. 2 - 1.5 [facility] PMV Bld Auto 11.2fL Normal [id number] 7.5 - 12.[address] MCH RBC Qn Auto 34.3pg Above high normal [id number] 26 - 34 [facility] RBC num Bld Auto 3.18Mil/uL Below low normal [id number] 4 - 5.4 [facility] ALT SerPl-cCnc 42U/L Normal [id number] 10 - 50 HH CCT Anion Gap Bld-sCnc 11 Normal [id number] 7 - 17 [facility] Prot SerPl-mCnc 7.5g/dL Normal [id number] 6.3 - 8.3 H [facility]CT ALP SerPl-cCnc 125U/L Above high normal [id number] 32 - 122 [facility]CT Calcium SerPl-mCnc 8.9mg/dL Normal [id number] 8.7 - 10 .5 [facility] GFR/BSA.pred SerPlBld CVL-FIO-LrKLss 90 Normal [id number] 59 - HHCCT Sodium SerPl-sCnc 139mmol/L Normal [id number] 136 - 145 HHCCT Glucose SerPl-mCnc 105mg/dL Above high normal [id number] 65 - 99 HHCCT AST SerPl-cCnc 46U/L Normal [id number] 10 - 50 HH CCT Albumin/Glob SerPl 1.1Ratio Normal 561706681131 1 - 3 HHCCT Chloride SerPl-sCnc 106mmol/L Normal [id number] 98 - 10 7 HHCCT BUN SerPl-mCnc 9mg/dL Normal [id number] 8 - 21 HH CCT CO2 SerPl-sCnc 22mmol/L Normal [id number] 22 - 33 HH CCT Globulin Ser Calc-mCnc 3.6g/dL Normal [id number] 1.5 - 3.9 HHCCT BUN/Creat SerPl 11Ratio Normal [id number] 10 - 25 H HCCT Potassium SerPl-sCnc 4.5mmol/L Normal [id number] 3.4 - 5.3 HHCCT Creat SerPl-mCnc 0.8mg/dL Normal [id number] 0.4 - 1.1 HHCCT Bilirub SerPl-mCnc 0.4mg/dL Normal [id number] 0.2 - 1 HHCCT Albumin SerPl-mCnc 3.9g/dL Normal [id number] 3.5 - 5 H[facility]CT Platelet num Bld Auto 357Thou/uL Normal [id number] 150 - 450 HHCCT Hct VFr Bld Auto 33.3% Below low normal 585922104446 35 - 47 HHCCT MCV RBC Auto 103fL Above high normal [id number] 80 - 1 00 HHCCT MCH RBC Qn Auto 34.1pg Above high normal 527239740974 26 - 34 HHCCT Neutrophils/leuk NFr Bld Auto 66% Normal [id number] HHCCT Monocytes num Bld Auto 0.21Thou/uL Normal [id number] 0. 2 - 1.5 HHCCT RBC num Bld Auto 3.23Mil/uL Below low normal [id number] 4 - 5.4 HHCCT Neutrophils num Bld Auto 3.11Thou/uL Normal [id number] 2 - 7.5 HHCCT RDW RBC Auto-Rto 16.1% Above high normal [id number] 11 .5 - 14.5 HHCCT PMV Bld Auto 9.7fL Normal [id number] 7.5 - 12.[address] Imm Granulocytes num Bld Auto 0.02Thou/uL Normal [id number] 0 - 0.1 HHCCT Imm Granulocytes/leuk NFr Bld Auto 0.4% Normal [id number] HHCCT Eosinophil num Bld Auto 0.03Thou/uL Normal 899038021711 0 - 0.7 HHCCT Eosinophil/leuk NFr Bld Auto 0.6% Normal [id number] HHCCT Lymphocytes num Bld Auto 1.31Thou/uL Below low normal [id number] 1.5 - 4.5 HHCCT Lymphocytes/leuk NFr Bld Auto 27.8% Normal [id number] HHCCT Basophils num Bld Auto 0.04Thou/uL Normal [id number] 0 - 0.2 HHCCT Hgb Bld-mCnc 11g/dL Below low normal [id number] 11.7 - 15.7 HHCCT MCHC RBC Auto-mCnc 33g/dL Normal [id number] 30 - 36 HHCCT WBC num Bld Auto 4.7Thou/uL Normal [id number] 4 - 11 HHCCT Basophils/leuk NFr Bld Auto 0.8% Normal [id number] HHCCT Monocytes/leuk NFr Bld Auto 4.4% Normal [id number] HHCCT DNA (ds) Ab Screen Normal [id number] - CCT Additional Testing Normal [id number] CCT Blanco extractable nuclear Ab+Ribonucleoprotein extractable nuclear Ab 1 Normal [id number] CCT BARBARA SM Ab Ser EIA-aCnc 1 Normal [id number] [facility] Ser Ql IF Normal [id number] - [facility] CT CRP SerPl-mCnc 0.3mg/dL Normal [id number] 0 - 0.49 HH CCT Albumin/Glob SerPl 1Ratio Normal [id number] 1 - 3 HHCCT Chloride SerPl-sCnc 102mmol/L Normal [id number] 98 - 10 7 HHCCT Albumin SerPl-mCnc 4g/dL Normal [id number] 3.5 - 5 HHCCT Calcium SerPl-mCnc 9.4mg/dL Normal [id number] 8.7 - 10 .5 HHCCT BUN SerPl-mCnc 13mg/dL Normal [id number] 8 - 21 HH CCT ALP SerPl-cCnc 112U/L Normal [id number] 32 - 122 HH CCT AST SerPl-cCnc 23U/L Normal [id number] 10 - 50 HH CCT Creat SerPl-mCnc 0.9mg/dL Normal [id number] 0.4 - 1.1 HHCCT Potassium SerPl-sCnc 3.7mmol/L Normal [id number] 3.4 - 5.3 HHCCT Anion Gap Bld-sCnc 10 Normal [id number] 7 - 17 HHCCT Glucose SerPl-mCnc 103mg/dL Above high normal [id number] 65 - 99 HHCCT CO2 SerPl-sCnc 24mmol/L Normal [id number] 22 - 33 HH CCT GFR/BSA.pred SerPlBld UNM-NGL-CrUOfk 87 Normal [id number] 59 - HHCCT BUN/Creat SerPl 14Ratio Normal [id number] 10 - 25 H HCCT ALT SerPl-cCnc 37U/L Normal 10 - 50 HH CCT Prot SerPl-mCnc 8.2g/dL Normal [id number] 6.3 - 8.3 H HCCT Sodium SerPl-sCnc 136mmol/L Normal 136 - 145 HHCCT Globulin Ser Calc-mCnc 4.2g/dL Above high normal 638 1.5 - 3.9 HHCCT Bilirub SerPl-mCnc 0.5mg/dL Normal [id number] 0.2 - 1 HHCCT ESR Bld Qn 46MM/HR Above high normal 304778718746 - 20 HHCCT Hgb Bld-mCnc 11.1g/dL Below low normal [id number] 11.7 - 15.7 HHCCT nRBC/100 WBC Bld Auto-Rto 0.2/100WBC Above high normal 545983628095 0 - 0.1 HHCCT WBC num Bld Auto 10Thou/uL Normal [id number] 4 - 11 HHCCT Monocytes num Bld Auto 0.72Thou/uL Normal [id number] 0. 2 - 1.5 HHCCT RBC num Bld Auto 3.31Mil/uL Below low normal [id number] 4 - 5.4 HHCCT Platelet num Bld Auto 384Thou/uL Normal [id number] 150 - 450 HHCCT MCHC RBC Auto-mCnc 33.2g/dL Normal [id number] 30 - 36 HHCCT Basophils/leuk NFr Bld Auto 0.5% Normal [id number] HHCCT Neutrophils num Bld Auto 5.79Thou/uL Normal [id number] 2 - 7.5 HHCCT MCH RBC Qn Auto 33.5pg Normal 583780993604 26 - 34 H HCCT MCV RBC Auto 101fL Above high normal [id number] 80 - 1 00 HHCCT RDW RBC Auto-Rto 14.4% Normal 11.5 - 14. 5 HHCCT Monocytes/leuk NFr Bld Auto 7.2% Normal 550070747065 HHCCT Basophils num Bld Auto 0.05Thou/uL Normal 0 - 0.2 HHCCT Neutrophils/leuk NFr Bld Auto 57.7% Normal HHCCT nRBC num Bld Auto 0.02Thou/uL Normal 0 - 0.0 2 HHCCT Eosinophil/leuk NFr Bld Auto 0.5% Normal HHCCT Eosinophil num Bld Auto 0.05Thou/uL Normal 0 - 0.7 HHCCT Imm Granulocytes num Bld Auto 0.05Thou/uL Normal 0 - 0.1 HHCCT Lymphocytes num Bld Auto 3.37Thou/uL Normal 1.5 - 4.5 HHCCT Hct VFr Bld Auto 33.4% Below low normal 35 - 47 HHCCT PMV Bld Auto 9.9fL Normal 7.5 - 12.[address] Imm Granulocytes/leuk NFr Bld Auto 0.5% Normal HHCCT Lymphocytes/leuk NFr Bld Auto 33.6% Normal HHCCT Prot SerPl-mCnc 7.8g/dL Normal 6.3 - 8.3 H HCCT BUN SerPl-mCnc 12mg/dL Normal 8 - 21 HH CCT Sodium SerPl-sCnc 135mmol/L Below low normal 779578145594 13 6 - 145 HHCCT GFR/BSA.pred SerPlBld KWW-THU-AhSLoa 90 Normal 59 - HHCCT AST SerPl-cCnc 33U/L Normal 10 - 50 HH CCT ALT SerPl-cCnc 28U/L Normal [id number] 10 - 50 HH CCT Globulin Ser Calc-mCnc 3.9g/dL Normal 1.5 - 3.9 HHCCT Chloride SerPl-sCnc 102mmol/L Normal [id number] 98 - 10 7 HHCCT Bilirub SerPl-mCnc 0.5mg/dL Normal [id number] 0.2 - 1 HHCCT CO2 SerPl-sCnc 22mmol/L Normal [id number] 22 - 33 HH CCT Albumin/Glob SerPl 1Ratio Normal [id number] 1 - 3 HHCCT Calcium SerPl-mCnc 8.8mg/dL Normal [id number] 8.7 - 10 .5 HHCCT Albumin SerPl-mCnc 3.9g/dL Normal [id number] 3.5 - 5 HHCCT BUN/Creat SerPl 15Ratio Normal [id number] 10 - 25 H HCCT Potassium SerPl-sCnc 3.8mmol/L Normal [id number] 3.4 - 5.3 HHCCT Anion Gap Bld-sCnc 11 Normal [id number] 7 - 17 HHCCT ALP SerPl-cCnc 199U/L Above high normal [id number] 32 - 122 HHCCT Creat SerPl-mCnc 0.8mg/dL Normal [id number] 0.4 - 1.1 HHCCT Glucose SerPl-mCnc 105mg/dL Above high normal [id number] 65 - 99 HHCCT PMV Bld Auto 10.7fL Normal [id number] 7.5 - 12.[address] Platelet num Bld Auto 313Thou/uL Normal [id number] 150 - 450 HHCCT MCHC RBC Auto-mCnc 33.3g/dL Normal [id number] 30 - 36 HHCCT MCV RBC Auto 100fL Normal [id number] 80 - 100 HHCC T Imm Granulocytes/leuk NFr Bld Auto 0.3% Normal [id number] HHCCT RBC num Bld Auto 3.42Mil/uL Below low normal [id number] 4 - 5.4 HHCCT Basophils num Bld Auto 0.08Thou/uL Normal [id number] 0 - 0.2 HHCCT Neutrophils num Bld Auto 5.09Thou/uL Normal [id number] 2 - 7.5 HHCCT Monocytes num Bld Auto 0.32Thou/uL Normal 0. 2 - 1.5 HHCCT Monocytes/leuk NFr Bld Auto 4.4% Normal HHCCT Lymphocytes num Bld Auto 1.77Thou/uL Normal 1.5 - 4.5 HHCCT Eosinophil/leuk NFr Bld Auto 0.8% Normal HHCCT WBC num Bld Auto 7.3Thou/uL Normal 4 - 11 HHCCT Lymphocytes/leuk NFr Bld Auto 24.1% Normal HHCCT Hct VFr Bld Auto 34.2% Below low normal 35 - 47 HHCCT Hgb Bld-mCnc 11.4g/dL Below low normal 11.7 - 15.7 HHCCT Eosinophil num Bld Auto 0.06Thou/uL Normal 0 - 0.7 HHCCT Neutrophils/leuk NFr Bld Auto 69.3% Normal HHCCT Basophils/leuk NFr Bld Auto 1.1% Normal HHCCT RDW RBC Auto-Rto 13.1% Normal 11.5 - 14. 5 HHCCT MCH RBC Qn Auto 33.3pg Normal 26 - 34 H HCCT Imm Granulocytes num Bld Auto 0.02Thou/uL Normal 0 - 0.1 HHCCT Globulin Ser Calc-mCnc 4.7g/dL Above high normal 725 1.5 - 3.9 HHCCT Bilirub SerPl-mCnc 0.4mg/dL Normal 0.2 - 1 HHCCT CO2 SerPl-sCnc 19mmol/L Below low normal 22 - 33 HHCCT Potassium SerPl-sCnc 4.2mmol/L Normal 3.4 - 5.3 HHCCT ALP SerPl-cCnc 90U/L Normal 32 - 122 HH CCT GFR/BSA.pred SerPlBld PVI-ISZ-AkBNko 90 Normal [id number] 59 - HHCCT BUN/Creat SerPl 21Ratio Normal [id number] 10 - 25 H HCCT Sodium SerPl-sCnc 136mmol/L Normal [id number] 136 - 145 HHCCT Chloride SerPl-sCnc 100mmol/L Normal [id number] 98 - 10 7 HHCCT Glucose SerPl-mCnc 158mg/dL Above high normal [id number] 65 - 99 HHCCT Anion Gap Bld-sCnc 17 Normal [id number] 7 - 17 HHCCT Prot SerPl-mCnc 9g/dL Above high normal [id number] 6.3 - 8.3 HHCCT Albumin SerPl-mCnc 4.3g/dL Normal [id number] 3.5 - 5 HHCCT AST SerPl-cCnc 41U/L Normal [id number] 10 - 50 HH CCT ALT SerPl-cCnc 34U/L Normal [id number] 10 - 50 HH CCT Albumin/Glob SerPl 0.9Ratio Below low normal [id number] 1 - 3 HHCCT Creat SerPl-mCnc 0.7mg/dL Normal [id number] 0.4 - 1.1 HHCCT BUN SerPl-mCnc 15mg/dL Normal [id number] 8 - 21 HH CCT Calcium SerPl-mCnc 9.2mg/dL Normal [id number] 8.7 - 10 .5 HHCCT Hct VFr Bld Auto 36.7% Normal 35 - 47 HHCCT MCV RBC Auto 101fL Above high normal [id number] 80 - 1 00 HHCCT Eosinophil num Bld Auto 0.01Thou/uL Normal [id number] 0 - 0.7 HHCCT Monocytes/leuk NFr Bld Auto 0.5% Normal [id number] HHCCT Imm Granulocytes/leuk NFr Bld Auto 0.4% Normal 829835482627 HHCCT Basophils/leuk NFr Bld Auto 0.7% Normal [id number] HHCCT Imm Granulocytes num Bld Auto 0.02Thou/uL Normal 0 - 0.1 HHCCT PMV Bld Auto 10.3fL Normal 7.5 - 12.[address] Neutrophils num Bld Auto 4.53Thou/uL Normal 2 - 7.5 HHCCT Lymphocytes num Bld Auto 0.98Thou/uL Below low normal [id number] 1.5 - 4.5 HHCCT Hgb Bld-mCnc 12.2g/dL Normal 11.7 - 15.7 HH CCT Platelet num Bld Auto 418Thou/uL Normal 150 - 450 HHCCT Monocytes num Bld Auto 0.03Thou/uL Below low normal [id number] 0.2 - 1.5 HHCCT MCHC RBC Auto-mCnc 33.2g/dL Normal 30 - 36 HHCCT MCH RBC Qn Auto 33.7pg Normal 26 - 34 H HCCT Neutrophils/leuk NFr Bld Auto 80.7% Normal HHCCT WBC num Bld Auto 5.6Thou/uL Normal 4 - 11 HHCCT Basophils num Bld Auto 0.04Thou/uL Normal 0 - 0.2 HHCCT Eosinophil/leuk NFr Bld Auto 0.2% Normal HHCCT RDW RBC Auto-Rto 13.3% Normal 11.5 - 14. 5 HHCCT RBC num Bld Auto 3.62Mil/uL Below low normal 4 - 5.4 HHCCT Lymphocytes/leuk NFr Bld Auto 17.5% Normal HHCCT 25(OH)D2+25(OH)D3 SerPl-mCnc 72pg/mL Normal 18 - 72 HHCCT 1,25(OH)2D2 SerPl-mCnc 9pg/mL Normal CCT 1,25(OH)2D3 SerPl-mCnc 63pg/mL Normal HHCCT Vit B12 SerPl-mCnc 618pg/mL Normal 243 - 89 4 HHCCT Urate SerPl-mCnc 6.6mg/dL Normal 2.5 - 7 HHCCT CRP SerPl-mCnc 0.36mg/dL Normal [id number] 0 - 0.49 HH CCT Globulin Ser Calc-mCnc 3.7g/dL Normal [id number] 1.5 - 3.9 HHCCT Bilirub SerPl-mCnc 0.4mg/dL Normal [id number] 0.2 - 1 HHCCT Calcium SerPl-mCnc 9mg/dL Normal [id number] 8.7 - 10 .5 HHCCT ALP SerPl-cCnc 71U/L Normal [id number] 32 - 122 HH CCT ALT SerPl-cCnc 8U/L Below low normal [id number] 10 - 50 HHCCT Albumin SerPl-mCnc 3.8g/dL Normal [id number] 3.5 - 5 HHCCT Sodium SerPl-sCnc 138mmol/L Normal [id number] 136 - 145 HHCCT AST SerPl-cCnc 15U/L Normal [id number] 10 - 50 HH CCT Chloride SerPl-sCnc 105mmol/L Normal [id number] 98 - 10 7 HHCCT Albumin/Glob SerPl 1Ratio Normal [id number] 1 - 3 HHCCT Anion Gap Bld-sCnc 14 Normal [id number] 7 - 17 HHCCT BUN/Creat SerPl 12Ratio Normal [id number] 10 - 25 H HCCT CO2 SerPl-sCnc 19mmol/L Below low normal [id number] 22 - 33 HHCCT Glucose SerPl-mCnc 124mg/dL Above high normal [id number] 65 - 99 HHCCT GFR/BSA.pred SerPlBld LTX-IVT-VuJUjr 87 Normal [id number] 59 - HHCCT BUN SerPl-mCnc 11mg/dL Normal [id number] 8 - 21 HH CCT Creat SerPl-mCnc 0.9mg/dL Normal [id number] 0.4 - 1.1 HHCCT Potassium SerPl-sCnc 3.7mmol/L Normal [id number] 3.4 - 5.3 HHCCT Prot SerPl-mCnc 7.5g/dL Normal 555818720952 6.3 - 8.3 H HCCT Folate SerPl-mCnc 20ng/mL Normal [id number] 7.2 - HHCCT ESR Bld Qn 25MM/HR Above high normal 673390679920 - 20 HHCCT Neutrophils num Bld Auto 3.87Thou/uL Normal [id number] 2 - 7.5 HHCCT Hct VFr Bld Auto 31.4% Below low normal [id number] 35 - 47 HHCCT Imm Granulocytes num Bld Auto 0.01Thou/uL Normal [id number] 0 - 0.1 HHCCT Eosinophil num Bld Auto 0.03Thou/uL Normal [id number] 0 - 0.7 HHCCT PMV Bld Auto 10.4fL Normal [id number] 7.5 - 12.[address] Imm Granulocytes/leuk NFr Bld Auto 0.2% Normal 275291982928 HHCCT Basophils/leuk NFr Bld Auto 1.1% Normal 497682695515 HHCCT MCHC RBC Auto-mCnc 32.5g/dL Normal [id number] 30 - 36 HHCCT RBC num Bld Auto 2.96Mil/uL Below low normal [id number] 4 - 5.4 HHCCT Basophils num Bld Auto 0.06Thou/uL Normal [id number] 0 - 0.2 HHCCT Platelet num Bld Auto 263Thou/uL Normal [id number] 150 - 450 HHCCT WBC num Bld Auto 5.6Thou/uL Normal [id number] 4 - 11 HHCCT Lymphocytes num Bld Auto 1.45Thou/uL Below low normal [id number] 1.5 - 4.5 HHCCT Hgb Bld-mCnc 10.2g/dL Below low normal [id number] 11.7 - 15.7 HHCCT Monocytes/leuk NFr Bld Auto 3.7% Normal [id number] HHCCT Eosinophil/leuk NFr Bld Auto 0.5% Normal 996571134245 HHCCT MCV RBC Auto 106fL Above high normal [id number] 80 - 1 00 HHCCT Neutrophils/leuk NFr Bld Auto 68.7% Normal [id number] HHCCT Monocytes num Bld Auto 0.21Thou/uL Normal [id number] 0. 2 - 1.5 HHCCT Lymphocytes/leuk NFr Bld Auto 25.8% Normal 892897501281 HHCCT RDW RBC Auto-Rto 12.9% Normal [id number] 11.5 - 14. 5 HHCCT MCH RBC Qn Auto 34.5pg Above high normal [id number] 26 - 34 HHCCT BUN SerPl-mCnc 17mg/dL Normal [id number] 8 - 21 HH CCT AST SerPl-cCnc 15U/L Normal [id number] 10 - 50 HH CCT Potassium SerPl-sCnc 3.9mmol/L Normal [id number] 3.4 - 5.3 HHCCT BUN/Creat SerPl 19Ratio Normal [id number] 10 - 25 H HCCT Bilirub SerPl-mCnc 0.2mg/dL Normal [id number] 0.2 - 1 HHCCT ALT SerPl-cCnc 11U/L Normal 10 - 50 HH CCT Albumin/Glob SerPl 1.1Ratio Normal [id number] 1 - 3 HHCCT Globulin Ser Calc-mCnc 3.5g/dL Normal [id number] 1.5 - 3.9 HHCCT Creat SerPl-mCnc 0.9mg/dL Normal [id number] 0.4 - 1.1 HHCCT Glucose SerPl-mCnc 114mg/dL Above high normal [id number] 65 - 99 HHCCT Calcium SerPl-mCnc 8.8mg/dL Normal [id number] 8.7 - 10 .5 HHCCT Sodium SerPl-sCnc 137mmol/L Normal [id number] 136 - 145 HHCCT Albumin SerPl-mCnc 3.7g/dL Normal [id number] 3.5 - 5 HHCCT Chloride SerPl-sCnc 106mmol/L Normal [id number] 98 - 10 7 HHCCT GFR/BSA.pred SerPlBld DTH-OFH-RnKJdg 87 Normal [id number] 59 - HHCCT CO2 SerPl-sCnc 19mmol/L Below low normal [id number] 22 - 33 HHCCT ALP SerPl-cCnc 59U/L Normal [id number] 32 - 122 HH CCT Anion Gap Bld-sCnc 12 Normal 7 - 17 HHCCT Prot SerPl-mCnc 7.2g/dL Normal [id number] 6.3 - 8.3 H HCCT Prot SerPl-mCnc 7.6g/dL Normal [id number] 6.3 - 8.3 H HCCT ALP SerPl-cCnc 82U/L Normal [id number] 32 - 122 HH CCT ALT SerPl-cCnc 22U/L Normal [id number] 10 - 50 HH CCT AST SerPl-cCnc 25U/L Normal 10 - 50 HH CCT Bilirub SerPl-mCnc 0.4mg/dL Normal [id number] 0.2 - 1 HHCCT Bilirub Direct SerPl-mCnc 0.2mg/dL Normal 0 - 0.2 HHCCT Globulin Ser Calc-mCnc 4g/dL Above high normal 1.5 - 3.9 HHCCT Albumin SerPl-mCnc 3.6g/dL Normal [id number] 3.5 - 5 HHCCT Albumin/Glob SerPl 0.9Ratio Below low normal 283240008797 1 - 3 HHCCT Platelet num Bld Auto 381Thou/uL Normal [id number] 150 - 450 HHCCT Monocytes/leuk NFr Bld Auto 3.4% Normal 437035368450 HHCCT MCHC RBC Auto-mCnc 33.4g/dL Normal [id number] 30 - 36 HHCCT RBC num Bld Auto 2.88Mil/uL Below low normal 997634281730 4 - 5.4 HHCCT Neutrophils/leuk NFr Bld Auto 76% Normal [id number] HHCCT RDW RBC Auto-Rto 15.9% Above high normal [id number] 11 .5 - 14.5 HHCCT Hct VFr Bld Auto 29.9% Below low normal 504514637687 35 - 47 HHCCT Imm Granulocytes num Bld Auto 0.03Thou/uL Normal [id number] 0 - 0.1 HHCCT Neutrophils num Bld Auto 5.98Thou/uL Normal 596074550322 2 - 7.5 HHCCT Eosinophil/leuk NFr Bld Auto 1% Normal 148493615896 HHCCT Hgb Bld-mCnc 10g/dL Below low normal 11.7 - 15.7 HHCCT Eosinophil num Bld Auto 0.08Thou/uL Normal 0 - 0.7 HHCCT Basophils/leuk NFr Bld Auto 0.6% Normal 315700759538 HHCCT MCH RBC Qn Auto 34.7pg Above high normal 26 - 34 HHCCT Monocytes num Bld Auto 0.27Thou/uL Normal 0. 2 - 1.5 HHCCT Lymphocytes num Bld Auto 1.46Thou/uL Below low normal 514 1.5 - 4.5 HHCCT MCV RBC Auto 104fL Above high normal 80 - 1 00 HHCCT WBC num Bld Auto 7.9Thou/uL Normal 4 - 11 HHCCT Lymphocytes/leuk NFr Bld Auto 18.6% Normal [id number] HHCCT Basophils num Bld Auto 0.05Thou/uL Normal 0 - 0.2 HHCCT Imm Granulocytes/leuk NFr Bld Auto 0.4% Normal [id number] HHCCT PMV Bld Auto 10fL Normal 7.5 - 12.[address] BUN SerPl-mCnc 12mg/dL Normal 8 - 21 HH CCT BUN/Creat SerPl 15Ratio Normal 10 - 25 H HCCT GFR/BSA.pred SerPlBld IMK-LLT-EmCLkz 90 Normal 59 - HHCCT CO2 SerPl-sCnc 21mmol/L Below low normal 22 - 33 HHCCT Calcium SerPl-mCnc 8.7mg/dL Normal 8.7 - 10 .5 HHCCT Glucose SerPl-mCnc 122mg/dL Above high normal 65 - 99 HHCCT Creat SerPl-mCnc 0.8mg/dL Normal 0.4 - 1.1 HHCCT Chloride SerPl-sCnc 105mmol/L Normal 98 - 10 7 HHCCT Sodium SerPl-sCnc 137mmol/L Normal 136 - 145 HHCCT Potassium SerPl-sCnc 4mmol/L Normal 3.4 - 5.3 HHCCT Anion Gap Bld-sCnc 11 Normal [id number] 7 - 17 HHCCT CO2 SerPl-sCnc 20mmol/L Below low normal 22 - 33 HHCCT ALP SerPl-cCnc 70U/L Normal 32 - 122 HH CCT Prot SerPl-mCnc 8.9g/dL Above high normal 6.3 - 8.3 HHCCT ALT SerPl-cCnc 232U/L Above high normal 10 - 50 HHCCT Bilirub SerPl-mCnc 0.4mg/dL Normal 0.2 - 1 HHCCT Glucose SerPl-mCnc 96mg/dL Normal 65 - 99 HHCCT Sodium SerPl-sCnc 134mmol/L Below low normal 13 6 - 145 HHCCT Potassium SerPl-sCnc 3.9mmol/L Normal 3.4 - 5.3 HHCCT Creat SerPl-mCnc 0.7mg/dL Normal 0.4 - 1.1 HHCCT Albumin/Glob SerPl 0.7Ratio Below low normal [id number] 1 - 3 HHCCT Calcium SerPl-mCnc 9.3mg/dL Normal [id number] 8.7 - 10 .5 HHCCT Albumin SerPl-mCnc 3.8g/dL Normal [id number] 3.5 - 5 HHCCT BUN SerPl-mCnc 20mg/dL Normal [id number] 8 - 21 HH CCT Chloride SerPl-sCnc 99mmol/L Normal 98 - 10 7 HHCCT BUN/Creat SerPl 29Ratio Above high normal [id number] 10 - 25 HHCCT Globulin Ser Calc-mCnc 5.1g/dL Above high normal 635 1.5 - 3.9 HHCCT AST SerPl-cCnc 129U/L Above high normal [id number] 10 - 50 HHCCT Anion Gap Bld-sCnc 15 Normal [id number] 7 - 17 HHCCT GFR/BSA.pred SerPlBld AWS-TIL-DoYGsw 90 Normal [id number] 59 - HHCCT Potassium SerPl-sCnc 4.5mmol/L Normal [id number] 3.4 - 5.3 HHCCT ALT SerPl-cCnc 188U/L Above high normal [id number] 10 - 50 HHCCT Calcium SerPl-mCnc 9.5mg/dL Normal [id number] 8.7 - 10 .5 HHCCT GFR/BSA.pred SerPlBld ZHX-HLE-EyFXkw 90 Normal [id number] 59 - HHCCT Chloride SerPl-sCnc 100mmol/L Normal [id number] 98 - 10 7 HHCCT Creat SerPl-mCnc 0.7mg/dL Normal [id number] 0.4 - 1.1 HHCCT ALP SerPl-cCnc 93U/L Normal [id number] 32 - 122 HH CCT Albumin SerPl-mCnc 4.6g/dL Normal [id number] 3.5 - 5 HHCCT BUN SerPl-mCnc 20mg/dL Normal [id number] 8 - 21 HH CCT Albumin/Glob SerPl 1.3Ratio Normal [id number] 1 - 3 HHCCT Sodium SerPl-sCnc 133mmol/L Below low normal [id number] 13 6 - 145 HHCCT Anion Gap Bld-sCnc 12 Normal [id number] 7 - 17 HHCCT Bilirub SerPl-mCnc 0.3mg/dL Normal [id number] 0.2 - 1 HHCCT Glucose SerPl-mCnc 174mg/dL Above high normal [id number] 65 - 99 HHCCT AST SerPl-cCnc 111U/L Above high normal [id number] 10 - 50 HHCCT Prot SerPl-mCnc 8.2g/dL Normal [id number] 6.3 - 8.3 H HCCT Globulin Ser Calc-mCnc 3.6g/dL Normal [id number] 1.5 - 3.9 HHCCT CO2 SerPl-sCnc 21mmol/L Below low normal [id number] 22 - 33 HHCCT BUN/Creat SerPl 29Ratio Above high normal [id number] 10 - 25 HHCCT WBC num Bld Auto 10.7Thou/uL Normal [id number] 4 - 11 HHCCT Eosinophil num Bld Auto 0Thou/uL Normal [id number] 0 - 0.7 HHCCT Monocytes num Bld Auto 0.09Thou/uL Below low normal 99353402 1541 0.2 - 1.5 HHCCT Eosinophil/leuk NFr Bld Auto 0% Normal [id number] HHCCT Monocytes/leuk NFr Bld Auto 0.8% Normal 736282393952 HHCCT Hgb Bld-mCnc 12.2g/dL Normal 396952540302 11.7 - 15.7 HH CCT Lymphocytes num Bld Auto 0.86Thou/uL Below low normal 148311 1.5 - 4.5 [facility] Basophils/leuk NFr Bld Auto 0.4% Normal [id number] H[facility] Imm Granulocytes num Bld Auto 0.04Thou/uL Normal [id number] 0 - 0.1 [facility] MCV RBC Auto 102fL Above high normal [id number] 80 - 1 00 [facility] Platelet num Bld Auto 338Thou/uL Normal [id number] 150 - 450 [facility] MCHC RBC Auto-mCnc 33.6g/dL Normal [id number] 30 - 36 [facility] RBC num Bld Auto 3.55Mil/uL Below low normal 403071129177 4 - 5.4 [facility] Imm Granulocytes/leuk NFr Bld Auto 0.4% Normal [id number] H[facility] Neutrophils/leuk NFr Bld Auto 90.3% Normal 130380146159 H[facility] RDW RBC Auto-Rto 12.8% Normal [id number] 11.5 - 14. 5 [facility] Hct VFr Bld Auto 36.3% Normal [id number] 35 - 47 [facility] Neutrophils num Bld Auto 9.63Thou/uL Above high normal 94454 4904944 2 - 7.5 [facility] Lymphocytes/leuk NFr Bld Auto 8.1% Normal 773827121196 H[facility] PMV Bld Auto 11.3fL Normal [id number] 7.5 - 12.[address] MCH RBC Qn Auto 34.4pg Above high normal 191008089545 26 - 34 [facility] Basophils num Bld Auto 0.04Thou/uL Normal 759563142021 0 - 0.2 [facility] Ferritin SerPl-mCnc 2066ug/L Above high normal 514753621114 15 - 150 [facility] ESR Bld Qn 20MM/HR Above high normal 582798972944 - 20 [facility] Vit B12 SerPl-mCnc 797pg/mL Normal [id number] 243 - 89 4 [facility] CRP SerPl-mCnc 0.3mg/dL Normal 559597010059 0 - 0.49 HH CCT Chloride SerPl-sCnc 102mmol/L Normal [id number] 98 - 10 7 [facility] Albumin/Glob SerPl 1.1Ratio Normal [id number] 1 - 3 [facility] Globulin Ser Calc-mCnc 3.5g/dL Normal [id number] 1.5 - 3.9 [facility]CT BUN/Creat SerPl 16Ratio Normal [id number] 10 - 25 H [facility]CT Bilirub SerPl-mCnc 0.5mg/dL Normal [id number] 0.2 - 1 [facility] Sodium SerPl-sCnc 134mmol/L Below low normal 302570354931 13 6 - 145 [facility] BUN SerPl-mCnc 13mg/dL Normal [id number] 8 - 21 HH CCT Glucose SerPl-mCnc 93mg/dL Normal 179565388851 65 - 99 [facility] Albumin SerPl-mCnc 4g/dL Normal 384110250616 3.5 - 5 [facility]CT Potassium SerPl-sCnc 3.6mmol/L Normal [id number] 3.4 - 5.3 H[facility]CT GFR/BSA.pred SerPlBld [id number] 90 Normal [id number] 59 - H[facility]CT Anion Gap Bld-sCnc 11 Normal 797087623818 7 - 17 [facility] Prot SerPl-mCnc 7.5g/dL Normal [id number] 6.3 - 8.3 H HCCT ALT SerPl-cCnc 88U/L Above high normal 560904628645 10 - 50 [facility]CT Calcium SerPl-mCnc 9.1mg/dL Normal 870167583787 8.7 - 10 .5 [facility]CT ALP SerPl-cCnc 113U/L Normal [id number] 32 - 122 HH CCT AST SerPl-cCnc 51U/L Above high normal [id number] 10 - 50 [facility] Creat SerPl-mCnc 0.8mg/dL Normal [id number] 0.4 - 1.1 H[facility]CT CO2 SerPl-sCnc 21mmol/L Below low normal [id number] 22 - 33 [facility] Iron SerPl-mCnc 112ug/dL Normal 579877400195 59 - 151 H [facility]CT UIBC SerPl-mCnc 205ug/dL Normal [id number] 112 - 346 H [facility] Iron Satn MFr SerPl 35% Normal [id number] 20 - 50 [facility]CT TIBC SerPl-mCnc 317ug/dL Normal [id number] 100 - 400 H [facility] Neutrophils/leuk NFr Bld Auto 67% Normal 909282631136 H[facility]CT Monocytes/leuk NFr Bld Auto 6.8% Normal 701763517823 H[facility]CT Monocytes num Bld Auto 0.47Thou/uL Normal 138591406047 0. 2 - 1.5 [facility] Neutrophils num Bld Auto 4.63Thou/uL Normal [id number] 2 - 7.5 [facility] Hgb Bld-mCnc 11.5g/dL Below low normal 340179969044 11.7 - 15.7 [facility]CT Lymphocytes/leuk NFr Bld Auto 24.2% Normal 809497188754 H[facility]CT Basophils/leuk NFr Bld Auto 1.2% Normal 741692665604 H[facility]CT Eosinophil/leuk NFr Bld Auto 0.4% Normal 418561072837 H[facility]CT Imm Granulocytes num Bld Auto 0.03Thou/uL Normal [id number] 0 - 0.1 H[facility]CT MCHC RBC Auto-mCnc 33.2g/dL Normal [id number] 30 - 36 [facility] Platelet num Bld Auto 379Thou/uL Normal [id number] 150 - 450 H[facility]CT WBC num Bld Auto 6.9Thou/uL Normal [id number] 4 - 11 [facility]CT MCV RBC Auto 106fL Above high normal 591435649701 80 - 1 00 [facility]CT Eosinophil num Bld Auto 0.03Thou/uL Normal [id number] 0 - 0.7 [facility]CT Basophils num Bld Auto 0.08Thou/uL Normal 600911574474 0 - 0.2 [facility] Imm Granulocytes/leuk NFr Bld Auto 0.4% Normal 024673161186 H[facility]CT PMV Bld Auto 10.8fL Normal [id number] 7.5 - 12.[address] Lymphocytes num Bld Auto 1.67Thou/uL Normal [id number] 1.5 - 4.5 [facility] RBC num Bld Auto 3.28Mil/uL Below low normal 553386354452 4 - 5.4 H[facility]CT MCH RBC Qn Auto 35.1pg Above high normal 566092168729 26 - 34 [facility]CT RDW RBC Auto-Rto 12.2% Normal [id number] 11.5 - 14. 5 [facility]CT Hct VFr Bld Auto 34.6% Below low normal [id number] 35 - 47 [facility]CT GFR/BSA.pred SerPlBld [id number] 90 Normal [id number] 59 - HHCCT Calcium SerPl-mCnc 8.3mg/dL Below low normal [id number] 8 .7 - 10.5 [facility] Anion Gap Bld-sCnc 12 Normal [id number] 7 - 17 H[facility]CT Creat SerPl-mCnc 0.7mg/dL Normal [id number] 0.4 - 1.1 HHCCT Glucose SerPl-mCnc 89mg/dL Normal [id number] 65 - 99 HHCCT Potassium SerPl-sCnc 3.4mmol/L Normal [id number] 3.4 - 5.3 HHCCT BUN/Creat SerPl 10Ratio Normal [id number] 10 - 25 H HCCT Chloride SerPl-sCnc 100mmol/L Normal [id number] 98 - 10 7 HHCCT CO2 SerPl-sCnc 23mmol/L Normal [id number] 22 - 33 HH CCT Sodium SerPl-sCnc 135mmol/L Below low normal 600306495212 13 6 - 145 HHCCT BUN SerPl-mCnc 7mg/dL Below low normal 889396779242 8 - 2 1 HHCCT GFR/BSA.pred SerPlBld OOE-RMO-EsKCak 90 Normal 624027954076 59 - HHCCT Anion Gap Bld-sCnc 8 Normal [id number] 7 - 17 HHCCT Chloride SerPl-sCnc 103mmol/L Normal [id number] 98 - 10 7 HHCCT Potassium SerPl-sCnc 3.3mmol/L Below low normal [id number] 3.4 - 5.3 HHCCT CO2 SerPl-sCnc 27mmol/L Normal [id number] 22 - 33 HH CCT Sodium SerPl-sCnc 138mmol/L Normal [id number] 136 - 145 HHCCT Creat SerPl-mCnc 0.8mg/dL Normal 0.4 - 1.1 HHCCT BUN/Creat SerPl 10Ratio Normal [id number] 10 - 25 H HCCT BUN SerPl-mCnc 8mg/dL Normal 8 - 21 HH CCT Calcium SerPl-mCnc 8.1mg/dL Below low normal [id number] 8 .7 - 10.5 HHCCT Glucose SerPl-mCnc 95mg/dL Normal 570771058410 65 - 99 HHCCT Magnesium SerPl-mCnc 1.6mg/dL Normal [id number] 1.6 - 2.7 HHCCT Phosphate SerPl-mCnc 3.6mg/dL Normal [id number] 2.7 - 4.5 HHCCT MCV RBC Auto 106fL Above high normal [id number] 80 - 1 00 HHCCT MCHC RBC Auto-mCnc 33.7g/dL Normal 997715557320 30 - 36 HHCCT Hgb Bld-mCnc 9.1g/dL Below low normal 096021519058 11.7 - 15.7 HHCCT Hct VFr Bld Auto 27% Below low normal 122922857537 35 - 47 HHCCT RBC num Bld Auto 2.56Mil/uL Below low normal 032502426421 4 - 5.4 HHCCT Platelet num Bld Auto 239Thou/uL Normal [id number] 150 - 450 HHCCT PMV Bld Auto 10.2fL Normal [id number] 7.5 - 12.[address] WBC num Bld Auto 5.7Thou/uL Normal [id number] 4 - 11 HHCCT MCH RBC Qn Auto 35.5pg Above high normal 497022602967 26 - 34 HHCCT RDW RBC Auto-Rto 13% Normal [id number] 11.5 - 14. 5 HHCCT DNA (ds) Ab Screen Normal [id number] - HHCCT Additional Testing Normal [id number] HHCCT C4 SerPl-mCnc 16mg/dL Normal 15 - [address] C3 SerPl-mCnc 161mg/dL Normal 83 - [address] BARBARA SS-B Ab Ser EIA-aCnc 1 Normal 241020343908 HHCCT Ribonucleoprotein extractable nuclear Ab 1 Normal [id number] HHCCT BARBARA SS-A Ab Ser EIA-aCnc 1 Normal 507603077645 HHCCT Blanco extractable nuclear Ab+Ribonucleoprotein extractable nuclear Ab 1 Normal 404365598339 HHCCT CH50 SerPl-aCnc 60U/mL Above high normal 158795142717 31 - 60 HHCCT ANCA Ab Ser Ql Normal 982813173951 - HH CCT CARON SerPl-cCnc 26U/L Normal [id number] 9 - 67 HH CCT ESR Bld Qn 19MM/HR Normal 326127611086 - 20 HHCCT CRP SerPl-mCnc 0.3mg/dL Normal [id number] 0 - 0.49 HH CCT BUN SerPl-mCnc 11mg/dL Normal [id number] 8 - 21 HH CCT Creat SerPl-mCnc 0.7mg/dL Normal [id number] 0.4 - 1.1 HHCCT Sodium SerPl-sCnc 135mmol/L Below low normal 322626906033 13 6 - 145 HHCCT Potassium SerPl-sCnc 3.4mmol/L Normal [id number] 3.4 - 5.3 HHCCT BUN/Creat SerPl 16Ratio Normal [id number] 10 - 25 H HCCT Anion Gap Bld-sCnc 13 Normal [id number] 7 - 17 HHCCT Glucose SerPl-mCnc 117mg/dL Above high normal [id number] 65 - 99 HHCCT Chloride SerPl-sCnc 102mmol/L Normal [id number] 98 - 10 7 HHCCT CO2 SerPl-sCnc 20mmol/L Below low normal 672797460127 22 - 33 HHCCT GFR/BSA.pred SerPlBld AST-FFC-DwMZzb 90 Normal 59 - HHCCT Calcium SerPl-mCnc 8.9mg/dL Normal 8.7 - 10 .5 HHCCT Basophils/leuk NFr Bld Auto 0.8% Normal [id number] HHCCT Neutrophils num Bld Auto 4.66Thou/uL Normal [id number] 2 - 7.5 HHCCT Eosinophil/leuk NFr Bld Auto 0.2% Normal [id number] HHCCT WBC num Bld Auto 6Thou/uL Normal [id number] 4 - 11 HHCCT Lymphocytes num Bld Auto 1.14Thou/uL Below low normal 830421 1.5 - 4.5 HHCCT Hct VFr Bld Auto 33.8% Below low normal 752529554165 35 - 47 HHCCT Monocytes num Bld Auto 0.14Thou/uL Below low normal 53629464 1239 0.2 - 1.5 HHCCT Neutrophils/leuk NFr Bld Auto 77.5% Normal [id number] HHCCT RBC num Bld Auto 3.17Mil/uL Below low normal 719289017548 4 - 5.4 HHCCT PMV Bld Auto 10.2fL Normal [id number] 7.5 - 12.[address] MCV RBC Auto 107fL Above high normal 191911195190 80 - 1 00 HHCCT RDW RBC Auto-Rto 13.2% Normal [id number] 11.5 - 14. 5 HHCCT Imm Granulocytes num Bld Auto 0.02Thou/uL Normal [id number] 0 - 0.1 HHCCT Imm Granulocytes/leuk NFr Bld Auto 0.3% Normal [id number] HHCCT Platelet num Bld Auto 277Thou/uL Normal [id number] 150 - 450 HHCCT Monocytes/leuk NFr Bld Auto 2.3% Normal [id number] HHCCT Hgb Bld-mCnc 11.5g/dL Below low normal 536157150372 11.7 - 15.7 HHCCT MCH RBC Qn Auto 36.3pg Above high normal 620594240832 26 - 34 HHCCT Basophils num Bld Auto 0.05Thou/uL Normal [id number] 0 - 0.2 HHCCT MCHC RBC Auto-mCnc 34g/dL Normal 526485830185 30 - 36 HHCCT Eosinophil num Bld Auto 0.01Thou/uL Normal [id number] 0 - 0.7 HHCCT Lymphocytes/leuk NFr Bld Auto 18.9% Normal [id number] HHCCT Methylmalonate SerPl-sCnc 83nmol/L Normal [id number] 55 - 335 HHCCT Folate SerPl-mCnc 20ng/mL Normal 884868466075 7.2 - HHCCT 25(OH)D3 SerPl-mCnc 31ng/mL Normal [id number] 30 - 10 0 HHCCT Vit B12 SerPl-mCnc 1149pg/mL Above high normal [id number] 243 - 894 HHCCT Squamous num/area UrnS HPF 20PERHPF Normal 175399960434 HHCCT Bacteria UrnS Ql Micro Abnormal 620283456772 - HHCCT WBC num/area UrnS HPF 25perhpf Above high normal 7757964178 20 0 - 4 HHCCT RBC num/area UrnS HPF 8perhpf Above high normal 2760483097 20 0 - 4 HHCCT Sp Gr Ur Strip 1.041 Above high normal 060571916961 1 .003 - 1.03 HHCCT Ketones Ur Strip-mCnc Normal 958656571100 - HHCCT Prot Ur Strip-mCnc Abnormal 795625984969 - HHCCT pH Ur Strip 5 Normal [id number] 5 - 8 HHCCT Leukocyte esterase Ur Ql Strip Abnormal 456566383277 - HHCCT Nitrite Ur Ql Strip Normal 559432058575 - HHCCT Glucose Ur Strip-mCnc 0mg/dL Normal [id number] 0 - 9 9 HHCCT Clarity Ur Normal [id number] HHCCT Bilirub Ur Strip-mCnc Abnormal 298785142488 - HHCCT Hgb Ur Ql Strip Abnormal 239948574202 - H HCCT Color Ur Normal 390602820671 HHCCT Globulin Ser Calc-mCnc 4.6g/dL Above high normal 167640462 329 1.5 - 3.9 HHCCT Bilirub SerPl-mCnc 1mg/dL Normal [id number] 0.2 - 1 HHCCT Albumin SerPl-mCnc 3.9g/dL Normal [id number] 3.5 - 5 HHCCT Prot SerPl-mCnc 8.5g/dL Above high normal 608617147983 6.3 - 8.3 HHCCT ALP SerPl-cCnc 121U/L Normal [id number] 32 - 122 HH CCT AST SerPl-cCnc 66U/L Above high normal [id number] 10 - 50 HHCCT Albumin/Glob SerPl 0.8Ratio Below low normal 729365580122 1 - 3 HHCCT Bilirub Direct SerPl-mCnc 0.3mg/dL Above high normal 267112442343 0 - 0.2 HHCCT ALT SerPl-cCnc 45U/L Normal [id number] 10 - 50 HH CCT Anion Gap Bld-sCnc 14 Normal [id number] 7 - 17 HHCCT BUN/Creat SerPl 18Ratio Normal [id number] 10 - 25 H HCCT Chloride SerPl-sCnc 103mmol/L Normal [id number] 98 - 10 7 HHCCT GFR/BSA.pred SerPlBld KWN-LDN-IyAKrn 90 Normal [id number] 59 - HHCCT Glucose SerPl-mCnc 128mg/dL Above high normal 327340749171 65 - 99 HHCCT CO2 SerPl-sCnc 18mmol/L Below low normal 564294054911 22 - 33 HHCCT Potassium SerPl-sCnc 4.2mmol/L Normal [id number] 3.4 - 5.3 HHCCT Creat SerPl-mCnc 0.8mg/dL Normal 342406552450 0.4 - 1.1 HHCCT Calcium SerPl-mCnc 9.1mg/dL Normal [id number] 8.7 - 10 .5 HHCCT Sodium SerPl-sCnc 135mmol/L Below low normal 532085466389 13 6 - 145 HHCCT BUN SerPl-mCnc 14mg/dL Normal [id number] 8 - 21 HH CCT CK SerPl-cCnc 27U/L Normal [id number] 24 - [address] Eosinophil/leuk NFr Bld Auto 0% Normal [id number] HHCCT MCV RBC Auto 108fL Above high normal 286094623500 80 - 1 00 HHCCT MCHC RBC Auto-mCnc 33.9g/dL Normal [id number] 30 - 36 HHCCT Monocytes num Bld Auto 0.38Thou/uL Normal [id number] 0. 2 - 1.5 HHCCT Neutrophils/leuk NFr Bld Auto 76.1% Normal [id number] HHCCT Platelet num Bld Auto 364Thou/uL Normal [id number] 150 - 450 HHCCT Imm Granulocytes/leuk NFr Bld Auto 0.4% Normal 213850386023 HHCCT Eosinophil num Bld Auto 0Thou/uL Normal 524482025495 0 - 0.7 HHCCT MCH RBC Qn Auto 36.6pg Above high normal 491836972776 26 - 34 HHCCT Lymphocytes num Bld Auto 1.35Thou/uL Below low normal 318170 249380 1.5 - 4.5 HHCCT Monocytes/leuk NFr Bld Auto 5% Normal 272722794513 HHCCT Lymphocytes/leuk NFr Bld Auto 17.7% Normal 840267224536 HHCCT RDW RBC Auto-Rto 13.3% Normal [id number] 11.5 - 14. 5 HHCCT Hgb Bld-mCnc 12g/dL Normal [id number] 11.7 - 15.7 HH CCT PMV Bld Auto 10.2fL Normal [id number] 7.5 - 12.[address] Imm Granulocytes num Bld Auto 0.03Thou/uL Normal [id number] 0 - 0.1 HHCCT Neutrophils num Bld Auto 5.8Thou/uL Normal [id number] 2 - 7.5 HHCCT Basophils num Bld Auto 0.06Thou/uL Normal [id number] 0 - 0.2 HHCCT Hct VFr Bld Auto 35.4% Normal [id number] 35 - 47 HHCCT RBC num Bld Auto 3.28Mil/uL Below low normal 080823717178 4 - 5.4 HHCCT Basophils/leuk NFr Bld Auto 0.8% Normal 526234069552 HHCCT WBC num Bld Auto 7.6Thou/uL Normal [id number] 4 - 11 HHCCT Magnesium SerPl-mCnc 2.4mg/dL Normal [id number] 1.6 - 2.7 HHCCT Creat SerPl-mCnc 0.9mg/dL Normal [id number] 0.4 - 1.1 HHCCT Bilirub SerPl-mCnc 0.6mg/dL Normal [id number] 0.2 - 1 HHCCT Chloride SerPl-sCnc 102mmol/L Normal [id number] 98 - 10 7 HHCCT Prot SerPl-mCnc 8.9g/dL Above high normal [id number] 6.3 - 8.3 HHCCT Potassium SerPl-sCnc 4.1mmol/L Normal [id number] 3.4 - 5.3 HHCCT Albumin/Glob SerPl 0.9Ratio Below low normal 266551018399 1 - 3 HHCCT AST SerPl-cCnc 60U/L Above high normal [id number] 10 - 50 HHCCT ALP SerPl-cCnc 149U/L Above high normal [id number] 32 - 122 HHCCT BUN/Creat SerPl 18Ratio Normal [id number] 10 - 25 H HCCT Glucose SerPl-mCnc 106mg/dL Above high normal [id number] 65 - 99 HHCCT Globulin Ser Calc-mCnc 4.7g/dL Above high normal 129533186 107 1.5 - 3.9 HHCCT Calcium SerPl-mCnc 8.9mg/dL Normal [id number] 8.7 - 10 .5 HHCCT ALT SerPl-cCnc 51U/L Above high normal [id number] 10 - 50 HHCCT GFR/BSA.pred SerPlBld XMM-HIQ-RcEFnq 87 Normal [id number] 59 - HHCCT Anion Gap Bld-sCnc 13 Normal [id number] 7 - 17 HHCCT Albumin SerPl-mCnc 4.2g/dL Normal [id number] 3.5 - 5 HHCCT BUN SerPl-mCnc 16mg/dL Normal [id number] 8 - 21 HH CCT Sodium SerPl-sCnc 137mmol/L Normal [id number] 136 - 145 HHCCT CO2 SerPl-sCnc 22mmol/L Normal [id number] 22 - 33 HH CCT Lymphocytes num Bld Auto 1.54Thou/uL Normal [id number] 1.5 - 4.5 HHCCT Basophils num Bld Auto 0.07Thou/uL Normal [id number] 0 - 0.2 HHCCT Neutrophils num Bld Auto 5.7Thou/uL Normal [id number] 2 - 7.5 HHCCT Eosinophil/leuk NFr Bld Auto 0.1% Normal 692945471465 HHCCT Neutrophils/leuk NFr Bld Auto 72% Normal 942970159620 HHCCT Eosinophil num Bld Auto 0.01Thou/uL Normal [id number] 0 - 0.7 HHCCT WBC num Bld Auto 7.9Thou/uL Normal [id number] 4 - 11 HHCCT PMV Bld Auto 10.3fL Normal [id number] 7.5 - 12.[address] Imm Granulocytes/leuk NFr Bld Auto 0.4% Normal 341548274353 HHCCT MCV RBC Auto 110fL Above high normal 421126542072 80 - 1 00 HHCCT Lymphocytes/leuk NFr Bld Auto 19.4% Normal 046350475011 HHCCT Platelet num Bld Auto 372Thou/uL Normal [id number] 150 - 450 HHCCT Basophils/leuk NFr Bld Auto 0.9% Normal [id number] HHCCT MCHC RBC Auto-mCnc 33.4g/dL Normal [id number] 30 - 36 HHCCT RBC num Bld Auto 3.22Mil/uL Below low normal [id number] 4 - 5.4 HHCCT Monocytes num Bld Auto 0.57Thou/uL Normal [id number] 0. 2 - 1.5 HHCCT RDW RBC Auto-Rto 13.6% Normal [id number] 11.5 - 14. 5 HHCCT Hgb Bld-mCnc 11.8g/dL Normal 585713653008 11.7 - 15.7 HH CCT MCH RBC Qn Auto 36.6pg Above high normal 508749439635 26 - 34 HHCCT Hct VFr Bld Auto 35.3% Normal [id number] 35 - 47 HHCCT Imm Granulocytes num Bld Auto 0.03Thou/uL Normal [id number] 0 - 0.1 HHCCT Monocytes/leuk NFr Bld Auto 7.2% Normal [id number] HHCCT BUN SerPl-mCnc 11mg/dL Normal 8 - 21 HH CCT ALT SerPl-cCnc 22U/L Normal 10 - 50 HH CCT GFR/BSA.pred SerPlBld MTJ-BCE-YqCCqw 87 Normal 59 - HHCCT AST SerPl-cCnc 26U/L Normal 10 - 50 HH CCT CO2 SerPl-sCnc 22mmol/L Normal 22 - 33 HH CCT Potassium SerPl-sCnc 3.7mmol/L Normal 3.4 - 5.3 HHCCT Glucose SerPl-mCnc 85mg/dL Normal 65 - 99 HHCCT Albumin SerPl-mCnc 3.9g/dL Normal 3.5 - 5 HHCCT Prot SerPl-mCnc 7.9g/dL Normal 6.3 - 8.3 H HCCT Sodium SerPl-sCnc 135mmol/L Below low normal 13 6 - 145 HHCCT ALP SerPl-cCnc 72U/L Normal 32 - 122 HH CCT Bilirub SerPl-mCnc 0.5mg/dL Normal 0.2 - 1 HHCCT Chloride SerPl-sCnc 102mmol/L Normal 98 - 10 7 HHCCT Creat SerPl-mCnc 0.9mg/dL Normal 0.4 - 1.1 HHCCT Globulin Ser Calc-mCnc 4g/dL Above high normal 609 1.5 - 3.9 HHCCT Anion Gap Bld-sCnc 11 Normal [id number] 7 - 17 HHCCT Albumin/Glob SerPl 1Ratio Normal 1 - 3 HHCCT BUN/Creat SerPl 12Ratio Normal 10 - 25 H HCCT Calcium SerPl-mCnc 8.9mg/dL Normal 8.7 - 10 .5 HHCCT RBC num Bld Auto 3.02Mil/uL Below low normal 4 - 5.4 HHCCT Basophils num Bld Auto 0.03Thou/uL Normal 0 - 0.2 HHCCT MCV RBC Auto 107fL Above high normal 80 - 1 00 HHCCT Imm Granulocytes num Bld Auto 0.02Thou/uL Normal 0 - 0.1 HHCCT Neutrophils num Bld Auto 4.1Thou/uL Normal 2 - 7.5 HHCCT MCH RBC Qn Auto 36.1pg Above high normal 26 - 34 HHCCT Neutrophils/leuk NFr Bld Auto 67.2% Normal HHCCT nRBC/100 WBC Bld Auto-Rto 0.3/100WBC Above high normal 0 - 0.1 HHCCT Eosinophil/leuk NFr Bld Auto 0.3% Normal HHCCT WBC num Bld Auto 6.1Thou/uL Normal 4 - 11 HHCCT nRBC num Bld Auto 0.02Thou/uL Normal 0 - 0.0 2 HHCCT Monocytes/leuk NFr Bld Auto 6.6% Normal HHCCT RDW RBC Auto-Rto 13.8% Normal 11.5 - 14. 5 HHCCT Eosinophil num Bld Auto 0.02Thou/uL Normal 0 - 0.7 HHCCT Hct VFr Bld Auto 32.2% Below low normal 35 - 47 HHCCT Platelet num Bld Auto 323Thou/uL Normal 150 - 450 HHCCT PMV Bld Auto 9.8fL Normal 7.5 - 12.[address] Monocytes num Bld Auto 0.4Thou/uL Normal 0.2 - 1.5 HHCCT Imm Granulocytes/leuk NFr Bld Auto 0.3% Normal HHCCT Lymphocytes/leuk NFr Bld Auto 25.1% Normal HHCCT MCHC RBC Auto-mCnc 33.9g/dL Normal 30 - 36 HHCCT Hgb Bld-mCnc 10.9g/dL Below low normal 11.7 - 15.7 HHCCT Lymphocytes num Bld Auto 1.53Thou/uL Normal 1.5 - 4.5 HHCCT Basophils/leuk NFr Bld Auto 0.5% Normal HHCCT GFR/BSA.pred SerPlBld ONV-ECD-MyZKjn 87 Normal 59 - HHCCT Anion Gap Bld-sCnc 10 Normal 7 - 17 HHCCT BUN/Creat SerPl 16Ratio Normal 10 - 25 H HCCT ALT SerPl-cCnc 25U/L Normal 10 - 50 HH CCT Prot SerPl-mCnc 6.7g/dL Normal 6.3 - 8.3 H HCCT Creat SerPl-mCnc 0.9mg/dL Normal 0.4 - 1.1 HHCCT Potassium SerPl-sCnc 3mmol/L Below low normal 3.4 - 5.3 HHCCT Bilirub SerPl-mCnc 0.2mg/dL Normal 0.2 - 1 HHCCT BUN SerPl-mCnc 14mg/dL Normal 8 - 21 HH CCT Chloride SerPl-sCnc 105mmol/L Normal 98 - 10 7 HHCCT Albumin/Glob SerPl 1.1Ratio Normal 1 - 3 HHCCT Globulin Ser Calc-mCnc 3.2g/dL Normal 1.5 - 3.9 HHCCT Glucose SerPl-mCnc 103mg/dL Above high normal 65 - 99 HHCCT AST SerPl-cCnc 21U/L Normal 10 - 50 HH CCT ALP SerPl-cCnc 91U/L Normal [id number] 32 - 122 HH CCT Calcium SerPl-mCnc 8.5mg/dL Below low normal [id number] 8 .7 - 10.5 HHCCT Sodium SerPl-sCnc 138mmol/L Normal [id number] 136 - 145 HHCCT Albumin SerPl-mCnc 3.5g/dL Normal [id number] 3.5 - 5 HHCCT CO2 SerPl-sCnc 23mmol/L Normal [id number] 22 - 33 HH CCT Neutrophils/leuk NFr Bld Auto 74.2% Normal [id number] HHCCT Hct VFr Bld Auto 31.9% Below low normal [id number] 35 - 47 HHCCT Monocytes num Bld Auto 0.32Thou/uL Normal [id number] 0. 2 - 1.5 HHCCT Imm Granulocytes/leuk NFr Bld Auto 0.3% Normal [id number] HHCCT Platelet num Bld Auto 292Thou/uL Normal [id number] 150 - 450 HHCCT Basophils num Bld Auto 0.05Thou/uL Normal [id number] 0 - 0.2 HHCCT MCV RBC Auto 106fL Above high normal 372128730261 80 - 1 00 HHCCT RBC num Bld Auto 3Mil/uL Below low normal [id number] 4 - 5.4 HHCCT Eosinophil num Bld Auto 0.04Thou/uL Normal [id number] 0 - 0.7 HHCCT Monocytes/leuk NFr Bld Auto 4.4% Normal [id number] HHCCT Neutrophils num Bld Auto 5.45Thou/uL Normal [id number] 2 - 7.5 HHCCT Eosinophil/leuk NFr Bld Auto 0.5% Normal 346084090335 HHCCT Basophils/leuk NFr Bld Auto 0.7% Normal 927089291737 HHCCT Hgb Bld-mCnc 10.7g/dL Below low normal 468336873025 11.7 - 15.7 HHCCT Lymphocytes num Bld Auto 1.46Thou/uL Below low normal [id number] 376358 1.5 - 4.5 HHCCT MCH RBC Qn Auto 35.7pg Above high normal 105403656751 26 - 34 HHCCT WBC num Bld Auto 7.3Thou/uL Normal [id number] 4 - 11 HHCCT Imm Granulocytes num Bld Auto 0.02Thou/uL Normal 0 - 0.1 HHCCT RDW RBC Auto-Rto 15.2% Above high normal [id number] 11 .5 - 14.5 HHCCT PMV Bld Auto 9.7fL Normal 7.5 - 12.[address] MCHC RBC Auto-mCnc 33.5g/dL Normal 30 - 36 HHCCT Lymphocytes/leuk NFr Bld Auto 19.9% Normal HHCCT AST SerPl-cCnc 34U/L Normal 10 - 50 HH CCT Chloride SerPl-sCnc 105mmol/L Normal [id number] 98 - 10 7 HHCCT ALP SerPl-cCnc 109U/L Normal [id number] 32 - 122 HH CCT ALT SerPl-cCnc 32U/L Normal [id number] 10 - 50 HH CCT Glucose SerPl-mCnc 94mg/dL Normal [id number] 65 - 99 HHCCT CO2 SerPl-sCnc 22mmol/L Normal 22 - 33 HH CCT Albumin/Glob SerPl 1Ratio Normal [id number] 1 - 3 HHCCT Calcium SerPl-mCnc 9mg/dL Normal [id number] 8.7 - 10 .5 HHCCT Anion Gap Bld-sCnc 8 Normal [id number] 7 - 17 HHCCT GFR/BSA.pred SerPlBld CUA-PGD-PiMUrm 87 Normal [id number] 59 - HHCCT Sodium SerPl-sCnc 135mmol/L Below low normal 016391120423 13 6 - 145 HHCCT Creat SerPl-mCnc 0.9mg/dL Normal [id number] 0.4 - 1.1 HHCCT BUN/Creat SerPl 14Ratio Normal [id number] 10 - 25 H HCCT Bilirub SerPl-mCnc 0.5mg/dL Normal [id number] 0.2 - 1 HHCCT Globulin Ser Calc-mCnc 3.9g/dL Normal [id number] 1.5 - 3.9 HHCCT Potassium SerPl-sCnc 4.9mmol/L Normal [id number] 3.4 - 5.3 HHCCT Albumin SerPl-mCnc 4g/dL Normal [id number] 3.5 - 5 HHCCT BUN SerPl-mCnc 13mg/dL Normal [id number] 8 - 21 HH CCT Prot SerPl-mCnc 7.9g/dL Normal [id number] 6.3 - 8.3 H HCCT WBC num Bld Auto 8.5Thou/uL Normal [id number] 4 - 11 HHCCT Monocytes num Bld Auto 0.36Thou/uL Normal [id number] 0. 2 - 1.5 HHCCT Neutrophils num Bld Auto 5.75Thou/uL Normal [id number] 2 - 7.5 HHCCT RBC num Bld Auto 3.12Mil/uL Below low normal 097288270252 4 - 5.4 HHCCT Basophils/leuk NFr Bld Auto 0.8% Normal 424779048532 HHCCT Lymphocytes/leuk NFr Bld Auto 25.9% Normal [id number] HHCCT Imm Granulocytes num Bld Auto 0.03Thou/uL Normal [id number] 0 - 0.1 HHCCT PMV Bld Auto 10.2fL Normal [id number] 7.5 - 12.[address] MCH RBC Qn Auto 34pg Normal 959394039195 26 - 34 H HCCT MCV RBC Auto 103fL Above high normal 981031185572 80 - 1 00 HHCCT Eosinophil num Bld Auto 0.07Thou/uL Normal [id number] 0 - 0.7 HHCCT Hct VFr Bld Auto 32.2% Below low normal [id number] 35 - 47 HHCCT Platelet num Bld Auto 357Thou/uL Normal [id number] 150 - 450 HHCCT Neutrophils/leuk NFr Bld Auto 67.9% Normal [id number] HHCCT Lymphocytes num Bld Auto 2.2Thou/uL Normal [id number] 1 .5 - 4.5 HHCCT MCHC RBC Auto-mCnc 32.9g/dL Normal [id number] 30 - 36 HHCCT Monocytes/leuk NFr Bld Auto 4.2% Normal HHCCT Basophils num Bld Auto 0.07Thou/uL Normal 0 - 0.2 HHCCT RDW RBC Auto-Rto 20.4% Above high normal 11 .5 - 14.5 HHCCT Hgb Bld-mCnc 10.6g/dL Below low normal 11.7 - 15.7 HHCCT Imm Granulocytes/leuk NFr Bld Auto 0.4% Normal HHCCT Eosinophil/leuk NFr Bld Auto 0.8% Normal HHCCT Globulin Ser Calc-mCnc 3.8g/dL Normal 1.5 - 3.9 HHCCT Chloride SerPl-sCnc 104mmol/L Normal 98 - 10 7 HHCCT BUN SerPl-mCnc 10mg/dL Normal 8 - 21 HH CCT GFR/BSA.pred SerPlBld CUD-OTW-VlSSmx 90 Normal 59 - HHCCT Glucose SerPl-mCnc 123mg/dL Above high normal 930220525827 65 - 99 HHCCT Calcium SerPl-mCnc 8.7mg/dL Normal 8.7 - 10 .5 HHCCT Sodium SerPl-sCnc 135mmol/L Below low normal 13 6 - 145 HHCCT Albumin/Glob SerPl 1Ratio Normal [id number] 1 - 3 HHCCT Potassium SerPl-sCnc 3.8mmol/L Normal 3.4 - 5.3 HHCCT Bilirub SerPl-mCnc 0.5mg/dL Normal 0.2 - 1 HHCCT Prot SerPl-mCnc 7.6g/dL Normal 6.3 - 8.3 H HCCT AST SerPl-cCnc 32U/L Normal 10 - 50 HH CCT Creat SerPl-mCnc 0.6mg/dL Normal [id number] 0.4 - 1.1 HHCCT ALT SerPl-cCnc 35U/L Normal 10 - 50 HH CCT CO2 SerPl-sCnc 22mmol/L Normal 22 - 33 HH CCT BUN/Creat SerPl 17Ratio Normal [id number] 10 - 25 H HCCT Anion Gap Bld-sCnc 9 Normal [id number] 7 - 17 HHCCT ALP SerPl-cCnc 125U/L Above high normal [id number] 32 - 122 HHCCT Albumin SerPl-mCnc 3.8g/dL Normal [id number] 3.5 - 5 HHCCT Eosinophil num Bld Auto 0.03Thou/uL Normal [id number] 0 - 0.7 [facility] Eosinophil/leuk NFr Bld Auto 0.4% Normal [id number] [facility] Lymphocytes num Bld Auto 1.67Thou/uL Normal [id number] 1.5 - 4.5 [facility]CT MCH RBC Qn Auto 32.7pg Normal [id number] 26 - 34 H [facility] PMV Bld Auto 10fL Normal [id number] 7.5 - 12.[address] MCHC RBC Auto-mCnc 34.6g/dL Normal [id number] 30 - 36 [facility] Basophils num Bld Auto 0.07Thou/uL Normal [id number] 0 - 0.2 [facility] Lymphocytes/leuk NFr Bld Auto 22.1% Normal [id number] [facility] Basophils/leuk NFr Bld Auto 0.9% Normal [id number] H[facility]CT Neutrophils num Bld Auto 5.42Thou/uL Normal [id number] 2 - 7.5 [facility] Hct VFr Bld Auto 30.6% Below low normal [id number] 35 - 47 [facility] RDW RBC Auto-Rto 21.4% Above high normal [id number] 11 .5 - 14.5 [facility] Imm Granulocytes num Bld Auto 0.03Thou/uL Normal [id number] 0 - 0.1 [facility] WBC num Bld Auto 7.6Thou/uL Normal [id number] 4 - 11 [facility] RBC num Bld Auto 3.24Mil/uL Below low normal [id number] 4 - 5.4 [facility]CT Imm Granulocytes/leuk NFr Bld Auto 0.4% Normal [id number] H[facility]CT Monocytes/leuk NFr Bld Auto 4.4% Normal [id number] H[facility]CT MCV RBC Auto 94fL Normal 80 - 100 HH[facility] T Platelet num Bld Auto 328Thou/uL Normal 150 - 450 [facility] Neutrophils/leuk NFr Bld Auto 71.8% Normal [id number] H[facility]CT Hgb Bld-mCnc 10.6g/dL Below low normal 11.7 - 15.7 [facility]CT Monocytes num Bld Auto 0.33Thou/uL Normal 0. 2 - 1.5 [facility] BUN/Creat SerPl 11Ratio Normal [id number] 10 - 25 H [facility] Prot SerPl-mCnc 8.1g/dL Normal 6.3 - 8.3 H HCCT ALT SerPl-cCnc 55U/L Above high normal 10 - 50 [facility]CT BUN SerPl-mCnc 8mg/dL Normal [id number] 8 - 21 HH CCT Albumin/Glob SerPl 1.1Ratio Normal 1 - 3 [facility]CT Calcium SerPl-mCnc 9.2mg/dL Normal [id number] 8.7 - 10 .5 [facility]CT Albumin SerPl-mCnc 4.2g/dL Normal 3.5 - 5 H[facility]CT Bilirub SerPl-mCnc 0.6mg/dL Normal 0.2 - 1 [facility] Creat SerPl-mCnc 0.7mg/dL Normal [id number] 0.4 - 1.1 H[facility]CT ALP SerPl-cCnc 94U/L Normal 32 - 122 HH CCT Chloride SerPl-sCnc 100mmol/L Normal [id number] 98 - 10 7 H[facility]CT AST SerPl-cCnc 70U/L Above high normal 10 - 50 [facility]CT Globulin Ser Calc-mCnc 3.9g/dL Normal 1.5 - 3.9 [facility]CT Sodium SerPl-sCnc 132mmol/L Below low normal [id number] 13 6 - 145 [facility] CO2 SerPl-sCnc 19mmol/L Below low normal [id number] 22 - 33 [facility]CT Anion Gap Bld-sCnc 13 Normal [id number] 7 - 17 [facility]CT Potassium SerPl-sCnc 3.5mmol/L Normal 3.4 - 5.3 H[facility]CT GFR/BSA.pred SerPlBld QKE-VFN-TcLFrp 90 Normal [id number] 59 - H[facility]CT Glucose SerPl-mCnc 105mg/dL Above high normal [id number] 65 - 99 [facility]CT Imm Granulocytes/leuk NFr Bld Auto 0.2% Normal [id number] H[facility]CT RDW RBC Auto-Rto 20.3% Above high normal [id number] 11 .5 - 14.5 [facility] Platelet num Bld Auto 294Thou/uL Normal [id number] 150 - 450 [facility] WBC num Bld Auto 4.2Thou/uL Normal [id number] 4 - 11 [facility] RBC num Bld Auto 3.73Mil/uL Below low normal [id number] 4 - 5.4 [facility]CT Neutrophils/leuk NFr Bld Auto 70.8% Normal [id number] H[facility]CT Basophils num Bld Auto 0.04Thou/uL Normal [id number] 0 - 0.2 [facility]CT Hgb Bld-mCnc 11.9g/dL Normal [id number] 11.7 - 15.7 HH CCT Eosinophil/leuk NFr Bld Auto 0.7% Normal [id number] H[facility]CT Imm Granulocytes num Bld Auto 0.01Thou/uL Normal [id number] 0 - 0.1 [facility]CT Monocytes num Bld Auto 0.16Thou/uL Below low normal [id number] 1520 0.2 - 1.5 [facility]CT Monocytes/leuk NFr Bld Auto 3.8% Normal [id number] H[facility]CT Neutrophils num Bld Auto 3Thou/uL Normal [id number] 2 - 7.5 H[facility]CT MCV RBC Auto 92fL Normal [id number] 80 - 100 [facility] T Eosinophil num Bld Auto 0.03Thou/uL Normal [id number] 0 - 0.7 H[facility]CT Hct VFr Bld Auto 34.4% Below low normal [id number] 35 - 47 [facility]CT Lymphocytes/leuk NFr Bld Auto 23.6% Normal [id number] H[facility]CT MCH RBC Qn Auto 31.9pg Normal [id number] 26 - 34 H [facility]CT Basophils/leuk NFr Bld Auto 0.9% Normal [id number] HHCCT MCHC RBC Auto-mCnc 34.6g/dL Normal [id number] 30 - 36 [facility]CT Lymphocytes num Bld Auto 1Thou/uL Below low normal [id number] 1520 1.5 - 4.5 H[facility]CT PMV Bld Auto 9.9fL Normal [id number] 7.5 - 12.[address] HBV core IgM Ser Ql Normal [id number] - HHCCT Hepatitis C Ab Interpretation Normal [id number] - H[facility]CT HAV IgM Ser Ql Normal [id number] - HH CCT HCV Ab s/co SerPl EIA 0.12S/COrati o Normal [id number] 0 - 0.79 H[facility]CT HBV surface Ag Ser Ql Normal [id number] - CCT Hepatitis Panel Interpretation Normal [id number] [facility] ALP SerPl-cCnc 107U/L Normal [id number] 32 - 122 HH CCT Chloride SerPl-sCnc 104mmol/L Normal [id number] 98 - 10 7 [facility] Anion Gap Bld-sCnc 10 Normal [id number] 7 - 17 [facility] AST SerPl-cCnc 28U/L Normal [id number] 10 - 50 HH CCT Albumin/Glob SerPl 1.1Ratio Normal [id number] 1 - 3 [facility] Prot SerPl-mCnc 7.3g/dL Normal [id number] 6.3 - 8.3 H [facility] Sodium SerPl-sCnc 136mmol/L Normal [id number] 136 - 145 [facility] Albumin SerPl-mCnc 3.8g/dL Normal [id number] 3.5 - 5 [facility] GFR/BSA.pred SerPlBld [id number] 87 Normal [id number] 59 - [facility] Calcium SerPl-mCnc 9.2mg/dL Normal [id number] 8.7 - 10 .5 [facility] Potassium SerPl-sCnc 3.8mmol/L Normal [id number] 3.4 - 5.3 [facility] Bilirub SerPl-mCnc 0.3mg/dL Normal [id number] 0.2 - 1 [facility] CO2 SerPl-sCnc 22mmol/L Normal [id number] 22 - 33 HH CCT Creat SerPl-mCnc 0.9mg/dL Normal [id number] 0.4 - 1.1 [facility] BUN SerPl-mCnc 13mg/dL Normal [id number] 8 - 21 HH CCT ALT SerPl-cCnc 41U/L Normal [id number] 10 - 50 HH CCT Glucose SerPl-mCnc 108mg/dL Above high normal [id number] 65 - 99 [facility] Globulin Ser Calc-mCnc 3.5g/dL Normal [id number] 1.5 - 3.9 [facility] BUN/Creat SerPl 14Ratio Normal [id number] 10 - 25 [facility] Monocytes/leuk NFr Bld Auto 4.2% Normal [id number] [facility] Eosinophil num Bld Auto 0.07Thou/uL Normal [id number] 0 - 0.7 [facility] RBC num Bld Auto 3.53Mil/uL Below low normal [id number] 4 - 5.4 [facility] Platelet num Bld Auto 306Thou/uL Normal [id number] 150 - 450 [facility] MCV RBC Auto 90fL Normal [id number] 80 - 100 [facility] T WBC num Bld Auto 7.2Thou/uL Normal [id number] 4 - 11 [facility] Eosinophil/leuk NFr Bld Auto 1% Normal [id number] [facility] Lymphocytes/leuk NFr Bld Auto 35% Normal [id number] [facility] PMV Bld Auto 10.4fL Normal [id number] 7.5 - 12.[address] Lymphocytes num Bld Auto 2.53Thou/uL Normal [id number] 1.5 - 4.5 [facility] Imm Granulocytes num Bld Auto 0.02Thou/uL Normal [id number] 0 - 0.1 [facility] MCHC RBC Auto-mCnc 32.9g/dL Normal [id number] 30 - 36 [facility] Hgb Bld-mCnc 10.5g/dL Below low normal [id number] 11.7 - 15.7 [facility] MCH RBC Qn Auto 29.7pg Normal [id number] 26 - 34 H [facility] Hct VFr Bld Auto 31.9% Below low normal [id number] 35 - 47 [facility] Basophils num Bld Auto 0.06Thou/uL Normal [id number] 0 - 0.2 [facility] RDW RBC Auto-Rto 14.4% Normal [id number] 11.5 - 14. 5 [facility] Neutrophils/leuk NFr Bld Auto 58.7% Normal [id number] [facility] Imm Granulocytes/leuk NFr Bld Auto 0.3% Normal [id number] [facility] Basophils/leuk NFr Bld Auto 0.8% Normal [id number] [facility] Monocytes num Bld Auto 0.3Thou/uL Normal [id number] 0.2 - 1.5 [facility] Neutrophils num Bld Auto 4.24Thou/uL Normal [id number] 2 - 7.5 [facility] Ferritin SerPl-mCnc 118ug/L Normal [id number] 15 - 15 0 [facility] AST SerPl-cCnc 28U/L Normal [id number] 10 - 50 HH CCT BUN/Creat SerPl 17Ratio Normal [id number] 10 - 25 H [facility] Glucose SerPl-mCnc 96mg/dL Normal [id number] 65 - 99 [facility] BUN SerPl-mCnc 15mg/dL Normal [id number] 8 - 21 HH CCT Chloride SerPl-sCnc 105mmol/L Normal [id number] 98 - 10 7 [facility] Calcium SerPl-mCnc 9.1mg/dL Normal [id number] 8.7 - 10 .5 [facility] ALT SerPl-cCnc 34U/L Normal [id number] 10 - 50 HH CCT Sodium SerPl-sCnc 137mmol/L Normal [id number] 136 - 145 [facility] Creat SerPl-mCnc 0.9mg/dL Normal [id number] 0.4 - 1.1 [facility] CO2 SerPl-sCnc 20mmol/L Below low normal [id number] 22 - 33 [facility] Globulin Ser Calc-mCnc 3.3g/dL Normal [id number] 1.5 - 3.9 [facility]CT Prot SerPl-mCnc 7.1g/dL Normal [id number] 6.3 - 8.3 H [facility]CT GFR/BSA.pred SerPlBld [id number] 87 Normal [id number] 59 - [facility]CT Bilirub SerPl-mCnc 0.3mg/dL Normal [id number] 0.2 - 1 [facility] Albumin SerPl-mCnc 3.8g/dL Normal [id number] 3.5 - 5 [facility] ALP SerPl-cCnc 152U/L Above high normal [id number] 32 - 122 [facility] Albumin/Glob SerPl 1.2Ratio Normal [id number] 1 - 3 [facility] Anion Gap Bld-sCnc 12 Normal [id number] 7 - 17 [facility] Potassium SerPl-sCnc 4.1mmol/L Normal [id number] 3.4 - 5.3 [facility] Iron SerPl-mCnc 40ug/dL Below low normal [id number] 59 - 151 [facility] UIBC SerPl-mCnc 327ug/dL Normal [id number] 112 - 346 [facility] TIBC SerPl-mCnc 367ug/dL Normal [id number] 100 - 400 H [facility] Iron Satn MFr SerPl 11% Below low normal [id number] 20 - 50 [facility] Eosinophil num Bld Auto 0.07Thou/uL Normal [id number] 0 - 0.7 [facility] Eosinophil/leuk NFr Bld Auto 0.9% Normal [id number] [facility]CT Hct VFr Bld Auto 30.4% Below low normal [id number] 35 - 47 [facility] Lymphocytes num Bld Auto 1.76Thou/uL Normal [id number] 1.5 - 4.5 [facility] Monocytes num Bld Auto 0.34Thou/uL Normal [id number] 0. 2 - 1.5 [facility] Basophils num Bld Auto 0.07Thou/uL Normal [id number] 0 - 0.2 [facility] Lymphocytes/leuk NFr Bld Auto 22.7% Normal [id number] [facility]CT MCHC RBC Auto-mCnc 32.9g/dL Normal 30 - 36 [facility] Monocytes/leuk NFr Bld Auto 4.4% Normal [id number] [facility] Imm Granulocytes num Bld Auto 0.04Thou/uL Normal [id number] 0 - 0.1 [facility] Imm Granulocytes/leuk NFr Bld Auto 0.5% Normal [id number] [facility] PMV Bld Auto 10.2fL Normal [id number] 7.5 - 12.[address] RBC num Bld Auto 3.08Mil/uL Below low normal [id number] 4 - 5.4 [facility] Hgb Bld-mCnc 10g/dL Below low normal [id number] 11.7 - 15.7 [facility] MCH RBC Qn Auto 32.5pg Normal [id number] 26 - 34 H [facility] RDW RBC Auto-Rto 14.1% Normal [id number] 11.5 - 14. 5 [facility] Platelet num Bld Auto 458Thou/uL Above high normal [id number] 150 - 450 [facility] Neutrophils/leuk NFr Bld Auto 70.6% Normal [id number] [facility] MCV RBC Auto 99fL Normal [id number] 80 - 100 [facility] T Basophils/leuk NFr Bld Auto 0.9% Normal [id number] [facility] WBC num Bld Auto 7.8Thou/uL Normal [id number] 4 - 11 [facility] Neutrophils num Bld Auto 5.49Thou/uL Normal [id number] 2 - 7.5 [facility] History of Medication Use Medication Directions Dispensed Refills Start Date End Date Status methylPREDNISolone sodium succinate (SOLU-Medrol) 600 mg in sodium chloride (NS) 0.9 % 100 mL IVPB 600 mg, Intravenous, at 219.2 mL/hr, Once, On Fri12/14/24 at 1030, For 1 dose, PRIOR TO IVIG ON DAY 1 ONLY 5 025 completed diphenhydrAMINE (BENADRYL) injection 50 mg 50 mg, Intravenous, Every 6 hours PRN, itching, Starting on Fri10/25/24 at 0930, If ordered IV push, inject at a rate of 25 mg/minute or LESS. 5 active ketorolac (TORADOL) injection 15 mg 15 mg, Intravenous, Every 6 hours PRN, mild pain 1-3, Starting on Fri10/11/24 at 0924, For 1 day, If ordered IV Push: administer undiluted over 2 minutes. 5 025 active diphenhydrAMINE (BENADRYL) injection 25 mg 25 mg, Intravenous, Once, On Fri10/11/24 at 0930, For 1 dose, Administer 30 minutes prior to riTUXimab. If ordered IV push, inject at a rate of 25 mg/minute or LESS. 5 025 completed folic acid (FOLVITE) 1 MG tablet TAKE 1 TABLET BY MOUTH EVERY DAY 5 active ketorolac (TORADOL) 10 MG tablet Take 1 tablet (10 mg total) by mouth 3 times daily (every 8 hours) as needed for moderate pain. Take with food to reduce stomach upset. 5 active oxyCODONE (ROXICODONE) immediate release tablet 20 mg 20 mg, Oral, Once, On Fri09/08/24 at 1500, For 1 dose 5 active diclofenac enteric coated (VOLTAREN) 75 MG EC tablet Take 1 tablet (75 mg total) by mouth 2 (two) times a day with meals. Administer with food avoid GI upset. 4 active methoTREXate, PF, (Rasuvo) 20 MG/0.4ML subcutaneous injection Inject 0.4 mL (20 mg total) under the skin once a week. 4 active methylPREDNISolone sodium succinate (SOLU-Medrol) 600 mg in sodium chloride (NS) 0.9 % 100 mL IVPB 600 mg, Intravenous, at 219.2 mL/hr, Once, On Fri09/07/24 at 1030, For 1 dose 4 025 completed scopolamine (TRANSDERM-SCOP) patch Place 1 patch on the skin every third day (72 hrs). 4 025 aborted methylPREDNISolone sodium succinate (SOLU-Medrol) 812.5 mg in sodium chloride (NS) 0.9 % 100 mL IVPB 812.5 mg (rounded from 800 mg), Intravenous, at 226 mL/hr, Once, On Fri07/13/24 at 1030, For 1 dose 4 024 completed nortriptyline (PAMELOR) 10 MG capsule Take 1 capsule (10 mg total) by mouth every other day. 4 024 active LORazepam (ATIVAN) 0.5 MG tablet Take 1 tablet (0.5 mg total) by mouth 2 (two) times a day. 4 024 active baclofen (LIORESAL) tablet 10 mg 10 mg, Oral, 3 times daily, First dose on Mon[place] 04/01/24 at 1400, Outpatient Infusion 4 active methoTREXate, PF, (RASUVO) 15 MG/0.3ML subcutaneous injection Inject 0.3 mL (15 mg total) under the skin once a week. 4 025 aborted oxyCODONE (ROXICODONE) 10 mg immediate release tablet TAKE 1 TAB BY MOUTH EVERY 4HRS NEEDED FOR SEVERE PAIN FOR 28 DAYS. DONT START BEFORE DECEMBER 26, 2023. 4 active nortriptyline (PAMELOR) 10 MG capsule Take 2 capsules (20 mg) by mouth at bedtime. 4 active thiamine (VITAMIN B-1) 100 mg tablet TAKE 1 TABLET BY MOUTH DAILY FOR 14 DAYS. 4 active ondansetron (ZOFRAN) 4 MG tablet Take 1 tablet (4 mg total) by mouth 3 times daily (every 8 hours) as needed for nausea or vomiting. 4 active predniSONE (DELTASONE) 10 MG tablet Prednisone 40 mg daily for 3 days, 30 mg daily for 3 days, 20 mg daily for 3 days, 15 mg daily for 3 days, 10 mg daily for 3 days, 5 mg daily for 3 days- always in the morning after breakfast 4 024 active Risankizumab-rzaa (Skyrizi Pen) 150 MG/ML Solution Auto-injector Inject 150 mg under the skin every 12 (twelve) weeks. 3 024 active immune globulin (human) 10% in Solution (GAMMAGARD) IV Premix 10 g 10 g, Intravenous, Once, On Fri08/23/24 at 1030, For 1 dose, Intravenous Immune Globulin per [facility] Protocol: Total Dose Per Day: 1000 mg/kg, 70 grams, for 2 days/doses. Dose will be broken in individual vials of 3 x 20 grams, 1 x 10 grams. Filtration not required. In-line 0.2 micron filter o 3 024 completed immune globulin (human) 10% in Solution (GAMMAGARD) IV Premix 20 g 20 g, Intravenous, Once, On Fri08/23/24 at 1030, For 1 dose, Intravenous Immune Globulin per [facility] Protocol: Total Dose Per Day: 1000 mg/kg, 75 grams, for 2 days/doses. Dose will be broken in individual vials of 3 x 20 grams, 1 x 10 grams, and 1 x 5 grams. Filtration not required. In-line 0. 3 024 completed immune globulin (human) 10% in solution (GAMMAGARD) IV Premix 5 g 5 g, Intravenous, Once, On Fri05/07/23 at 1100, For 1 doseIntravenous Immune Globulin per [facility] Protocol:??Total Dose Per Day: 1000 mg/kg, 75 grams, for 1 days/doses. Dose will be broken in individual vials of 3 x 20 grams, 1 x 10 grams, and 1 x 5 grams.IVIG Reason for use: OtherSpecify: va 3 023 completed potassium chloride IVPB 20 mEq in 100 mL SW (premix) 20 mEq, Intravenous, at 100 mL/hr, Once, On Fri01/29/23 at 1030, For 1 doseFOR CENTRAL LINE ADMINISTRATION ONLY 3 023 completed diphenhydrAMINE (BENADRYL) IVPB 50 mg in 50 mL NS PREMIX 50 mg, Intravenous, at 200 mL/hr, Once, On Fri06/30/24 at 1000, For 1 dose, Administer 30 to 60 minutes prior to chemotherapy when being utilized as a Pre-Medication 3 024 completed alteplase (ACTIVASE) 1 mg/1 mL syringe 2 mg, Intracatheter, Once, On Fri02/11/23 at 1130, For 1 doseInstill dose into occluded catheter. Do not force solution into catheter. ??After a 30-minute dwell time, assess catheter function by attempting to aspirate blood. If catheter is functional, aspirate 4-5 mL of blood to remove alteplase and 3 023 completed cyanocobalamin (VITAMIN B12) 1000 MCG tablet Take 1 tablet (1,000 mcg total) by mouth daily. Do not start before July 01, 2022. 2 022 active methylPREDNISolone sodium succinate (SOLU-Medrol) 1,000 mg in sodium chloride (NS) 0.9 % 100 mL IVPB 1,000 mg, Intravenous, at 232 mL/hr, Once, On Fri04/13/24 at 0900, For 1 dose, 1000mg IV, every 14 days 2 024 completed ondansetron (ZOFRAN) injection 4 mg 4 mg, Intravenous, Every 6 hours PRN, nausea, vomiting, Starting on Fri09/08/24 at 1005, For 1 dose 2 024 active nortriptyline (PAMELOR) 75 MG capsule Take 1 capsule (75 mg total) by mouth daily. 2 023 active [facility] Relief 650 MG CR tablet 1 TABLET NEEDED ORALLY EVERY 12 HRS 28 DAYS 2 active acetaminophen (TYLENOL) tablet 975 mg 975 mg, Oral, Once, On Fri09/08/24 at 1030, For 1 dose 1 active triamcinolone (KENALOG) 0.1 % ointment Apply topically 2 (two) times a day as needed. 1 active sodium chloride 0.9 % (NS) bolus 1,000 mL, Intravenous, Administer over 1 Hours, Once, On Fri10/14/24 at 0000, For 1 dose 025 completed naproxen (EC NAPROSYN) 500 MG EC tablet Take 1 tablet (500 mg total) by mouth every 12 hours. 024 active loratadine-pseudoephed rine (CLARITIN-D 24-hour) 10-240 mg per 24 hr tablet Take 1 tablet by mouth daily. 024 active oxyCODONE (OxyCONTIN) 10 MG ER (extended release) tablet Take 1 tablet (10 mg total) by mouth twice daily (every 12 hours). 10mg every 10 hours 023 active acetaminophen (TYLENOL) 325 MG tablet Take 2 tablets (650 mg total) by mouth 4 times daily (every 6 hours) as needed for mild pain. active cloNIDine (CATAPRES) 0.1 MG tablet Take 1 tablet (0.1 mg total) by mouth 2 (two) times a day. active immune globulin, human, 10% in solution (GAMUNEX-C) IV Premix Infuse 10 mL (1 g total) into a venous catheter over 14 days for 336 hours (continuous infusion). active loratadine (CLARITIN) 10 MG tablet Take 1 tablet (10 mg total) by mouth Once before discharge. active melatonin 10 MG Tab tablet Take 10 mg by mouth nightly. active methylPREDNISolone sodium succinate (Solu-MEDROL) 1000 MG injection Infuse 16 mL (1,000 mg total) into a venous catheter every 28 days (4 weeks). active metoCLOPRAMIDE (REGLAN) 5 MG tablet Take 1 tablet (5 mg total) by mouth 4 (four) times a day. active nortriptyline (PAMELOR) 50 MG capsule Take 1 capsule (50 mg total) by mouth nightly. 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 ProblemAct [facility] 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 ProblemAct [facility] Iron deficiency anemia active 2023-01-30 ProblemAct [facility] High risk medication use active 2024-09-29 ProblemAct [facility] Anxiety active 2021-07-12 ProblemAct [facility] Psoriatic arthritis active 2022-03-06 ProblemAct [facility] Anemia due to other cause, not classified active EncounterDiagnosisAct [facility] Vasculitic neuropathy active EncounterDiagnosis Act [facility] Immunizations Vaccine Date Source Lot Number Status Covid-19 Adenovirus Vaccine - [employer] 02/01/2021 [facility] [id number] completed Encounters Encounter Type Encounter Reason Primary Diagnosis Location Date Ambulatory Arteritis, unspecified Arteritis, unspecified [facility] 12/15/2024 Ambulatory Arteritis, unspecified Arteritis, unspecified [facility] 12/14/2024 Ambulatory Arteritis, unspecified Arteritis, unspecified [facility] 12/01/2024 Ambulatory Arteritis, unspecified Arteritis, unspecified [facility] 11/30/2024 Ambulatory Arteritis, unspecified Arteritis, unspecified [facility] 11/17/2024 Ambulatory Arteritis, unspecified Arteritis, unspecified [facility] 11/16/2024 Ambulatory Arteritis, unspecified Arteritis, unspecified [facility] 10/25/2024 Ambulatory [facility] 10/20/2024 Ambulatory Arteritis, unspecified Arteritis, unspecified [facility] 10/19/2024 Ambulatory Arthropathic psoriasis, unspecified Arthropathic psoriasis, unspecified [facility] 10/11/2024 Ambulatory [facility] 10/06/2024 Ambulatory Iron deficiency anemia, unspecified Iron deficiency anemia, unspecified [facility] 10/05/2024 Ambulatory Arteritis, unspecified Arteritis, unspecified [facility] 10/05/2024 Ambulatory [facility] 09/22/2024 Ambulatory Polyneuropathy, unspecified Polyneuropathy, unspecified [facility] 09/21/2024 Ambulatory Arteritis, unspecified Arteritis, unspecified [facility] 09/08/2024 Ambulatory Polyneuropathy, unspecified Polyneuropathy, unspecified [facility] 09/07/2024 Ambulatory [facility] 08/24/2024 Ambulatory Polyneuropathy, unspecified Polyneuropathy, unspecified [facility] 08/23/2024 Ambulatory Arthropathic psoriasis, unspecified Arthropathic psoriasis, unspecified [facility] 08/20/2024 Ambulatory Arteritis, unspecified Arteritis, unspecified [facility] 08/11/2024 Ambulatory Polyneuropathy, unspecified Polyneuropathy, unspecified [facility] 08/10/2024 Ambulatory Meningitis, unspecified Meningitis, unspecified [facility] 08/03/2024 Ambulatory Arthropathic psoriasis, unspecified Arthropathic psoriasis, unspecified [facility] 08/03/2024 Ambulatory Nerve root and plexu s disorder, unspecified Nerve root and plexus disorder, unspecified [facility] 08/03/2024 Ambulatory Nerve root and plexu s disorder, unspecified Nerve root and plexus disorder, unspecified [facility] 08/03/2024 Ambulatory Nerve root and plexu s disorder, unspecified Nerve root and plexus disorder, unspecified [facility] 08/03/2024 Ambulatory Arteritis, unspecified Arteritis, unspecified [facility] 07/28/2024 Ambulatory Polyneuropathy, unspecified Polyneuropathy, unspecified [facility] 07/27/2024 Ambulatory Polyneuropathy, unspecified Polyneuropathy, unspecified [facility] 07/20/2024 Ambulatory Arteritis, unspecified Arteritis, unspecified [facility] 07/14/2024 Ambulatory Iron deficiency anemia, unspecified Iron deficiency anemia, unspecified [facility] 07/13/2024 Ambulatory Arteritis, unspecified Arteritis, unspecified [facility] 07/13/2024 Ambulatory Arthropathic psoriasis, unspecified Arthropathic psoriasis, unspecified [facility] 07/09/2024 Ambulatory Arthropathic psoriasis, unspecified Arthropathic psoriasis, unspecified [facility] 07/09/2024 Ambulatory Arthropathic psoriasis, unspecified Arthropathic psoriasis, unspecified [facility] 07/09/2024 Ambulatory Arthropathic psoriasis, unspecified Arthropathic psoriasis, unspecified [facility] 07/09/2024 Ambulatory Arthropathic psoriasis, unspecified Arthropathic psoriasis, unspecified [facility] 07/09/2024 Ambulatory Arthropathic psoriasis, unspecified Arthropathic psoriasis, unspecified [facility] 07/09/2024 Ambulatory Arthropathic psoriasis, unspecified Arthropathic psoriasis, unspecified [facility] 07/09/2024 Ambulatory Arteritis, unspecified Arteritis, unspecified [facility] 06/30/2024 Ambulatory Polyneuropathy, unspecified Polyneuropathy, unspecified [facility] 06/29/2024 Ambulatory Arteritis, unspecified Arteritis, unspecified [facility] 06/17/2024 Ambulatory Polyneuropathy, unspecified Polyneuropathy, unspecified [facility] 06/15/2024 Ambulatory Arteritis, unspecified Arteritis, unspecified [facility] 06/02/2024 Ambulatory Polyneuropathy, unspecified Polyneuropathy, unspecified [facility] 06/01/2024 Ambulatory Arteritis, unspecified Arteritis, unspecified [facility] 05/19/2024 Ambulatory Polyneuropathy, unspecified Polyneuropathy, unspecified [facility] 05/18/2024 Ambulatory Iron deficiency anemia, unspecified Iron deficiency anemia, unspecified [facility] 05/05/2024 Ambulatory Inflammatory polyneuropathy, unspecified Inflammatory polyneuropathy, unspecified [facility] 05/05/2024 Ambulatory Arteritis, unspecified Arteritis, unspecified [facility] 05/04/2024 Inpatient Other disorders of peripheral nervous system Other disorders of peripheral nervous system [facility] 04/24/2024 Emergency Other muscle spasm Other muscle spasm [facility] 04/22/2024 Ambulatory Inflammatory polyneuropathy, unspecified Inflammatory polyneuropathy, unspecified [facility] 04/14/2024 Ambulatory Polyneuropathy, unspecified Polyneuropathy, unspecified [facility] 04/13/2024 Ambulatory Inflammatory polyneuropathy, unspecified Inflammatory polyneuropathy, unspecified [facility] 04/02/2024 Ambulatory Polyneuropathy, unspecified Polyneuropathy, unspecified [facility] 04/01/2024 Ambulatory Arthropathic psoriasis, unspecified Arthropathic psoriasis, unspecified [facility] 03/19/2024 Ambulatory Arteritis, unspecified Arteritis, unspecified [facility] 03/17/2024 Ambulatory Polyneuropathy, unspecified Polyneuropathy, unspecified [facility] 03/16/2024 Ambulatory Arteritis, unspecified Arteritis, unspecified [facility] 03/03/2024 Ambulatory Polyneuropathy, unspecified Polyneuropathy, unspecified [facility] 03/02/2024 Ambulatory Arteritis, unspecified Arteritis, unspecified [facility] 02/20/2024 Ambulatory Polyneuropathy, unspecified Polyneuropathy, unspecified [facility] 02/19/2024 Ambulatory Arteritis, unspecified Arteritis, unspecified [facility] 02/04/2024 Ambulatory Polyneuropathy, unspecified Polyneuropathy, unspecified [facility] 02/03/2024 Ambulatory Other specified abnormal immunological findings in serum Other specified abnormal immunological findings in serum [facility] 01/05/2024 Ambulatory Arteritis, unspecified Arteritis, unspecified [facility] 12/31/2023 Ambulatory Iron deficiency anemia, unspecified Iron deficiency anemia, unspecified [facility] 12/30/2023 Ambulatory Inflammatory polyneuropathy, unspecified Inflammatory polyneuropathy, unspecified [facility] 12/30/2023 Ambulatory Polyneuropathy, unspecified Polyneuropathy, unspecified [facility] 12/09/2023 Ambulatory Arteritis, unspecified Arteritis, unspecified [facility] 11/12/2023 Ambulatory Polyneuropathy, unspecified Polyneuropathy, unspecified [facility] 11/11/2023 Ambulatory Hereditary and idiopathic neuropathy, unspecified Hereditary and idiopathic neuropathy, unspecified [facility] 11/04/2023 Ambulatory Arteritis, unspecified Arteritis, unspecified [facility] 10/29/2023 Ambulatory Polyneuropathy, unspecified Polyneuropathy, unspecified [facility] 10/28/2023 Ambulatory Arteritis, unspecified Arteritis, unspecified [facility] 10/15/2023 Ambulatory Polyneuropathy, unspecified Polyneuropathy, unspecified [facility] 10/14/2023 Ambulatory Polyneuropathy, unspecified Polyneuropathy, unspecified [facility] 09/30/2023 Ambulatory Arteritis, unspecified Arteritis, unspecified [facility] 09/17/2023 Ambulatory Iron deficiency anemia, unspecified Iron deficiency anemia, unspecified [facility] 09/16/2023 Ambulatory Polyneuropathy, unspecified Polyneuropathy, unspecified [facility] 09/16/2023 Ambulatory Arteritis, unspecified Arteritis, unspecified [facility] 09/05/2023 Ambulatory Polyneuropathy, unspecified Polyneuropathy, unspecified [facility] 09/04/2023 Ambulatory Arteritis, unspecified Arteritis, unspecified [facility] 08/20/2023 Ambulatory Polyneuropathy, unspecified Polyneuropathy, unspecified [facility] 08/19/2023 Ambulatory Polyneuropathy, unspecified Polyneuropathy, unspecified [facility] 08/05/2023 Ambulatory Iron deficiency anemia, unspecified Iron deficiency anemia, unspecified [facility] 08/05/2023 Ambulatory Arteritis, unspecified Arteritis, unspecified [facility] 07/23/2023 Ambulatory Arteritis, unspecified Arteritis, unspecified [facility] 07/22/2023 Ambulatory Arteritis, unspecified Arteritis, unspecified [facility] 07/02/2023 Ambulatory Polyneuropathy, unspecified Polyneuropathy, unspecified [facility] 07/01/2023 Ambulatory Arteritis, unspecified Arteritis, unspecified [facility] 06/04/2023 Ambulatory Polyneuropathy, unspecified Polyneuropathy, unspecified [facility] 06/03/2023 Ambulatory Arthropathic psoriasis, unspecified Arthropathic psoriasis, unspecified [facility] 05/29/2023 Ambulatory Arteritis, unspecified Arteritis, unspecified [facility] 05/07/2023 Ambulatory Polyneuropathy, unspecified Polyneuropathy, unspecified [facility] 05/06/2023 Ambulatory Polyneuropathy, unspecified Polyneuropathy, unspecified [facility] 04/22/2023 Ambulatory Arteritis, unspecified Arteritis, unspecified [facility] 04/10/2023 Ambulatory Polyneuropathy, unspecified Polyneuropathy, unspecified [facility] 04/09/2023 Ambulatory Iron deficiency anemia, unspecified [facility] 03/27/2023 Ambulatory Arteritis, unspecified Arteritis, unspecified [facility] 03/27/2023 Ambulatory Arteritis, unspecified Arteritis, unspecified [facility] 03/26/2023 Ambulatory Arteritis, unspecified Arteritis, unspecified [facility] 03/19/2023 Ambulatory Polyneuropathy, unspecified Polyneuropathy, unspecified [facility] 03/18/2023 Ambulatory Arthropathic psoriasis, unspecified [facility] 03/05/2023 Ambulatory Arteritis, unspecified [facility] 02/18/2023 Ambulatory Polyneuropathy, unspecified [facility] 02/18/2023 Ambulatory Arteritis, unspecified Arteritis, unspecified [facility] 02/12/2023 Ambulatory Polyneuropathy, unspecified Polyneuropathy, unspecified [facility] 02/11/2023 Ambulatory Arteritis, unspecified Arteritis, unspecified [facility] 01/29/2023 Ambulatory Polyneuropathy, unspecified [facility] 01/28/2023 Ambulatory Anemia, unspecified Anemia, unspecified [facility] 01/13/2023 Ambulatory [facility] 12/31/2022 Ambulatory Encephalitis and encephalomyelitis, unspecified [facility] 12/10/2022 Ambulatory Encephalitis and encephalomyelitis, unspecified [facility] 12/10/2022 Ambulatory Disease of spina l cord, unspecified [facility] 12/10/2022 Ambulatory Headache, unspecified [facility] 12/10/2022 Ambulatory Encephalitis and encephalomyelitis, unspecified [facility] 12/10/2022 Ambulatory Arteritis, unspecified [facility] 11/29/2022 Ambulatory Polyneuropathy, unspecified [facility] 11/28/2022 Ambulatory Arthropathic psoriasis, unspecified [facility] 11/27/2022 Ambulatory [facility] 11/25/2022 Ambulatory [facility] 11/25/2022 Ambulatory Arteritis, unspecified [facility] 11/22/2022 Ambulatory Polyneuropathy, unspecified [facility] 11/21/2022 Emergency Migraine, unspecified, not intractable, without status migrainosus [facility] 11/16/2022 Ambulatory Polyneuropathy, unspecified [facility] 11/15/2022 Ambulatory [facility] 11/13/2022 Ambulatory Arteritis, unspecified [facility] 11/01/2022 Ambulatory [facility] 10/31/2022 Ambulatory Polyneuropathy, unspecified [facility] 10/31/2022 Ambulatory Arteritis, unspecified [facility] 10/18/2022 Ambulatory Polyneuropathy, unspecified [facility] 10/17/2022 Ambulatory Arteritis, unspecified [facility] 09/20/2022 Ambulatory Polyneuropathy, unspecified [facility] 09/19/2022 Ambulatory Arteritis, unspecified [facility] 08/23/2022 Ambulatory Arteritis, unspecified [facility] 08/22/2022 Ambulatory [facility] 08/22/2022 Ambulatory Arteritis, unspecified [facility] 08/08/2022 Ambulatory Arteritis, unspecified [facility] 08/07/2022 Ambulatory Arteritis, unspecified [facility] 07/26/2022 Ambulatory Arteritis, unspecified [facility] 07/25/2022 Ambulatory Polyneuropathy, unspecified [facility] 07/12/2022 Ambulatory Pain, unspecified [facility] 07/11/2022 Ambulatory Polyneuropathy, unspecified [facility] 07/03/2022 Inpatient Anxiety disorder , unspecified [facility] 06/26/2022 Ambulatory Pain, unspecified [facility] 06/20/2022 Ambulatory Arteritis, unspecified [facility] 06/11/2022 Ambulatory Arthropathic psoriasis, unspecified [facility] 06/06/2022 Ambulatory Polyneuropathy, unspecified [facility] 06/05/2022 Ambulatory Pain, unspecified [facility] 05/24/2022 Ambulatory Pain, unspecified [facility] 05/17/2022 Ambulatory Pain, unspecified [facility] 05/14/2022 Ambulatory Arteritis, unspecified [facility] 04/26/2022 Ambulatory Pain, unspecified [facility] 04/24/2022 Ambulatory Pain, unspecified [facility] 04/18/2022 Ambulatory Polyneuropathy, unspecified [facility] 03/27/2022 Ambulatory Arteritis, unspecified [facility] 03/26/2022 Ambulatory Pain, unspecified [facility] 03/20/2022 Ambulatory Pain, unspecified [facility] 03/19/2022 Ambulatory Psoriasis, unspecified [facility] 03/06/2022 Ambulatory Pain, unspecified [facility] 02/27/2022 Ambulatory Arteritis, unspecified [facility] 02/26/2022 Ambulatory Pain, unspecified [facility] 02/13/2022 Ambulatory Pain, unspecified [facility] 02/12/2022 Ambulatory Pain, unspecified [facility] 01/16/2022 Ambulatory Polyneuropathy, unspecified [facility] 01/15/2022 Ambulatory [facility] 01/08/2022 Ambulatory Hereditary and idiopathic neuropathy, unspecified [facility] 01/08/2022 Ambulatory Pain, unspecified [facility] 01/04/2022 Ambulatory Pain, unspecified [facility] 01/03/2022 Ambulatory Hereditary and idiopathic neuropathy, unspecified [facility] 01/01/2022 Ambulatory Meningitis, unspecified [facility] 01/01/2022 Ambulatory [facility] 12/31/2021 Ambulatory Pain, unspecified [facility] 12/19/2021 Ambulatory Arteritis, unspecified [facility] 12/18/2021 Ambulatory [facility] 12/06/2021 Ambulatory Pain, unspecified [facility] 12/06/2021 Ambulatory Hemiplegic migra ine, intractable, without status migrainosus [facility] 12/05/2021 Ambulatory Arteritis, unspecified [facility] 11/22/2021 Ambulatory Arteritis, unspecified [facility] 11/21/2021 Ambulatory Hereditary and idiopathic neuropathy, unspecified [facility] 11/06/2021 Ambulatory Consult [facility] 10/29/2021 Ambulatory Polyneuropathy, unspecified [facility] 10/18/2021 Ambulatory [facility] 10/17/2021 Ambulatory Polyneuropathy, unspecified [facility] 10/16/2021 Ambulatory Polyneuropathy, unspecified [facility] 09/13/2021 Ambulatory Mononeuritis multiplex [facility] 08/21/2021 Ambulatory Polyneuropathy, unspecified [facility] 08/02/2021 Inpatient Anesthesia of skin [facility] 06/17/2021 Care Team Organization Name Specialty Phone Email Start Date End Da te [facility] 04/22/2024 [facility] JUANJOSE SEGURA Primary Care 07/26/2022 [facility] ANDREINA SEGURA Primary Care 06/17/2021 07/03/2022 [facility] NO PCP Primary Care 06/17/2021 07/03/2022
--- OUTSIDE RECORDS SUMMARY | 2024-12-28 17:37 | XMS_ITS | Encounter Summary ---
Author Organization [facility] Address [address] [place] [address] Care Team Providers Care Oracle Wms Consultant Name Role Phone Jonh Hobson MD Unavailable [phone] Pcp, No Primary Care Provider Unavailabl e Jacquelyn Garcia ORACLE WMS CONSULTANT Primary Care Provider Ayde Zheng RN Unavailable [phone] Encounter Details Date Type Department Care Team (Late st Contact Info) Description 05/12/2024 Scanned Document [facility] Rheumatology [address] [phone] Jonh Hobson MD [address] [place] [address] Social History Tobacco Use Types Packs/Day Years Used Date Smoking Tobacco: Never Smokeless Tobacco: Never Alcohol Use Standard Drinks/Week Comments Not Currently 0 (1 standard drink = 0.6 oz pur e alcohol) Social [facility] Utilities Answer Date Recorded In the [...] in a jail (including now)? No 04/26/2024 Comments No Sex [...] EDT Infusion [facility] [place] [facility] Outpatient Infusion Center [address] [place] [phone] Deanne Daniel MD 85 [place], [place] [phone] Valery Ruiz, RN 80 [place] [address] 12/30/2024 10:00 AM EDT Infusion [facility] [place] [facility] Outpatient Infusion [address] [phone] Deanne Daniel MD [address] [place] [address] 01/11/2025 11:00 AM EDT Office Visit [facility] Medical Oncology at [address] [phone] Deanne Daniel MD [address] [place] [address] 01/11/2025 11:30 AM EDT Infusion [facility] [place] Infusion [address] [phone] Deanne Daniel MD [address] [place] [address] 01/12/2025 10:00 AM EDT Infusion [facility] Cancer [facility] Infusion [address] [phone] Deanne Daniel MD [address] [place] [address] 01/20/2025 1:00 PM EDT Office Visit [facility] Rheumatology [address] [address] Jonh Hobson MD [address] [phone] 01/27/2025 11:30 AM EDT Consult [facility] Transplant Program & [facility] 85 [facility] [address] [place] [phone] Jonh Hobson MD 31 [facility] 206 [place], [place] [phone] Jayne Morales, DO 300 [facility] [place] [address] 02/01/2025 11:40 AM EDT Office Visit [facility]rom[facility] [place] [facility] 85 [facility] 815 [place] [address] Luis Damon MD [facility]4 [place] [address] 02/16/2025 9:45 AM EDT [facility] [address] [place] [phone] Grey Trinidad MD [address] [address] 04/26/2025 10:00 AM EDT Infusion [facility] [place] [facility] Outpatient [facility]fusion Center 85 [place] [address] Deanne Daniel MD [address] [place], [place] documented as of this encounter Visit Diagnoses Not on filedocumented in this encounter Care Teams Oracle Wms Consultant Relationship Specialty Start Date End Date Pcp, No PCP - General General Medicine 04/22/24 05/17/24 Jacquelyn Garcia NP [address] [place] [address] PCP - General Family Medicine 05/18/24 Jonh Hobson MD 31 [facility] 206 [place] [address] Rheumatology 01/01/24 Ayde Zheng RN 85 [facility] 320 [place] [address] Registered Nurse Hepatology 08/11/24 documented as of this encounter
--- OUTSIDE RECORDS SUMMARY | 2024-12-28 17:37 | XMS_ITS | Encounter Summary ---
Author Organization [facility] Address [address] [place] [address] Care Team Providers Care Bad Credit Collector Name Role Phone Bijan Magana MD Unavailable Unavailable Jonh Hobson MD Unavailable [phone] Pcp, No Primary Care Provider UnavailJacquelyn Baxter NP Primary Care Provider Ayde Zheng RN Unavailable [phone] Encounter Details Date Type Department Care Team (Late st Contact Info) Description 11/21/2021 Scanned Document [facility] Rheumatology [address] [phone] Boyd Cheng MD [address] [place] [address] Social History Tobacco Use Types Packs/Day [...] Description 12/29/2024 10:00 AM EDT Infusion [facility] Cancer [place] [facility] Infusion [address] [phone] Deanne Daniel MD [address] [place] [address] Valery Ruiz, RN 80 [place] [address] 12/30/2024 10:00 AM EDT Infusion [address] [phone] Deanne Daniel MD [address] [place] [address] 01/11/2025 11:00 AM EDT Office Visit [facility] Medical Oncology at [address] [phone] Deanne Daniel MD [address] [place] [address] 01/11/2025 11:30 AM EDT Infusion [address] [phone] Deanne Daniel MD [address] [place] [address] 01/12/2025 10:00 AM EDT Infusion [facility] Cancer [place] at [facility] Outpatient Infusion Center 85 [place] [phone] Deanne Daniel MD 85 [place] [address] 01/20/2025 1:00 PM EDT Office Visit [facility] Rheumatology [address] [place] [phone] Jonh Hobson MD [address] [phone] 01/27/2025 11:30 AM EDT Consult [facility] Transplant Program & [facility] [place] 85 [facility] 320 [place] [phone] Jonh Hobson MD [address] [phone] Jayne Morales, 300 [place], [place] [address] 02/01/2025 11:40 AM EDT Office Visit [facility] Neuromuscular [place] [facility] 85 [facility] 815 [place] [phone] Luis Damon MD [facility]4 [place], [place] [address]190 02/16/2025 9:45 AM EDT Consult [facility] [address] [phone] Grey Trinidad MD [address] [place] [address] 04/26/2025 10:00 AM EDT Infusion [facility] Cancer [place] at [facility] Outpatient Infusion Center 85 [place] [phone] Deanne Daniel MD 85 [place], [place] [phone] documented as of this encounter Visit Diagnoses Not on filedocumented in this encounter Care Teams Bad Credit Collector Relationship Specialty Start Date End Date Pcp, No PCP - General General Medicine 04/22/24 05/17/24 Jacquelyn Garcia NP [address] [place] [address] PCP - General Family Medicine 05/18/24 Bijan Magana MD Rheumatology 11/09/23 12/31/23 Jonh Hobson MD 31 [facility] 206 [place], [place] [phone] Rheumatology 01/01/24 Ayde Zheng, RN 85 [facility] 320 [place], [place] [phone] Registered Nurse Hepatology 08/11/24 documented as of this encounter
--- OUTSIDE RECORDS SUMMARY | 2024-12-28 17:37 | XMS_ITS | Encounter Summary ---
Author Organization [facility] Address [address] [place] [address] Care Team Providers Care Obstetrics Nurse Practitioner Name Role Phone Bijan Magana MD Unavailable Unavailable Jonh Hobson MD Unavailable [phone] Pcp, No Primary Care Provider UnavailJacquelyn Baxter NP Primary Care Provider Ayde Zheng RN Unavailable [phone] Encounter Details Date Type Department Care Team (Late st Contact Info) Description 11/18/2022 Scanned Document [facility] [place] [facility] [address] [place] [phone] Endy Vo MD 85 [facility] 815 [place], [place] [phone] Social History Tobacco Use Types Packs/Day Years [...] Info) Description 12/29/2024 10:00 AM EDT Infusion [facility] at [facility] Outpatient Infusion Center [address] [place] [address] Deanne Daniel MD [address] [place] [address] Valery Ruiz, RN 80 [place] [address] 12/30/2024 10:00 AM EDT Infusion [facility] at [facility] Outpatient [facility]fusion Center [address] [place], [place] [phone] Deanne Daniel MD [address] [place] [address] 01/11/2025 11:00 AM EDT Office Visit [facility] Medical Oncology at [place] [phone] Deanne Daniel MD [address] [place] [address] 01/11/2025 11:30 AM EDT Infusion [facility] Cancer [place] at [facility]fusion [facility] [address] [place] [phone] Deanne Daniel MD 85 [place] [address] 01/12/2025 10:00 AM EDT Infusion [facility] Cancer [place] at [facility] Outpatient Infusion [address] [phone] Deanne Daniel MD 85 [place], [place] [phone] 01/20/2025 1:00 PM EDT Office Visit [facility] Rheumatology [address] [place] [phone] Jonh Hobson MD [address] [address] 01/27/2025 11:30 AM EDT Consult [facility] Transplant Program & [facility] [address] [address] Jonh Hobson MD [address] [address] Jayne Morales, DO 300 [place] [address] 02/01/2025 11:40 AM EDT Office Visit [facility] [address] [place] [address] 815 [place] [address] Luis Damon MD [facility]4 [place] [address] 02/16/2025 9:45 AM EDT Consult [facility] [address] [place] [phone] Grey Trinidad MD [address] [place] [address] 04/26/2025 10:00 AM EDT Infusion [facility] Cancer [place] [facility]fusion Center 85 [place] [phone] Deanne Daniel MD [address] [place] [address] documented as of this encounter Visit Diagnoses Not on filedocumented in this encounter Care Teams Obstetrics Nurse Practitioner Relationship Specialty Start Date End Date Pcp, No PCP - General General Medicine 04/22/24 05/17/24 Jacquelyn Garcia NP [address] [place] [address] PCP - General Family Medicine 05/18/24 Bijan Magana MD Rheumatology 11/09/23 12/31/23 Jonh Hobson MD [address] [address] Rheumatology 01/01/24 Ayde Zheng, RN [address] [address] Registered Nurse Hepatology 08/11/24 documented as of this encounter
--- OUTSIDE RECORDS SUMMARY | 2024-12-28 17:37 | XMS_ITS | Encounter Summary ---
Author Organization [employer] Address 75 [facility] [address]t [place] [address] Care Team Providers Care Hat Conditioner Name Role Phone Jacquelyn Garcia Primary Care Provider Unavailable Nuria Levin Unavailable Inactive/Transferred Primary Care Provider Shaneka Ford DO Primary Care Provider [phone] Encounter Details Date Type Department Care Team (Late st Contact Info) Description 11/27/2023 Orders Only [facility] [address] [place] [address] Jacquelyn Garcia FNP Social History Tobacco Use [...] on filedocumented in this encounter Care Teams Hat Conditioner Relationship Specialty Start Date End Date Jacquelyn Garcia FNP PCP - General Family Medicine 08/06/22 06/01/24 Inactive/Transferred PCP - General 06/02/24 06/02/24 Shaneka Bailey DO [address] [place] [address] PCP - General Family Medicine 11/04/24 Nuria Levin Community Health Worker 12/09/22 documented as of this encounter
--- OUTSIDE RECORDS SUMMARY | 2024-12-28 17:37 | XMS_ITS | Encounter Summary ---
Author Organization [employer] Address 75 [facility] 7t [place] [address] Care Team Providers Care Assistant Professor Of Education Name Role Phone Jacquelyn Garcia Primary Care Provider Unavailable Nuria Levin Unavailable Inactive/Transferred Primary Care Provider Shaneka Ford DO Primary Care Provider [phone] Encounter Details Date Type Department Care Team (Late st Contact Info) Description 12/11/2023 Orders Only [facility] [address] [place] [address] Jacquelyn Garcia FNP Social History Tobacco Use [...] Body, Pelvis, Abdomen Computed T omography Jacquelyn SIMON IMG CT PROCEDURES Lily l Result documented in this encounter Visit Diagnoses Not on filedocumented in this encounter Care Teams Assistant Professor Of Education Relationship Specialty Start Date End Date Jacquelyn Garcia FNP PCP - General Family Medicine 08/06/22 06/01/24 Inactive/Transferred PCP - General 06/02/24 06/02/24 Shaneka Bailey DO [address] [place] [address] PCP - General Family Medicine 11/04/24 Nuria Levin Community Health Worker 12/09/22 documented as of this encounter
--- OUTSIDE RECORDS SUMMARY | 2024-12-28 17:37 | XMS_ITS | Encounter Summary ---
Author Organization Formerly [facility] Address [address] [place] [address] Care Team Providers Care Post Graduate Internship Name Role Phone Jonh Hobson MD Unavailable [phone] Jacquelyn Garcia ULTIMATE HOOPS SCOREBOARD OPERATOR Primary Care Provider Ayde Zheng RN Unavailable [phone] Encounter Details Date Type Department Care Team (Late st Contact Info) Description 12/28/2024 Telephone [facility] [address] [phone] Sabrina Villegas MA [address] [phone] Social History Tobacco Use Types Packs/Day Years [...] in a fpc (including now)? No 04/26/2024 Comments No Sex and Gender Information Value Date Recorded Sex Assigned at Female 10/02/2022 12:43 PM EST Legal Sex Female 5:38 PM EDT Gender Identity Female 10/02/2022 12:43 PM EST Sexual Orientation Heterosexual (straight) 10/02 12:43 PM EST documented as of this encounter Miscellaneous Notes * Telephone Encounter - Sabrina Villegas MA - 12/28/2024 2:20 PM EDT Linh traylor message wants to speak to RN no other information given. documented in this encounter Plan of Treatment Upcoming Encounters Date Type Department Care Team (Late st Contact Info) Description 12/29/2024 10:00 AM EDT Infusion [facility] at [facility] Infusion Center [address] [place] [phone] Deanne Daniel MD 85 [place] [address] Valery Ruiz, ANTONIO 80 [place] [address] 12/30/2024 10:00 AM EDT Infusion [facility] Infusion [address] [phone] Deanne Daniel MD [address] [place] [address] 01/11/2025 11:00 AM EDT Office Visit [facility] Medical Oncology at [address] [phone] Deanne Daniel MD [address] [place] [address] 01/11/2025 11:30 AM EDT Infusion [facility] Infusion [address] [address] Deanne Daniel MD [address] [place] [address] 01/12/2025 10:00 AM EDT Infusion [facility] Infusion [address] [phone] Deanne Daniel MD [address] [place] [address] 01/20/2025 1:00 PM EDT Office Visit [address] [address] Jonh Hobson MD 31 [facility] 206 [place], [place] [phone] 01/27/2025 11:30 AM EDT Consult [facility] Trans[facility] & [facility] Liver [facility] [address] [facility] 320 [place] [address] Jonh Hobson MD 31 [facility] 206 [place], [place] [phone] Jayne Morales, 300 [place] [address] 02/01/2025 11:40 AM EDT Office Visit [facility] [address] [place] [address] [place] [phone] Luis Damon MD Critical access hospital4 [place] [address] 02/16/2025 9:45 AM EDT [facility] [address] [phone] Grey Trinidad MD [address] [place] [address] 04/26/2025 10:00 AM EDT Infusion [facility] [place] [facility] 85 [place] [phone] Deanne Daniel MD 85 [place], [place] [phone] documented as of this encounter Visit Diagnoses Not on filedocumented in this encounter Care Teams Post Graduate Internship Relationship Specialty Start Date End Date Jacquelyn Garcia NP [address] [place] [address] PCP - General Family Medicine 05/18/24 Jonh Hobson MD 31 [facility] 206 [place] [address] Rheumatology 01/01/24 Ayde Zheng RN 85 [facility] 320 [place], [place] [phone] Registered Nurse Hepatology 08/11/24 documented as of this encounter
--- OUTSIDE RECORDS SUMMARY | 2024-12-28 17:37 | XMS_ITS | Encounter Summary ---
Author Organization Formerly [facility] Address [address] [place] [address] Care Team Providers Care Vehicle Safety Inspector Name Role Phone Bijan Magana MD Unavailable Unavailable Jonh Hobson MD Unavailable [phone] Pcp, No Primary Care Provider UnavailJacquelyn Baxter NP Primary Care Provider Ayde Zheng RN Unavailable [phone] Encounter Details Date Type Department Care Team (Late st Contact Info) Description 11/22/2022 Scanned Document [facility] Neuromuscular [facility] 85 [facility] [address] [place] [address] Luis Damon MD [address] [place] [phone] Social History Tobacco Use Types Packs/Day Years [...] Description 12/29/2024 10:00 AM EDT Infusion [facility] Cancer [place] [facility] Outpatient Infusion Center [address] [place] [address] Deanne Daniel MD [address] [place] [address] Valery Ruiz, RN 80 [place] [address] 12/30/2024 10:00 AM EDT Infusion [facility] [place] [facility] Outpatient [facility]fusion Center [address] [place], [place] [phone] Deanne Daniel MD [address] [place] [address] 01/11/2025 11:00 AM EDT Office Visit [facility] Medical Oncology at [place] [phone] Deanne Daniel MD [address] [place] [address] 01/11/2025 11:30 AM EDT Infusion [facility] Cancer [place] [facility] Outpatient Infusion Center [address] [place] [phone] Deanne Daniel MD 85 [place], [place] [phone] 01/12/2025 10:00 AM EDT Infusion [facility] Cancer [place] [facility] Outpatient Infusion [address] [phone] Deanne Daniel MD 85 [place], [place] [phone] 01/20/2025 1:00 PM EDT Office Visit [facility] Rheumatology [address] [phone] Jonh Hobson MD [address] [address] 01/27/2025 11:30 AM EDT Consult [facility] Transplant Program & [facility] Liver Center [address] [address] Jonh Hobson MD [address] [phone] Jayne Morales, DO [address] [place] [address] 02/01/2025 11:40 AM EDT Office Visit [facility] Neuromuscular [facility] [address] [place], [place] [address] [place] [address] Luis Damon MD [facility]4 [place] [address] 02/16/2025 9:45 AM EDT [facility] [place] [address] [facility] [address] [place] [phone] Grey Trinidad MD [address] [address] 04/26/2025 10:00 AM EDT Infusion [facility] Cancer [place] [facility] Outpatient Infusion Center 85 [place] [phone] Deanne Daniel MD 85 [place] [address] documented as of this encounter Visit Diagnoses Not on filedocumented in this encounter Care Teams Vehicle Safety Inspector Relationship Specialty Start Date End Date Pcp, No PCP - General General Medicine 04/22/24 05/17/24 Jacquelyn Garcia NP [address] [place] [address] PCP - General Family Medicine 05/18/24 Bijan Magana MD Rheumatology 11/09/23 12/31/23 Jonh Hobson MD [address] [address] Rheumatology 01/01/24 Ayde Zheng, RN [address] [address] Registered Nurse Hepatology 08/11/24 documented as of this encounter
--- OUTSIDE RECORDS SUMMARY | 2024-12-28 17:37 | XMS_ITS | Encounter Summary ---
Author Organization Formerly [facility] Address [address] [place] [address] Care Team Providers Care Taxation Accountant Name Role Phone Bijan Magana MD Unavailable Unavailable Jonh Hobson MD Unavailable [phone] Pcp, No Primary Care Provider UnavailJacquelyn Baxter NP Primary Care Provider Ayde Zheng RN Unavailable [phone] Encounter Details Date Type Department Care Team (Late st Contact Info) Description 09/13/2022 Scanned Document [facility] Cancer [place] Medical Oncology at [address] [phone] Provider, Brian, 193 [place] [address] Social History Tobacco Use Types Packs/Day Years [...] Info) Description 12/29/2024 10:00 AM EDT Infusion [facility] Out[facility]fusion Center [address] [place], [place] [phone] Deanne Daniel MD [address] [place], [place] [phone] (Work) Valery Ruiz, ANTONIO 80 [place] [address] 12/30/2024 10:00 AM EDT Infusion [facility] Outpatient Infusion Center [address] [place], [place] [phone] Deanne Daniel MD [address] [place] [address] 01/11/2025 11:00 AM EDT Office Visit [facility] Medical Oncology at [place] [phone] Deanne Daniel MD [address] [place] [address] 01/11/2025 11:30 AM EDT Infusion [facility] Outpatient [facility]fusion Center 85 [place] [phone] Deanne Daniel MD 85 [place] [address] 01/12/2025 10:00 AM EDT Infusion [facility] Cancer [place] at [facility] Outpatient Infusion Center [address] [place] [phone] Deanne Daniel MD 85 [place] [address] 01/20/2025 1:00 PM EDT Office Visit [facility] Rheumatology [address] [place] [phone] Jonh Hobsno MD [address] [phone] 01/27/2025 11:30 AM EDT Consult [facility] Transplant Program & [facility] [address] [phone] Jonh Hobson MD [address] [phone] Jayne Morales, DO [address] [place] [address] 02/01/2025 11:40 AM EDT Office Visit [facility] Neuromuscular [facility] [address] [place] [address] 815 [place] [address] Luis Damon MD [facility] [place] [address] 02/16/2025 9:45 AM EDT [facility] [address] [place] [phone] Grey Trinidad MD [address] [address] 04/26/2025 10:00 AM EDT Infusion [facility] Cancer [place] at [facility] Outpatient Infusion Center 85 [place] [phone] Deanne Daniel MD [address] [place] [address] documented as of this encounter Visit Diagnoses Not on filedocumented in this encounter Care Teams Taxation Accountant Relationship Specialty Start Date End Date Pcp, No PCP - General General Medicine 04/22/24 05/17/24 Jacquelyn Garcia NP [address] [place] [address] PCP - General Family Medicine 05/18/24 Bijan Magana MD Rheumatology 11/09/23 12/31/23 Jonh Hobson MD [address] [address] Rheumatology 01/01/24 Ayde Zheng, RN [address] [address] Registered Nurse Hepatology 08/11/24 documented as of this encounter
--- OUTSIDE RECORDS SUMMARY | 2024-12-28 17:37 | XMS_ITS | Encounter Summary ---
Author Organization Formerly [facility] Address [address] [place] [address] Care Team Providers Care Med Admin Name Role Phone Jonh Hobson MD Unavailable [phone] Pcp, No Primary Care Provider Unavailabl e Jacquelyn Garcia NP Primary Care Provider Ayde Zheng RN Unavailable [phone] Encounter Details Date Type Department Care Team (Late st Contact Info) Description 05/13/2024 Scanned Document [address] [place] [phone] Radiology, Scan Social History Tobacco Use Types Packs/Day Years Used Date Smoking Tobacco: Never Smokeless Tobacco: Never Alcohol Use Standard Drinks/Week Comments Not Currently 0 (1 standard drink = 0.6 oz pur e alcohol) Social [facility] Utilities Answer Date Recorded In the past 12 months has next[employer], gas, oil, or water [employer] threatened to shut off services in your [...] place to sleep or slept in a chcf (including now)? No 04/26/2024 Comments No Sex [...] EDT Infusion [facility] Cancer [place] at [facility] Outpatient Infusion Center 85 [place] [phone] Deanne Daniel MD 85 [place], [place] [phone] Valery Ruiz, ANTONIO [address] [place] [phone] 12/30/2024 10:00 AM EDT Infusion [facility] Cancer [place] at [facility] Outpatient Infusion Center [address] [place] [phone] Deanne Daniel MD [address] [place] [address] 01/11/2025 11:00 AM EDT Office Visit [facility] Medical Oncology at [address] [place] [phone] Deanne Daniel MD [address] [place] [address] 01/11/2025 11:30 AM EDT Infusion [facility] Cancer [place] [facility] Infusion [address] [phone] Deanne Daniel MD [address] [place] [address] 01/12/2025 10:00 AM EDT Infusion [facility] Cancer [place] [facility] Infusion [address] [phone] Deanne Daniel MD [address] [place] [address] 01/20/2025 1:00 PM EDT Office Visit [facility] Rheumatology [address] [address] Jonh Hobson MD [address] [phone] 01/27/2025 11:30 AM EDT Consult [facility] Transplant Program & [facility] Liver [address] [place] [address] Jonh Hobson MD 31 [place] [address] [place] [address] Jayne Morales, 300 [place] [address] 02/01/2025 11:40 AM EDT Office Visit [facility] Neuromuscular [place] [facility] 85 [facility] [address] [place] [phone] Luis Damon MD [address] [place] [address] 02/16/2025 9:45 AM EDT [facility] [address] [phone] Grey Trinidad MD [address] [place] [address] 04/26/2025 10:00 AM EDT Infusion [facility] Cancer [place] [facility] Outpatient Infusion Center 85 [place] [address] Deanne Daniel MD 85 [place] [address] documented as of this encounter Procedures Procedure Name Priority Date/Time Associated Diagnosis Comments HX OUTSIDE ORDER 05/13/2024 documented in this encounter Results * HX OUTSIDE ORDER (05/13/2024) us Scan Radiology HX AMB PROCEDURES Final Result documented in this encounter Visit Diagnoses Not on filedocumented in this encounter Care Teams Med Admin Relationship Specialty Start Date End Date Pcp, No PCP - General General Medicine 04/22/24 05/17/24 Jacquelyn Garcia NP [address] [place] [address] PCP - General Family Medicine 05/18/24 Jonh Hobson MD 31 [facility] 206 [place], [place] [phone] Rheumatology 01/01/24 Ayde Zheng RN 85 [facility] 320 [place], [place] [phone] Registered Nurse Hepatology 08/11/24 documented as of this encounter
--- OUTSIDE RECORDS SUMMARY | 2024-12-28 17:37 | XMS_ITS | Encounter Summary ---
Author Organization [facility] Address [address] [place] [address] Care Team Providers Care Studio Control Operator Name Role Phone Bijan Magana MD Unavailable Unavailable Jonh Hobson MD Unavailable [phone] Pcp, No Primary Care Provider UnavailJacquelyn Baxter NP Primary Care Provider Adye Zheng RN Unavailable [phone] Encounter Details Date Type Department Care Team (Late st Contact Info) Description 11/19/2022 Scanned Document [facility] Neuromuscular [facility] [facility] 85 [facility] [address] [place] [address] Luis Damon MD [address] [place] [phone] Social History Tobacco Use Types Packs/Day Years [...] Info) Description 12/29/2024 10:00 AM EDT Infusion [facility] Cancer [place] at [facility] Outpatient Infusion Center [address] [place] [address] Deanne Daniel MD [address] [place] [address] Valery Ruiz, RN 80 [place] [address] 12/30/2024 10:00 AM EDT Infusion [facility] [place] at [facility] Outpatient Infusion Center [address] [place], [place] [phone] Deanne Daniel MD [address] [place] [address] 01/11/2025 11:00 AM EDT Office Visit [facility] Medical Oncology at [place] [phone] Deanne Daniel MD [address] [place] [address] 01/11/2025 11:30 AM EDT Infusion [facility] Cancer [place] at [facility] Outpatient Infusion Center [address] [place] [phone] Deanne Daniel MD 85 [place], [place] [phone] 01/12/2025 10:00 AM EDT Infusion [facility] Cancer [place] [facility] Outpatient Infusion [address] [phone] Deanne Daniel MD 85 [place], [place] [phone] 01/20/2025 1:00 PM EDT Office Visit [facility] Rheumatology [address] [phone] Jonh Hobson MD [address] [address] 01/27/2025 11:30 AM EDT Consult [facility] Transplant Program & [facility] Liver Center [address] [address] Jonh Hobson MD [address] [phone] Jayne Morales, DO [address] [place] [address] 02/01/2025 11:40 AM EDT Office Visit [facility] Neuromuscular [facility] [address] [place], [place] [address] [place] [address] Luis Damon MD [facility]4 [place] [address] 02/16/2025 9:45 AM EDT Consult [facility] [place] [address] [facility] [address] [place] [phone] Grey Trinidad MD [address] [address] 04/26/2025 10:00 AM EDT Infusion [facility] Cancer [place] at [facility] Outpatient Infusion Center 85 [place] [phone] Deanne Daniel MD 85 [place] [address] documented as of this encounter Visit Diagnoses Not on filedocumented in this encounter Care Teams Studio Control Operator Relationship Specialty Start Date End Date Pcp, No PCP - General General Medicine 04/22/24 05/17/24 Jacquelyn Garcia NP [address] [place] [address] PCP - General Family Medicine 05/18/24 Bijan Magana MD Rheumatology 11/09/23 12/31/23 Jonh Hobson MD [address] [address] Rheumatology 01/01/24 Ayde Zheng, RN [address] [address] Registered Nurse Hepatology 08/11/24 documented as of this encounter
--- OUTSIDE RECORDS SUMMARY | 2024-12-28 17:37 | XMS_ITS | Encounter Summary ---
Author Organization [employer] Address 75 [facility] 7t [place] [address] Care Team Providers Care Trademark Affixer Name Role Phone Jacquelyn Garcia Primary Care Provider Unavailable Nuria Levin Unavailable Inactive/Transferred Primary Care Provider Shaneka Ford DO Primary Care Provider [phone] Reason for Visit * Reason Comments Med Refill Encounter Details Date Type Department Care Team (Late st Contact Info) Description 09/08/2023 Refill [facility] MEDICAL [address] [place] [address] Jacquelyn Garcia FNP Mononeuritis multiplex; Gastroesophageal reflux [...] unspecified documented in this encounter Care Teams Trademark Affixer Relationship Specialty Start Date End Date Jacquelyn Garcia FNP PCP - General Family Medicine 08/06/22 06/01/24 Inactive/Transferred PCP - General 06/02/24 06/02/24 Shaneka Bailey DO [address] [place] [address] PCP - General Family Medicine 11/04/24 Nuria Levin Community Health Worker 12/09/22 documented as of this encounter
--- OUTSIDE RECORDS SUMMARY | 2024-12-28 17:37 | XMS_ITS | Encounter Summary ---
Author Organization [employer] Address 75 [facility] 7t [place] [address] Care Team Providers Care Doggy Daycare Activities Director Name Role Phone Jacquelyn Garcia Primary Care Provider Unavailable Nuria Levin Unavailable Inactive/Transferred Primary Care Provider Shaneka Ford DO Primary Care Provider [phone] Encounter Details Date Type Department Care Team (Late st Contact Info) Description 10/09/2023 Orders Only [facility] [address] [place] [address] Jacquelyn Garcia FNP Social History Tobacco Use [...] lead (10/01/2023 9:58 AM EST) Jacquelyn Garcia [facility] ECG ORDERABLES Final Result * CT Abdomen Pelvis w/ Contrast (10/01/2023 9:58 AM EST) Anatomical Region Laterality Modality Body, Pelvis, Abdomen Computed T omography Jacquelyn Garcia [facility] IMG CT PROCEDURES Lily l Result * CT Chest Pulmonary Embolism w/ Contrast (10/01/2023 9:57 AM EST) Anatomical Region Laterality Modality Body, Chest Computed Tomogra phy Jacquelyn Garcia [facility] IMG CT PROCEDURES Lily l Result documented in this encounter Visit Diagnoses Not on filedocumented in this encounter Care Teams Doggy Daycare Activities Director Relationship Specialty Start Date End Date Jacquelyn Garcia FNP PCP - General Family Medicine 08/06/22 06/01/24 Inactive/Transferred PCP - General 06/02/24 06/02/24 Shaneka Bailey DO [address] [place] [address] PCP - General Family Medicine 11/04/24 Nuria Levin Community Health Worker 12/09/22 documented as of this encounter
--- OUTSIDE RECORDS SUMMARY | 2024-12-28 17:37 | XMS_ITS | Encounter Summary ---
Author Organization [facility] Address [address] [place] [address] Care Team Providers Care Customer Security Clerk Name Role Phone Jonh Hobson MD Unavailable [phone] Jacquelyn Garcia [employer]S AND HUMANITIES COUNCIL DIRECTOR Primary Care Provider Ayde Zheng RN Unavailable [phone] Reason for Visit * Reason Onset Date Comments Medication Refill 10/06/2024 Encounter Details Date Type Department Care Team (Late st Contact Info) Description 10/06/2024 Refill [facility] 85 [facility] [address] [place] [address] Luis Damon MD [address] [place] [address] Steroid dependent (HCC) Social History Tobacco Use [...] in a fdc (including now)? No 04/26/2024 Comments No Sex [...] 12/29/2024 10:00 AM EDT Infusion [facility] [address] [place] [phone] Deanne Daniel MD 85 [place] [address] Valery Ruiz, ANTONIO 80 [place] [address] 12/30/2024 10:00 AM EDT Infusion [facility] Infusion [address] [phone] Deanne Daniel MD [address] [place] [address] 01/11/2025 11:00 AM EDT Office Visit [facility] Medical Oncology at [address] [phone] Deanne Daniel MD [address] [place] [address] 01/11/2025 11:30 AM EDT Infusion [facility] Infusion [address] [phone] Deanne Daniel MD [address] [place] [address] 01/12/2025 10:00 AM EDT Infusion [address] [phone] Deanne Daniel MD [address] [place] [address] 01/20/2025 1:00 PM EDT Office Visit [facility] Rheumatology [address] [phone] Jonh Hobson MD [address] [place] [address] 01/27/2025 11:30 AM EDT Consult [facility] 85 [facility] 320 [place] [address] Jonh Hobson MD 31 [facility] 206 [place], [place] [phone] Jayne Morales, DO 300 [place] [address] 02/01/2025 11:40 AM EDT Office Visit [facility] 85 [facility] 815 [place] [address] Luis Damon MD [facility]4 [place] [address] 02/16/2025 9:45 AM EDT [facility] [address] [place] [phone] Grey Trinidad MD [address] [place] [address] 04/26/2025 10:00 AM EDT Infusion [facility] 85 [place] [address] Deanne Daniel MD 85 [place] [address] documented as of this encounter Visit Diagnoses Diagnosis Steroid dependent (HCC) documented in this encounter Care Teams Customer Security Clerk Relationship Specialty Start Date End Date Jacquelyn Garcia NP [address] [place] [address] PCP - General Family Medicine 05/18/24 Jonh Hobson MD 31 [facility] 206 [place] [address] Rheumatology 01/01/24 Ayde Zheng RN 85 [facility] 320 [place] [address] Registered Nurse Hepatology 08/11/24 documented as of this encounter
--- OUTSIDE RECORDS SUMMARY | 2024-12-28 17:37 | XMS_ITS | Encounter Summary ---
Author Organization [facility] Address [address] [place] [address] Care Team Providers Care Sales And Service Technician Name Role Phone Jonh Hobson MD Unavailable [phone] Pcp, No Primary Care Provider Unavailabl e Jacquelyn Garcia NP Primary Care Provider Ayde Zheng RN Unavailable [phone] Encounter Details Date Type Department Care Team (Late st Contact Info) Description 05/12/[address] [facility] Medical Oncology at [facility] [address] [phone] Valery Coe [address] [place] [address] Social History Tobacco Use Types Packs/Day Years Used Date Smoking Tobacco: Never Smokeless Tobacco: Never Alcohol Use Standard Drinks/Week Comments Not Currently 0 (1 standard drink = 0.6 oz pur e alcohol) Social [facility] Utilities Answer Date Recorded In [...] [facility] [facility] [address] [place] [phone] Deanne Daniel MD 85 [place], [place] [phone] Valery Ruiz RN 80 [place] [address] 12/30/2024 10:00 AM EDT Infusion [facility] [place] [facility] Infusion [address] [phone] Deanne Daniel MD [address] [place] [address] 01/11/2025 11:00 AM EDT Office Visit [facility] Medical Oncology at [address] [phone] Deanne Daniel MD [address] [place] [address] 01/11/2025 11:30 AM EDT Infusion [facility] Infusion [address] [phone] Deanne Daniel MD [address] [place] [address] 01/12/2025 10:00 AM EDT Infusion [facility] [facility] Infusion [address] [phone] Deanne Daniel MD [address] [place] [address] 01/20/2025 1:00 PM EDT Office Visit [facility] Rheumatology [address] [phone] Jonh Hobson MD [address] [place] [address] 01/27/2025 11:30 AM EDT Consult [facility] 85 [facility] 320 [place] [phone] Jonh Hobson MD [address] [phone] Jayne Morales, DO 300 [place] [address] 02/01/2025 11:40 AM EDT Office Visit [facility] 85 [facility] 815 [place] [phone] Luis Damon MD [facility]4 [place], [place] 310[address] 02/16/2025 9:45 AM EDT [facility] [address] [phone] Grey Trinidad MD [address] [place] [address] 04/26/2025 10:00 AM EDT Infusion [facility] [place] [facility] 85 [place] [address] Deanne Daniel MD 85 [place] [address] documented as of this encounter Visit Diagnoses Not on filedocumented in this encounter Care Teams Sales And Service Technician Relationship Specialty Start Date End Date Pcp, No PCP - General General Medicine 04/22/24 05/17/24 Jacquelyn Garcia NP [address] [place] [address] PCP - General Family Medicine 05/18/24 Jonh Hobson MD [address] [address] Rheumatology 01/01/24 Ayde Zheng RN 85 [facility] 320 [place], [place] [phone] Registered Nurse Hepatology 08/11/24 documented as of this encounter
== END 2024-12-28 17:34 | disposition home or self-care (01) ==
LOC: HO.MRI 17:33
PROVIDERS: Visit Provider Physician Assistant
DX: G95.9 Disease of spinal cord, unspecified (principal); M21.379 Foot drop, unspecified foot
CPT/HCPCS: 72141; 72148

== ENCOUNTER 2024-12-31 14:41 | Outpatient (AMB) | payer OTHER, MEDICAID, SELFPAY ==
--- OUTSIDE RECORDS SUMMARY | 2024-12-31 14:43 | XMS_ITS | Encounter Summary ---
Author Organization [facility] Address [address] [place] [address] Care Team Providers Care Machine Shop Helper Name Role Phone Bijan Magana MD Unavailable Unavailable Jonh Hobson MD Unavailable [phone] Pcp, No Primary Care Provider Unavailabl e Jacquelyn Garcia NP Primary Care Provider Ayde Zheng RN Unavailable [phone] Encounter Details Date Type Department Care Team (Late st Contact Info) Description 03/28/2023 Scanned Document [facility] 85 [facility] [address] [place] [address] Jaqcuelyn Garcia, NOEL [address] [facility] [place] [address] Social History Tobacco Use Types Packs/Day Years [...] Care Team (Late st Contact Info) Description 01/12/2025 10:00 AM EDT Office Visit [facility] Medical Oncology at [address] [place] [phone] Deanne Daniel MD 85 [place], [place] [phone] 01/12/2025 10:45 AM EDT Infusion [facility] Outpatient Infusion [address] [phone] Deanne Daniel MD [address] [place] [phone] 01/13/2025 10:00 AM EDT Infusion [facility] Infusion [address] [phone] Deanne Daniel MD [address] [place] [address] 01/20/2025 1:00 PM EDT [facility] Rhe[facility]ology [address] [phone] Jonh Hobson MD 31 [facility] 206 [place], [place] [phone] 01/27/2025 11:30 AM EDT Consult [facility] 85 [facility] [address] [place] [phone] Jonh Hobson MD 31 [facility] 206 [place], [place] [phone] Jayne Morales, DO 300 [facility] [place] [address] 02/01/2025 11:40 AM EDT Office Visit [facility] 85 [facility] [address] [place] [address] Luis Damon MD 1914 [place], [place] [address]250 02/16/2025 9:45 AM EDT [facility] [address] [place] [phone] Grey Trinidad MD [address] [place] [address] 04/26/2025 10:00 AM EDT Infusion [facility] Center 85 [place] [address] Deanne Daniel MD [address] [place] [address] documented as of this encounter Visit Diagnoses Not on filedocumented in this encounter Care Teams Machine Shop Helper Relationship Specialty Start Date End Date Pcp, No PCP - General General Medicine 04/22/24 05/17/24 Jacquelyn Garcia NP [address] [place] [address] PCP - General Family Medicine 05/18/24 Bijan Magana MD Rheumatology 11/09/23 12/31/23 Jonh Hobson MD 31 [facility] 206 [place], [place] [phone] Rheumatology 01/01/24 Ayde Zheng RN 85 [facility] 320 [place], [place] [phone] Registered Nurse Hepatology 08/11/24 documented as of this encounter
--- OUTSIDE RECORDS SUMMARY | 2024-12-31 14:43 | XMS_ITS | Encounter Summary ---
Author Organization [facility] Address [address] [place] [address] Care Team Providers Care Pilot Teacher Name Role Phone Jonh Hobson MD Unavailable [phone] Jacquelyn Garcia DECKHAND CLAM DREDGE Primary Care Provider Ayde Zheng RN Unavailable [phone] Encounter Details Date Type Department Care Team (Late st Contact Info) Description 08/11/2024 Telephone [facility] [address] [address] Janet Bonilla MA [address] [phone] Social History Tobacco Use Types Packs/Day Years Used Date Smoking Tobacco: Never Smokeless Tobacco: Never Alcohol Use Standard Drinks/Week Comments Not Currently 0 (1 standard drink = 0.6 oz pur e alcohol) Social C Utilities Answer Date Recorded In the past 12 months has [employer] electric, gas, oil, or water company threatened [...] place to sleep or slept in a detention (including now)? No 04/26/2024 Comments No Sex [...] to call us back. Calling to schedule HEN/. 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 * Telephone Encounter - Kira Jarquin APRN - 08/13/2024 8:25 AM EST Records reviewed. 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 Needs to see a natural resources instructor. Thanks * Telephone Encounter - Janet Bonilla MA - 08/11/2024 10:30 AM EST New patient records received. Transcribe order completed. Care Team added. Records are available inEpic. please advise documented in this encounter Plan of Treatment Upcoming Encounters Date Type Department Care Team (Late st Contact Info) Description 01/12/2025 10:00 AM EDT Office Visit [facility] Medical Oncology at [address] [phone] Deanne Daniel MD [address] [place] [address] 01/12/2025 10:45 AM EDT Infusion [facility] Outpatient Infusion [address] [phone] Deanne Daniel MD [address] [place] [address] 01/13/2025 10:00 AM EDT Infusion [facility] Outpatient Infusion [address] [phone] Deanne Daniel MD [address] [place] [address] 01/20/2025 1:00 PM EDT Office Visit [facility] Rheumatology [place] [address] [place] [address] [address] [place] [address] Jonh Hobson MD 31 [facility] 206 [place] [address] 01/27/2025 11:30 AM EDT Consult [facility] Transplant Program & [facility] [place] 85 [facility] 320 [place] [address] Jonh Hobson MD 31 [facility] 206 [place], [place] [phone] Jayne Morales, 300 [place] [address] 02/01/2025 11:40 AM EDT Office Visit [facility] 85 [facility] 815 [place] [address] Luis Damon MD [facility]4 [place], [place] 4[address] 02/16/2025 9:45 AM EDT [facility] [address] [phone] Grey Trinidad MD [address] [place] [address] 04/26/2025 10:00 AM EDT Infusion [facility] [place] [facility] Center 85 [place] [phone] Deanne Daniel MD 85 [place], [place] [phone] documented as of this encounter Visit Diagnoses Not on filedocumented in this encounter Care Teams Pilot Teacher Relationship Specialty Start Date End Date Jacquelyn Garcia NP [address] [place] [address] PCP - General Family Medicine 05/18/24 Jonh Hobson MD 31 [facility] 206 [place], [place] [phone] Rheumatology 01/01/24 Ayde Zheng RN 85 [facility] 320 [place] [address] Registered Nurse Hepatology 08/11/24 documented as of this encounter
--- OUTSIDE RECORDS SUMMARY | 2024-12-31 14:43 | XMS_ITS | Encounter Summary ---
Author Organization [facility] Address [address] [place] [address] Care Team Providers Care Trencher Driver Name Role Phone Bijan Magana MD Unavailable Unavailable Jonh Hobson MD Unavailable [phone] Pcp, No Primary Care Provider UnavailJacquelyn [place] NP Primary Care Provider Ayde Zheng RN Unavailable [phone] Encounter Details Date Type Department Care Team (Late st Contact Info) Description 05/15/2023 Scanned Document [facility] [place] [facility] 85 [facility] [address] [place] [address] Luis Damon MD [address] [place] [address] [phone] Social History Tobacco Use Types Packs/Day Years [...] Description 01/12/2025 10:00 AM EDT Office Visit [facility] Medical Oncology at [address] [place] [address] Deanne Daniel MD [address] [place] [phone] 01/12/2025 10:45 AM EDT Infusion [facility] [place] [facility] Outpatient Infusion [address] [phone] Deanne Daniel MD [address] [place] [address] [phone] 01/13/2025 10:00 AM EDT Infusion [facility] Infusion [address] [phone] Deanne Daniel MD [address] [place] [address] 01/20/2025 1:00 PM EDT Office Visit [facility] Rheumatology [address] [phone] Jonh Hobson MD 31 [facility] 206 [place] [address] 01/27/2025 11:30 AM EDT Consult [facility] 85 [facility] 320 [place] [address] Jonh Hobson MD 31 [facility] 206 [place], [place] [phone] Jayne Morales, DO 300 [facility] [place] [address] 02/01/2025 11:40 AM EDT Office Visit [facility] 85 [facility] 815 [place] [address] Luis Damon MD 1914 [place], [place] 2332[address] 02/16/2025 9:45 AM EDT [facility] [address] [place] [phone] Grey Trinidad MD [address] [place] [address] 04/26/2025 10:00 AM EDT Infusion [facility] [place] [facility]fusion Center 85 [place] [address] Deanne Daniel MD 85 [place] [address] documented as of this encounter Visit Diagnoses Not on filedocumented in this encounter Care Teams Trencher Driver Relationship Specialty Start Date End Date Pcp, No PCP - General General Medicine 04/22/24 05/17/24 Jacquelyn Garcia NP [address] [place] [address] PCP - General Family Medicine 05/18/24 Bijan Magana MD Rheumatology 11/09/23 12/31/23 Jonh Hobson MD 31 [facility] 206 [place], [place] [phone] Rheumatology 01/01/24 Ayde Zheng RN 85 [facility] 320 [place], [place] [phone] Registered Nurse Hepatology 08/11/24 documented as of this encounter
--- OUTSIDE RECORDS SUMMARY | 2024-12-31 14:43 | XMS_ITS | Encounter Summary ---
Author Organization [facility] Address [address] [place] [address] Care Team Providers Care Fraud Examiner Name Role Phone Jonh Hobson MD Unavailable [phone] Jacquelyn Garcia IRRIGATION SYSTEM OPERATOR Primary Care Provider Ayde Zheng RN Unavailable [phone] Encounter Details Date Type Department Care Team (Late st Contact Info) Description 07/08/2024 Scanned Document [address] [place] [phone] Radiology, Scan Social History Tobacco Use Types Packs/Day Years Used Date Smoking Tobacco: Never Smokeless Tobacco: Never Alcohol Use Standard Drinks/Week Comments Not Currently 0 (1 standard drink = 0.6 oz pur e alcohol) Social [facility] Utilities Answer Date Recorded In the past 12 months has [employer], gas, oil, or water company threatened to [...] Description 01/12/2025 10:00 AM EDT Office Visit [facility] Medical Oncology at [address] [phone] Deanne Daniel MD [address] [place] [phone] 01/12/2025 10:45 AM EDT Infusion [facility] [place] [facility] [address] [place] [phone] Deanne Daniel MD [address] [place] [address] 01/13/2025 10:00 AM EDT Infusion [facility] [place] [facility] [address] [place] [address] Deanne Daniel MD [address] [place] [address] 01/20/2025 1:00 PM EDT Office Visit [facility] Rheumatology [address] [place] [phone] Jonh Hobson MD [address] [address] 01/27/2025 11:30 AM EDT Consult [facility] [address] [address] Jonh Hobson MD [address] [phone] Jayne Morales, DO 300 [place] [address] 02/01/2025 11:40 AM EDT Office Visit [facility] [place] [facility] [address] [place] [address] 815 [place] [address] Luis Damon MD [facility]4 [place], [place] 933270 02/16/2025 9:45 AM EDT [facility] [address] [place] [phone] Grey Trinidad MD [address] [place] [address] [address] [place] [address] 04/26/2025 10:00 AM EDT Infusion [facility] [place] [facility] [address] [place] [phone] Deanne Daniel MD [address] [place] [address] documented as of this encounter Procedures Procedure Name Priority Date/Time Associated Diagnosis Comments HX OUTSIDE ORDER 07/08/2024 documented in this encounter Results * OUTSIDE ORDER (07/08/2024) us Scan Radiology HX AMB PROCEDURES Final Result documented in this encounter Visit Diagnoses Not on filedocumented in this encounter Care Teams Fraud Examiner Relationship Specialty Start Date End Date Jacquelyn Garcia NP 73 [place] [address] PCP - General Family Medicine 05/18/24 Jonh Hobson MD 31 [facility] 206 [place] [address] Rheumatology 01/01/24 Ayde Zheng RN 85 [facility] 320 [place] [address] Registered Nurse Hepatology 08/11/24 documented as of this encounter
--- OUTSIDE RECORDS SUMMARY | 2024-12-31 14:44 | XMS_ITS | Encounter Summary ---
Author Organization [facility] Address [address] [place] [address] Care Team Providers Care Mathematician Name Role Phone Bijan Magana MD Unavailable Unavailable Jonh Hobson MD Unavailable [phone] Pcp, No Primary Care Provider UnavailJacquelyn Baxter NP Primary Care Provider Ayde Zheng RN Unavailable [phone] Encounter Details Date Type Department Care Team (Late st Contact Info) Description 05/21/2022 Scanned Document [address] [place] [phone] Provider, Generic Social History Tobacco Use [...] 01/12/2025 10:00 AM EDT Office Visit [facility] Medical Oncology at [address] [phone] Deanne Daniel MD [address] [place] [address] 01/12/2025 10:45 AM EDT Infusion [facility] [place] [facility] Outpatient Infusion [address] [phone] Deanne Daniel MD [address] [place] [address] 01/13/2025 10:00 AM EDT Infusion [facility] Infusion [address] [phone] Deanne Daniel MD [address] [place] [address] 01/20/2025 1:00 PM EDT Office Visit [facility] Rheumatology [address] [phone] Jonh Hobson MD 31 [facility] 206 [place] [address] 01/27/2025 11:30 AM EDT Consult [facility] [address] [place] [address] 320 [place] [address] Jonh Hobson MD [address] [address] Jayne Morales, DO 300 [facility] [place] [address] 02/01/2025 11:40 AM EDT Office Visit [facility] [place] [facility] 85 [facility] [address] [place] [phone] Luis Damno MD [facility]4 [place], [place] 438720 02/16/2025 9:45 AM EDT [facility] [address] [phone] Grey Trinidad MD [address] [place] [address] 04/26/2025 10:00 AM EDT Infusion [facility] [place] [facility] 85 [place] [phone] Deanne Daniel MD [address] [place] [address] documented as of this encounter Procedures Procedure Name Priority Date/Time Associated Diagnosis Comments HX OUTSIDE ORDER 05/21/2022 documented in this encounter Results * HX OUTSIDE ORDER (05/21/2022) Narrative 05/21/2022 Ordered by an unspecified provider. us Generic Provider HX AMB PROCEDURES Final Result documented in this encounter Visit Diagnoses Not on filedocumented in this encounter Care Teams Mathematician Relationship Specialty Start Date End Date Pcp, No PCP - General General Medicine 04/22/24 05/17/24 Jacquelyn Garcia NP [address] [place] [address] PCP - General Family Medicine 05/18/24 Bijan Magana MD Rheumatology 11/09/23 12/31/23 Jonh Hobson MD [address] [address] Rheumatology 01/01/24 Ayde Zheng RN [address] [phone] Registered Nurse Hepatology 08/11/24 documented as of this encounter
--- OUTSIDE RECORDS SUMMARY | 2024-12-31 14:44 | XMS_ITS | Encounter Summary ---
Author Organization [facility] Address [address] [place] [address] Care Team Providers Care Landscape Gardener Name Role Phone Bijan Magana MD Unavailable Unavailable Jonh Hobson MD Unavailable [phone] Pcp, No Primary Care Provider UnavailJacquelyn aBxter NP Primary Care Provider Ayde Zheng RN Unavailable [phone] Encounter Details Date Type Department Care Team (Late st Contact Info) Description 06/19/2022 Scanned Document [facility] [place] [facility] [address] [place] [phone] Provider, Brian, [address] [place] [address] Social History Tobacco Use Types Packs/Day Years [...] [facility] Medical Oncology at [address] [place] [phone] Deanne Daniel MD [address] [place] [phone] 01/12/2025 10:[address] [facility] Outpatient Infusion [address] [phone] Deanne Daniel MD [address] [place] [address] [phone] 01/13/2025 10:00 AM EDT Infusion [facility]fusion [address] [phone] Deanne Daniel MD [address] [place] [address] [phone] 01/20/2025 1:00 PM EDT Office Visit [facility] Rheumatology [address] [place] [phone] Jonh Hobson MD 31 [facility] 206 [place], [place] [phone] 01/27/2025 11:30 AM EDT Consult [facility] 85 [facility] 320 [place] [phone] Jonh Hobson MD 31 [facility] 206 [place] [address] Jayne Morales, DO 300 [facility] [place] [address] 02/01/2025 11:40 AM EDT Office Visit [facility] [place] [facility] 85 [facility] 815 [place] [phone] Luis Damon MD [facility]4 [place], [place] [address] 02/16/2025 9:45 AM EDT [facility] [address] [place] [phone] Grey Trinidad MD [address] [place] [address] 04/26/2025 10:00 AM EDT Infusion [facility] [place] [facility] 85 [place] [address] Deanne Daniel MD 85 [place] [address] documented as of this encounter Visit Diagnoses Not on filedocumented in this encounter Care Teams Landscape Gardener Relationship Specialty Start Date End Date Pcp, No PCP - General General Medicine 04/22/24 05/17/24 Jacquelyn Garcia NP [address] [place] [address] PCP - General Family Medicine 05/18/24 Bijan Magana MD Rheumatology 11/09/23 12/31/23 Jonh Hobson MD 31 [facility] 206 [place] [address] Rheumatology 01/01/24 Ayde Zheng RN 85 [facility] 320 [place] [address] Registered Nurse Hepatology 08/11/24 documented as of this encounter
--- OUTSIDE RECORDS SUMMARY | 2024-12-31 14:44 | XMS_ITS | Encounter Summary ---
Author Organization [facility] Address 75 [facility] 7t [place] [address] Care Team Providers Care Specialized Developer Name Role Phone Jacquelyn Garcia Primary Care Provider Unavailable Nuria Levin Unavailable Unavailable Inactive/Transferred Primary Care Provider Shaneka Ford DO Primary Care Provider [phone] Reason for Visit * Reason Comments Med Refill Encounter Details Date Type Department Care Team (Late st Contact Info) Description 02/04/[address] [facility] MEDICAL [address] [place] [address] Jacquelyn Garcia FNP Mononeuritis multiplex Social History [...] multiplex documented in this encounter Care Teams Specialized Developer Relationship Specialty Start Date End Date Jacquelyn Garcia FNP PCP - General Family Medicine 08/06/22 06/01/24 Inactive/Transferred PCP - General 06/02/24 06/02/24 Shaneka Bailey DO [address] [place] [address] PCP - General Family Medicine 11/04/24 Nuria Levin Community Health Worker 12/09/22 documented as of this encounter
--- OUTSIDE RECORDS SUMMARY | 2024-12-31 14:44 | XMS_ITS | Encounter Summary ---
Author Organization [facility] Address [address] [place] [address] Care Team Providers Care Bone Density Technician Name Role Phone Jonh Hobson MD Unavailable [phone] Jacquelyn Garcia SELF PROPELLED DREDGE OPERATOR Primary Care Provider Ayde Zheng RN Unavailable Reason for Visit * Reason Comments IV Medication * Episode Based Medications (Routine) - Authorized Specialty Diagnoses / Procedures Referred By Contac t Referred To Contact Infusion Therapy Diagnoses Vasculitic neuropathy Anemia due to other cause, not classified High risk medication use Luis Damon MD [address] [place] [address] Phone: tel: fax: [facility] [place] [facility] [address] [place] [phone] Phone: tel: fax: Referral ID Status Reason Start Date Expiration Date V isits Requested Visits Authorized [id number] Authorized 09/01/2023 08/30/2025 1 54 Encounter Details Date Type Department Care Team (Late st Contact Info) Description 12/30/2024 10:00 AM EDT Infusion [facility] [place] [facility] Center 85 [place] [phone] Deanne Daniel MD [address] [place], [place] [phone] Leidy Zabala RN 80 [place] [address] Vasculitic neuropathy (Primary Dx); Anemia due to other cause, not classified; High risk medication use Social History Tobacco Use Types Packs/Day Years Used Date Smoking Tobacco: Never Smokeless Tobacco: Never Alcohol Use Standard Drinks/Week Comments Not Currently 0 (1 standard drink = 0.6 oz pur e alcohol) Social [facility] Utilities Answer Date Recorded In the past 12 months has th e [employer], gas, oil, or water [employer] threatened to shut off services in your [...] place to sleep or slept in a skilled nursing (including now)? No 04/26/2024 Comments No Sex and Gender Information Value Date Recorded Sex Assigned at Female 10/02/2022 12:43 PM EST Legal Sex Female 5:38 PM EDT Gender Identity Female 10/02/2022 12:43 PM EST Sexual Orientation Heterosexual (straight) 10/02 12:43 PM EST documented as of this encounter Last Filed Vital Signs Vital Sign Reading Time Taken Comments Blood Pressure 131/79 12/30/2024 3:42 PM EDT Pulse 61 12/30/2024 3:42 PM EDT Temperature 36.1 ??C (97 ??F) 12/30/2024 2:18 PM EDT Respiratory Rate 18 12/30/2024 2:45 PM EDT Oxygen Saturation 100% 12/30/2024 2:45 PM EDT Inhaled Oxygen Concentration - - Weight - - Height - - Body Mass Index - - documented in this encounter Progress Notes * Liedy Zabala RN - 12/30/2024 4:24 PM EDT 12/30/24 1542 Provider Notification Notification Time 1445 Reason for Communication adverse reaction 1 Adv Reaction 1 Medication Adv Reaction 1: Date 12/30/24 Adv Reaction 1 - Medication Name IVIG Adv Reaction 1: Signs & Symptoms Shortness of Breath;Chest Pain;Hypertension;Muscle Spasms (chest pressure) Adv Reaction 1: Nursing Assessment Heart rate regular Adv Reaction 1: Nursing Interventions Provider notified Adv Reaction 1: Response to Intervention Vital signs stable Adv Reaction 1: Comments Upon completion of IVIG, pt complained of chest pressure, chest tightness,shortness of breath Provider Name Jocelyn Alcala Provider Role physician life enrichment assistant Method of Communication face to face Response at bedside Additional Information hypersensitivity meds given per OCT. Pt's vitals remained stable. Pt transitioned home in stable condition documented in this encounter Plan of Treatment Upcoming Encounters Date Type Department Care Team (Late st Contact Info) Description 01/12/2025 10:00 AM EDT Office Visit [facility] Medical Oncology at [address] [phone] Deanne Daniel MD [address] [place] [address] 01/12/2025 10:45 AM EDT Infusion [facility] [place] [facility] [address] [place] [phone] Deanne Daniel MD [address] [place] [address] 01/13/2025 10:00 AM EDT Infusion [facility] Outpatient Infusion [address] [phone] Deanne Daniel MD [address] [place] [address] 01/20/2025 1:00 PM EDT Office Visit [address] [phone] Jonh Hobson MD [address] [place] [address] 01/27/2025 11:30 AM EDT Consult [facility] [address] [place] [phone] Jonh Hobson MD [address] [address] Jayne Morales, DO 300 [place] [address] 02/01/2025 11:40 AM EDT Office Visit [facility] [place] [facility] 85 [facility] 815 [place] [address] Luis Damon MD [facility]4 [place] [address] 02/16/2025 9:45 AM EDT [facility] [address] [phone] Grey Trinidad MD [address] [place] [address] 04/26/2025 10:00 AM EDT Infusion [facility] [place] [facility] [address] [place] [phone] Deanne Daniel MD 85 [place], [place] [phone] documented as of this encounter Visit Diagnoses Diagnosis Vasculitic neuropathy- Primary Unspecified arteritis Anemia due to other cause, not classified High risk medication use documented in this encounter Administered Medications Inactive Administered Medications - up to 1 most recent administrations Medication Order MAR Action Action Date Dose Rate Site sodium chloride 0.9% (NS) infusion 500 mL/hr, Intravenous, Once, On Monik 12/30/24 at 1000, For 1 doseIndications:Vasculiti c neuropathy,Anemia due to other cause, not classified,High risk medication use New Bag 12/30/2024 9:56 AM EDT 500 mL/hr 500 mL/hr acetaminophen (TYLENOL) tablet 975 mg 975 mg, Oral, Once, On Monik 12/30/24 at 1000, For 1 doseIndications:Vasculiti c neuropathy,Anemia due to other cause, not classified,High risk medication use Given 12/30/2024 9:56 AM EDT 975 mg diphenhydrAMINE (BENADRYL) 50 mg in sodium chloride (NS) 0.9 % 50 mL IVPB-WTD 50 mg, Intravenous, at 200 mL/hr, Once, On Monik 12/30/24 at 1000, For 1 dose, Administer 30 to 60 minutes prior to chemotherapy when being utilized as a Pre-MedicationIndications :Vasculitic neuropathy,Anemia due to other cause, not classified,High risk medication use New Bag 12/30/2024 9:56 AM EDT 50 mg 200 mL/hr diphenhydrAMINE (BENADRYL) injection 25 mg 25 mg, Intravenous, Once PRN, itching, For Itching, Facial Flushing, Hives or Rash, Starting on Monik 12/30/24 at 1611, For 1 dose, If ordered IV push, inject at a rate of 25 mg/minute or LESS.Indications:Vasculit ic neuropathy Given 12/30/2024 3:30 PM EDT 25 mg diphenhydrAMINE (BENADRYL) injection 25 mg 25 mg, Intravenous, Once PRN, itching, For Itching, Facial Flushing, Hives or Rash, Starting on Monik 12/30/24 at 1611, For 1 dose, Administer if there is no improvement in symptoms 5 minutes after administration of first dose of Diphenhydramine 25 mg & Famotidine 20 mg. If ordered IV push, inject at a rate of 25 mg/minute or LESS.Indications:Vasculit ic neuropathy Given 12/30/2024 2:50 PM EDT 25 mg famotidine (PEPCID) 20 mg/2 mL injection 20 mg 20 mg, Intravenous, Once, On Monik 12/30/24 at 1000, For 1 dose, If ordered IV push: dilute dose with 0.9% sodium chloride (NS) to a total volume of 10 mLs; administer at a rate of 10 mg/minute.Indications:Vas culitic neuropathy,Anemia due to other cause, not classified,High risk medication use Given 12/30/2024 9:56 AM EDT 20 mg famotidine (PEPCID) 20 mg/2 mL injection 20 mg 20 mg, Intravenous, Once, On Monik 12/30/24 at 1400, For 1 dose, If ordered IV push: dilute dose with 0.9% sodium chloride (NS) to a total volume of 10 mLs; administer at a rate of 10 mg/minute.Indications:Vas culitic neuropathy Given 12/30/2024 2:15 PM EDT 20 mg immune globulin (human) 10% in Solution (GAMMAGARD) IV Premix 10 g 10 g, Intravenous, Once, On Monik 12/30/24 at 1000, For 1 dose, Intravenous Immune Globulin per [facility] Pharm[facility] Protocol: Total Dose Per Day: 1000 mg/kg, 70 grams, for 2 days/doses. Dose will be broken in individual vials of 3 x 20 grams, 1 x 10 grams Filtration not required. In-line 0.2 micron filter optional. Refer to IVIG infusion table for administration rate. 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 Dose will be broken in individual vials of 3 x 20 grams, 1 x 10 grams Filtration not required. In-line 0.2 micron filter optional. Refer to IVIG infusion table for administration rate. 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 Dose will be broken in individual vials of 3 x 20 grams, 1 x 10 grams Filtration not required. In-line 0.2 micron filter optional. Refer to IVIG infusion table for administration rate. 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 Dose will be broken in individual vials of 3 x 20 grams, 1 x 10 grams Filtration not required. In-line 0.2 micron filter optional. Refer to IVIG infusion table for administration rate. 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 Rate/Dose Change 12/30/2024 1:10 PM EDT 360 mL/hr ketorolac (TORADOL) injection 15 mg 15 mg, Intravenous, Every 6 hours PRN, mild pain 1-3, Starting on Monik 12/30/24 at 0940, For 1 day, If ordered IV Push: administer undiluted over 2 minutes.Indications:Vascu litic neuropathy,Anemia due to other cause, not classified,High risk medication use Given 12/30/2024 10:03 AM EDT 15 mg methylPREDNISolone sodium succinate (SOLU-Medrol) injection 125 mg 125 mg, Intravenous, Once, On Monik 12/30/24 at 1000, For 1 dose, PRIOR TO IVIG ON DAY 2 ONLYIndications:Vasculiti c neuropathy,Anemia due to other cause, not classified,High risk medication use Given 12/30/2024 9:56 AM EDT 125 mg ondansetron (ZOFRAN) injection 4 mg 4 mg, Intravenous, Every 6 hours PRN, nausea, vomiting, Starting on Monik 12/30/24 at 0940, For 1 doseIndications:Vasculiti c neuropathy,Anemia due to other cause, not classified,High risk medication use Given 12/30/2024 9:56 AM EDT 4 mg SUMAtriptan (IMITREX) injection 6 mg 6 mg, Subcutaneous, Once PRN, migraine, Starting on Monik 12/30/24 at 0940, For 1 dose, FOR SUBCUTANEOUS (SUBQ) INJECTION ONLYIndications:Vasculiti c neuropathy,Anemia due to other cause, not classified,High risk medication use Given 12/30/2024 1:44 PM EDT 6 mg Left Arm documented in this encounter Care Teams Bone Density Technician Relationship Specialty Start Date End Date Jacquelyn Garcia NP [address] [place] [address] PCP - General Family Medicine 05/18/24 Jonh Hobson MD 31 [facility] 206 [place] [address] Rheumatology 01/01/24 Ayde Zheng RN 85 [facility] 320 [place], [place] [phone] Registered Nurse Hepatology 08/11/24 documented as of this encounter
--- OUTSIDE RECORDS SUMMARY | 2024-12-31 14:44 | XMS_ITS | Encounter Summary ---
Author Organization [facility] Address [address] [place] [address] Care Team Providers Care Scrip Clerk Name Role Phone Jonh Hobson MD Unavailable [phone] Pcp, No Primary Care Provider Unavailabl e Jacquelyn Garcia NP Primary Care Provider Ayde Zheng RN Unavailable [phone] Encounter Details Date Type Department Care Team (Late st Contact Info) Description 03/30/2024 Scanned Document [facility] Cancer [place] [facility] [address] [place] [phone] Valery Coe [address] [place] [id number] Social History Tobacco Use Types Packs/Day Years [...] Description 01/12/2025 10:00 AM EDT Office Visit [facility] Medical Oncology at [address] [place] [address] Deanne Daniel MD [address] [place] [phone] 01/12/2025 10:45 AM EDT Infusion [facility] Cancer [place] [facility] Outpatient Infusion [address] [phone] Deanne Daniel MD [address] [place] [phone] 01/13/2025 10:00 AM EDT Infusion [facility] Cancer [place] [facility] Infusion [address] [phone] Deanne Daniel MD [address] [place] [phone] 01/20/2025 1:00 PM EDT Office Visit [facility] Rheumatology [address] [place] [phone] Jonh Hobson MD 31 [facility] [address] [place] [address] 01/27/2025 11:30 AM EDT Consult [facility] Transplant [facility] & [facility] 85 [facility] [address] [place] [phone] Jonh Hobson MD [address] [phone] Jayne Morales Rajinder, DO 300 [facility] [place] [address] 02/01/2025 11:40 AM EDT Office Visit [facility] Neuromuscular [place] [facility] 85 [facility] [address] [place] [address] Luis Damon MD Count includes the [facility]4 [place], [place] [address] 02/16/2025 9:45 AM EDT Consult [facility] [address] [phone] Grey Trinidad MD [address] [place] [phone] 04/26/2025 10:00 AM EDT Infusion [facility] Cancer [place] [facility] [address] [place] [address] Deanne Daniel MD [address] [place] [address] documented as of this encounter Visit Diagnoses Not on filedocumented in this encounter Care Teams Scrip Clerk Relationship Specialty Start Date End Date Pcp, No PCP - General General Medicine 04/22/24 05/17/24 Jacquelyn Garcia NP [address] [place] [address] PCP - General Family Medicine 05/18/24 Jonh Hobson MD [address] [address] Rheumatology 01/01/24 Ayde Zheng RN 85 [facility] [address] [place], [place] [phone] Registered Nurse Hepatology 08/11/24 documented as of this encounter
--- OUTSIDE RECORDS SUMMARY | 2024-12-31 14:44 | XMS_ITS | Clinical Summary ---
Author Organization [facility] Address [address] [place] [address] Care Team Providers Care Snagger Name Role Phone Jonh Hobson MD Unavailable [phone] Jacquelyn Garcia LIFE SCIENCES MANAGER Primary Care Provider Ayde Zheng RN Unavailable [phone] Allergies Active Allergy Reactions Criticality Noted [...] 6 hours) as needed for wheezing. Active lidocaine (LIDODERM) 5 % patchIndication s:Polyneuropath y [...] the morning after breakfast 40 tablet 11/27/19 25 Active methoTREXate, PF, (Rasuvo) 20 MG/0.4ML subcutaneous [...] (06/22/2021): Added automatically from request for surgery [id number] Pleural effusion 06/17/2021 Overview (07/02/2021): Added automatically from request for surgery [id number] Encounters Date Type Department Care Team Description 12/30/2024 10:00 AM EDT Infusion [facility]fusion Center [address] [place] [phone] Deanne Daniel MD Baltz, Sara E, RN Vasculitic neuropathy (Primary Dx); Anemia due to other cause, not classified; High risk medication use 12/29/2024 10:00 AM EDT Infusion [facility] [address] [place] [phone] Deanne Daniel MD Walles, Claudia, RN Vasculitic neuropathy (Primary Dx); Anemia due to other cause, not classified; High risk medication use; Nausea 12/29/2024 Travel 12/28/2024 Telephone [facility] Transplant Program & [facility] [address] [place] [address] [address] [place] [address] Sabrina Villegas MA 12/15/2024 10:00 AM EDT Infusion [facility] [place] [facility] Outpatient Infusion Center [address] [place] [address] Deanne Daniel MD Laflamme, Shauna C, RN Vasculitic neuropathy (Primary Dx); Anemia due to other cause, not classified; High risk medication use 12/14/2024 10:00 AM EDT Infusion [facility] [place] [facility] Out[facility]fusion [facility] [address] [place] [address] Deanne Daniel MD Carilli, Kristina, RN Vasculitic neuropathy (Primary Dx); Anemia due to other cause, not classified; High risk medication use 12/14/2024 Telephone [facility] Rheumatology [place] [address] [facility] [address] [place] [phone] Jonh Hobson MD Other 12/14/2024 Telephone [facility] [place] [facility] [address] [facility] [address] [place] [phone] Luis Damon MD Results Request 12/14/2024 Travel 12/13/2024 Telephone [facility] [place] [facility] [address] [place] [phone] Deanne Daniel MD 12/01/2024 10:00 AM EDT Infusion [facility] [place] [facility] Outpatient Infusion [address] [address] Deanne Daniel MD Hamilton, Vanessa F, RN Vasculitic neuropathy (Primary Dx); Anemia due to other cause, not classified; High risk medication use 12/01/2024 Telephone [facility] [place] [facility] [address] [place] [phone] Deanne Daniel MD Appointment 12/01/2024 Orders Only [facility] [address] [place] [address] [address] [place] [phone] Jayne Morales DO Elevated liver function tests (Primary Dx) 12/01/2024 Telephone [facility] Transplant Program & [facility] 85 [facility] [address] [place] [phone] Aura Kaba MA 11/30/2024 10:00 AM EDT Infusion [facility]fusion [facility] [address] [place] [address] Deanne Daniel MD Pierson, Kyle A, RN Vasculitic neuropathy (Primary Dx); Anemia due to other cause, not classified; High risk medication use 11/30/2024 Telephone [facility] [address] [phone] Luis Damon MD 11/30/2024 Telephone [facility] [address] [place] [phone] Luis Damon MD 11/30/2024 Orders Only [facility] [address] [phone] Luis Damon MD 11/30/2024 Travel 11/26/2024 Telephone [facility] Rheumatology [place] [address] [facility] [address] [place] [address] Jonh Hobson MD Other 11/25/2024 Telephone [facility] [address] [phone] Luis Damon MD Appointment 11/17/2024 10:00 AM EDT Infusion [facility]fusion [facility] [address] [place] [phone] Deanne Daniel MD Walles, Claudia, RN Vasculitic neuropathy (Primary Dx); Anemia due to other cause, not classified; High risk medication use 11/16/2024 10:00 AM EDT Infusion [facility] Outpatient Infusion [place] [address] [place] [address] Deanne Daniel MD Baltz, Sara E, RN Vasculitic neuropathy (Primary Dx); Anemia due to other cause, not classified; High risk medication use 11/16/2024 Orders Only [facility] Oncology at [address] [phone] Jocelyn Alcala PA-C 11/16/2024 Orders Only [facility] [address] [place] [address] [address] [place] [address] Luis Damon MD 11/16/2024 Travel 11/10/2024 Telephone [facility] Transplant Program & [address] [place] [address] Janet Bonilla MA 11/09/2024 Telephone [facility] Rheumatology [address] [phone] Jonh Hobson MD 11/08/2024 Telephone [facility] Rheumatology [address] [phone] Jonh Hobson MD Appointment; Other 11/04/2024 Telephone [facility] [address] [phone] Luis Damon MD 11/03/2024 Telephone [facility] [place] [facility] [address] [phone] Luis Damon MD 11/03/2024 Transcribe Orders [facility] [place] [facility] Infusion [address] [phone] Luis Damon MD 11/02/2024 Telephone [facility] [place] [facility] [address] [place], [place] [address] [place] [phone] Luis Damon MD Other; Medication Problem; Appointment 11/01/2024 Telephone [facility] [place] [facility] Outpatient Infusion [address] [phone] Luis Damon MD 11/01/2024 Telephone [facility] [place] [facility] [address] [place] [phone] Luis Damon MD Advice Only 11/01/2024 Telephone [facility] Infusion [address] [phone] Luis Damon MD 10/29/2024 Telephone [facility] Rheumatology [address] [address] Jonh Hobson MD 10/26/2024 Telephone [facility] Rheumatology [address] [address] Jonh Hobson MD 10/25/2024 8:45 AM EST Infusion [facility] Infusion [address] [phone] Deanne Daniel MD Carilli, Kristina, RN Vasculitic neuropathy (Primary Dx); Psoriatic arthritis (HCC); Vasculitis; Anemia due to other cause, not classified; High risk medication use 10/25/2024 Travel 10/21/2024 Telephone [facility] [address] [place] [phone] Luis Damon MD Vitamin D Deficiency 10/20/2024 10:00 AM EST Infusion [facility] [address] [place] [phone] Deanne Daniel MD Laflamme, Shauna C, RN Vasculitic neuropathy (Primary Dx); Anemia due to other cause, not classified; High risk medication use 10/20/2024 Telephone [facility] Rheumatology [address] [address] Jonh Hobson MD 10/19/2024 10:00 AM EST Infusion [facility] [address] [place] [phone] Deanne Daniel MD Hamilton, Vanessa F RN Vasculitic neuropathy (Primary Dx); Anemia due to other cause, not classified; High risk medication use 10/19/2024 Travel 10/18/2024 Orders Only [facility] [address] [place] [phone] Luis Damon MD 10/15/2024 Orders Only [facility] Rheumatology [address] [address] Jonh Hobson MD 10/14/2024 Refill [facility] [address] [place] [address] Jonh Hobson MD Psoriatic arthritis (HCC); Psoriasis 10/11/2024 8:45 AM EST Infusion [facility] [address] [place] [phone] Deanne Daniel MD Budd, Loubet, RN High risk medication use (Primary Dx); Psoriatic arthritis (HCC); Vasculitis; Pain; Vasculitic neuropathy; Anemia due to other cause, not classified 10/11/2024 Travel 10/08/2024 Orders Only [facility] Rheumatology [address] [phone] Jonh Hobson MD 10/08/2024 Orders Only [facility] [address] [place] [phone] Luis Damon MD Hypokalemia (Primary Dx) 10/06/2024 10:00 AM EST Infusion [facility] Outpatient Infusion Center [address] [place] [phone] Deanne Daniel MD Wood, Tiffany, RN Vasculitic neuropathy (Primary Dx); Anemia due to other cause, not classified; High risk medication use 10/06/2024 [facility] [place] [facility] [address] [place] [phone] Luis Damon MD Steroid dependent ([facility]) 10/06/2024 [facility] [place] [facility] [address] [place] [phone] Luis Damon MD Steroid dependent ([facility]) 10/05/2024 11:45 AM EST Office Visit [facility] Medical Oncology at [address] [phone] Deanne Daniel MD Iron deficiency anemia, unspecified iron deficiency anemia type (Primary Dx) 10/05/2024 10:00 AM EST Infusion [facility] Infusion [address] [place] [address] Deanne Daniel MD Guss, Madison, RN Vasculitic neuropathy (Primary Dx); Anemia due to other cause, not classified; High risk medication use; Polyneuropathy 10/05/2024 Orders Only [facility] Rheumatology [address] [phone] Jonh Hobson MD 10/05/2024 Travel 10/04/2024 [facility] Rheumatology [address] [phone] Jonh Hobson MD High risk medication use [...] = 0.6 oz pur e alcohol) Social [facility] Utilities Answer Date Recorded In the [...] in a penitentiary (including now)? No 04/26/2024 Comments No Sex [...] EDT Inhaled Oxygen Concentration - - Weight 87.9 kg (193 lb 12.6 oz) 10:22 AM EDT Height 166 cm (5' 5.35 ) 12/29/2024 10: 22 AM EDT Body Mass Index 31.9 12/29/2024 10:22 AM EDT Plan of Treatment Upcoming Encounters Date Type Department Care Team (Late st Contact Info) Description 01/12/2025 10:00 AM EDT Office Visit [facility] Medical Oncology at [address] [place] [phone] Deanne Daniel MD [address] [place] [phone] 01/12/2025 10:45 AM EDT Infusion [facility] [place] [facility] Outpatient Infusion [address] [phone] Deanne Daniel MD [address] [place] [phone] 01/13/2025 10:00 AM EDT Infusion [facility] [place] [facility] Infusion [address] [phone] Deanne Daniel MD [address] [place] [phone] 01/20/2025 1:00 PM EDT Office Visit [facility] Rheumatology [address] [phone] Jonh Hobson MD [address] [facility] [address] [place], [place] [phone] 01/27/2025 11:30 AM EDT Consult [facility] Transplant Program & [facility] 85 [facility] [address] [place] [phone] Jonh Hobson MD 31 [facility] [address] [place] [address] Jayne Morales, DO [address] [facility] [place] [address] 02/01/2025 11:40 AM EDT Office Visit [facility]rom[facility] [place] [facility] 85 [facility] [address] [place] [phone] Luis Damon MD [facility] [place], [place] [address] 02/16/2025 9:45 AM EDT Consult [facility] [address] [phone] Grey Trinidad MD [address] [place] [address] 04/26/2025 10:00 AM EDT Infusion [facility] [place] [facility] Outpatient Infusion Center [address] [place] [address] Deanne Daniel MD [address] [place] [address] Health Maintenance Due Date Last Done Comments [...] this topic Medical Devices Implanted Type Area Technical Services Analyst Device Identifier Shelf Expiration Date Model / Serial / Lot [id number] Port Implant Infusion Smrt Port Vtx Safeshth Ultra Lite - [id number] Implanted:Qty : 1 on 01/08/2022 by Dave Bob MD at [facility] Access Port [employer] [id number] 10/22/2024 [id number] / [id number] / [id number] Procedures Procedure Name Priority Date/Time Associated Diagnosis Comments COMPLETE BLOOD COUNT, WITH DIFFERENTIAL Routine 12/29/2024 10:50 AM EDT Vasculitic neuropathy Anemia due to other cause, not classified High risk medication use COMPREHENSIVE METABOLIC PANEL Routine 12/29/2024 10:50 AM EDT Vasculitic neuropathy Anemia due to other cause, not classified High risk medication use COMPLETE BLOOD COUNT, WITH DIFFERENTIAL STAT 12/14/2024 [...] 12:00 AM EDT Elevated liver function tests [id number] (AAT) PHENOTYPE Routine 12/14/2024 12:00 AM EDT [...] * (ABNORMAL) Complete Blood Count, with Differential (12/29/2024 10:50 AM EDT) Only the most recent of9 resultswithin the time period is included. White Blood Cell Count 7.1 4.0 - 11.0 Thou/uL 12/29/2024 11:26 AM [facility] Platelet Count 388 150 - 450 Thou/uL 12/29/2024 11:26 AM [facility] Hemoglobin 12.7 11.7 - 15.7 g/dL 12/29/2024 11:26 AM [facility] Hematocrit 38.5 35.0 - 47.0 % 12/29/2024 11:26 AM [facility] Red Blood Cell Count 3.90(L) 4.00 - 5.40 Mil/uL 12/29/2024 11:26 AM [facility] MCV 99 80 - 100 fL 12/29/2024 11:26 AM [facility] MCH 32.6 26.0 - 34.0 pg 12/29/2024 11:26 AM [facility] MCHC 33.0 30.0 - 36.0 g/dL 12/29/2024 11:26 AM [facility] RDW 15.1(H) 11.5 - 14.5 % 12/29/2024 11:26 AM [facility] MPV 9.5 7.5 - 12.5 fL 12/29/2024 11:26 AM [facility] Neutrophils Auto 63.3 % 12/30/19 11:26 AM [facility] Immature Granulocytes 0.4 % 12/29/2024 11:26 AM [facility] Lymphocytes Auto 29.7 % 12/30/19 11:26 AM EDT [facility] Monocytes Auto 4.9 % 12/29/2024 11:26 AM EDT [facility] Eosinophils Auto 1.1 % 12/[facility] Basophils Auto 0.6 % 12/29/2024 11:26 AM [facility] Abs Neutrophils Auto 4.48 2.00 - 7.50 Thou/uL 12/29[facility] Immature Granulocytes 0.03 0.00 - 0.10 Thou/uL 12/29/2024 11:26 AM EDT [facility] Abs Lymphocytes Auto 2.10 1.50 - 4.50 Thou/uL 12/29[facility]2024 [facility] Abs Monocytes Auto 0.35 0.20 - 1.50 Thou/uL 12/29/2024 [facility] Abs Eosinophils Auto 0.08 0.00 - 0.70 Thou/uL 12/29/2024 [facility] Abs Basophils Auto 0.04 0.00 - 0.20 Thou/uL 12/29/2024 11:26 AM [facility] Blood Blood specimen / Unknown 12/29/2024 10:50 AM EDT 12/29/2024 11:13 AM EDT Luis Crandall MD LAB BLOOD ORDERABLES Fin al Result [address] [address], [address] [address] * (ABNORMAL) Comprehensive Metabolic Panel (12/29/2024 10:50 AM EDT) Only the most recent of10 resultswithin the time period is included. Glucose 129(H) 65 - 99 mg/dL 12/29/2024 11:44 AM T [facility] Comment:Fasting: <100 mg/dL, Non-Fasting: <200 mg/dL (ADA 2005) Blood Urea Nitrogen (BUN) 21 8 - 21 mg/dL 12/29/2024 11:44 AM [facility] Creatinine 0.8 0.4 - 1.1 mg/dL 12/29/2024 11:44 AM [facility] eGFR >90 >59 12/29/2024 11:44 AM [facility] Comment:CKD-EPI (2020) in mL /min/1.73 sq meters. Sodium 133(L) 136 - 145 mmol/L 12/29/2024 11:44 AM [facility] Potassium 3.3(L) 3.4 - 5.3 mmol/L 12/29/2024 11:44 AM [facility] Chloride 98 98 - 107 mmol/L 12/29/2024 11:44 AM [facility] CO2 21(L) 22 - 33 mmol/L 12/29/2024 11:44 AM [facility] Calcium 9.1 8.7 - 10.5 mg/dL 12/29/2024 11:44 AM [facility] Alkaline Phosphatase 60 32 - 122 U/L 12/29/2024 11:44 AM [facility] Aspartate Aminotrans (AST) 69(H) 10 - 50 U/L 12/29/2024 11:44 AM [facility] Alanine Aminotrans (ALT) 124(H) 10 - 50 U/L 12/29/2024 11:44 AM [facility] Bilirubin, Total 0.4 0.2 - 1.0 mg/dL 12/29/2024 11:44 AM [facility] Protein, Total 7.9 6.3 - 8.3 g/dL 12/29/2024 11:44 AM [facility] Albumin 4.1 3.5 - 5.0 g/dL 12/29/2024 11:44 AM [facility] BUN/Creatinine Ratio 26(H) 10.0 - 25.0 Ratio 12/29/2024 11:44 AM [facility] Globulin 3.8 1.5 - 3.9 g/dL 12/29/2024 11:44 AM [facility] Albumin/Globulin Ratio 1.1 1.0 - 3.0 Ratio 12/29/2024 11:44 AM [facility] Anion Gap 14 7 - 17 12/29/2024 11:44 AM [facility] Blood Blood specimen / Unknown 12/29/2024 10:50 AM EDT 12/29/2024 11:13 AM EDT Luis Crandall MD LAB BLOOD ORDERABLES Fin al Result Performing Organization Address [facility] Co de Phone Number [address] [address], [address] [address] * Test In Question- Misc Question (12/14/2024 12:00 AM EDT) Comment [employer] Comment: There is a question regarding the following specimen submitted and/or the test requested. Question: [employer] Comment:TEST CODE 69304 IS D ISCONTINUED WITH NO RECOMMENDED ALTERNATIVE GIVEN. Comment [employer] Comment: REQUESTED INFORMATION AUTHORIZED SIGNATURE TO PREVENT FURTHER DELAYS IN TESTING, PLEASE COMPLETE INFORMATION ABOVE AND FAX TO [phone] OR EMAIL TO [email or web address] TO RESOLVE THIS ORDER. 12/14/2024 12/15/2024 6:4 6 AM EDT Jayne Morales DO LAB BLOOD ORDERABLES Lily l Result [employer] [address] [place] [phone] * (ABNORMAL) Iron, TIBC, and Ferritin Panel (12/14/2024 12:00 AM EDT) Iron 116 40 - 190 mcg/dL [employer] Total Iron Binding Capacity 399 250 - 450 mcg/dL (calc) [employer] Iron Saturation 29 16 - 45 % (calc) [employer] Ferritin 1,234(H) 16 - 154 ng/mL [employer] Blood Blood specimen / Unknown 12/14/2024 12/15/2024 6:46 AM EDT Jayne Webbern DO LAB BLOOD ORDERABLES Lily l Result Performing Organization Address [facility] de Phone Number [employer] [address] [place] [address] * Anti-Smooth Muscle Screen, Reflex Titer (12/14/2024 12:00 AM EDT) Anti-Smooth Muscle Screen NEGATIVE NEGATIVE [employer] Blood Blood specimen / Unknown 12/14/2024 12/15/2024 6:46 AM EDT Jayne Hardwickanton DO LAB BLOOD ORDERABLES Lily l Result Performing Organization Address [facility] de Phone Number [employer] [address] [place] [address] * (ABNORMAL) GARY Screen Reflex Titer and Comp Panel (12/14/2024 12:00 AM EDT) Pathologist [facility] GARY Screen, IFA POSITIVE (A) NEGATIVE [employer] Comment: GARY IFA is a first line screen for detecting the presence of up to approximately 150 autoantibodies in various autoimmune diseases. A positive GARY IFA result is suggestive of autoimmune disease and reflexes to titer and pattern. Further laboratory testing may be considered if clinically indicated. For additional information, please refer to http://education.Kuailexue/faq/YJS774 (This link is being provided for informational/ educational purposes only.) ?? Double Strand DNA Antibody 1 IU/mL [employer] Comment: ? IU/mL ? Interpretation ? < or = 4 ?Negative ? 5-9 ? Indeterminate ? > or = 10 ?? Positive Scl-70 Antibody <1.0 NEG <1.0 NEG AI [facility] Sm (Blanco) Antibody <1.0 NEG <1.0 NEG AI [facility] Sm/SLEEP MANAGER Antibody <1.0 NEG <1.0 NEG AI [facility] Ro (SSA) Antibody <1.0 NEG <1.0 NEG AI [facility] La (SSB) Antibody <1.0 NEG <1.0 NEG AI [facility] GARY Titer 1:80(H) titer [facility] Comment: A low level GARY titer may be present in pre-clinical autoimmune diseases and normal individuals. ?Reference Range ?<1:40 ?Negative ?1:40-1:80 ?Low Antibody Level ?>1:80 ?Elevated Antibody Level GARY Pattern Nuclear, Homogene ous(A) [facility] [employer] Comment: Homogeneous pattern is associated with systemic lupus erythematosus (SLE), drug-induced lupus and juvenile idiopathic arthritis. AC-1: Homogeneous International Consensus on GARY Patterns (https://doi.org/10.1515/hmrg-9985-5259) Gary Titer 1:80(H) titer [facility] Comment: A low level GARY titer may be present in pre-clinical autoimmune diseases and normal individuals. ?Reference Range ?<1:40 ?Negative ?1:40-1:80 ?Low Antibody Level ?>1:80 ?Elevated Antibody Level Gary Pattern Nuclear, Speckled (A) [employer] Comment: Speckled pattern is associated with mixed connective tissue disease (MCTD), systemic lupus erythematosus (SLE), Sjogren's syndrome, dermatomyositis, and systemic sclerosis/polymyositis overlap. AC-2,4,5,29: Speckled International Consensus on GARY Patterns (https://doi.org/10.1515/tfxq-2128-5223) Blood Blood specimen / Unknown 12/14/2024 12/15/2024 6:46 AM EDT Jayne Morales DO LAB BLOOD ORDERABLES Lily cuenca Result Performing Organization Address City/State/[facility] Co de Phone Number [employer] [address] [place] [phone] * LIVER KIDNEY MICROSOMAL AB, IGG (12/14/2024 12:00 AM EDT) LKM-1 Antibody (IgG) <=20.0 <=20.0 U [employer] letitia TADEO Comment: ? Reference Range: ??<=20.0 [...] ORDERABLES Lily l Result Performing Organization Address City/[facility]/ZIP Co de Phone Number [facility] [place] [address] [facility] [place] [address] * Hepatitis E Virus (HEV) Antibody, IgG (12/14/2024 12:00 AM EDT) Hepatitis E Antibody, IgG NOT DETECTED [facility], Comment: REFERENCE RANGE: NOT DETECTED Detection [...] analytical performance characteristics have been determined by [employer]. It has not been cleared or approved by FDA. This assay has been validated pursuant to the CLIA regulations and is used for clinical purposes. Blood Blood specimen / Unknown 12/14/2024 12/15/2024 6:46 AM EDT Jayne Morales DO LAB BLOOD ORDERABLES Lily l Result Performing Organization Address [facility] Co de Phone Number KYLE [employer] [facility], [address] [place] [address] * PMRWH-4-CAPIEPBYEID (AAT) PHENOTYPE (12/14/2024 12:00 AM EDT) Alpha 1 Antitrypsin (Aat) Phenotype SEE NOTE [employer], Comment: THIS PATIENT'S [id number] PHENOTYPE IS PI*MM. 90% of normal individuals have the MM phenotype, with normal quantitative AAT levels. Many phenotypic patterns have been described, including deficiency states with F, S, Z, or other alleles. As a general estimation, compared to M allele of 100% of normal V-9-Lipcvudiidt protein, the S allele produces approximately 60% and the Z allele 20%. For example, an MS phenotype would have about 80% of normal Q-6-Fuxkjqqufvv protein level, a 50% contribution from the M allele and 30% from the S allele. A ZZ phenotype would have about 20% of normal levels, a 10% contribution from each Z gene. The F allele has normal F-7-Ugatcurfubt levels, but the kinetics of elastase inhibition [...] ORDERABLES Lily l Result Performing Organization Address [facility]/ZIP Co de Phone Number [employer], [address] [place] [address] * HEPATITIS A VIRUS (HAV) ANTIBODY IGM (12/14/2024 12:00 AM EDT) Pathologist [facility] Hepatitis A Antibody IgM NON-REACT ARTUR NON-REACT ARTUR [employer] Comment: For additional information, please refer to [email or web address]/faq/MGH452 (This link is being provided for informational/ educational purposes only.) Blood Blood specimen / Unknown 12/14/2024 12/15/2024 6:46 AM EDT Lawton G Andrew DO LAB BLOOD ORDERABLES Lily l Result [employer] [address] [place] [address] * MITOCHONDRIAL M2 ANTIBODY, IGG (12/14/2024 12:00 AM EDT) Pathologist [facility] Mitochondrial M2 Ab, IgG <=20.0 <=20.0 U [facility] Comment: ? Reference Range: ?? Negative: ??<=20.0 ?U ?? Equivocal: 20.1 - 24.9 U ?? Positive: ??>=25.0 ?U Blood Blood specimen / Unknown 12/14/2024 12/15/2024 6:46 AM EDT Jayne Morales DO LAB BLOOD ORDERABLES Lily l Result Performing Organization Address [facility] de Phone Number [employer] [address] [facility] [place] [place] [address] * TISSUE TRANSGLUTAMINASE IGA AB (12/14/2024 12:00 AM EDT) Pathologist [facility] Tissue Transglutaminase IgA Ab <1.0 U/mL [employer] Comment: Value ?Interpretation ----- ? <15.0 ?Antibody not detected > or = 15.0 ?Antibody detected Blood Blood specimen / Unknown 12/14/2024 12/15/2024 6:46 AM EDT Jayne Hardwickanton DO LAB BLOOD ORDERABLES Lily l Result Performing Organization Address [facility] de Phone Number [employer] [address] [place] [address] * CERULOPLASMIN (12/14/2024 12:00 AM EDT) Pathologist [facility] Ceruloplasmin 37 14 - 48 mg/dL [employer] Blood Blood specimen / Unknown 12/14/2024 12/15/2024 6:46 AM EDT us Jayne Hardwickanton DO LAB BLOOD ORDERABLES Lily l Result Performing Organization Address City/[facility]/ZIP Co de Phone Number [employer] [address] [place] [phone] * EBV DNA, PCR, Quantitative (12/14/2024 12:00 AM EDT) [facility] EBV DNA, QN PCR TNP IU/mL [employer] Comment: TEST NOT PERFORMED No suitable specimen received. Please review the test requirements at [employer] Blood Blood specimen / Unknown 12/14/2024 12/15/2024 6:46 AM EDT us Jayne Calvillo Andrew DO LAB BLOOD ORDERABLES Lily l Result Performing Organization Address [facility] Co de Phone Number [employer] [address] [place] [phone] * CYTOMEGALOVIRUS DNA, QUANTITATIVE PCR (12/14/2024 12:00 AM EDT) [facility] CMV DNA, Qn PCR TNP IU/mL [employer] Comment: TEST NOT PERFORMED No suitable specimen received. Please review the test requirements at [employer] Blood Blood specimen / Unknown 12/14/2024 12/15/2024 6:46 AM EDT us Jayne Calvillo Andrew DO LAB BLOOD ORDERABLES Lily l Result Performing Organization Address City/[facility]/ZIP Co de Phone Number [employer] [address] [place] [phone] * PROTIME-INR (12/14/2024 12:00 AM EDT) [facility] INR TNP [employer] Comment: TEST NOT PERFORMED No suitable specimen received. Please review the test requirements at [email or web address] Blood Blood specimen / Unknown 12/14/2024 12/15/2024 6:46 AM EDT Jayne Hardwickanton DO LAB BLOOD ORDERABLES Lily l Result Performing Organization Address [facility] Co de Phone Number [employer] [address] [place] [phone] * (ABNORMAL) IMMUNOGLOBULINS, QUANTITATIVE (MARTHA) (12/14/2024 12:00 AM EDT) [facility] Immunoglobulin A (IgA) 89 47 - 310 mg/dL [employer] Immunoglobulin G (IgG) 1,982(H) 600 - 1,640 mg/dL [employer] Immunoglobulin M (IgM) 23(L) 50 - 300 mg/dL [employer] Blood Blood specimen / Unknown 12/14/2024 12/15/2024 6:46 AM EDT Jayne Hardwickanton DO LAB BLOOD ORDERABLES Lily l Result Performing Organization Address [facility] de Phone Number [employer] [address] [place] [phone] * Hepatitis B Viral Load, Quantitative (10/25/2024 9:33 AM EST) [facility] HBV DNA (IU/mL) Not Detected <10 IU/mL 10/27/2024 1:24 PM [facility] HBV DNA (log10) Not Detected <1.00 log10 IU/mL 10/27/2024 1:24 PM [facility] Interpretation Not Detected 10/28/19 1:24 PM [facility] Comment:Performed by FDA jacqueline roved Thereson S.p.A.gic Aptima TMA. Linear range is 10 to 1,000,000,000 IU/mL. Blood Blood specimen / Unknown 10/25/2024 9:33 AM EST 10/25/2024 9:48 AM EST us Jonh Hobson MD LAB BLOOD ORDERABLES Final Res ult Performing Organization Address City/[facility]/ZIP Co de Phone Number [facility] [address] [place] [address], * (ABNORMAL) Erythrocyte Sedimentation Rate (ESR) (10/25/2024 9:33 AM EST) Only the most recent of2 resultswithin the time period is included. Erythrocyte Sediment Rate (ESR) 33(H) <20 MM/HR 10/25/2024 11:58 AM EST [facility] Blood Blood specimen / Unknown 10/25/2024 9:33 AM EST 10/25/2024 9:48 AM EST Jonh Hobson MD LAB BLOOD ORDERABLES Final Res ult Performing Organization Address [facility] Co [place] [address], [place] [address] * C-Reactive Protein (10/25/2024 9:33 AM EST) Only the most recent of2 resultswithin the time period is included. [facility] C-Reactive Protein 0.39 0 - 0.49 mg/dL 10/25/2024 10:16 AM EST [facility] Blood Blood specimen / Unknown 10/25/2024 9:33 AM EST 10/25/2024 9:48 AM EST Jonh Hobson MD LAB BLOOD ORDERABLES Final Res ult Performing Organization Address City/[facility]/ZIP Co [place] [address], [place] [address] * COLTEN Polyoma Virus DNA, PCR, Qual (10/06/2024 10:12 AM EST) Pathologist [facility] Source Plasma 10/09/2024 2:52 PM EST [facility] COLTEN Polyoma Virus DNA Not Detected Not Detected 10/09/2024 2:52 PM EST [facility] Comment: (NOTE) This test was developed and its analytical performance characteristics have been determined by [employer] [place], [place]. It has not been cleared or approved by the U.S. Food and Drug Administration. This assay has been validated pursuant to the CLIA regulations and is used for clinical purposes. ? Blood Plasma specimen / Unknown 10/06/2024 10:12 AM EST 10/06/2024 11:17 AM EST Jonh Hobson MD LAB BLOOD ORDERABLES Final Res ult [employer] [place] [address] , [employer] [place] [address] * Iron, Total & Unsaturated Iron Binding Capacity, Transferrin Saturation (10/05/2024 11:26 AM EST) Iron 70 59 - 151 ug/dL 10/05/2024 1:37 PM [facility] UIBC 212 112 - 346 ug/dL 10/05/2024 1:37 PM [facility] Total Iron Binding Capacity 282 100 - 400 ug/dL 10/05/2024 1:37 PM [facility] Iron Sat 25 20 - 50 % 10/05/2024 1:37 PM [facility] Blood (Plasma/Serum) 10/05/2024 11:26 AM EST 10/05/2024 1:03 PM EST Deanne Mcgrath MD LAB BLOOD ORDERABLES [place] [address], [place] [address] * (ABNORMAL) Ferritin (10/05/2024 11:26 AM EST) Ferritin 2,187(H) 15 - 150 ug/L 10/05/2024 2:18 PM EST [facility] Blood (Plasma/Serum) 10/05/2024 11:26 AM EST 10/05/2024 1:03 PM EST Deanne Mcgrath MD LAB BLOOD ORDERABLES Final Res ult Performing Organization Address [facility] Co [place] [address], [place] [address] * Hepatitis B Virus Surface Antibody, Quantitative (10/05/2024 10:16 AM EST) Hepatitis B Surface Ab (Quant) 800.4 >11.9 mIU/mL 10/07/2024 4:10 PM EST [facility] Comment: Reactive >11.9 mIU/mL anti-HBs indicates individual is immune to HBV infection. ??mIU/mL ?Interpretation ??>11.9 ? Reactive 8.0 to 11.9 ? [place] ?? <8.0 ? Nonreactive Test performed by Chemiluminescent Microparticle Immunoassay. Blood Serum specimen / Unknown 10/05/2024 10:16 AM EST 10/05/2024 11:22 AM EST Jonh Hobson MD LAB BLOOD ORDERABLES Final Res ult Performing Organization Address City/[facility] Co de Phone Number [facility] [place] [address], * HEPATITIS B VIRUS (HBV) SURFACE ANTIGEN SCREEN, REFLEX CONFIRMATION (10/05/2024 10:16 AM EST) Hepatitis B Surface Ag Screen Nonreactive Nonreactive 10/07/2024 4:10 PM EST [facility] Blood Serum specimen / Unknown 10/05/2024 10:16 AM EST 10/05/2024 11:22 AM EST us Jonh Hobson MD LAB BLOOD ORDERABLES Final Res ult Performing Organization Address City/[facility]/ZIP Co de Phone Number [facility] [address] [place] [address], [place] * (ABNORMAL) Hepatitis B Virus (HBV) Core Antibody Total (10/05/2024 10:16 AM EST) Hepatitis B Core Antibody Total Reactive( A) Nonreactive 10/07/2024 4:10 PM EST [facility] Blood Serum specimen / Unknown 10/05/2024 10:16 AM EST 10/05/2024 11:22 AM EST us Jonh Hobson MD LAB BLOOD ORDERABLES Final Res ult Performing Organization Address [facility]/ZIP Co de Phone Number [facility] [address] [place] [address], [place] * (ABNORMAL) Vitamin D, 25-Hydroxy (10/05/2024 10:16 AM EST) Vitamin D, 25-Hydroxy 21(L) 30 - 100 ng/mL 10/05/2024 12:18 PM EST [facility] Blood (Plasma/Serum) 10/05/2024 10:16 AM EST 10/05/2024 11:21 AM EST us Jonh Hobson MD LAB BLOOD ORDERABLES Final Res ult Performing Organization Address City/[facility]/ZIP Co de Phone Number [address] [address], [address] [address] * (ABNORMAL) VITAMIN B12 (10/05/2024 10:16 AM EST) Vitamin B12 1,855(H) 243 - 894 pg/mL 10/05/2024 1:39 PM EST [facility] Blood (Plasma/Serum) 10/05/2024 10:16 AM EST 10/05/2024 11:22 AM EST us Jonh Hobson MD LAB BLOOD ORDERABLES Final Res ult Performing Organization Address City/[facility]/ZIP Co de Phone Number [address] [address], [address] [address] * Hepatitis Panel, Acute (02/03/2024 10:42 AM EDT) Hepatitis A Antibody IgM Nonreactive Nonreactive S/CO 02/04/2024 10:49 AM EDT [facility] Hepatitis B Core Antibody IgM Nonreactive Nonreactive 02/04/2024 10:49 AM EDT [facility] Hepatitis B Surface Ag Screen Nonreactive Nonreactive 02/04/2024 10:49 AM EDT [facility] Hepatitis C Antibody 0.12 0.00 - 0.79 S/CO ratio 02/04/2024 10:49 AM EDT [facility] Hepatitis C Antibody Interpretation Nonreactive Nonreactive 02/04/2024 10:49 AM EDT [facility] Comment:Antibodies to HCV no t detected. This does not exclude the possibility of exposure to HCV. Hepatitis Interpretation: Results inconsistent with acute Hepatitis A, B or C Virus infection. 02/04/2024 10:49 AM EDT [facility] Blood Serum specimen / Unknown 02/03/2024 10:42 AM EDT 02/03/2024 11:36 AM EDT Jonh Hobson MD LAB BLOOD ORDERABLES Final Res ult [facility] [address] [place] [address], * Quantiferon ?? -TB Gold Plus, 1 Tube (03/19/2022 12:10 PM EDT) Quantiferon TB Gold Plus, 1T NEGATIVE NEGATIVE [facility] Comment: Negative test result. M. tuberculosis complex infection unlikely. Quantiferon NIL 0.03 IU/mL [facility] [employer] Quantiferon Mitogen-NIL >10.00 IU/mL [facility] [employer] [facility] [employer] Quantiferon TB1-NIL 0.00 IU/mL [facility] Quantiferon TB2-NIL 0.00 IU/mL [employer] Comment: The Nil tube value reflects the [...] T-lymphocytes. For additional information, please refer to https://education.[employer]/faq/AEE536 (This link is being provided for informational/ educational purposes only.) 03/19/2022 12:1 0 PM EDT 03/19/2022 11:03 PM EDT us Bijan Magana MD LAB BLOOD ORDERABLES Final Res ult [employer] [address] [place] [address], [facility] [place] [address] * HIV 1/2 Ag/Ab CMIA Reflex to Confirmation (All sites EXCEPT [facility]) (06/20/2021 4:48 PM EDT) [facility] HIV 1/2 Ag/Ab CMIA Nonreactive Nonreactive 06/21/2021 10:11 AM EDT [email or web address] Comment:Results show no evid ence of infection by HIV 1/2. If clinically indicated, repeat CMIA or test by nucleic acid amplification. Blood specimen (specimen) Serum specimen / Unknown 06/20/2021 4:48 PM EDT 06/20/2021 5:28 PM EDT us Home Plasencia MD LAB BLOOD ORDERABLES Final R esult [facility] [employer] [facility] [address] [place] [address] from Last 3 Months or Most Recently Relevant to Health Maintenance Insurance [facility] [employer] Advance Directives * Full Code (Latest Code Status on File) Date Activated Date Inactivated Comments 04/24/2024 11:55 PM * Full Code Date Activated Date Inactivated Comments 06/26/2022 10:00 PM 11/16/2022 3:24 PM * Full Code Date Activated Date Inactivated Comments 06/18/2021 8:30 AM 01/08/2022 7:08 AM Healthcare Agents on File Name Relationship Healthcare Agent Relationship Communication Linh Chow Healthcare delivery representative 4. Nex t of Kin (Spouse, Adult Child, Parent, Adult Sibling, Grandparent) Hugo Chow Parent 4. Next of Kin ( Spouse, Adult Child, Parent, Adult Sibling, Grandparent) Care Teams Snagger Relationship Specialty Start Date End Date Jacquelyn Garcia NP [address] [place] [address] PCP - General Family Medicine 05/18/24 Jonh Hobson MD 31 [facility] [address] [place] [address] Rheumatology 01/01/24 Ayde Zheng RN 85 [facility] [address] [place] [address] Registered Nurse Hepatology 08/11/24
--- OUTSIDE RECORDS SUMMARY | 2024-12-31 14:44 | XMS_ITS | Encounter Summary ---
Author Organization [employer] Address [address] [place] [address] 7 [place] [address] Care Team Providers Care Basin Operator Name Role Phone Jacquelyn Garcia Primary Care Provider Unavailable Nuria Levin Unavailable Unavailable Inactive/Transferred Primary Care Provider Unava ilable Shaneka Bailey DO Primary Care Provider [phone] Reason for Visit * Reason Comments Med Refill Encounter Details Date Type Department Care Team (Late st Contact Info) Description 02/16/2023 Refill [facility] MEDICAL [address] [place] [address] Tabby White FNP Gastroesophageal reflux disease, unspecified [...] present documented in this encounter Care Teams Basin Operator Relationship Specialty Start Date End Date Jacquelyn Garcia FNP PCP - General Family Medicine 08/06/22 06/01/24 Inactive/Transferred PCP - General 06/02/24 06/02/24 Shaneka Bailey DO [address] [place] [address] PCP - General Family Medicine 11/04/24 Nuria [place] Community Health Worker 12/09/22 documented as of this encounter
--- OUTSIDE RECORDS SUMMARY | 2024-12-31 14:44 | XMS_ITS | Encounter Summary ---
Author Organization [facility] Address [address] [place] [address] Care Team Providers Care Door Repairer Bus Name Role Phone Jonh Hobson MD Unavailable [phone] Jacquelyn Garcia DESIGN DRAFTER Primary Care Provider Ayde Zheng RN Unavailable [phone] Encounter Details Date Type Department Care Team (Late st Contact Info) Description 09/01/2024 Scanned Document [facility] [place] [facility] at [facility] [address] [phone] Provider, Brian, [address] [place] [address] Social History Tobacco Use Types Packs/Day Years Used Date Smoking Tobacco: Never Smokeless Tobacco: Never Alcohol Use Standard Drinks/Week Comments Not Currently 0 (1 standard drink = 0.6 oz pur e alcohol) Social [facility] Utilities Answer Date Recorded In the [...] 01/12/2025 10:00 AM EDT Office Visit [facility] Medical Oncology at [address] [phone] Deanne Daniel MD [address] [place] [phone] 01/12/2025 10:45 AM EDT Infusion [facility] [place] at [facility] Outpatient Infusion Center [address] [place] [phone] Deanne Daniel MD 85 [place] [address] 01/13/2025 10:00 AM EDT Infusion [facility] [place] [facility] Outpatient Infusion [address] [phone] Deanne Daniel MD [address] [place], [place] [phone] 01/20/2025 1:00 PM EDT Office Visit [facility] Rheumatology [address] [phone] Jonh Hobson MD [address] [address] 01/27/2025 11:30 AM EDT Consult [facility] Transplant Program & [facility] [address] [phone] Jonh Hobson MD [address] [address] Jayne Morales, DO [address] [place] [address] 02/01/2025 11:40 AM EDT Office Visit [facility] Neuromuscular [facility] [address] [place] [address] [address] [place] [phone] Luis Damon MD [facility]4 [place] [address] 02/16/2025 9:45 AM EDT Consult [facility] 201 [facility] [address] [place] [address] Grey Trinidad MD [address] [place] [address] 04/26/2025 10:00 AM EDT Infusion [facility] [place] [facility] Outpatient Infusion Center [address] [place] [phone] Deanne Daniel MD [address] [place] [address] documented as of this encounter Visit Diagnoses Not on filedocumented in this encounter Care Teams Door Repairer Bus Relationship Specialty Start Date End Date Jacquelyn Garcia NP [address] [place] [address] PCP - General Family Medicine 05/18/24 Jonh Hobson MD 31 [facility] 206 [place] [address] Rheumatology 01/01/24 Ayde Zheng RN 85 [facility] [address] [place] [address] Registered Nurse Hepatology 08/11/24 documented as of this encounter
--- OUTSIDE RECORDS SUMMARY | 2024-12-31 14:44 | XMS_ITS | Encounter Summary ---
Author Organization [facility] Address [address] [place] [address] Care Team Providers Care Continuity Reader Name Role Phone Jonh Hobson MD Unavailable [phone] Pcp, No Primary Care Provider Unavailabl e Jacquelyn Garcia NP Primary Care Provider Ayde Zheng RN Unavailable [phone] Encounter Details Date Type Department Care Team (Late st Contact Info) Description 04/29/2024 Telephone [facility] [place] [facility] Outpatient [facility]fusion Center [address] [place] [phone] Leidy Zabala, RN [address] [place] [address] Social History Tobacco Use Types Packs/Day Years Used Date Smoking Tobacco: Never Smokeless Tobacco: Never Alcohol Use Standard Drinks/Week Comments Not Currently 0 (1 standard drink = 0.6 oz pur e alcohol) Social [facility] Utilities Answer Date Recorded In the [...] in a longterm (including now)? No 04/26/2024 Comments No Sex [...] Description 01/12/2025 10:00 AM EDT Office Visit [facility] [place] Medical Oncology at [address] [phone] Deanne Daniel MD [address] [place] [phone] 01/12/2025 10:45 AM EDT Infusion [facility] Cancer [place] at [facility] Out[facility]fusion Center [address] [place] [phone] Deanne Daniel MD 85 [place] [address] 01/13/2025 10:00 AM EDT Infusion [facility] Cancer [place] at [facility] Outpatient Infusion [address] [phone] Deanne Daniel MD 85 [place], [place] [phone] 01/20/2025 1:00 PM EDT Office Visit [address] [phone] Jonh Hobson MD [address] [address] 01/27/2025 11:30 AM EDT Consult [facility] Transplant [facility] & [facility] [address] [place] [phone] Jonh Hobson MD [address] [phone] Jayne Morales, DO [address] [place] [address] 02/01/2025 11:40 AM EDT Office Visit [facility]rom[facility] [address] [place], [place] [address] [place] [address] Luis Damon MD [facility]4 [place] [address] 02/16/2025 9:45 AM EDT Consult [facility] [address] [facility] [address] [place] [phone] Grey Trinidad MD [address] [place] [address] 04/26/2025 10:00 AM EDT Infusion [facility] Cancer [place] at [facility] Outpatient [facility]fusion Center [address] [place] [phone] Deanne Daniel MD [address] [place] [address] documented as of this encounter Visit Diagnoses Not on filedocumented in this encounter Care Teams Continuity Reader Relationship Specialty Start Date End Date Pcp, No PCP - General General Medicine 04/22/24 05/17/24 Jacquelyn Garcia NP [address] [place] [address] PCP - General Family Medicine 05/18/24 Jonh Hobson MD 31 [facility] 206 [place] [address] Rheumatology 01/01/24 Ayde Zheng RN 85 [facility] [address] [place] [address] Registered Nurse Hepatology 08/11/24 documented as of this encounter
--- OUTSIDE RECORDS SUMMARY | 2024-12-31 14:44 | XMS_ITS | Encounter Summary ---
Author Organization [facility] Address [address] [place] [address] Care Team Providers Care Deployment Specialist Name Role Phone Bijan Magana MD Unavailable Unavailable Jonh Hobson MD Unavailable [phone] Pcp, No Primary Care Provider UnavailJacquelyn Baxter NP Primary Care Provider Ayde Zheng RN Unavailable [phone] Encounter Details Date Type Department Care Team (Late st Contact Info) Description 06/19/2022 Scanned Document [facility] [place] [facility] at [facility] [address] [facility] [address] [place] [address] Provider, Brian, [address] [place] [address] Social History Tobacco Use Types Packs/Day Years [...] Description 01/12/2025 10:00 AM EDT Office Visit [facility] Medical Oncology at [address] [place] [phone] Deanne Daniel MD [address] [place] [address] [id number] 01/12/2025 10:45 AM EDT Infusion [facility] Out[facility]fusion Center [address] [place] [phone] Deanne Daniel MD [address] [place] [address] [phone] 01/13/2025 10:00 AM EDT Infusion [facility] Out[facility]fusion [facility] [address] [place] [phone] Deanne Daniel MD [address] [place] [address] [phone] 01/20/2025 1:00 PM EDT Office Visit [facility] Rheumatology [address] [place] [phone] Jonh Hobson MD 31 [facility] 206 [place], [place] [phone] 01/27/2025 11:30 AM EDT Consult [facility] 85 [facility] 320 [place] [phone] Jonh Hobson MD 31 [facility] 206 [place] [address] Jayne Morales, DO 300 [facility] [place] [address] 02/01/2025 11:40 AM EDT Office Visit [facility]rom[facility] [place] [facility] 85 [facility] 815 [place] [address] Luis Damon MD [address] [place], [place] [address] 02/16/2025 9:45 AM EDT [facility] [address] [place] [phone] Grey Trinidad MD [address] [place] [address] 04/26/2025 10:00 AM EDT Infusion [facility] [place] [facility]fusion Center 85 [place] [address] Deanne Daniel MD 85 [place] [address] documented as of this encounter Visit Diagnoses Not on filedocumented in this encounter Care Teams Deployment Specialist Relationship Specialty Start Date End Date Pcp, No PCP - General General Medicine 04/22/24 05/17/24 Jacquelyn Garcia NP [address] [place] [address] PCP - General Family Medicine 05/18/24 Bijan Magana MD Rheumatology 11/09/23 12/31/23 Jonh Hobson MD 31 [facility] 206 [place] [address] Rheumatology 01/01/24 Ayde Zheng RN 85 [facility] 320 [place] [address] Registered Nurse Hepatology 08/11/24 documented as of this encounter
--- OUTSIDE RECORDS SUMMARY | 2024-12-31 14:44 | XMS_ITS | Encounter Summary ---
Author Organization [facility] Address [address] [place] [address] Care Team Providers Care Voucher Clerk Name Role Phone Bijan Magana MD Unavailable Unavailable Jonh Hobson MD Unavailable [phone] Pcp, No Primary Care Provider UnavailJacquelyn Baxter NP Primary Care Provider Ayde Zheng RN Unavailable [phone] Encounter Details Date Type Department Care Team (Late st Contact Info) Description 09/02/2023 Scanned Document [facility] [place] [facility]cology at [address] [phone] Deanne Daniel MD 85 [place], [place] [phone] Social History Tobacco Use Types Packs/Day Years [...] 01/12/2025 10:00 AM EDT Office Visit [facility] Medical Oncology at [address] [place] [phone] Deanne Daniel MD [address] [place] [address] [phone] 01/12/2025 10:45 AM EDT Infusion [facility] [place] [facility]fusion Center [address] [place] [phone] Deanne Daniel MD [address] [place] [address] [phone] 01/13/2025 10:00 AM EDT Infusion [facility] Infusion [address] [phone] Deanne Daniel MD [address] [place] [address] 01/20/2025 1:00 PM EDT Office Visit [address] [phone] Jonh Hobson MD 31 [facility] 206 [place] [address] 01/27/2025 11:30 AM EDT Consult [facility] Trans[facility] 85 [facility] 320 [place] [phone] Jonh Hobson MD 31 [facility] 206 [place], [place] [phone] Jayne Morales, DO 300 [place] [address] 02/01/2025 11:40 AM EDT Office Visit [facility] [place] [facility] 85 [facility] 815 [place] [address] Luis Damon MD [address] [place] [address] 02/16/2025 9:45 AM EDT [facility] [address] [place] [phone] Grey Trinidad MD [address] [place] [address] 04/26/2025 10:00 AM EDT Infusion [facility] [place] [facility] Outpatient [facility]fusion Center 85 [place] [address] Deanne Daniel MD 85 [place] [address] documented as of this encounter Visit Diagnoses Not on filedocumented in this encounter Care Teams Voucher Clerk Relationship Specialty Start Date End Date Pcp, No PCP - General General Medicine 04/22/24 05/17/24 Jacquelyn Garcia NP [address] [place] [address] PCP - General Family Medicine 05/18/24 Bijan Magana MD Rheumatology 11/09/23 12/31/23 Jonh Hobson MD 31 [facility] 206 [place], [place] [phone] Rheumatology 01/01/24 Ayde Zheng RN 85 [facility] 320 [place], [place] [phone] Registered Nurse Hepatology 08/11/24 documented as of this encounter
--- OUTSIDE RECORDS SUMMARY | 2024-12-31 14:44 | XMS_ITS | Encounter Summary ---
Author Organization [employer] Address 75 [facility] [address] [place] [address] Care Team Providers Care Roller [employer] Name Role Phone Jacquelyn Garcia Primary Care Provider Unavailable Nuria Levin Unavailable Unavailable Inactive/Transferred Primary Care Provider Shaneka Ford DO Primary Care Provider [phone] Encounter Details Date Type Department Care Team (Late st Contact Info) Description 12/17/2023 Orders Only [facility] MEDICAL [address] [place] [address] Jacquelyn Garcia FNP Social History Tobacco Use [...] on filedocumented in this encounter Care Teams [employer] Relationship Specialty Start Date End Date Jacquelyn Garcia FNP PCP - General Family Medicine 08/06/22 06/01/24 Inactive/Transferred PCP - General 06/02/24 06/02/24 Shaneka Bailey DO [address] [place] [address] PCP - General Family Medicine 11/04/24 Nuria Levin Community Health Worker 12/09/22 documented as of this encounter
--- OUTSIDE RECORDS SUMMARY | 2024-12-31 14:44 | XMS_ITS | Encounter Summary ---
Author Organization [facility] Address [address] [place] [address] Care Team Providers Care Snuff Drier Name Role Phone Jonh Hobson MD Unavailable [phone] Jacquelyn Garcia [employer] Primary Care Provider Ayde Zheng RN Unavailable [phone] Encounter Details Date Type Department Care Team (Latest Contact Info) Description 12/29/2024 Travel Social History Tobacco Use Types Packs/Day Years Used Date Smoking Tobacco: Never Smokeless Tobacco: Never Alcohol Use Standard Drinks/Week Comments Not Currently 0 (1 standard drink = 0.6 oz pur e alcohol) Social [facility] Utilities Answer Date Recorded In the past 12 months has [employer], gas, oil, or water [employer] threatened to shut off services in your [...] Office Visit [facility] Medical Oncology at [address] [phone] Deanne Daniel MD [address] [place] [address] 01/12/2025 10:45 AM EDT Infusion [facility] [place] at [facility] Outpatient Infusion Center [address] [place] [phone] Deanne Daniel MD [address] [place] [address] 01/13/2025 10:00 AM EDT Infusion [facility] [place] [facility] Outpatient Infusion Center 85 [place] [phone] Deanne Daniel MD 85 [place] [address] 01/20/2025 1:00 PM EDT Office Visit [facility] Rheumatology [address] [place] [phone] Jonh Hobson MD [address] [phone] 01/27/2025 11:30 AM EDT Consult [facility] 85 [facility] 320 [place] [phone] John Hobson MD [address] [phone] Jayne Morales, DO 300 [place] [address] 02/01/2025 11:40 AM EDT Office Visit [facility]rom[facility] [place] [facility] [phone] [place] [phone] Luis Damon MD [facility] [place] [address] 02/16/2025 9:45 AM EDT [facility] [address] [phone] Grey Trinidad MD [address] [place] [address] 04/26/2025 10:00 AM EDT Infusion [facility] [place] [facility] Outpatient [facility]fusion Center 85 [place] [phone] Deanne Daniel MD 85 [place], [place] [phone] documented as of this encounter Visit Diagnoses Not on filedocumented in this encounter Care Teams Snuff Drier Relationship Specialty Start Date End Date Jacquelyn Garcia NP [address] [place] [address] PCP - General Family Medicine 05/18/24 Jonh Hobson MD 31 [facility] 206 [place] [address] Rheumatology 01/01/24 Ayde Zheng RN 85 [facility] 320 [place] [address] Registered Nurse Hepatology 08/11/24 documented as of this encounter
--- OUTSIDE RECORDS SUMMARY | 2024-12-31 14:44 | XMS_ITS | Encounter Summary ---
Author Organization [employer] Address [address] [facility] [address] [place] [address] Care Team Providers Care Health Data Analyst Name Role Phone Jacquelyn Garcia Primary Care Provider Unavailable Nuria Levin Unavailable Unavailable Inactive/Transferred Primary Care Provider Shaneka Ford DO Primary Care Provider [phone] Encounter Details Date Type Department Care Team (Late st Contact Info) Description 01/30/2024 Orders Only [facility] MEDICAL [address] [place] [address] Brynn Keating CMA Social History Tobacco Use [...] on filedocumented in this encounter Care Teams Health Data Analyst Relationship Specialty Start Date End Date Jacquelyn Garcia FNP PCP - General Family Medicine 08/06/22 06/01/24 Inactive/Transferred PCP - General 06/02/24 06/02/24 Shaneka Bailey DO [address] [place] [address] PCP - General Family Medicine 11/04/24 Nuria Levin Community Health Worker 12/09/22 documented as of this encounter
--- OUTSIDE RECORDS SUMMARY | 2024-12-31 14:44 | XMS_ITS | Encounter Summary ---
Author Organization [facility] Address [address] [place] [address] Care Team Providers Care Exposure Machine Operator Name Role Phone Jonh Hobson MD Unavailable [phone] Jacquelyn Garcia QA INTERN Primary Care Provider Ayde Zheng RN Unavailable [phone] Reason for Visit * Reason Comments IV Medication IVIG * Episode Based Medications (Routine) - Authorized Specialty Diagnoses / Procedures Referred By Contac t Referred To Contact Infusion Therapy Diagnoses Vasculitic neuropathy Anemia due to other cause, not classified High risk medication use Luis Damon MD [address] [place] [address] Phone: tel: fax: [facility] [place] [facility] [address] [place] [phone] Phone: tel: fax: Referral ID Status Reason Start Date Expiration Date V isits Requested Visits Authorized [id number] Authorized 09/01/2023 08/30/2025 1 54 Encounter Details Date Type Department Care Team (Late st Contact Info) Description 12/29/2024 10:00 AM EDT Infusion [facility] [place] [facility] [address] [place] [address] Deanne Daniel MD [address] [place], [place] [phone] Valery Ruiz RN [address] [place] [phone] Vasculitic neuropathy (Primary Dx); Anemia due to other cause, not classified; High risk medication use; Nausea Social History Tobacco Use Types Packs/Day Years Used Date Smoking Tobacco: Never Smokeless Tobacco: Never Alcohol Use Standard Drinks/Week Comments Not Currently 0 (1 standard drink = 0.6 oz pur e alcohol) Social [facility] Utilities Answer Date Recorded In the past 12 months has th e [employer], gas, oil, or water [employer] threatened to shut off services in your [...] place to sleep or slept in a long-term (including now)? No 04/26/2024 Comments No Sex and Gender Information Value Date Recorded Sex Assigned at Female 10/02/2022 12:43 PM EST Legal Sex Female 5:38 PM EDT Gender Identity Female 10/02/2022 12:43 PM EST Sexual Orientation Heterosexual (straight) 10/02 12:43 PM EST documented as of this encounter Last Filed Vital Signs Vital Sign Reading Time Taken Comments Blood Pressure 128/68 12/29/2024 2:53 PM EDT Pulse 70 12/29/2024 2:53 PM EDT Temperature 36.1 ??C (96.9 ??F) 12/29/2024 2:53 PM ED T Respiratory Rate 18 12/29/2024 2:53 PM EDT Oxygen Saturation 98% 12/29/2024 2:53 PM EDT Inhaled Oxygen Concentration - - Weight 87.9 kg (193 lb 12.6 oz) 025 10:22 AM EDT Height 166 cm (5' 5.35 ) 12/29/2024 10: 22 AM EDT Body Mass Index 31.9 12/29/2024 10:22 AM EDT documented in this encounter Progress Notes * Deedee Whitlock PA-C - 12/29/2024 4:43 PM EDT MEE Infusion Note Notified by nursing staff that patient was experiencing nausea and had already received 20 mg of pepcid and 4 mg of zofran. Offered 4 mg of Zofran. Patient preferred to receive 20 mg of Pepcid. Orders have been signed. Medication had good effect. documented in this encounter Plan of Treatment Upcoming Encounters Date Type Department Care Team (Late st Contact Info) Description 01/12/2025 10:00 AM EDT Office Visit [facility] at [facility] [address] [place] [address] Deanne Daniel MD [address] [place], [place] [phone] 01/12/2025 10:45 AM EDT Infusion [facility] [place] [facility] [address] [place] [phone] Deanne Daniel MD [address] [place], [place] [phone] 01/13/2025 10:00 AM EDT Infusion [facility] [place] [facility] Infusion [address] [phone] Deanne Daniel MD [address] [place] [phone] 01/20/2025 1:00 PM EDT Office Visit [facility] Rheumatology [address] [phone] Jonh Hobson MD [address] [place] [phone] 01/27/2025 11:30 AM EDT Consult [facility] 85 [facility] [address] [place] [address] Jonh Hobson MD [address] [phone] Jayne Morales, DO [address] [place] [address] 02/01/2025 11:40 AM EDT Office Visit [facility] [place] [facility] [address] [place], [place] [address] [place] [phone] Luis Damon MD [address] [place] [address] 02/16/2025 9:45 AM EDT [facility] [address] [place] [phone] Grey Trinidad MD [address] [place] [address] [place] [address] 04/26/2025 10:00 AM EDT Infusion [facility] [place] [facility] [address] [place] [address] Deanne Daniel MD [address] [place] [address] documented as of this encounter Procedures Procedure Name Priority Date/Time Associated Diagnosis Comments COMPLETE BLOOD COUNT, WITH DIFFERENTIAL Routine 12/29/2024 10:50 AM EDT Vasculitic neuropathy Anemia due to other cause, not classified High risk medication use COMPREHENSIVE METABOLIC PANEL Routine 12/29/2024 10:50 AM EDT Vasculitic neuropathy Anemia due to other cause, not classified High risk medication use documented in this encounter Results * (ABNORMAL) Complete Blood Count, with Differential (12/29/2024 10:50 AM EDT) [facility] White Blood Cell Count 7.1 4.0 - 11.0 Thou/uL 12/29/2024 11:26 AM EDT [facility] Platelet Count 388 150 - 450 Thou/uL 12/29/2024 11:26 AM EDT [facility] Hemoglobin 12.7 11.7 - 15.7 g/dL 12/29/2024 11:26 AM EDT [facility] Hematocrit 38.5 35.0 - 47.0 % 12/29/2024 11:26 AM EDT [facility] Red Blood Cell Count 3.90(L) 4.00 - 5.40 Mil/uL 12/29/2024 11:26 AM [facility] MCV 99 80 - 100 fL 12/29/2024 11:26 AM [facility] MCH 32.6 26.0 - 34.0 pg 12/29/2024 11:26 AM [facility] MCHC 33.0 30.0 - 36.0 g/dL 12/29/2024 11:26 AM [facility] RDW 15.1(H) 11.5 - 14.5 % 12/29/2024 11:26 AM [facility] MPV 9.5 7.5 - 12.5 fL 12/29/2024 11:26 AM [facility] Neutrophils Auto 63.3 % 12/30/19 11:26 AM [facility] Immature Granulocytes 0.4 % 12/29/2024 11:26 AM [facility] Lymphocytes Auto 29.7 % 12/30/19 11:26 AM [facility] Monocytes Auto 4.9 % 12/29/2024 11:26 AM [facility] Eosinophils Auto 1.1 % 12/30/19 11:26 AM [facility] Basophils Auto 0.6 % 12/29/2024 11:26 AM [facility] Abs Neutrophils Auto 4.48 2.00 - 7.50 Thou/uL 12/29/2024 11:26 AM [facility] Abs Immature Granulocytes 0.03 0.00 - 0.10 Thou/uL 12/29/2024 11:26 AM [facility] Abs Lymphocytes Auto 2.10 1.50 - 4.50 Thou/uL 12/29/2024 11:26 AM [facility] Abs Monocytes Auto 0.35 0.20 - 1.50 Thou/uL 12/29/2024 11:26 AM [facility] Abs Eosinophils Auto 0.08 0.00 - 0.70 Thou/uL 12/29/2024 11:26 AM [facility] Abs Basophils Auto 0.04 0.00 - 0.20 Thou/uL 12/29/2024 11:26 AM [facility] Blood Blood specimen / Unknown 12/29/2024 10:50 AM EDT 12/29/2024 11:13 AM EDT us Luis Crandall MD LAB BLOOD ORDERABLES Fin al Result [facility] [address] [place] [address], [facility] [address] [place] [address] * (ABNORMAL) Comprehensive Metabolic Panel (12/29/2024 10:50 AM EDT) Glucose 129(H) 65 - 99 mg/dL 12/29/2024 11:44 AM [facility] Comment:Fasting: <100 mg/dL, Non-Fasting: <200 mg/dL (ADA 2004) Blood Urea Nitrogen (BUN) 21 8 - 21 mg/dL 12/29/2024 11:44 AM [facility] Creatinine 0.8 0.4 - 1.1 mg/dL 12/29/2024 11:44 AM [facility] eGFR >90 >59 12/29/2024 11:44 AM [facility] Comment:CKD-EPI (2020) in mL /min/1.73 sq meters. Sodium 133(L) 136 - 145 mmol/L 12/29/2024 11:44 AM [facility] Potassium 3.3(L) 3.4 - 5.3 mmol/L 12/29/2024 11:44 AM [facility] Chloride 98 98 - 107 mmol/L 12/29/2024 11:44 AM [facility] CO2 21(L) 22 - 33 mmol/L 12/29/2024 11:44 AM [facility] Calcium 9.1 8.7 - 10.5 mg/dL 12/29/2024 11:44 AM [facility] Alkaline Phosphatase 60 32 - 122 U/L 12/29/2024 11:44 AM [facility] Aspartate Aminotrans (AST) 69(H) 10 - 50 U/L 12/29/2024 11:44 AM [facility] Alanine Aminotrans (ALT) 124(H) 10 - 50 U/L 12/29/2024 11:44 AM [facility] Bilirubin, Total 0.4 0.2 - 1.0 mg/dL 12/29/2024 11:44 AM EDT [facility] Protein, Total 7.9 6.3 - 8.3 g/dL 12/29/2024 11:44 AM [facility] Albumin 4.1 3.5 - 5.0 g/dL 12/29/2024 11:44 AM [facility] BUN/Creatinine Ratio 26(H) 10.0 - 25.0 Ratio 12/29/2024 11:44 AM [facility] Globulin 3.8 1.5 - 3.9 g/dL 12/29/2024 11:44 AM [facility] Albumin/Globulin Ratio 1.1 1.0 - 3.0 Ratio 12/29/2024 11:44 AM [facility] Anion Gap 14 7 - 17 12/29/2024 11:44 AM [facility] Blood Blood specimen / Unknown 12/29/2024 10:50 AM EDT 12/29/2024 11:13 AM EDT Luis Crandall MD LAB BLOOD [place] [address], [address] [address] documented in this encounter Visit Diagnoses Diagnosis Vasculitic neuropathy- Primary Unspecified arteritis Anemia due to other cause, not classified High risk medication use Nausea Nausea alone documented in this encounter Administered Medications Inactive Administered Medications - up to 1 most recent administrations Medication Order MAR Action Action Date Dose Rate Site sodium chloride 0.9% (NS) infusion 500 mL/hr, Intravenous, Once, On Fri12/29/24 at 1030, For 1 doseIndications:Vasculit ic neuropathy,Anemia due to other cause, not classified,High risk medication use New Bag 12/29/2024 10:42 AM EDT 500 mL/hr 500 mL/hr acetaminophen (TYLENOL) tablet 975 mg 975 mg, Oral, Once, On Fri12/29/24 at 1030, For 1 doseIndications:Vasculit ic neuropathy,Anemia due to other cause, not classified,High risk medication use Given 12/29/2024 10:45 AM EDT 975 mg diphenhydrAMINE (BENADRYL) 50 mg in sodium chloride (NS) 0.9 % 50 mL IVPB-WTD 50 mg, Intravenous, at 200 mL/hr, Once, On Fri12/29/24 at 1030, For 1 dose, Administer 30 to 60 minutes prior to chemotherapy when being utilized as a Pre-MedicationIndication s:Vasculitic neuropathy,Anemia due to other cause, not classified,High risk medication use New Bag 12/29/2024 10:48 AM EDT 50 mg 200 mL/hr famotidine (PEPCID) 20 mg/2 mL injection 20 mg 20 mg, Intravenous, Once, On Fri12/29/24 at 1030, For 1 dose, If ordered IV push: dilute dose with 0.9% sodium chloride (NS) to a total volume of 10 mLs; administer at a rate of 10 mg/minute.Indications:Va sculitic neuropathy,Anemia due to other cause, not classified,High risk medication use Given 12/29/2024 10:44 AM EDT 20 mg famotidine (PEPCID) 20 mg/2 mL injection 20 mg 20 mg, Intravenous, Once, On Fri12/29/24 at 1500, For 1 dose, If ordered IV push: dilute dose with 0.9% sodium chloride (NS) to a total volume of 10 mLs; administer at a rate of 10 mg/minute.Indications:Na usea Given 12/29/2024 2:54 PM EDT 20 mg immune globulin (human) 10% in Solution (GAMMAGARD) IV Premix 10 g 10 g, Intravenous, Once, On Fri12/29/24 at 1100, For 1 dose, Dose will be broken in individual vials of 3 x 20 grams and 1 x 10 grams. Filtration not required. In-line 0.2 micron filter optional. Refer to IVIG infusion table for administration rate. The infusion site and vital signs will be checked at baseline, after every rate change and every 30 minutes thereafter until infusion is complete., IVIG Reason for use: Other, Specify: mononeuro multiplex Rate/Dose Change 12/29/2024 1:10 PM EDT 180 mL/hr immune globulin (human) 10% in Solution (GAMMAGARD) IV Premix 20 g 20 g, Intravenous, Once, On Fri12/29/24 at 1100, For 1 dose, Dose will be broken in individual vials of 3 x 20 grams and 1 x 10 grams. Filtration not required. In-line 0.2 micron filter optional. Refer to IVIG infusion table for administration rate. The infusion site and vital signs will be checked at baseline, after every rate change and every 30 minutes thereafter until infusion is complete., IVIG Reason for use: Other, Specify: mononeuro multiplex New Bag 12/29/2024 2:56 PM EDT 20 g 450 mL/hr immune globulin (human) 10% in Solution (GAMMAGARD) IV Premix 20 g 20 g, Intravenous, Once, On Fri12/29/24 at 1100, For 1 dose, Dose will be broken in individual vials of 3 x 20 grams and 1 x 10 grams. Filtration not required. In-line 0.2 micron filter optional. Refer to IVIG infusion table for administration rate. The infusion site and vital signs will be checked at baseline, after every rate change and every 30 minutes thereafter until infusion is complete., IVIG Reason for use: Other, Specify: mononeuro multiplex Rate/Dose Change 12/29/2024 2:47 PM EDT 450 mL/hr immune globulin (human) 10% in Solution (GAMMAGARD) IV Premix 20 g 20 g, Intravenous, Once, On Fri12/29/24 at 1100, For 1 dose, Dose will be broken in individual vials of 3 x 20 grams and 1 x 10 grams. Filtration not required. In-line 0.2 micron filter optional. Refer to IVIG infusion table for administration rate. The infusion site and vital signs will be checked at baseline, after every rate change and every 30 minutes thereafter until infusion is complete., IVIG Reason for use: Other, Specify: mononeuro multiplex Rate/Dose Change 12/29/2024 1:44 PM EDT 270 mL/hr ketorolac (TORADOL) injection 15 mg 15 mg, Intravenous, Every 6 hours PRN, mild pain 1-3, Starting on Fri12/29/24 at 1021, For 1 day, If ordered IV Push: administer undiluted over 2 minutes.Indications:Vasc ulitic neuropathy,Anemia due to other cause, not classified,High risk medication use Given 12/29/2024 10:46 AM EDT 15 mg methylPREDNISolone sodium succinate (SOLU-Medrol) 600 mg in sodium chloride (NS) 0.9 % 100 mL IVPB 600 mg, Intravenous, at 219.2 mL/hr, Once, On Fri12/29/24 at 1030, For 1 dose, PRIOR TO IVIG ON DAY 1 ONLYIndications:Vasculit ic neuropathy,Anemia due to other cause, not classified,High risk medication use New Bag 12/29/2024 11:05 AM EDT 600 mg 219.2 mL/hr ondansetron (ZOFRAN) injection 4 mg 4 mg, Intravenous, Every 6 hours PRN, nausea, vomiting, Starting on Fri12/29/24 at 1021, For 1 doseIndications:Vasculit ic neuropathy,Anemia due to other cause, not classified,High risk medication use Given 12/29/2024 10:43 AM EDT 4 mg SUMAtriptan (IMITREX) injection 6 mg 6 mg, Subcutaneous, Once PRN, migraine, Starting on Fri12/29/24 at 1021, For 1 dose, FOR SUBCUTANEOUS (SUBQ) INJECTION ONLYIndications:Vasculit ic neuropathy,Anemia due to other cause, not classified,High risk medication use Given 12/29/2024 3:31 PM EDT 6 mg Left Arm documented in this encounter Care Teams Exposure Machine Operator Relationship Specialty Start Date End Date Jacquelyn Garcia NP [address] [place] [address] PCP - General Family Medicine 05/18/24 Jonh Hobson MD 31 [facility] [address] [place] [address] Rheumatology 01/01/24 Ayde Zheng, ANTONIO 85 [facility] [address] [place] [address] Registered Nurse Hepatology 08/11/24 documented as of this encounter
--- OUTSIDE RECORDS SUMMARY | 2024-12-31 14:44 | XMS_ITS | Clinical Summary ---
Author Organization [facility] Address 75 [facility] 7t [place] [address] Care Team Providers Care Floriculturist Name Role Phone Nuria Levin Unavailable Unavailable Shaneka Bailey DO Primary Care Provider [phone] Allergies Active Allergy Reactions Criticality Noted Date [...] coming [place] [address]; until we can review med. Pain 11/22/2021 [...] Most Recently Relevant to Health Maintenance Insurance [facility] ST[facility] , [address] [place] [address] Care Teams Floriculturist Relationship Specialty Start Date End Date Shaneka Bailey DO [address] [place] [address] PCP - General Family Medicine 11/04/24 Nuria Levin Community Health Worker 12/09/22
--- OUTSIDE RECORDS SUMMARY | 2024-12-31 14:44 | XMS_ITS | Clinical Summary ---
Author Organization [facility] ity Address [address] [place] [phone] Care Team Providers Care Woolen Tester Name Role Phone FransiscoJongAstridJacquelyn craft ALFRED Primary [...] age to complete this topic Care Teams Woolen Tester Relationship Specialty Start Date End Date Jacquelyn Garcia FNP PCP - General Family Medicine 10/26/18
--- OUTSIDE RECORDS SUMMARY | 2024-12-31 14:44 | XMS_ITS | Encounter Summary ---
Author Organization [facility] Address [address] [place] [address] Care Team Providers Care Linux Server Administrator Name Role Phone Bijan Magana MD Unavailable Unavailable Jonh Hobson MD Unavailable [phone] Pcp, No Primary Care Provider UnavailJacquelyn Baxter NP Primary Care Provider Ayde Zheng RN Unavailable [phone] Encounter Details Date Type Department Care Team (Late st Contact Info) Description 06/03/2022 Scanned Document [facility] 85 [facility] [address] [place] [address] Luis Damon MD [facility] [place], [place] [phone] Social History Tobacco Use Types Packs/Day Years [...] 01/12/2025 10:00 AM EDT Office Visit [facility] Medical Oncology at [address] [place] [phone] Deanne Daniel MD [address] [place] [phone] 01/12/2025 10:45 AM EDT Infusion [facility] Outpatient Infusion [address] [phone] Deanne Daniel MD [address] [place] [phone] 01/13/2025 10:00 AM EDT Infusion [facility] [place] [facility] Infusion [address] [phone] Deanne Daniel MD [address] [place] [phone] 01/20/2025 1:00 PM EDT Office Visit [facility] Rheumatology [address] [place] [phone] Jonh Hobson MD 31 [facility] 206 [place], [place] [phone] 01/27/2025 11:30 AM EDT Consult [facility] 85 [facility] [address] [place] [phone] Jonh Hobson MD 31 [facility] [address] [place] [address] Jayne Morales, DO 300 [facility] [place] [address] 02/01/2025 11:40 AM EDT Office Visit [facility] 85 [facility] 815 [place] [phone] Luis Damon MD [facility]4 [place] [address] 02/16/2025 9:45 AM EDT [facility] [address] [place] [phone] Grey Trinidad MD [address] [place] [address] 04/26/2025 10:00 AM EDT Infusion [facility] [place] [facility] [address] [place] [address] Deanne Daniel MD [address] [place] [address] documented as of this encounter Visit Diagnoses Not on filedocumented in this encounter Care Teams Linux Server Administrator Relationship Specialty Start Date End Date Pcp, No PCP - General General Medicine 04/22/24 05/17/24 Jacquelyn Garcia NP [address] [place] [address] PCP - General Family Medicine 05/18/24 Bijan Magana MD Rheumatology 11/09/23 12/31/23 Jonh Hobson MD 31 [facility] 206 [place] [address] Rheumatology 01/01/24 Ayde Zheng RN 85 [facility] [address] [place] [address] Registered Nurse Hepatology 08/11/24 documented as of this encounter
--- OUTSIDE RECORDS SUMMARY | 2024-12-31 14:44 | XMS_ITS | Encounter Summary ---
Author Organization [facility] Address [address] [place] [address] Care Team Providers Care Burr Machine Operator Name Role Phone Bijan Magana MD Unavailable Unavailable Jonh Hobson MD Unavailable [phone] Pcp, No Primary Care Provider UnavailJacquelyn Baxter NP Primary Care Provider Ayde Zheng RN Unavailable [phone] Encounter Details Date Type Department Care Team (Late st Contact Info) Description 09/22/2023 Scanned Document [facility] Rheumatology [address] [place] [address] Rheumatology, Scan Social History Tobacco [...] 01/12/2025 10:00 AM EDT Office Visit [facility] Medical Oncology at [address] [place] [phone] Deanne Daniel MD [address] [place] [phone] 01/12/2025 10:45 AM EDT Infusion [facility] [place] [facility] Outpatient Infusion [address] [phone] Deanne Daniel MD [address] [place] [phone] 01/13/2025 10:00 AM EDT Infusion [facility] [place] [facility] Outpatient Infusion [address] [phone] Deanne Daniel MD [address] [place] [phone] 01/20/2025 1:00 PM EDT Office Visit [facility] Rheumatology [address] [place] [address] Jonh Hobson MD 31 [facility] 206 [place], [place] [phone] 01/27/2025 11:30 AM EDT Consult [facility] 85 [facility] 320 [place] [phone] Jonh Hobson MD [address] [address] Jayne Morales, 300 [facility] [place] [address] 02/01/2025 11:40 AM EDT Office Visit [facility] [place] [facility] 85 [facility] 815 [place] [phone] Luis Damon MD [facility]4 [place], [place] [address] 02/16/2025 9:45 AM EDT [facility] [address] [place] [phone] Grey Trinidad MD [address] [place] [address] 04/26/2025 10:00 AM EDT Infusion [facility] [place] [facility] 85 [place] [address] Deanne Daniel MD [address] [place] [address] documented as of this encounter Visit Diagnoses Not on filedocumented in this encounter Care Teams Burr Machine Operator Relationship Specialty Start Date End Date Pcp, No PCP - General General Medicine 04/22/24 05/17/24 Jacquelyn Garcia NP [address] [place] [address] PCP - General Family Medicine 05/18/24 Bijan Magana MD Rheumatology 11/09/23 12/31/23 Jonh Hobson MD 31 [facility] 206 [place] [address] Rheumatology 01/01/24 Ayde Zheng RN 85 [facility] 320 [place] [address] Registered Nurse Hepatology 08/11/24 documented as of this encounter
--- NOTE | 2024-12-31 14:45 | HO.SPINEOV ---
Intake Visit Reasons: MRI f/u Intake Note: Ms. pritchard is here today to F/u on the results to her MRI. Computational Linguist Required: No Allergies ceftazidime Allergy (Intermediate, Verified 12/31/24 14:48) rash penicillin V Allergy (Intermediate, Verified 12/31/24 14:48) Rash duloxetine [From Cymbalta] Allergy (Verified 12/31/24 14:48) stomache gabapentin Adverse Reaction (Severe, Verified 12/31/24 14:48) suicidal thoughts pregabalin [From Lyrica] Adverse Reaction (Severe, Verified 12/31/24 14:48) suicidal thoughts Assessment & Plan Assessment & Plan (1) Cervical myelopathy: Code(s): G95.9 - Disease of spinal cord, unspecified Category: Medical Plan Ms Pritchard came back in follow up today. She had been admitted over [facility] with what was thought to be cauda equina symptoms, but her MRI turned out not to show any significant compression of the nerves. She was supposed to come back and see us to review a cervical and lumbar MRI done here at [facility] that was done to evaluate for her loss of function of her hands and legs with difficulty standing walking as well as bladder dysfunction. The cervical MRI shows postsurgical changes but no meaningful stenosis or compression of the spinal cord. The lumbar as well just shows mild degenerative changes with no evidence of any meaningful compression of nerves. 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 She had undergone a sural nerve biopsy confirming that diagnosis sometime in the past. Unfortunately there is nothing we can do for her surgically to correct her issues. She is going to seek out a 2nd opinion which is certainly reasonable. Total amount of time spent in this visit was 20 minutes in discussion of symptoms, cervical and lumbar imaging results and subsequent plan of care Solomon Bob MD,PhD [facility] Coding Level of Care Code Est Pt Level 3 (55059) Diagnoses Cervical myelopathy G95.9
--- OUTSIDE RECORDS SUMMARY | 2024-12-31 14:45 | XMS_ITS | Clinical Summary ---
Author Organization [facility] Address [address] [place] [address] Care Team Providers Care Denture Processor Name Role Phone Jacquelyn Garcia Primary Care Provider [phone] Social History Tobacco Use Types Packs/Day Years [...] age to complete this topic Care Teams Denture Processor Relationship Specialty Start Date End Date Jacquelyn Garcia 58 [facility] [place] [phone] PCP - General Family Medicine 10/26/18
--- OUTSIDE RECORDS SUMMARY | 2024-12-31 14:45 | XMS_ITS | Encounter Summary ---
Author Organization [facility] Address [address] [place] [address] Care Team Providers Care Hospital Product Specialist Name Role Phone Bijan Magana MD Unavailable Unavailable Jonh Hobson MD Unavailable [phone] Pcp, No Primary Care Provider UnavailJacquelyn Baxter NP Primary Care Provider Ayde Zheng RN Unavailable [phone] Encounter Details Date Type Department Care Team (Late st Contact Info) Description 09/13/2022 Scanned Document [facility] [place] Medical Oncology at [address] [address] Provider, Brian, [address] [place] [address] Social History Tobacco Use Types Packs/Day Years [...] 10:00 AM EDT Office Visit [facility] Medical Oncology at [address] [phone] Deanne Daniel MD [address] [place] [address] 01/12/2025 10:45 AM EDT Infusion [facility] Infusion [address] [phone] Deanne Daniel MD [address] [place] [address] 01/13/2025 10:00 AM EDT Infusion [facility] [place] [facility] Infusion [address] [phone] Deanne Daniel MD [address] [place] [address] 01/20/2025 1:00 PM EDT Office Visit [facility] Rheumatology [address] [phone] Jonh Hobson MD 31 [facility] 206 [place] [address] 01/27/2025 11:30 AM EDT Consult [facility] 85 [facility] 320 [place] [address] Jonh Hobson MD 31 [facility] 206 [place], [place] [phone] Jayne Morales, DO 300 [place] [address] 02/01/2025 11:40 AM EDT Office Visit [facility] [place] [facility] 85 [facility] 815 [place] [phone] Luis Damon MD [facility]4 [place] [address] 02/16/2025 9:45 AM EDT [facility] [address] [phone] Grey Trinidad MD [address] [place] [address] 04/26/2025 10:00 AM EDT Infusion [facility] [place] at [facility] 85 [place] [phone] Deanne Daniel MD 85 [place], [place] [phone] documented as of this encounter Visit Diagnoses Not on filedocumented in this encounter Care Teams Hospital Product Specialist Relationship Specialty Start Date End Date Pcp, No PCP - General General Medicine 04/22/24 05/17/24 Jacquelyn Garcia NP [address] [place] [address] PCP - General Family Medicine 05/18/24 Bijan Magana MD Rheumatology 11/09/23 12/31/23 Jonh Hobson MD 31 [facility] 206 [place] [address] Rheumatology 01/01/24 Ayde Zheng, RN 85 [facility] 320 [place] [address] Registered Nurse Hepatology 08/11/24 documented as of this encounter
--- OUTSIDE RECORDS SUMMARY | 2024-12-31 14:45 | XMS_ITS | Encounter Summary ---
Author Organization [facility] Address [address] [place] [address] Care Team Providers Care Pigment Supplier Name Role Phone Jonh Hobson MD Unavailable [phone] Jacquelyn Garcia POLYTECHNIC TEACHER Primary Care Provider Ayde Zheng RN Unavailable [phone] Reason for Visit * Reason Onset Date Comments Medication Refill 10/06/2024 Encounter Details Date Type Department Care Team (Late st Contact Info) Description 10/06/2024 Refill [facility] [place] [facility] 85 [facility] [address] [place] [address] Luis Damon MD [address] [place] [address] Steroid dependent (HCC) Social History Tobacco Use [...] Description 01/12/2025 10:00 AM EDT Office Visit [facility] [place] Medical Oncology at [address] [address] Deanne Daniel MD [address] [place] [address] 01/12/2025 10:45 AM EDT Infusion [facility] Cancer [place] at [facility] [address] [place] [phone] Deanne Daniel MD 85 [place], [place] [phone] 01/13/2025 10:00 AM EDT Infusion [facility] Cancer [place] at [facility] [address] [place] [phone] Deanne Daniel MD 85 [place], [place] [phone] 01/20/2025 1:00 PM EDT Office Visit [address] [place] [address] Jonh Hobson MD [address] [address] 01/27/2025 11:30 AM EDT Consult [facility] [address] [place] [address] 320 [place] [address] Jonh Hobson MD [address] [address] Jayne Morales, DO 300 [place] [address] 02/01/2025 11:40 AM EDT Office Visit [facility] [place] [facility] [address] [place] [address] 815 [place] [address] Luis Damon MD [facility]4 [place] [address] 02/16/2025 9:45 AM EDT [facility] [address] [place] [phone] Grey Trinidad MD [address] [place] [address] 04/26/2025 10:00 AM EDT Infusion [facility] Cancer [place] at [facility] 85 [place] [phone] Deanne Daniel MD 85 [place] [address] documented as of this encounter Visit Diagnoses Diagnosis Steroid dependent (HCC) documented in this encounter Care Teams Pigment Supplier Relationship Specialty Start Date End Date Jacquelyn Garcia NP [address] [place] [address] PCP - General Family Medicine 05/18/24 Jonh Hobson MD 31 [facility] 206 [place] [address] Rheumatology 01/01/24 Ayde Zheng RN 85 [facility] 320 [place] [address] Registered Nurse Hepatology 08/11/24 documented as of this encounter
--- OUTSIDE RECORDS SUMMARY | 2024-12-31 14:45 | XMS_ITS | Encounter Summary ---
Author Organization [employer] Address 75 [facility] 7t [place] [address] Care Team Providers Care Music Engraver Name Role Phone Jacquelyn Garcia Primary Care Provider Unavailable Nuria Levin Unavailable Inactive/Transferred Primary Care Provider Shaneka Ford DO Primary Care Provider [phone] Encounter Details Date Type Department Care Team (Late st Contact Info) Description 12/11/2023 Orders Only [facility] [address] [place] [address] Jacquelyn Garcia FNP Social History Tobacco Use [...] on filedocumented in this encounter Care Teams Music Engraver Relationship Specialty Start Date End Date Jacquelyn Garcia FNP PCP - General Family Medicine 08/06/22 06/01/24 Inactive/Transferred PCP - General 06/02/24 06/02/24 Shaneka Bailey DO [address] [place] [address] PCP - General Family Medicine 11/04/24 Nuria Levin Community Health Worker 12/09/22 documented as of this encounter
--- OUTSIDE RECORDS SUMMARY | 2024-12-31 14:45 | XMS_ITS | Encounter Summary ---
Author Organization [facility] Address [address] [place] [address] Care Team Providers Care Tanning Wheel Operator Name Role Phone Jonh Hobson MD Unavailable [phone] Jacquelyn Garcia SPRINKLING TRUCK DRIVER Primary Care Provider Ayde Zheng RN Unavailable [phone] Encounter Details Date Type Department Care Team (Late st Contact Info) Description 12/28/2024 Telephone [facility] [address] [phone] Sabrina Villegas MA [address] [phone] Social History Tobacco Use Types Packs/Day Years [...] in a mcfp (including now)? No 04/26/2024 Comments No Sex and Gender Information Value Date Recorded Sex Assigned at Female 10/02/2022 12:43 PM EST Legal Sex Female 5:38 PM EDT Gender Identity Female 10/02/2022 12:43 PM EST Sexual Orientation Heterosexual (straight) 10/02 12:43 PM EST documented as of this encounter Miscellaneous Notes * Telephone Encounter - Ayde Zheng RN - 12/29/2024 11:30 AM EDT Returned call to Mari. She is asking if pt needed to keep her consultation appt. I informed her Kenzie would need to see her to fully evaluate her and go over her lab results. She would not be able to make any decisions regarding her care without seeing her in the office. She verbalized understanding and will keep pt's appt as scheduled. * Telephone Encounter - Sabrina Villegas MA - 12/28/2024 2:20 PM EDT Linh left message wants to speak to RN no other information given. documented in this encounter Plan of Treatment Upcoming Encounters Date Type Department Care Team (Late st Contact Info) Description 01/12/2025 10:00 AM EDT Office Visit [facility] Medical Oncology at [address] [place] [address] Deanne Daniel MD [address] [place] [address] 01/12/2025 10:45 AM EDT Infusion [facility] [place] at [facility] [address] [place] [phone] Deanne Daniel MD [address] [place] [address] 01/13/2025 10:00 AM EDT Infusion [facility] Infusion [address] [phone] Deanne Daniel MD [address] [place] [address] 01/20/2025 1:00 PM EDT Office Visit [facility] Rheumatology [address] [place] [address] Jonh Hobson MD 31 [facility] 206 [place] [address] 01/27/2025 11:30 AM EDT Consult [facility] 85 [facility] 320 [place] [phone] Jonh Hobson MD 31 [facility] 206 [place], [place] [phone] Jayne Morales, DO 300 [place] [address] 02/01/2025 11:40 AM EDT Office Visit [facility]rom[facility] [place] [facility] 85 [facility] 815 [place] [address] Luis Damon MD [facility]4 [place] [address] 02/16/2025 9:45 AM EDT [facility] [address] [address] [phone] Grey Trinidad MD [address] [place] [address] 04/26/2025 10:00 AM EDT Infusion [facility] Cancer [place] at [facility] 85 [place] [address] Deanne Daniel MD 85 [place] [address] documented as of this encounter Visit Diagnoses Not on filedocumented in this encounter Care Teams Tanning Wheel Operator Relationship Specialty Start Date End Date Fransisco-Jacquelyn Block NP [address] [place] [address] PCP - General Family Medicine 05/18/24 Jonh Hobson MD 31 [facility] 206 [place], [place] [phone] Rheumatology 01/01/24 Ayde Zheng RN [address] [place] [address] Registered Nurse Hepatology 08/11/24 documented as of this encounter
--- OUTSIDE RECORDS SUMMARY | 2024-12-31 14:45 | XMS_ITS | Encounter Summary ---
Author Organization [facility] Address [address] [place] [address] Care Team Providers Care Parts Manager Name Role Phone Bijan Magana MD Unavailable Unavailable Jonh Hobson MD Unavailable [phone] Pcp, No Primary Care Provider UnavailJacquelyn Baxter NP Primary Care Provider Ayde Zheng RN Unavailable [phone] Encounter Details Date Type Department Care Team (Late st Contact Info) Description 11/22/2022 Scanned Document [facility] [place] [facility] 85 [facility] [address] [place] [address] Luis Damon MD [address] [place] [phone] Social History Tobacco Use Types Packs/Day Years [...] 01/12/2025 10:00 AM EDT [facility] Medical On[facility] at [address] [phone] Deanne Daniel MD [address] [place] [address] 01/12/2025 10:45 AM EDT Infusion [facility] at [facility] Out[facility]fusion Center [address] [place] [phone] Deanne Daniel MD [address] [place] [address] 01/13/2025 10:00 AM EDT Infusion [facility] Infusion [address] [phone] Deanne Daniel MD [address] [place] [phone] 01/20/2025 1:00 PM EDT Office Visit [facility] Rheumatology [address] [address] Jonh Hobson MD 31 [facility] 206 [place] [address] 01/27/2025 11:30 AM EDT Consult [facility] 85 [facility] 320 [place] [address] Jonh Hobson MD 31 [facility] [place] [facility] 206 [place] [address] Jayne Morales, 300 [place] [address] 02/01/2025 11:40 AM EDT Office Visit [facility] 85 [facility] 815 [place] [phone] Luis Damon MD [facility]4 [place] [address] 02/16/2025 9:45 AM EDT [facility] [address] [phone] Grey Trinidad MD [address] [place] [address] 04/26/2025 10:00 AM EDT Infusion [facility] [place] [facility] Out[facility]fusion Center 85 [place] [phone] Deanne Daniel MD 85 [place], [place] [phone] documented as of this encounter Visit Diagnoses Not on filedocumented in this encounter Care Teams Parts Manager Relationship Specialty Start Date End Date Pcp, No PCP - General General Medicine 04/22/24 05/17/24 Jacquelyn Garcia NP [address] [place] [address] PCP - General Family Medicine 05/18/24 Bijan Magana MD Rheumatology 11/09/23 12/31/23 Jonh Hobson MD 31 [facility] [place] [facility] 206 [place] [address] Rheumatology 01/01/24 Ayde Zheng, RN 85 [facility] 320 [place] [address] Registered Nurse Hepatology 08/11/24 documented as of this encounter
--- OUTSIDE RECORDS SUMMARY | 2024-12-31 14:45 | XMS_ITS | Encounter Summary ---
Author Organization [facility] Address [address] [place] [address] Care Team Providers Care Plumbing And Heating Contractor Name Role Phone Jonh Hobson MD Unavailable [phone] Jacquelyn Garcia GRADUATE TEACHER EDUCATION Primary Care Provider Ayde Zheng RN Unavailable [phone] Encounter Details Date Type Department Care Team (Late st Contact Info) Description 11/01/2024 Telephone [facility] Cancer [place] at [facility] Outpatient Infusion Center [address] [place] [address] Luis Damon MD [facility] [place] [address] Social History Tobacco Use Types Packs/Day Years Used Date Smoking Tobacco: Never Smokeless Tobacco: Never Alcohol Use Standard Drinks/Week Comments Not Currently 0 (1 standard drink = 0.6 oz pur e alcohol) Social [facility] Utilities Answer Date Recorded In the past 12 months has [employer] e electric, gas, oil, or water company [...] place to sleep or slept in a snf (including now)? No 04/26/2024 Comments No Sex [...] Description 01/12/2025 10:00 AM EDT Office Visit [facility] [place] Medical Oncology at [address] [phone] Deanne Daniel MD [address] [place] [address] 01/12/2025 10:45 AM EDT Infusion [facility] Cancer [place] at [facility] Outpatient Infusion Center [address] [place] [phone] Deanne Daniel MD 85 [place] [address] 01/13/2025 10:00 AM EDT Infusion [facility] Cancer [place] at [facility] Outpatient [facility]fusion Center [address] [place] [address] Deanne Daniel MD 85 [place], [place] [phone] 01/20/2025 1:00 PM EDT Office Visit [facility] Rheumatology [address] [phone] Jonh Hobson MD [address] [address] 01/27/2025 11:30 AM EDT Consult [facility] Transplant Program & [facility] Liver Center [address] [place] [address] Jonh Hobson MD [address] [address] Jayne Morales, DO 300 [place] [address] 02/01/2025 11:40 AM EDT Office Visit [facility] [place] [facility] [address] [place], [place] [address] [place] [address] Luis Damon MD [facility]4 [place] [address] 02/16/2025 9:45 AM EDT [facility] [place] 201 [facility] [address] [place] [phone] Grey Trinidad MD [address] [place] [address] [place] [address] 04/26/2025 10:00 AM EDT Infusion [facility] Cancer [place] at [facility] Outpatient [facility]fusion Center 85 [place] [phone] Deanne Daniel MD 85 [place] [address] documented as of this encounter Visit Diagnoses Not on filedocumented in this encounter Care Teams Plumbing And Heating Contractor Relationship Specialty Start Date End Date Jacquelyn Garcia NP [address] [place] [address] PCP - General Family Medicine 05/18/24 Jonh Hobson MD 31 [facility] 206 [place] [address] Rheumatology 01/01/24 Ayde Zheng RN 85 [facility] 320 [place] [address] Registered Nurse Hepatology 08/11/24 documented as of this encounter
--- OUTSIDE RECORDS SUMMARY | 2024-12-31 14:45 | XMS_ITS | Encounter Summary ---
Author Organization [facility] Address [address] [place] [address] Care Team Providers Care Record Center Coordinator Name Role Phone Bijan Magana MD Unavailable Unavailable Jonh Hobson MD Unavailable [phone] Pcp, No Primary Care Provider UnavailJacquelyn Baxter NP Primary Care Provider Ayde Zheng RN Unavailable [phone] Encounter Details Date Type Department Care Team (Late st Contact Info) Description 11/21/2021 Scanned Document [facility] Rheumatology [address] [address] Boyd Cheng MD [address] [place] [address] Social History Tobacco Use Types Packs/Day [...] 01/12/2025 10:00 AM EDT Office Visit [facility] Medical Oncology at [address] [place] [address] Deanne Daniel MD [address] [place] [phone] 01/12/2025 10:45 AM EDT Infusion [facility] at [facility] Outpatient Infusion [address] [phone] Deanne Daniel MD [address] [place] [address] 01/13/2025 10:00 AM EDT Infusion [facility] [place] at [facility] Outpatient Infusion [address] [phone] Deanne Daniel MD [address] [place] [address] 01/20/2025 1:00 PM EDT Office Visit [facility] Rheumatology [address] [place] [phone] Jonh Hobson MD 31 [facility] 206 [place], [place] [phone] 01/27/2025 11:30 AM EDT Consult [facility] Center 85 [facility] 320 [place] [phone]30-99 Jonh Hobson MD 31 [facility] 206 [place] [address] Jayne Morales, DO 300 [facility] [place] [address] 02/01/2025 11:40 AM EDT Office Visit [facility] [place] [facility] 85 [facility] 815 [place] [phone] Luis Damon MD [facility]4 [place], [place] [address] 02/16/2025 9:45 AM EDT [facility] [address] [place] [phone] Grey Trinidad MD [address] [place] [address] 04/26/2025 10:00 AM EDT Infusion [facility] [place] at [facility] Outpatient [facility]fusion Center 85 [place] [address] Deanne Daniel MD 85 [place] [address] documented as of this encounter Visit Diagnoses Not on filedocumented in this encounter Care Teams Record Center Coordinator Relationship Specialty Start Date End Date Pcp, No PCP - General General Medicine 04/22/24 05/17/24 Jacquelyn Garcia NP [address] [place] [address] PCP - General Family Medicine 05/18/24 Bijan Magana MD Rheumatology 11/09/23 12/31/23 Jonh Hobson MD 31 [facility] 206 [place] [address] Rheumatology 01/01/24 Ayde Zheng RN 85 [facility] 320 [place] [address] Registered Nurse Hepatology 08/11/24 documented as of this encounter
--- OUTSIDE RECORDS SUMMARY | 2024-12-31 14:45 | XMS_ITS | Encounter Summary ---
Author Organization [facility] Address [address] [place] [address] Care Team Providers Care Lip Reading Teacher Name Role Phone Jonh Hobson MD Unavailable [phone] Pcp, No Primary Care Provider Unavailabl e Jacquelyn Garcia NP Primary Care Provider Ayde Zheng RN Unavailable [phone] Encounter Details Date Type Department Care Team (Late st Contact Info) Description 05/12/2024 Scanned Document [facility] Medical Oncology at [facility] [address] [phone] Valery Coe [address] [place] [address] Social History Tobacco Use Types Packs/Day Years Used Date Smoking Tobacco: Never Smokeless Tobacco: Never Alcohol Use Standard Drinks/Week Comments Not Currently 0 (1 standard drink = 0.6 oz pur e alcohol) Social [facility] Utilities Answer Date Recorded In the [...] Description 01/12/2025 10:00 AM EDT Office Visit [facility] [place] Medical Oncology at [address] [phone] Deanne Daniel MD [address] [place] [address] 01/12/2025 10:45 AM EDT Infusion [facility] [place] [facility] [address] [place] [phone] Deanne Daniel MD 85 [place] [address] 01/13/2025 10:00 AM EDT Infusion [facility] [place] [facility] [address] [place] [address] [phone] Deanne Daniel MD 85 [place], [place] [phone] 01/20/2025 1:00 PM EDT Office Visit [facility] Rheumatology [address] [phone] Jonh Hobson MD [address] [address] 01/27/2025 11:30 AM EDT Consult [facility] Trans[facility] & [facility] [address] [place] [address] Jonh Hobson MD [address] [address] Jayne Morales, DO 300 [place] [address] 02/01/2025 11:40 AM EDT Office Visit [facility] [place] [facility] [address] [place] [address] 815 [place] [address] Luis Damon MD [facility]4 [place] [address] 02/16/2025 9:45 AM EDT [facility] [address] [place] [address] Grey Trinidad MD [address] [place] [address] 04/26/2025 10:00 AM EDT Infusion [facility] [place] [facility]fusion Center 85 [place] [phone] Deanne Daniel MD 85 [place] [address] documented as of this encounter Visit Diagnoses Not on filedocumented in this encounter Care Teams Lip Reading Teacher Relationship Specialty Start Date End Date Pcp, No PCP - General General Medicine 04/22/24 05/17/24 Jacquelyn Garcia NP [address] [place] [address] PCP - General Family Medicine 05/18/24 Jonh Hobson MD 31 [facility] 206 [place], [place] [phone] Rheumatology 01/01/24 Ayde Zheng RN 85 [facility] 320 [place] [address] Registered Nurse Hepatology 08/11/24 documented as of this encounter
--- OUTSIDE RECORDS SUMMARY | 2024-12-31 14:45 | XMS_ITS | Encounter Summary ---
Author Organization [facility] Address [address] [place] [address] Care Team Providers Care Material Cutter Name Role Phone Jonh Hobson MD Unavailable [phone] Pcp, No Primary Care Provider Unavailabl e Jacquelyn Garcia NP Primary Care Provider Ayde Zheng RN Unavailable [phone] Encounter Details Date Type Department Care Team (Late st Contact Info) Description 05/13/2024 Scanned Document [address] [place] [phone] Radiology, Scan Social History Tobacco Use Types Packs/Day Years Used Date Smoking Tobacco: Never Smokeless Tobacco: Never Alcohol Use Standard Drinks/Week Comments Not Currently 0 (1 standard drink = 0.6 oz pur e alcohol) Social [facility] Utilities Answer Date Recorded In the past 12 months has [employer], gas, oil, or water [employer] threatened to shut off services in your [...] Description 01/12/2025 10:00 AM EDT Office Visit [facility] Medical Oncology at [address] [phone] Deanne Daniel MD [address] [place] [phone] 01/12/2025 10:45 AM EDT Infusion [facility] [place] [facility] Out[facility]fusion Center [address] [place] [phone] Deanne Daniel MD 85 [place] [address] 01/13/2025 10:00 AM EDT Infusion [facility] [place] [facility]fusion Center [address] [place] [phone] Deanne Daniel MD 85 [place] [address] 01/20/2025 1:00 PM EDT Office Visit [facility] Rheumatology [address] [place] [phone] Jonh Hobson MD [address] [phone] 01/27/2025 11:30 AM EDT Consult [facility] Transplant Program & [facility] 85 [facility] 320 [place] [address] Jonh Hobson MD [address] [address] Jayne Morales, DO 300 [place] [address] 02/01/2025 11:40 AM EDT Office Visit [facility]rom[facility] [place] [facility] 85 [facility] 815 [place] [phone] Luis Damon MD [facility]4 [place] [address] 02/16/2025 9:45 AM EDT [facility] [address] [place] [phone] Grey Trinidad MD [address] [place] [address] 04/26/2025 10:00 AM EDT Infusion [facility] [place] [facility] Outpatient [facility]fusion Center 85 [place] [phone] Deanne Daniel MD 85 [place] [address] documented as of this encounter Procedures Procedure Name Priority Date/Time Associated Diagnosis Comments HX OUTSIDE ORDER 05/13/2024 documented in this encounter Results * HX OUTSIDE ORDER (05/13/2024) us Scan Radiology HX AMB PROCEDURES Final Result documented in this encounter Visit Diagnoses Not on filedocumented in this encounter Care Teams Material Cutter Relationship Specialty Start Date End Date Pcp, No PCP - General General Medicine 04/22/24 05/17/24 Jacquelyn Garcia NP 73 [place] [address] PCP - General Family Medicine 05/18/24 Jonh Hobson MD 31 [facility] 206 [place] [address] Rheumatology 01/01/24 Ayde Zheng RN 85 [facility] 320 [place] [address] Registered Nurse Hepatology 08/11/24 documented as of this encounter
--- OUTSIDE RECORDS SUMMARY | 2024-12-31 14:45 | XMS_ITS | Encounter Summary ---
Author Organization [facility] Address 100 [place] [address] Care Team Providers Care Stage Manager Name Role Phone Jonh Hobson MD Unavailable [phone] Jacquelyn Garcia MECHANICAL PLANNER Primary Care Provider Ayde Zheng RN Unavailable [phone] Encounter Details Date Type Department Care Team (Late st Contact Info) Description 11/03/2024 Telephone [facility] [place] at [facility] Outpatient Infusion Center [address] [place] [phone] Luis Damon MD [facility]4 [place] [address] Social History Tobacco Use Types Packs/Day Years Used Date Smoking Tobacco: Never Smokeless Tobacco: Never Alcohol Use Standard Drinks/Week Comments Not Currently 0 (1 standard drink = 0.6 oz pur e alcohol) Social [facility] Utilities Answer Date Recorded In the past 12 months has [employer], gas, oil, or water company [...] Description 01/12/2025 10:00 AM EDT Office Visit [facility] [place] Medical Oncology at [address] [phone] Deanne Daniel MD [address] [place] [address] 01/12/2025 10:45 AM EDT Infusion [facility] Cancer [place] at [facility] Outpatient Infusion Center [address] [place] [phone] Deanne Daniel MD 85 [place] [address] 01/13/2025 10:00 AM EDT Infusion [facility] Cancer [place] at [facility] Outpatient Infusion Center [address] [place] [phone] Deanne Daniel MD 85 [place], [place] [phone] 01/20/2025 1:00 PM EDT Office Visit [facility] Rheumatology [address] [phone] Jonh Hobson MD [address] [address] 01/27/2025 11:30 AM EDT Consult [facility] Transplant Program & [facility] Liver Center [address] [place] [phone] Jonh Hobson MD [address] [address] Jayne Morales, DO 300 [place] [address] 02/01/2025 11:40 AM EDT Office Visit [facility] [place] [facility] [address] [place], [place] [address] [place] [address] Luis Damon MD [facility]4 [place] [address] 02/16/2025 9:45 AM EDT Consult [facility] [place] 201 [facility] [address] [place] [phone] Grey Trinidad MD [address] [place] [address] [place] [address] 04/26/2025 10:00 AM EDT Infusion [facility] Cancer [place] at [facility] Outpatient Infusion Center 85 [place] [phone] Deanne Daniel MD 85 [place] [address] documented as of this encounter Visit Diagnoses Not on filedocumented in this encounter Care Teams Stage Manager Relationship Specialty Start Date End Date Jacquelyn Garcia NP [address] [place] [address] PCP - General Family Medicine 05/18/24 Jonh Hobson MD 31 [facility] 206 [place] [address] Rheumatology 01/01/24 Ayde Zheng RN 85 [facility] 320 [place] [address] Registered Nurse Hepatology 08/11/24 documented as of this encounter
--- OUTSIDE RECORDS SUMMARY | 2024-12-31 14:45 | XMS_ITS | Encounter Summary ---
Author Organization [facility] Address [address] [place] [address] Care Team Providers Care News Analyst Name Role Phone Bijan Magana MD Unavailable Unavailable Jonh Hobson MD Unavailable [phone] Pcp, No Primary Care Provider UnavailJacquelyn Baxter NP Primary Care Provider Ayde Zheng RN Unavailable [phone] Encounter Details Date Type Department Care Team (Late st Contact Info) Description 11/19/2022 Scanned Document [facility] 85 [facility] [address] [place] [address] Luis Damon MD [address] [place] [phone] Social History Tobacco Use Types Packs/Day Years [...] Description 01/12/2025 10:00 AM EDT Office Visit [facility] Medical Oncology at [address] [phone] Deanne Daniel MD [address] [place] [address] 01/12/2025 10:45 AM EDT Infusion [facility] Outpatient Infusion Center [address] [place] [address] [phone] Deanne Daniel MD [address] [place] [address] 01/13/2025 10:00 AM EDT Infusion [facility] Infusion [address] [phone] Deanne Daniel MD [address] [place] [address] [phone] 01/20/2025 1:00 PM EDT Office Visit [facility] Rheumatology [address] [address] Jonh Hobson MD 31 [facility] 206 [place] [address] 01/27/2025 11:30 AM EDT Consult [facility] Transplant Program & [facility] 85 [facility] 320 [place] [address] Jonh Hobson MD 31 [facility] 206 [place] [address] Jayne Morales, 300 [place] [address] 02/01/2025 11:40 AM EDT Office Visit [facility] [place] [facility] 85 [facility] 815 [place] [phone] Luis Damon MD [facility]4 [place] [address] 02/16/2025 9:45 AM EDT [facility] [address] [phone] Grey Trinidad MD [address] [place] [address] 04/26/2025 10:00 AM EDT Infusion [facility] Cancer [place] [facility] Outpatient Infusion Center 85 [place] [phone] Deanne Daniel MD 85 [place], [place] [phone] documented as of this encounter Visit Diagnoses Not on filedocumented in this encounter Care Teams News Analyst Relationship Specialty Start Date End Date Pcp, No PCP - General General Medicine 04/22/24 05/17/24 Jacquelyn Garcia NP [address] [place] [address] PCP - General Family Medicine 05/18/24 Bijan Magana MD Rheumatology 11/09/23 12/31/23 Jonh Hobson MD 31 [facility] 206 [place] [address] Rheumatology 01/01/24 Ayde Zheng, RN 85 [facility] 320 [place] [address] Registered Nurse Hepatology 08/11/24 documented as of this encounter
--- OUTSIDE RECORDS SUMMARY | 2024-12-31 14:45 | XMS_ITS | Encounter Summary ---
Author Organization [facility] Address 100 [place] [address] Care Team Providers Care Molded Frames Assembler Name Role Phone Bijan Magana MD Unavailable Unavailable Jonh Hobson MD Unavailable [phone] Pcp, No Primary Care Provider UnavailJacquelyn Baxter NP Primary Care Provider Ayde Zheng RN Unavailable [phone] Encounter Details Date Type Department Care Team (Late st Contact Info) Description 11/14/2021 Scanned Document [facility] Rheumatology [address] [phone] Boyd Cheng MD [address] [place] [address] Social History Tobacco Use Types Packs/Day [...] Description 01/12/2025 10:00 AM EDT Office Visit [facility] Medical Oncology at [address] [place] [address] Deanne Daniel MD [address] [place] [phone] 01/12/2025 10:45 AM EDT Infusion [facility] Outpatient Infusion [address] [phone] Deanne Daniel MD [address] [place] [address] 01/13/2025 10:00 AM EDT Infusion [facility] [place] at [facility] Outpatient Infusion [address] [phone] Deanne Daniel MD [address] [place] [address] 01/20/2025 1:00 PM EDT Office Visit [facility] Rheumatology [address] [place] [phone] Jonh Hobson MD 31 [facility] 206 [place], [place] [phone] 01/27/2025 11:30 AM EDT Consult [facility] Transplant Program & [facility] Liver Center 85 [facility] 320 [place] [phone] Jonh Hobson MD 31 [facility] 206 [place] [address] Jayne Morales, DO 300 [facility] [place] [address] 02/01/2025 11:40 AM EDT Office Visit [facility] [place] [facility] 85 [facility] 815 [place] [phone] Luis Damon MD [facility]4 [place], [place] [address] 02/16/2025 9:45 AM EDT Consult [facility] [address] [place] [phone] Grey Trinidad MD [address] [place] [address] 04/26/2025 10:00 AM EDT Infusion [facility] Cancer [place] at [facility] Outpatient Infusion Center 85 [place] [address] Deanne Daniel MD 85 [place] [address] documented as of this encounter Visit Diagnoses Not on filedocumented in this encounter Care Teams Molded Frames Assembler Relationship Specialty Start Date End Date Pcp, No PCP - General General Medicine 04/22/24 05/17/24 Jacquelyn Garcia NP [address] [place] [address] PCP - General Family Medicine 05/18/24 Bijan Magana MD Rheumatology 11/09/23 12/31/23 Jonh Hobson MD 31 [facility] 206 [place] [address] Rheumatology 01/01/24 Ayde Zheng RN 85 [facility] 320 [place] [address] Registered Nurse Hepatology 08/11/24 documented as of this encounter
--- OUTSIDE RECORDS SUMMARY | 2024-12-31 14:45 | XMS_ITS | Encounter Summary ---
Author Organization [facility] Address [address] [place] [address] Care Team Providers Care Contract Negotiation Specialist Name Role Phone Bijan Magana MD Unavailable Unavailable Jonh Hobson MD Unavailable [phone] Pcp, No Primary Care Provider UnavailJacquelyn Baxter NP Primary Care Provider Ayde Zheng RN Unavailable [phone] Encounter Details Date Type Department Care Team (Late st Contact Info) Description 10/09/2021 Scanned Document [facility] [place] [facility] 85 [facility] [address] [place] [address] Luis Damon MD [facility] [place] [address] Social History Tobacco Use Types [...] Description 01/12/2025 10:00 AM EDT Office Visit [facility] Medical Oncology at [address] 216 [place] [phone] Deanne Daniel MD [address] [place] [address] [phone] 01/12/2025 10:45 AM EDT Infusion [facility] at [facility] Outpatient Infusion Center [address] [place] [phone] Deanne Daniel MD [address] [place] [address] 01/13/2025 10:00 AM EDT Infusion [facility] at [facility] Out[facility]fusion Center [address] [place] [phone] Deanne Daniel MD [address] [place] [address] [phone] 01/20/2025 1:00 PM EDT Office Visit [facility] Rheumatology [address] [place] [phone] Jonh Hobson MD 31 [facility] 206 [place], [place] [phone] 01/27/2025 11:30 AM EDT Consult [facility] Transplant Program & [facility] Liver Center 85 [facility] 320 [place] [phone] Jonh Hobson MD 31 [facility] 206 [place] [address] Jayne Morales, DO 300 [facility] [address] 02/01/2025 11:40 AM EDT Office Visit [facility] 85 [facility] 815 [place] [address] Luis Damon MD [address] [place] [address] 02/16/2025 9:45 AM EDT [facility] [address] [place] [phone] Grey Trinidad MD [address] [place] [address] 04/26/2025 10:00 AM EDT Infusion [facility] Cancer [place] [facility] Outpatient [facility]fusion Center 85 [place] [address] Deanne Daniel MD 85 [place] [address] documented as of this encounter Visit Diagnoses Not on filedocumented in this encounter Care Teams Contract Negotiation Specialist Relationship Specialty Start Date End Date Pcp, No PCP - General General Medicine 04/22/24 05/17/24 Jacquelyn Garcia NP [address] [place] [address] PCP - General Family Medicine 05/18/24 Bijan Magana MD Rheumatology 11/09/23 12/31/23 Jonh Hobson MD 31 [facility] 206 [place] [address] Rheumatology 01/01/24 Ayde Zheng RN 85 [facility] 320 [place] [address] Registered Nurse Hepatology 08/11/24 documented as of this encounter
--- OUTSIDE RECORDS SUMMARY | 2024-12-31 14:45 | XMS_ITS | Encounter Summary ---
Author Organization [facility] Address 100 [place] [address] Care Team Providers Care Auto Clutch Rebuilder Name Role Phone Jonh Hobson MD Unavailable [phone] Pcp, No Primary Care Provider Unavailabl e Jacquelyn Garcia INGREDIENT HANDLER Primary Care Provider Ayde Zheng RN Unavailable [phone] Encounter Details Date Type Department Care Team (Late st Contact Info) Description 05/12/2024 Scanned Document [facility] Rheumatology [address] [phone] Jonh Hobson MD [address] [place] [address] Social History Tobacco Use Types Packs/Day Years Used Date Smoking Tobacco: Never Smokeless Tobacco: Never Alcohol Use Standard Drinks/Week Comments Not Currently 0 (1 standard drink = 0.6 oz pur e alcohol) Social [facility] Utilities Answer Date Recorded In the [...] in a intermediate (including now)? No 04/26/2024 Comments No Sex [...] Description 01/12/2025 10:00 AM EDT Office Visit [facility] [place] Medical Oncology at [address] [phone] Deanne Daniel MD [address] [place] [phone] 01/12/2025 10:45 AM EDT Infusion [facility] Cancer [place] at [facility] Outpatient Infusion Center [address] [place] [phone] Deanne Daniel MD 85 [place] [address] 01/13/2025 10:00 AM EDT Infusion [facility] Cancer [place] at [facility] Outpatient Infusion Center [address] [place] [phone] Deanne Daniel MD 85 [place], [place] [phone] 01/20/2025 1:00 PM EDT Office Visit [address] [place] [phone] Jonh Hobson MD [address] [address] 01/27/2025 11:30 AM EDT Consult [facility] Transplant Program & [facility] Liver Center [address] [place] [phone] Jonh Hobson MD [address] [phone] Jayne Morales, DO 300 [place] [address] 02/01/2025 11:40 AM EDT Office Visit [facility]romuscular [place] [facility] [address] [place], [place] [address] [place] [address] Luis Damon MD [facility]4 [place] [address] 02/16/2025 9:45 AM EDT [facility] [address] [place] [phone] Grey Trinidad MD [address] [place] [address] 04/26/2025 10:00 AM EDT Infusion [facility] Cancer [place] at [facility] Outpatient Infusion Center 85 [place] [phone] Deanne Daniel MD 85 [place] [address] documented as of this encounter Visit Diagnoses Not on filedocumented in this encounter Care Teams Auto Clutch Rebuilder Relationship Specialty Start Date End Date Pcp, No PCP - General General Medicine 04/22/24 05/17/24 Jacquelyn Garcia NP [address] [place] [address] PCP - General Family Medicine 05/18/24 Jonh Hobson MD 31 [facility] 206 [place] [address] Rheumatology 01/01/24 Ayde Zheng RN 85 [facility] 320 [place] [address] Registered Nurse Hepatology 08/11/24 documented as of this encounter
--- OUTSIDE RECORDS SUMMARY | 2024-12-31 14:45 | XMS_ITS | Encounter Summary ---
Author Organization Formerly [facility] Address 100 [place] [address] Care Team Providers Care Internal Medicine Veterinary Technician Name Role Phone Jonh Hobson MD Unavailable [phone] Jacquelyn Garcia DEPUTY BUILDING GUARD Primary Care Provider Ayde Zheng RN Unavailable [phone] Encounter Details Date Type Department Care Team (Late st Contact Info) Description 11/10/2024 Telephone [facility] [address] [address] Janet Bonilla MA [address] [phone] Social History Tobacco Use Types Packs/Day Years Used Date Smoking Tobacco: Never Smokeless Tobacco: Never Alcohol Use Standard Drinks/Week Comments Not Currently 0 (1 standard drink = 0.6 oz pur e alcohol) Social C Utilities Answer Date Recorded In the past 12 months has [employer] electric, gas, oil, or water company threatened [...] in a residential (including now)? No 04/26/2024 Comments No Sex [...] for drug-induced hepatitis. Please schedule with any terminal worker, first available. Thanks * Telephone Encounter - Janet Bonilla MA - 11/10/2024 8:02 AM EDT New patient records received. Transcribe order completed. Care Team added. Records are available inEpic. please advise documented in this encounter Plan of Treatment Upcoming Encounters Date Type Department Care Team (Late st Contact Info) Description 01/12/2025 10:00 AM EDT Office Visit [facility] Medical Oncology at [address] [phone] Deanne Daniel MD [address] [place] [address] 01/12/2025 10:45 AM EDT Infusion [facility] [place] at [facility] Outpatient [facility]fusion Center [address] [place] [phone] Deanne Daniel MD [address] [place] [address] 01/13/2025 10:00 AM EDT Infusion [facility] [place] at [facility] Outpatient [facility]fusion Center 85 [place] [phone] Deanne Daniel MD 85 [place] [address] 01/20/2025 1:00 PM EDT Office Visit [facility] Rheumatology [address] [place] [address] Jonh Hobson MD [address] [phone] 01/27/2025 11:30 AM EDT Consult [facility] Transplant Program & [facility] Liver Center [address] [place] [phone] Jonh Hobson MD [address] [phone] Jayne Morales, DO 300 [place] [address] 02/01/2025 11:40 AM EDT Office Visit [facility]rom[facility] [place] [facility] [address] [place], [place] [address] [place] [address] Luis Damon MD [facility] [place], [place] [address]90 02/16/2025 9:45 AM EDT [facility] [address] [phone] Grey Trinidad MD [address] [place] [address] [place] [address] 04/26/2025 10:00 AM EDT Infusion [facility] Cancer [place] at [facility] Outpatient [facility]fusion Center [address] [place] [address] Deanne Daniel MD 85 [place], [place] [phone] documented as of this encounter Visit Diagnoses Not on filedocumented in this encounter Care Teams Internal Medicine Veterinary Technician Relationship Specialty Start Date End Date Jacquelyn Garcia NP [address] [place] [address] PCP - General Family Medicine 05/18/24 Jonh Hobson MD 31 [facility] 206 [place], [place] [phone] Rheumatology 01/01/24 Ayde Zheng RN 85 [facility] 320 [place], [place] [phone] Registered Nurse Hepatology 08/11/24 documented as of this encounter
--- OUTSIDE RECORDS SUMMARY | 2024-12-31 14:45 | XMS_ITS | Encounter Summary ---
Author Organization [employer] Address 75 [facility] 7t [place] [address] Care Team Providers Care Track Template Maker Name Role Phone Jacquelyn Garcia Primary Care Provider Unavailable Nuria Leivn Unavailable Inactive/Transferred Primary Care Provider Shaneka Ford DO Primary Care Provider [phone] Reason for Visit * Reason Comments Med Refill Encounter Details Date Type Department Care Team (Late st Contact Info) Description 09/08/2023 Refill [facility] MEDICAL 73 [place] [address] Jacquelyn Garcia FNP Mononeuritis multiplex; Gastroesophageal reflux [...] unspecified documented in this encounter Care Teams Track Template Maker Relationship Specialty Start Date End Date Jacquelyn Garcia FNP PCP - General Family Medicine 08/06/22 06/01/24 Inactive/Transferred PCP - General 06/02/24 06/02/24 Shaneka Bailey DO [address] [place] [address] PCP - General Family Medicine 11/04/24 Nuria Levin Community Health Worker 12/09/22 documented as of this encounter
--- OUTSIDE RECORDS SUMMARY | 2024-12-31 14:45 | XMS_ITS | Encounter Summary ---
Author Organization [facility] Address [address] [place] [address] Care Team Providers Care Plc Technician Name Role Phone Jonh Hobson MD Unavailable [phone] Jacquelyn Garcia APPEALS RN Primary Care Provider Ayde Zheng RN Unavailable [phone] Encounter Details Date Type Department Care Team (Late st Contact Info) Description 09/24/2024 Scanned Document [facility] Rheumatology [address] [phone] Jonh Hobson MD [address] [place] [address] Social History Tobacco Use Types Packs/Day Years Used Date Smoking Tobacco: Never Smokeless Tobacco: Never Alcohol Use Standard Drinks/Week Comments Not Currently 0 (1 standard drink = 0.6 oz pur e alcohol) Social [facility] Utilities Answer Date Recorded In [...] Description 01/12/2025 10:00 AM EDT Office Visit [facility] [place] Medical Oncology at [address] [phone] Deanne Daniel MD [address] [place] [address] 01/12/2025 10:45 AM EDT Infusion [facility] [place] at [facility] Outpatient Infusion Center [address] [place] [phone] Deanne Daniel MD 85 [place] [address] 01/13/2025 10:00 AM EDT Infusion [facility] Cancer [place] at [facility] Outpatient Infusion [address] [phone] Deanne Daniel MD 85 [place], [place] [phone] 01/20/2025 1:00 PM EDT Office Visit [facility] Rheumatology [address] [phone] Jonh Hobson MD [address] [address] 01/27/2025 11:30 AM EDT Consult [facility] Transplant Program & [facility] Liver Center [address] [place] [address] Jonh Hobson MD [address] [address] Jayne Morales, DO 300 [place] [address] 02/01/2025 11:40 AM EDT Office Visit [facility] [place] [facility] [address] [place], [place] [address] [place] [address] Luis Damon MD [facility] [place] [address] 02/16/2025 9:45 AM EDT Consult [facility] 201 [facility] [address] [place] [address] Grey Trinidad MD [address] [place] [address] 04/26/2025 10:00 AM EDT Infusion [facility] Cancer [place] at [facility] Outpatient Infusion Center 85 [place] [phone] Deanne Daniel MD 85 [place] [address] documented as of this encounter Visit Diagnoses Not on filedocumented in this encounter Care Teams Plc Technician Relationship Specialty Start Date End Date Jacquelyn Garcia NP [address] [place] [address] PCP - General Family Medicine 05/18/24 Jonh Hobson MD 31 [facility] 206 [place] [address] Rheumatology 01/01/24 Ayde Zheng RN 85 [facility] 320 [place] [address] Registered Nurse Hepatology 08/11/24 documented as of this encounter
--- OUTSIDE RECORDS SUMMARY | 2024-12-31 14:45 | XMS_ITS | Encounter Summary ---
Author Organization [facility] Address 100 [place] [address] Care Team Providers Care Online Program Coordinator Name Role Phone Bijan Magana MD Unavailable Unavailable Jonh Hobson MD Unavailable [phone] Pcp, No Primary Care Provider UnavailJacquelyn Baxter NP Primary Care Provider Ayde Zheng RN Unavailable [phone] Encounter Details Date Type Department Care Team (Late st Contact Info) Description 11/18/2022 Scanned Document [facility] [place] [facility] [address] [place] [phone] Endy Vo MD 85 [facility] 815 [place], [place] [phone] Social History Tobacco Use Types Packs/Day Years [...] Description 01/12/2025 10:00 AM EDT Office Visit [facility] Medical Oncology at [address] [phone] Deanne Daniel MD [address] [place] [address] 01/12/2025 10:45 AM EDT Infusion [facility] at [facility] Out[facility]fusion Center [address] [place] [phone] Deanne Daniel MD [address] [place] [address] 01/13/2025 10:00 AM EDT Infusion [facility] [place] Infusion [address] [phone] Deanne Daniel MD [address] [place] [address] [phone] 01/20/2025 1:00 PM EDT Office Visit [facility] Rheumatology [address] [address] Jonh Hobson MD 31 [facility] 206 [place], [place] [phone] 01/27/2025 11:30 AM EDT Consult [facility] Transplant Program & [facility] 85 [facility] 320 [place] [address] Jonh Hobson MD 31 [facility] 206 [place], [place] [phone] Jayne Morales, 300 [place] [address] 02/01/2025 11:40 AM EDT Office Visit [facility]romuscular [place] [facility] 85 [facility] 815 [place] [address] Luis Damon MD [facility]4 [place] [address] 02/16/2025 9:45 AM EDT [facility] [address] [phone] Grey Trinidad MD [address] [place] [address] 04/26/2025 10:00 AM EDT Infusion [facility] Cancer [place] at [facility]fusion Center 85 [place] [phone] Deanne Daniel MD 85 [place], [place] [phone] documented as of this encounter Visit Diagnoses Not on filedocumented in this encounter Care Teams Online Program Coordinator Relationship Specialty Start Date End Date Pcp, No PCP - General General Medicine 04/22/24 05/17/24 Jacquelyn Garcia NP [address] [place] [place] [address] PCP - General Family Medicine 05/18/24 Bijan Magana MD Rheumatology 11/09/23 12/31/23 Jonh Hobson MD 31 [facility] 206 [place] [address] Rheumatology 01/01/24 Ayde Zheng, RN 85 [facility] 320 [place], [place] [phone] Registered Nurse Hepatology 08/11/24 documented as of this encounter
--- OUTSIDE RECORDS SUMMARY | 2024-12-31 14:45 | XMS_ITS | Encounter Summary ---
Author Organization [facility] Address 100 [place] [address] Care Team Providers Care Type Disk Quality Control Supervisor Name Role Phone Bijan Magana MD Unavailable Unavailable Jonh Hobson MD Unavailable [phone] Pcp, No Primary Care Provider UnavailJacquelyn Baxter NP Primary Care Provider Ayde Zheng RN Unavailable [phone] Encounter Details Date Type Department Care Team (Late st Contact Info) Description 11/21/2021 Scanned Document [facility] Rheumatology [address] [address] Boyd Cheng MD [address] [place] [address] Social History Tobacco Use Types Packs/Day [...] 01/12/2025 10:00 AM EDT Office Visit [facility] Medical Oncology at [address] [place] [address] Deanne Daniel MD [address] [place] [phone] 01/12/2025 10:45 AM EDT Infusion [facility] at [facility] Outpatient Infusion [address] [phone] Deanne Daniel MD [address] [place] [address] 01/13/2025 10:00 AM EDT Infusion [facility] [place] at [facility] Outpatient Infusion [address] [phone] Deanne Daniel MD [address] [place] [address] 01/20/2025 1:00 PM EDT Office Visit [facility] Rheumatology [address] [place] [phone] Jonh Hobson MD 31 [facility] 206 [place], [place] [address] 01/27/2025 11:30 AM EDT Consult [facility] Transplant Program & [facility] Liver Center 85 [facility] 320 [place] [phone] Jonh Hobson MD 31 [facility] 206 [place] [address] Jayne Morales, DO 300 [facility] [place] [address] 02/01/2025 11:40 AM EDT Office Visit [facility] Neuromuscular [place] [facility] 85 [facility] 815 [place] [phone] Luis Damon MD Critical access hospital4 [place], [place] [address] 02/16/2025 9:45 AM EDT [facility] [address] [place] [phone] Grey Trinidad MD [address] [place] [address] 04/26/2025 10:00 AM EDT Infusion [facility] Cancer [place] at [facility] Outpatient Infusion Center 85 [place] [address] Deanne Daniel MD 85 [place] [address] documented as of this encounter Visit Diagnoses Not on filedocumented in this encounter Care Teams Type Disk Quality Control Supervisor Relationship Specialty Start Date End Date Pcp, No PCP - General General Medicine 04/22/24 05/17/24 Jacquelyn Garcia NP [address] [place] [address] PCP - General Family Medicine 05/18/24 Bijan Magana MD Rheumatology 11/09/23 12/31/23 Jonh Hobson MD 31 [facility] 206 [place] [address] Rheumatology 01/01/24 Ayde Zheng RN 85 [facility] 320 [place] [address] Registered Nurse Hepatology 08/11/24 documented as of this encounter
--- OUTSIDE RECORDS SUMMARY | 2024-12-31 14:45 | XMS_ITS | Encounter Summary ---
Author Organization [employer] Address 75 [facility] 7t [place] [address] Care Team Providers Care Castings Drafter Name Role Phone Jacquelyn Garcia Primary Care Provider Unavailable Nuria Levin Unavailable Inactive/Transferred Primary Care Provider Shaneka Ford DO Primary Care Provider [phone] Encounter Details Date Type Department Care Team (Late st Contact Info) Description 11/27/2023 Orders Only [facility] 58 [place] [address] Jacquelyn Garcia FNP Social History Tobacco Use [...] on filedocumented in this encounter Care Teams Castings Drafter Relationship Specialty Start Date End Date Jacquelyn Garcia FNP PCP - General Family Medicine 08/06/22 06/01/24 Inactive/Transferred PCP - General 06/02/24 06/02/24 Shaneka Bailey DO [address] [place] [address] PCP - General Family Medicine 11/04/24 Nuria Levin Community Health Worker 12/09/22 documented as of this encounter
--- OUTSIDE RECORDS SUMMARY | 2024-12-31 14:45 | XMS_ITS | Encounter Summary ---
Author Organization [employer] Address 75 [facility] 7t [place] [address] Care Team Providers Care Inspector Floor Name Role Phone Jacquelyn Garcia Primary Care Provider Unavailable Nuria Levin Unavailable Inactive/Transferred Primary Care Provider Shaneka Ford DO Primary Care Provider [phone] Encounter Details Date Type Department Care Team (Late st Contact Info) Description 10/09/2023 Orders Only [facility] 58 [place] [address] Jacquelyn Garcia FNP Social History Tobacco Use [...] lead (10/01/2023 9:58 AM EST) Jacquelyn Garcia [facility] ECG ORDERABLES Final Result * CT Abdomen Pelvis w/ Contrast (10/01/2023 9:58 AM EST) Anatomical Region Laterality Modality Body, Pelvis, Abdomen Computed T omography Jacquelyn Garcia [facility] IMG CT PROCEDURES Lily l Result * CT Chest Pulmonary Embolism w/ Contrast (10/01/2023 9:57 AM EST) Anatomical Region Laterality Modality Body, Chest Computed Tomogra phy Jacquelyn Garcia [facility] IMG CT PROCEDURES Lily l Result documented in this encounter Visit Diagnoses Not on filedocumented in this encounter Care Teams Inspector Floor Relationship Specialty Start Date End Date Jacquelyn Garcia FNP PCP - General Family Medicine 08/06/22 06/01/24 Inactive/Transferred PCP - General 06/02/24 06/02/24 Shaneka Bailey DO [address] [place] [address] PCP - General Family Medicine 11/04/24 Nuria Levin Community Health Worker 12/09/22 documented as of this encounter
--- OUTSIDE RECORDS SUMMARY | 2024-12-31 14:45 | XMS_ITS | Encounter Summary ---
Author Organization [facility] Address 100 [place] [address] Care Team Providers Care Supply Chain Engineer Name Role Phone Bijan Magana MD Unavailable Unavailable Jonh Hobson MD Unavailable [phone] Pcp, No Primary Care Provider UnavailJacquelyn Baxter NP Primary Care Provider Ayde Zheng RN Unavailable [phone] Reason for Visit * Reason Comments Advice Only Encounter Details Date Type Department Care Team ([facility] st Contact Info) Description 01/09/2023 Telephone [facility] [id number] [address] [phone] Luis Damon MD [facility] [place] [address] Advice Only Social History Tobacco [...] Description 01/12/2025 10:00 AM EDT Office Visit [facility] Medical Oncology at [address] [phone] Deanne Daniel MD [address] [place] [phone] 01/12/2025 10:45 AM EDT Infusion [facility] Cancer [place] at [facility] Outpatient Infusion Center [address] [place] [phone] Deanne Daniel MD 85 [place] [address] 01/13/2025 10:00 AM EDT Infusion [facility] Cancer [place] at [facility] Outpatient Infusion Center [address] [place] [phone] Deanne Daniel MD 85 [place] [address] 01/20/2025 1:00 PM EDT Office Visit [facility] Medical [facility] Rheumatology [address] [place] [phone] Jonh Hobson MD [address] [address] 01/27/2025 11:30 AM EDT Consult [facility] Transplant Program & Comprehensive [facility] Center [address] [phone] Jonh Hobson MD [address] [phone] Jayne Morales, DO 300 [place] [address] 02/01/2025 11:40 AM EDT Office Visit [facility]romuscular [place] [facility] 85 [facility] 815 [place] [phone] Luis Damon MD [facility]4 [place] [address] 02/16/2025 9:45 AM EDT Consult [facility] [address] [place] [phone] Grey Trinidad MD [address] [place] [address] 04/26/2025 10:00 AM EDT Infusion [facility] Cancer [place] at [facility] Outpatient Infusion Center 85 [place] [phone] Deanne Daniel MD 85 [place] [address] documented as of this encounter Visit Diagnoses Not on filedocumented in this encounter Care Teams Supply Chain Engineer Relationship Specialty Start Date End Date Pcp, No PCP - General General Medicine 04/22/24 05/17/24 Jacquelyn Garcia NP 73 [place] [address] PCP - General Family Medicine 05/18/24 Bijan Magana MD Rheumatology 11/09/23 12/31/23 Jonh Hobson MD 31 [facility] 206 [place], [place] [phone] Rheumatology 01/01/24 Ayde Zheng, RN 85 [facility] 320 [place] [address] Registered Nurse Hepatology 08/11/24 documented as of this encounter
--- OUTSIDE RECORDS SUMMARY | 2024-12-31 14:45 | XMS_ITS | Encounter Summary ---
Author Organization [facility] Address 100 [place] [address] Care Team Providers Care Director Medical Safety Name Role Phone Bijan Magana MD Unavailable Unavailable Jonh Hobson MD Unavailable [phone] Pcp, No Primary Care Provider UnavailJacquelyn Baxter NP Primary Care Provider Ayde Zheng RN Unavailable [phone] Encounter Details Date Type Department Care Team (Late st Contact Info) Description 11/21/2021 Scanned Document [facility] Rheumatology [address] [address] Boyd Cheng MD [address] [place] [address] Social History Tobacco Use Types Packs/Day [...] [facility] Medical Oncology at [address] [place] [address] Deanne Daniel MD [address] [place] [phone] 01/12/2025 10:45 AM EDT Infusion [facility] at [facility] Outpatient Infusion [address] [phone] Deanne Daniel MD [address] [place] [address] 01/13/2025 10:00 AM EDT Infusion [facility] [place] at [facility] Outpatient Infusion [address] [phone] Deanne Daniel MD [address] [place] [address] 01/20/2025 1:00 PM EDT Office Visit [facility] Rheumatology [address] [place] [phone] Jonh Hobson MD 31 [facility] 206 [place], [place] [phone] 01/27/2025 11:30 AM EDT Consult [facility] Transplant Program & [facility] Liver Center 85 [facility] 320 [place] [phone] Jonh Hobson MD 31 [facility] 206 [place] [address] Jayne Morales, DO 300 [facility] [place] [address] 02/01/2025 11:40 AM EDT Office Visit [facility] Neuromuscular [place] [facility] 85 [facility] 815 [place] [phone] Luis Damon MD [facility]4 [place], [place] [address] 02/16/2025 9:45 AM EDT Consult [facility] [address] [place] [phone] Grey Trinidad MD [address] [place] [address] 04/26/2025 10:00 AM EDT Infusion [facility] Cancer [place] at [facility] Outpatient Infusion Center 85 [place] [address] Deanne Daniel MD 85 [place] [address] documented as of this encounter Visit Diagnoses Not on filedocumented in this encounter Care Teams Director Medical Safety Relationship Specialty Start Date End Date Pcp, No PCP - General General Medicine 04/22/24 05/17/24 Jacquelyn Garcia NP [address] [place] [address] PCP - General Family Medicine 05/18/24 Bijan Magana MD Rheumatology 11/09/23 12/31/23 Jonh Hobson MD 31 [facility] 206 [place] [address] Rheumatology 01/01/24 Ayde Zhegn RN 85 [facility] 320 [place] [address] Registered Nurse Hepatology 08/11/24 documented as of this encounter
== END 2024-12-31 15:42 | disposition home or self-care (01) ==
LOC: HO.HNS 14:42
PROVIDERS: Visit Provider Physician Assistant
DX: G95.9 Disease of spinal cord, unspecified (principal)
CPT/HCPCS: 99213

== ENCOUNTER → 2024-12-31 14:41 | Outpatient (BNVA) | payer OTHER, MEDICAID, SELFPAY | PROVIDERS: Visit Provider Physician Assistant ==